=== PATIENT | male | born 1960 | race African-American/Black ===

== ENCOUNTER 2021-09-04 11:08 | Inpatient (IN) | payer OTHER ==
--- NOTE | 2021-09-04 11:44 | RAD REPORT ---
EXAM DESCRIPTION: RAD - Chest Single View - 09/04/2021 11:39 am CLINICAL HISTORY: CONGESTION Chest pain. COMPARISON: No comparisons FINDINGS: Portable technique limits examination quality. The lungs are grossly clear. The heart is normal in size. No displaced fractures.Thoracic spine hardw are. IMPRESSION: No acute intrathoracic process suspected.
[2021-09-04] MEDS ORDERED: NA CHLORIDE 0.9% 2,000 ML ONE (12:13)
[2021-09-04] MEDS ORDERED: CEFEPIME 1 GM/VIAL ONE ×2 (12:25→21:07)
[2021-09-04] MEDS ORDERED: VANCOMYCIN 1 GM/VIAL ONE (12:25)
[2021-09-04] MEDS ORDERED: NA CHLORIDE 0.9% 500 ML ONE (12:26)
[2021-09-04 13:05] LABS: BUN Blood Urea Nitrogen 32 mg/dL (7-18); Bicarbonate 25 mmol/L (21-32); Glucose Level 104 mg/dL (74-106); Sodium Level 127 mmol/L (136-145)
[2021-09-04 13:11] LABS: Potassium 5.9 mmol/L (3.5-5.1)
[2021-09-04 14:13] LABS: Absolute Lymphocytes (CBC) 1.1 K/uL (0.7-4.9); Hematocrit 19.1 % (39.6-49.0); MPV 5.8 fL (7.6-11.3); RBC Red Blood Cell Count 2.51 M/uL (4.33-5.43)
[2021-09-04 14:15] LABS: Protime INR 1.53
[2021-09-04] MEDS ORDERED: INSULIN -REGULAR HUMAN 50 UNIT/0.5 ML ML ONE (14:34)
[2021-09-04] MEDS ORDERED: D50W 50 ML IV ONE (14:35)
[2021-09-04] MEDS ORDERED: SOD POLYSTYREN SUL 15 GM/60 ML UCUP ONE (14:35)
[2021-09-04] MEDS ORDERED: CALCIUM GLUCONATE 1 GM IVPB 1 GM/100 ML BAG IV ONE (14:39)
[2021-09-04] MEDS ORDERED: NA CHLORIDE 0.9% 1,000 ML ONE (14:43)
--- NOTE | 2021-09-04 14:51 | ER ---
Nurse's Notes [facility] Name: Harmeet Up Age: 61 yrs Sex: Male : 1960 Arrival Date: 09/04/2021 Time: 11:12 Bed 15 Private MD: Diagnosis: Other specified sepsis;Sepsis, unspecified organism;Hyperkalemia-And hyponatremia Presentation: 09/04 11:13 Chief complaint: EMS states: report from EMS they were contacted because pt was cb5 difficult to awaken this morning, report of low blood pressure. Coronavirus screen: Client denies travel out of the [place] in the last 14 days. At this time, the client does not indicate any symptoms associated with coronavirus-19. Initial Sepsis Screen: Does the patient meet any 2 criteria? No. Patient's initial sepsis screen is negative. Does the patient have a suspected source of infection? No. Patient's initial sepsis screen is negative. Risk Assessment: Do you want to hurt yourself or someone else? Patient reports no desire to harm self or others. Onset of symptoms was September 04, 2021. 11:13 Method Of Arrival: EMS: [facility] cb5 11:13 Acuity: RUSSELL 3 cb5 11:28 Ebola Screen: Patient denies travel to an Ebola-affected area in the 21 days before cb5 illness onset. Patient reports travel to Ebola-affected area in the 21 days before illness onset. Triage Assessment: 11:17 General: Appears comfortable, slender, Behavior is calm, drowsy. Pain: Denies pain. cb5 - Immunization history:: Adult Immunizations up to date. - Social history:: Patient/guardian denies using Patient/guardian denies using alcohol, street drugs, The patient lives with family, Smoking status: unknown. - Family history:: not pertinent. Screenin:27 Abuse screen: Denies threats or abuse. Denies injuries from another. Nutritional cb5 screening: No deficits noted. Tuberculosis screening: No symptoms or risk factors identified. Fall Risk Secondary diagnosis (15 points) impaired mobility, IV access (20 points). Total [place] Fall Scale indicates Low Risk Score (25-44 pts). Fall prevention measures have been instituted. Side Rails Up X 2 Placed close to Nursing Station. Assessment: 11:18 General: Appears. cb5 11:20 General: Appears comfortable, slender, Behavior is calm, cooperative, drowsy. Pain: cb5 Denies pain. Neuro: No deficits noted. Cardiovascular: No deficits noted. Respiratory: No deficits noted. GI: colostomy bag LUQ intact, healthy stoma site. : Cunningham in place. 11:25 EENT: No deficits noted. Derm: Decubitus located on stage four sacral/lumbar site. 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 11:50 Reassessment: Attempted P.I.V placement unable to obtain, second nurse attempting, cb5 unable to obtain. 12:00 Reassessment: Second nurse able to obtain 20 g P.I.V to RT ac. cb5 14:25 Reassessment: P.I.V in rt AC clotted. Another nurse attempted P.I.V placement without cb5 success, M.DIlir aware. 14:44 Reassessment: Two nurses attempted P.I.V placement, unable to obtain having third nurse cb5 attempt placing E.Zeke. Tomy aware of attempts for P.I.V access. Vital Signs: 11:13 BP 85 / 53; Pulse 85; Resp 16; Temp 98.4; Pulse Ox 100% ; Pain 0/10; cb5 11:17 BP 85 / 53; Pulse 84; Resp 16; Temp 98.4; Pulse Ox 100% ; Pain 0/10; cb5 11:45 BP 82 / 54; Pulse 70; Resp 16; Pulse Ox 100% ; cb5 12:23 BP 99 / 54; Pulse 74; Resp 16; cb5 12:45 BP 102 / 69; Pulse 70; Resp 16; Pulse Ox 98% ; cb5 13:15 BP 110 / 70; Pulse 74; Resp 16; Pulse Ox 98% ; cb5 13:30 BP 104 / 67; Pulse 77; Resp 16; Pulse Ox 98% ; cb5 ED Course: 11:12 Patient arrived in ED. cb5 11:13 Cara Sotelo, GURPREET is Primary Nurse. cb5 11:16 Monique Bhatt MD is Attending Physician. ma2 11:16 Triage completed. cb5 11:18 Arm band placed on right wrist. cb5 11:28 Patient has correct armband on for positive identification. Allergy band placed. Fall cb5 risk band placed. Bed in low position. Call light in reach. Side rails up X2. 11:28 No provider procedures requiring assistance completed. cb5 11:39 Chest Single View XRAY In Process Unspecified. EDMS 12:00 Inserted saline lock: 22 gauge in left antecubital area, using aseptic technique. Blood vg1 collected. 12:20 Amylase, Serum Sent. cb5 12:20 Basic Metabolic Panel Sent. cb5 12:20 Blood Culture Adult (2) Sent. cb5 12:20 CBC with Diff Sent. cb5 12:21 CPK Sent. cb5 12:21 Ckmb Sent. cb5 12:21 LFT's Sent. cb5 12:21 Lactate Sent. cb5 12:21 Lipase Sent. cb5 12:21 Procalcitonin Sent. cb5 12:21 Protime (+inr) Sent. cb5 12:21 Ptt, Activated Sent. cb5 12:21 Troponin HS Sent. cb5 12:22 Lactate Sent. cb5 12:22 Amylase Sent. cb5 12:22 Basic Metabolic Panel Sent. cb5 12:22 CBC with Automated Diff Sent. cb5 12:46 SARS-COV-2 RT PCR (Document "Date of Onset" if Symptomatic) Sent. cb5 14:50 Giovanni Romano is Hospitalizing Provider. ma2 Administered Medications: 11:45 Drug: NS 0.9% 1000 ml Route: IV; Rate: 1 bolus; Site: left antecubital; cb5 12:20 Drug: NS 0.9% 1000 ml Route: IV; Rate: 1 bolus; Site: left antecubital; vg1 12:30 Drug: Cefepime 1 grams Route: IVPB; Rate: 200 ml/hr; Infused Over: 30 mins; Site: right cb5 antecubital; 12:46 Drug: vancoMYCIN 1 grams Route: IVPB; Infused Over: 2 hrs; Site: left antecubital; cb5 14:30 Drug: Insulin Regular Human 6 units {Co-Signature: vg1 (An Garcia RN).} Route: cb5 IVP; Site: left antecubital; 14:30 Drug: D50W 50 ml Route: IVP; Site: left antecubital; cb5 14:30 Drug: Kayexalate (polystyrene) 60 grams Route: PO; cb5 14:30 Drug: NS 0.9% 1000 ml Route: IV; Rate: 1 bolus; Site: left antecubital; 5 14:45 Drug: Calcium Gluconate 1 grams Route: IVPB; Infused Over: 60 mins; Site: left cb5 antecubital; Outcome: 14:50 Decision to Hospitalize by Provider. ma2 16:21 Admitted to Med/surg accompanied by tech, via stretcher, room 214, Gave report to 5 Summer Thompson, on monitor. 16:21 Condition: stable 16:28 Patient left the ED. iw Signatures: Dispatcher [employer] EDSharita Schuster RN RN Monique Gonzalez MD MD ma2 An Garcia RN RN vg1 Cara Sotelo RN RN 5 An Garcia RN vg1
--- NOTE | 2021-09-04 14:51 | EDPHYS ---
Physician Documentation [facility] Name: Harmeet Up Age: 61 yrs Sex: Male : 1960 Arrival Date: 09/04/2021 Time: 11:12 Bed 15 Private MD: ED Physician Monique Bhatt HPI: 09/04 11:20 This 61 yrs old Male presents to ER via EMS with complaints of Sore throat, low blood ma2 pressure. 11:20 Onset: The symptoms/episode began/occurred gradually, 1 day(s) ago. Severity of ma2 symptoms: At their worst the symptoms were moderate, in the emergency department the symptoms are unchanged. Associated signs and symptoms: Pertinent negatives: diarrhea, ear ache, fever, nausea, rhinorrhea, vomiting. The patient has experienced similar episodes in the past. - Immunization history:: Adult Immunizations up to date. - Social history:: Patient/guardian denies using Patient/guardian denies using alcohol, street drugs, The patient lives with family, Smoking status: unknown. - Family history:: not pertinent. ROS: 11:20 Constitutional: Negative for fever, chills, and weight loss. ma2 11:20 All other systems are negative. Exam: 11:20 Constitutional: This is a well developed, well nourished patient who is awake, alert, ma2 and in no acute distress. Head/Face: Normocephalic, atraumatic. Eyes: Pupils equal round and reactive to light, extra-ocular motions intact. Lids and lashes normal. Conjunctiva and sclera are non-icteric and not injected. Cornea within normal limits. Periorbital areas with no swelling, redness, or edema. ENT: Nares patent. No nasal discharge, no septal abnormalities noted. Tympanic membranes are normal and external auditory canals are clear. Oropharynx with no redness, swelling, or masses, exudates, or evidence of obstruction, uvula midline. Mucous membranes moist. Chest/axilla: Normal chest wall appearance and motion. Nontender with no deformity. No lesions are appreciated. Cardiovascular: Regular rate and rhythm with a normal S1 and S2. No gallops, murmurs, or rubs. Normal PMI, no JVD. No pulse deficits. Respiratory: Lungs have equal breath sounds bilaterally, clear to auscultation and percussion. No rales, rhonchi or wheezes noted. No increased work of breathing, no retractions or nasal flaring. Abdomen/GI: Has colostomy bag, otherwise soft, non-tender, with normal bowel sounds. No distension or tympany. No guarding or rebound. No evidence of tenderness throughout. Back: No spinal tenderness. No costovertebral tenderness. Full range of motion. MS/ Extremity: Pulses equal, no cyanosis. Neurovascular intact. Full, normal range of motion. Neuro: Awake and alert, GCS 15, oriented to person, place, time, and situation. Cranial nerves II-XII grossly intact. Motor strength 5/5 in all extremities. Sensory grossly intact. Cerebellar exam normal. Normal gait. Vital Signs: 11:13 BP 85 / 53; Pulse 85; Resp 16; Temp 98.4; Pulse Ox 100% ; Pain 0/10; cb5 11:17 BP 85 / 53; Pulse 84; Resp 16; Temp 98.4; Pulse Ox 100% ; Pain 0/10; cb5 11:45 BP 82 / 54; Pulse 70; Resp 16; Pulse Ox 100% ; cb5 12:23 BP 99 / 54; Pulse 74; Resp 16; cb5 12:45 BP 102 / 69; Pulse 70; Resp 16; Pulse Ox 98% ; cb5 13:15 BP 110 / 70; Pulse 74; Resp 16; Pulse Ox 98% ; cb5 13:30 BP 104 / 67; Pulse 77; Resp 16; Pulse Ox 98% ; cb5 MDM: 11:16 Patient medically screened. ma2 14:49 Differential Diagnosis: Bronchitis Influenza Upper Respiratory Infection Pharyngitis. ma2 Data reviewed: vital signs, nurses notes. Counseling: I had a detailed discussion with the patient and/or guardian regarding: the historical points, exam findings, and any diagnostic results supporting the discharge/admit diagnosis, the presence of at least one elevated blood pressure reading (>120/80) during this emergency department visit, the need for outpatient follow up. Medical screen evaluation completed. EMTALA emergency medical condition absent. Response to treatment: the patient's symptoms have markedly improved after treatment. ED course: Patient has sepsis with no source yet. Discussed with Dr. Romano,. 09/04 11:18 Order name: Amylase, Serum ma2 09/04 11:18 Order name: Basic Metabolic Panel ma2 09/04 11:18 Order name: Blood Culture Adult (2) ms2 09/04 11:18 Order name: CBC with Diff [facility] 09/04 11:18 Order name: CPK [facility] 09/04 11:18 Order name: Ckmb [facility] 09/04 11:18 Order name: LFT's [facility] 09/04 11:18 Order name: Lactate; Complete Time: 12:48 [facility] 09/04 11:18 Order name: Lipase [facility] 09/04 11:18 Order name: Procalcitonin; Complete Time: 13:24 [facility] 09/04 11:18 Order name: Protime (+inr); Complete Time: 14:49 [facility] 09/04 11:18 Order name: Ptt, Activated; Complete Time: 14:49 [facility] 09/04 11:18 Order name: Troponin HS [facility] 09/04 11:18 Order name: Urine Microscopic Only [facility] 09/04 11:18 Order name: Chest Single View XRAY; Complete Time: 12:48 [facility] 09/04 11:18 Order name: SARS-COV-2 RT PCR (Document "Date of Onset" if Symptomatic); Complete Time: [facility] 14:49 09/04 11:18 Order name: Amylase [facility] 09/04 11:18 Order name: Basic Metabolic Panel [facility] 09/04 11:18 Order name: Blood Culture [facility] 09/04 11:18 Order name: CBC with Automated Diff [facility] 09/04 14:55 Order name: CT Abd/Pelvis - IV Contrast Only [facility] 09/04 15:22 Order name: Type And Screen 09/04 11:18 Order name: Accucheck; Complete Time: 12:22 [facility] 09/04 11:18 Order name: Cardiac monitoring; Complete Time: 11:29 [facility] 09/04 11:18 Order name: EKG - Nurse/Tech; Complete Time: 12:21 [facility] 09/04 11:18 Order name: IV Saline Lock - Large Bore; Complete Time: 12:21 [facility] 09/04 11:18 Order name: Labs collected and sent; Complete Time: 12:21 [facility] 09/04 11:18 Order name: O2 Per Protocol; Complete Time: 11:29 [facility] 09/04 11:18 Order name: O2 Sat Monitoring; Complete Time: 11:29 [facility] 09/04 11:18 Order name: Urine Dipstick-Ancillary (obtain specimen) ms2 09/04 12:32 Order name: Labs - recollect needed: recollect green and lavender top; Complete Time: bd 14:52 09/04 14:49 Order name: Cunningham; Complete Time: 15:46 ms2 09/04 14:55 Order name: Transfuse: 2 units pRBC, over 2 hrs ma2 Administered Medications: 11:45 Drug: NS 0.9% 1000 ml Route: IV; Rate: 1 bolus; Site: left antecubital; cb5 12:20 Drug: NS 0.9% 1000 ml Route: IV; Rate: 1 bolus; Site: left antecubital; vg1 12:30 Drug: Cefepime 1 grams Route: IVPB; Rate: 200 ml/hr; Infused Over: 30 mins; Site: right cb5 antecubital; 12:46 Drug: vancoMYCIN 1 grams Route: IVPB; Infused Over: 2 hrs; Site: left antecubital; cb5 14:30 Drug: Insulin Regular Human 6 units {Co-Signature: vg1 (An Garcia RN).} Route: cb5 IVP; Site: left antecubital; 14:30 Drug: D50W 50 ml Route: IVP; Site: left antecubital; cb5 14:30 Drug: Kayexalate (polystyrene) 60 grams Route: PO; cb5 14:30 Drug: NS 0.9% 1000 ml Route: IV; Rate: 1 bolus; Site: left antecubital; cb5 14:45 Drug: Calcium Gluconate 1 grams Route: IVPB; Infused Over: 60 mins; Site: left cb5 antecubital; Disposition Summary: 09/04/21 14:50 Hospitalization Ordered Hospitalization Status: Inpatient Admission ma2 Provider: Giovanni Romano Location: Telemetry/MedSurg (Inpatient) ma2 Condition: Stable ma2 Problem: new ma2 Symptoms: are unchanged ma2 Bed/Room Type: Standard [facility] Room Assignment: 214(09/04/21 15:52) dw Diagnosis - Other specified sepsis ma2 - Sepsis, unspecified organism ma2 - Hyperkalemia - And hyponatremia ma2 Forms: - Medication Reconciliation Form ma2 - SBAR form ms2 Signatures: Dispatcher [employer] Francine Akins Diana RN RN dw Monique Bhatt MD MD ma2 An Garcia RN RN vg1 Cara Sotelo RN RN cb5 An Garcia RN vg1 Corrections: (The following items were deleted from the chart) 15:52 14:50 lesvia whaley
--- NOTE | 2021-09-04 16:21 | P.HP ---
Certification for Inpatient Patient admitted to: Inpatient With expected LOS: >2 Midnights Practitioner: I am a practitioner with admitting privileges, knowledge of patient current condition, hospital course, and medical plan of care. Services: Services provided to patient in accordance with Admission requirements found in Title 42 Section 412.3 of the Code of Federal Regulations Patient History Date of Service: 09/04/21 Reason for admission: Hypotension History of Present Illness: 61-year-old assisted resident with a history of type 2 diabetes, paraplegia, GERD, chronic anemia, bipolar disorder, major depressive disorder, sacral decubitus ulcer was transferred from the assisted to the emergency department due to hypotension. Patient noted to have low blood pressure, no report of fever. Patient reports shortness of breath, had a sore throat 1 week ago, he denies abdominal pain, has a colostomy bag with loose stools, no watery diarrhea. He denied any cough or chest pain. He denied any confusion. His systolic blood pressure reported to be in the 80s in the ED. blood work showed severe leukocytosis, hyperkalemia and hyponatremia. Lactate elevated. Patient diagnosed with severe sepsis. CT abdomen and pelvis ordered and the result is pending. Sepsis protocol initiated and patient given 2 L IV normal saline bolus. Blood pressure responded to the normal saline bolus and systolic currently in the 100s. Patient given IV antibiotics and admitted for further management. - Past Medical/Surgical History -: DM type II -: UTI -: GERD -: Paraplegia -: Neurogenic bladder -: Bipolar disorder -: Sacral decubitus ulcer -: Protein calorie malnutrition -: Colostomy - Family History Mother -: Other (see notes) (Dementia) - Social History Smoking Status: Former smoker Alcohol use: No CD- Drugs: No Place of Residence: Detention Review of Systems Other: Except as documented, all other systems reviewed and negative. Physical Examination - Physical Exam General: Alert, In no apparent distress, Oriented x3, Cachectic HEENT: Normocephalic, PERRLA, Mucous membr. moist/pink, Sclerae nonicteric Neck: Supple, JVD not distended Respiratory: Clear to auscultation bilaterally, Normal air movement Cardiovascular: Regular rate/rhythm, Normal S1 S2, Edema (Left leg) Capillary refill: <2 Seconds Gastrointestinal: Normal bowel sounds, Soft and benign, Non-distended, No tenderness, Other (Colostomy) Musculoskeletal: Other (Bilateral transmetatarsal amputation) Integumentary: Other (Large stage IV sacral decubitus ulcer with necrotic base) Neurological: Normal speech, Other (Paraplegia.) Lymphatics: No axilla or inguinal lymphadenopathy - Studies Laboratory Data (last 24 hrs) 09/04/21 13:39: PT 17.7 H, INR 1.53, APTT 29.5 09/04/21 13:39: WBC 27.00 H*, Hgb 5.7 L*, Hct 19.1 L*, Plt Count 872 H 09/04/21 12:10: Sodium 127 L, Potassium 5.9 H*, BUN 32 H, Creatinine 1.66 H, Glucose 104 Assessment and Plan - Problems (Diagnosis) (1) Septic shock Current Visit: Yes Status: Acute (2) Infected decubitus ulcer Current Visit: Yes Status: Acute (3) Paraplegia Current Visit: Yes Status: Acute (4) Diabetes mellitus type 2 in nonobese Current Visit: Yes Status: Acute (5) Hyperkalemia Current Visit: Yes Status: Acute (6) Hyponatremia Current Visit: Yes Status: Acute - Plan Patient blood pressure has responded to IV resuscitation in the ED. Admitted to the medical floor. Sepsis protocol initiated. Serial lactate levels. Start broad-spectrum antibiotic-IV cefepime and vancomycin. Aggressively hydrate with IV normal saline. Blood cultures obtained in the ED to be followed. Obtain wound culture General surgery-Dr. Hagan consulted to evaluate sacral decubitus ulcer for debridement. Follow CT abdomen pelvis result. Insulin sliding scale for glucose management. Anticipating OR for surgical debridement. Hold DVT prophylaxis. Keep n.p.o. overnight. Pain management as needed. - Advance Directives Does patient have a Living Will: No Does patient have a Durable POA for Healthcare: No
[2021-09-04] MEDS ORDERED: SOD POLYSTYREN SUL 15 GM/60 ML UCUP PO ONE (16:26)
--- NOTE | 2021-09-04 16:51 | RAD REPORT ---
EXAM DESCRIPTION: CTAbdomen Pelvis W Contrast - 09/04/2021 4:41 pm CLINICAL HISTORY: ABD PAIN COMPARISON: Thoracic Spine W/Wo Contr dated 08/14/2020; Bone Imaging Whole Body dated 08/28/2021; Ches t Abdomen Pelvis W Cont dated 08/28/2021; Chest Abdomen Pelvis W Cont dated 10/31/2020; Chest Abdomen Pe lvis W Cont dated 05/21/2020No comparisons TECHNIQUE: CT of the abdomen and pelvis was performed. All CT scans are performed using dose optimization technique as appropriate and may include automated exposure control or mA/KV adjustment according to patient size. FINDINGS: Lower chest: Subpleural cystic structure in the left lower lobe of doubtful clinical signi ficance. Liver: No acute abnormality or suspicious lesions. Biliary: No biliary ductal dilatation. Stomach: No significant focal abnormality. Duodenum: No significant focal abnormality. Pancreas: No significant abnormality. Spleen: No significant abnormality. Adrenal: No suspicious lesions. Kidney/ureter: No hydronephrosis. No renal calculi. Retroperitoneum: No retroperitoneal adenopathy. Vascular: Atherosclerosis Bowel: Left lower quadrant ostomy. No bowel obstruction.. Peritoneum: No ascites or free air. Fat containing right inguinal hernia. Bladder: Cunningham catheter in the bladder. Reproductive: No adnexal masses. Bones: Sclerosis involving both of the ischia and left proximal femur. Gas and fluid containing this measures at least 25 cm in CC dimension but is only partially imaged. Collection in the right hip ext ending from the right gluteus musculature and along the right vastus lateralis muscle. Other: n/a IMPRESSION: Gas and fluid containing collection in the right hip and along the gluteus musculature c oncerning for abscess. Destructive changes at both of the ischia and left femur presumably sequela of chronic osteomyelitis.
[2021-09-04] MEDS: NA CHLORIDE 0.9% 1,000 ML IV SCH ×2 (17:19→20:14)
[2021-09-04] MEDS ORDERED: NA CHLORIDE 0.9% 500 ML IV ONE (17:19)
[2021-09-04] MEDS: INSULIN -REGULAR HUMAN 50 UNIT/0.5 ML ML SQ SCH ×2 (17:19→21:00)
[2021-09-04] MEDS ORDERED: ACETAMINOPHEN 500 MG TAB PO PRN (17:19)
[2021-09-04] MEDS ORDERED: SODIUM CHL 0.9% 1000 ML BAG IV ONE (17:19)
[2021-09-04] MEDS ORDERED: ONDANSETRON 4 MG/2 ML VIAL IV PRN (17:19)
[2021-09-04 17:32] LABS: ALT/SGPT 11 U/L (12-78); AST/SGOT 33 U/L (15-37); Alkaline Phosphatase 224 U/L (45-117); Bilirubin Direct 0.2 mg/dL (0-0.2); Bilirubin Total 0.4 mg/dL (0.2-1.0); Creatine Phosphokinase 745 U/L (39-308); Lipase 21 U/L (73-393); Protein, Total 8.1 g/dL (6.4-8.2)
[2021-09-04] MEDS: MORPHINE 2 MG/ML SYR IV PRN ×2 (17:51→22:01)
[2021-09-04] MEDS ORDERED: VANCOMYCIN 500 MG in NA CHLORIDE 0.9% 100 ML IVPB ONE (18:00)
[2021-09-04] MEDS ORDERED: NA CHLORIDE 0.9% 1,000 ML IV ONE (18:15)
[2021-09-04 19:45] LABS: Albumin 0.7 g/dL (3.4-5.0); CKMB Creatine Kinase MB 16.3 ng/mL (1.0-3.6)
[2021-09-04 19:59] LABS: Amylase 14 U/L (25-115)
[2021-09-04 20:47] LABS: Anisocytosis 1+; Blood Morphology Comment NOT SEEN (NOT SEEN); Hypochromasia 1+; Ovalocytes 1+; Platelet Estimate INCR; Poikilocytosis 1+; Teardrop Cell FEW
[2021-09-04] MEDS: CEFEPIME 2 GM in NA CHLORIDE 0.9% 100 ML IV SCH (21:00)
[2021-09-04] MEDS ORDERED: NOREPINEPHRINE 4mg/D5W 250mL 4 MG/250 ML BAG IV ONE (21:09)
[2021-09-04] MEDS ORDERED: NA CHLORIDE 0.9% 100 ML ONE (21:09)
[2021-09-04] MEDS: NOREPINEPHRINE 4 MG in D5W 250 ML IV SCH (21:15)
[2021-09-04] MEDS ORDERED: NA CHLORIDE 0.9% 250 ML ONE (23:00)
--- NOTE | 2021-09-05 04:25 | P.INFCA ---
Sepsis Focused Assessment - Sepsis Screen Result Severe Sepsis: Negative Septic Shock: Negative - Evaluation Current stage of sepsis: Ruled out Reason for ruling out sepsis: does not meet criteria - Vital Signs Reviewed: Yes Heart rate: 84 Blood Pressure: 105/59 Respiratory Rate: 16 - Examination Date exam was performed: 09/05/21 Time exam was performed: 00:00 Heart: Regular rate/rhythm, S1, S2 Lungs: Clear bilaterally Peripheral pulses: 3+ Normal Peripheral pulse location: Radial Capillary refill: <2 Seconds Skin examination: Normal turgor <Taye Jo - Last Filed: 09/05/21 04:26> - Sepsis Screen Result Severe Sepsis: Positive Septic Shock: Positive - Evaluation Current stage of sepsis: Severe sepsis - Examination Peripheral pulses: 1+ Faint <quoc aguilar - Last Filed: 09/08/21 19:35>
[2021-09-05 05:41] LABS: Urine Appearance CLOUDY (Clear); Urine Bilirubin NEGATIVE (Negative); Urine Blood 2+ (Negative); Urine Color YELLOW (Yellow); Urine Glucose NEGATIVE (Negative); Urine Protein 1+ (Negative); Urine Specific Gravity >=1.030 (1.005-1.030); Urine Urobilinogen 0.2 mg/dL (0.2-1.0)
[2021-09-05 05:57] LABS: Absolute Lymphocytes (CBC) 0.8 K/uL (0.7-4.9); Hematocrit 24.8 % (39.6-49.0); MPV 5.8 fL (7.6-11.3); RBC Red Blood Cell Count 3.15 M/uL (4.33-5.43)
[2021-09-05 06:13] LABS: Urine Microscopic Reflex ORDER UMIC
[2021-09-05 06:19] LABS: Urine Bacteria 20-50 /HPF (NONE SEEN); Urine Mucus 1+ /HPF (NONE SEEN)
[2021-09-05 06:24] LABS: Protime INR 1.56
--- NOTE | 2021-09-05 06:30 | P.CNS ---
Date of Consult: 09/05/21 Reason for Consult: renal failure Requesting Physician: quoc aguilar Chief Complaint: Hypotension History of Present Illness: 61M SN[facility] resident w/ PMHx of DM2, bipolar dso, paraplegia c/b sacral decubitus ulcer, GERD, & anemia, who p/w hypotension, leukocytosis, & lactic acidosis, admitted for septic shock 2/2 infected decubitus ulcer, c/b MAURI. He received IV fluid resuscitation & empiric abx. SCr on adm 1.7, improved to 1.0 today. He underwent excisional debridement of infected sacral decubitus ulcer today. Also had severe anemia & he received pRBC transfusion. Allergies No Known Allergies Allergy (Unverified 09/04/21 17:18) - Past Medical/Surgical History -: DM type II -: UTI -: GERD -: Paraplegia -: Neurogenic bladder -: Bipolar disorder -: Sacral decubitus ulcer -: Protein calorie malnutrition -: Colostomy - Family History Mother Medical History: Other (see notes) - Social History Smoking Status: Unknown if ever smoked Alcohol use: No CD- Drugs: No Caffeine use: No Place of Residence: Skilled Nursing Review of Systems General: Weakness Eyes: Unremarkable ENT: Unremarkable Respiratory: SOB with Excertion Cardiovascular: Unremarkable Gastrointestinal: Unremarkable Musculoskeletal: Other (Paraplegia) Integumentary: Other (Sacral decubitus) Neurological: Weakness Lymphatics: Unremarkable Physical Examination Temp Pulse Resp BP Pulse Ox 98.4 F 88 19 108/53 L 100 09/05/21 04:00 09/05/21 06:26 09/05/21 06:26 09/05/21 06:26 09/05/21 06:26 General: Other (appears acutely ill) HEENT: Atraumatic, Normocephalic Neck: Supple Respiratory: Other (symmetric chest expansion) Cardiovascular: No rubs, No murmurs Gastrointestinal: Soft and benign, No guarding, Other (+colostomy) Musculoskeletal: No clubbing Integumentary: Other (+sacral wound) Neurological: Normal tone Urinary: Suprapubic catheter External genitalia: Deferred Rectal: Deferred Laboratory Data (last 24 hrs) 09/04/21 13:39: PT 17.7 H, INR 1.53, APTT 29.5 09/04/21 13:39: WBC 27.00 H*, Hgb 5.7 L*, Hct 19.1 L*, Plt Count 872 H 09/04/21 12:10: Sodium 127 L, Potassium 5.9 H*, BUN 32 H, Creatinine 1.66 H, Glucose 104, Total Bilirubin 0.4, AST 33, ALT 11 L, Alkaline Phosphatase 224 H, Amylase 14 L, Lipase 21 L Conclusions/Impression: # MAURI 2/2 ischemic atn from septic shock NS gtt at 75 cc/hr Start Midodrine 10 mg po tid Wean off levo gtt as able MAP goal > 65 Strict I/O, renal panel # Septic shock 2/2 R hip/gluteal abscess/osteomyelitis IV Abx per primary team S/p excisional debridement of infected sacral decubitus on 09/05 F/u BCx, tissue cx # Severe anemia S/p pRBC transf on 09/04 # Paraplegia +Suprapubic catheter +Colostomy Per other services # DM2 Mngt per primary team
[2021-09-05 06:34] LABS: BUN Blood Urea Nitrogen 32 mg/dL (7-18); Bicarbonate 19 mmol/L (21-32); Glucose Level 152 mg/dL (74-106); Magnesium 1.8 mg/dL (1.8-2.4); Phosphorus 3.5 mg/dL (2.5-4.9); Sodium Level 134 mmol/L (136-145)
[2021-09-05] MEDS: INSULIN -REGULAR HUMAN 50 UNIT/0.5 ML ML SQ SCH ×4 (07:30→21:00)
[2021-09-05] MEDS ORDERED: NA CHLORIDE 0.9% 250 ML ONE (08:32)
[2021-09-05] MEDS: MORPHINE 2 MG/ML SYR IV PRN ×2 (08:45→15:50)
--- NOTE | 2021-09-05 10:08 | CON ---
Date of Consultation: 09/04/2021 Reason For Consultation: Infected sacral decubitus. History Of Present Illness: The patient is a 61-year-old gentleman with paraplegia secondary to stap h infection that occurred several years ago who is a [facility] patient and has a large sacral decu bitus, came in from the [facility] with hypotension. He had a little bit of shortness of breath an d sore throat, chest pain, low-grade fever. No history of active purulence from the sacral decubitus . He does have a colostomy bag and suprapubic catheter. He came in with severe sepsis. Sepsis code was called and appropriate measures were taken. He is in the ICU. He had hypotension last night an d his blood pressure has been managed with Levophed and he is on the 2 mcg of Levophed now with vital signs are more stable. He is awake and alert. Denies any pain secondary to the paraplegia. Review of Systems: Otherwise unremarkable. Past Medical History: Type 2 diabetes, history of UTI, GERD, paraplegia, neurogenic bladder, bipolar disorder, history of sacral decubitus for several years, protein-calorie malnutrition. Past Surgical History: Suprapubic catheter and colostomy. Allergies: NONE. Social History: The patient used to smoke, currently does not drink alcohol. Family History: Significant for dementia in the mother. Physical Examination: Vital Signs: Currently his pulse rate of 88, respiratory rate of 19 and a blood pressure of 108/53 a nd he is saturating at 100% on nasal cannula at 4 L/minute. General: He is awake, alert, and oriented x3. Head and Neck: Cranial nerves 2 through 12 are grossly within normal limits. No neck masses. No JV D. Throat clear. Neck supple. Chest: Clear. Heart: S1, S2. Abdomen: Soft. Colostomy and suprapubic catheter placed. On the sacrum, there is a large sacral de cubitus, greater than 25 cm with a necrotic tissue. Some granulation tissue. It is hard to apprecia te whether there is an abscess present clinically, surrounding redness, erythema, warmth. Laboratory Data: CT of the abdomen and pelvis shows gas and fluid containing collection in the right hip along the gluteus musculature concerning for abscess, destructive changes to both ischia and lef t femur presumably sequela of chronic osteomyelitis. His laboratory data yesterday was 27,000, this morning is 27,000.70. H and H was 5.7 and 19.1 and after 2 units of transfusion 7.7 and 24.8. His p latelet count is 853 today, INR is 1.56. Chemistry reviewed. His potassium was 5.9 yesterday, today is 4.0. His sodium is up to 134. His lactic acid was elevated at 2.4, now is 1.6, procalcitonin wa s 3.17, his albumin is 0.7. Assessment: A 61-year-old gentleman with multiple medical problems with infected sacral decubitus, c omplicated by severe sepsis, hyperkalemia, anemia, hypotension. Recommendations: The patient requires debridement of the necrotic tissue that is present and I will review the case with the radiologist and see exactly what plane the gas is seen and see how to make a n appropriate surgical incision to make sure the patient does not indeed have an abscess and then chinmay ride all the infected tissue that is visible. I advised the nurses to provide him with another unit of blood. He needs supportive care. He needs nutritional optimization and needs vitamins to help wi th wound healing. Offloading the wound and air mattress and debridement of infected sacral decubitus , which will be done today. The patient understands the risks, benefits, and alternatives and agrees to proc edure. TESSIE/MODL Voice ID: [id number] Report ID: [id number]
[2021-09-05] MEDS: CEFEPIME 2 GM in NA CHLORIDE 0.9% 100 ML IV SCH ×2 (10:55→21:00)
[2021-09-05] MEDS: VANCOMYCIN 1.25 GM in NA CHLORIDE 0.9% 250 ML IVPB SCH (12:00)
[2021-09-05] MEDS: NA CHLORIDE 0.9% 1,000 ML IV SCH ×3 (12:35→21:29)
[2021-09-05 12:57] LABS: Hematocrit 29.4 % (39.6-49.0)
[2021-09-05] MEDS ORDERED: LIDOCAINE 2% MPF 5 ML VIAL ONE (13:02)
[2021-09-05] MEDS ORDERED: propofoL 200 MG/20 ML VIAL IV ONE (13:02)
[2021-09-05] MEDS ORDERED: ONDANSETRON 4 MG/2 ML VIAL ONE (13:03)
[2021-09-05] MEDS ORDERED: FENTANYL CITR 100 MCG/2 ML ONE (13:04)
[2021-09-05] MEDS ORDERED: NA CHLORIDE 0.9% 500 ML ONE ×2 (13:52→14:00)
[2021-09-05] MEDS: MIDODRINE HCL 5 MG TABLET PO SCH ×2 (14:00→21:04)
--- NOTE | 2021-09-05 14:21 | P.OP ---
Preoperative diagnosis: Infected sacral decubitus with abscess and Chronic osteo bilateral ischium Postoperative diagnosis: same with planned return to surgery Primary procedure: Excisional debridement Infected sacral decubitus 40 x 15 x 10 cm Anesthesia: general Estimated blood loss: min Specimen: pus and necrotic tissue Findings: as above Complications: None Transferred to: Recovery Room Condition: Serious
[2021-09-05] MEDS: MORPHINE 4 MG/ML SYR ONE ×2 (14:49→15:18)
--- NOTE | 2021-09-05 15:11 | OP ---
Date of Procedure: 09/05/2021 Surgeon: Patricio Hagan MD Customer Service Representative Teacher: None. Preoperative Diagnosis: Infected sacral decubitus with abscess. Postoperative Diagnosis: Infected sacral decubitus with abscess. Procedure: Excisional debridement of infected sacral decubitus with abscess 40 x 15 x 10 cm down thr ough the muscle layer. Estimated Blood Loss: Minimal. Specimen: Pus and necrotic tissue. Finding: As above. Anesthesia: General. Complications: None. Disposition: The patient tolerated the procedure in stable condition and taken to Recovery in good g eneral condition. Procedure In Detail: The patient was brought to the OR and placed in supine position. General anest hesia begun. The patient was placed in the left lateral position, prepped and draped in the usual st erile fashion. The patient had a large amount of necrotic tissue which was debrided with scissors an d cautery. As the patient was very anemic to begin with, care was taken not to be too aggressive on the debridement today. The patient was planned to have another debridement on Wednesday when he is more stable and then in the right posterolateral thigh and hip region there was a pocket of infection whi ch was debrided sharply as well and the total dimension of the wound itself was 40 x 15 x 10 cm and p ulse irrigation was used down the cavity in the right lateral thigh and then wound irrigated. Bleedi ng controlled with cautery. Kerlix sutures were tied to each other to do a wet-to-dry normal saline dressing change. The patient tolerated the procedure in stable condition. A-line was placed by yariel villasenor as the patient had been on Levophed. The patient was taken to recovery room in [facility]. /MODL Voice ID: [id number] Report ID: [id number]
--- NOTE | 2021-09-05 17:45 | P.PN ---
Subjective Date of Service: 09/05/21 Chief Complaint: Hypotension Status post sacral wound debridement by Dr. Hagan today. Patient became hypotensive last night and was started on Levophed. He is currently on low-dose Levophed drip. Blood culture growing gram-negative rods. He remain awake and interactive. No recorded fever. He is tolerating diet. Physical Examination - Vital Signs Temperature: 99.2 F Blood Pressure: 87/51 Pulse: 92 Respirations: 19 Pulse Ox (%): 100 - Physical Exam General: In no apparent distress, Other (Awake) HEENT: Mucous membr. moist/pink Neck: JVD not distended Respiratory: Clear to auscultation bilaterally, Normal air movement Cardiovascular: Normal S1 S2, Other (Tachycardia), Edema (Left leg) Gastrointestinal: Normal bowel sounds, Non-distended, No tenderness, Other (Colostomy) Musculoskeletal: Swelling (Left leg), Other (Bilateral transmetatarsal amputation) Integumentary: Other (Large sacral decubitus ulcer-dressed) Neurological: Other (Paraplegic) - Studies Laboratory Data (last 24 hrs) 09/04/21 13:39: WBC 27.00 H*, Hgb 5.7 L*, Hct 19.1 L*, Plt Count 872 H 09/04/21 12:10: Total Bilirubin 0.4, AST 33, ALT 11 L, Alkaline Phosphatase 224 H, Amylase 14 L, Lipase 21 L Assessment And Plan - Current Problems (Diagnosis) (1) Septic shock Current Visit: Yes Status: Acute (2) Infected decubitus ulcer Current Visit: Yes Status: Acute (3) Paraplegia Current Visit: Yes Status: Acute (4) Diabetes mellitus type 2 in nonobese Current Visit: Yes Status: Acute (5) Hyperkalemia Current Visit: Yes Status: Acute (6) Hyponatremia Current Visit: Yes Status: Acute (7) Septic arthritis Current Visit: Yes Status: Acute - Plan Continue IV cefepime and vancomycin. Continue hydration with IV normal saline. Status post sharp knife debridement. Dr. Hagan input appreciated. Follow blood cultures. Follow deep tissue wound culture CT abdomen pelvis result report septic arthritis, pelvic bone destruction secondary to chronic osteomyelitis. PICC line for prolonged antibiotic therapy. Orthopedic consult. Insulin sliding scale for glucose management. DVT prophylaxis with Lovenox. Diet as tolerated. Pain management as needed.
--- NOTE | 2021-09-05 17:48 | RAD REPORT ---
EXAM DESCRIPTION: RAD - Chest Single View - 09/05/2021 5:31 pm CLINICAL HISTORY: Device placement PICC line placement . IMPRESSION: PICC line with its tip 4 centimeters into the right atrium
[2021-09-05] MEDS: GLUCERNA SHAKE 237 ML CAN PO SCH (20:59)
[2021-09-05] MEDS: NOREPINEPHRINE 4 MG in D5W 250 ML IV SCH (21:27)
[2021-09-06] MEDS: MORPHINE 4 MG/ML SYR IV PRN ×3 (03:52→21:18)
[2021-09-06 05:40] LABS: Absolute Lymphocytes (CBC) 0.7 K/uL (0.7-4.9); Hematocrit 28.9 % (39.6-49.0); Lymphocytes % 3.7 % (15.3-44.8); MPV 5.6 fL (7.6-11.3); RBC Red Blood Cell Count 3.58 M/uL (4.33-5.43)
[2021-09-06 06:00] LABS: ALT/SGPT 13 U/L (12-78); AST/SGOT 18 U/L (15-37); Alkaline Phosphatase 146 U/L (45-117); BUN Blood Urea Nitrogen 23 mg/dL (7-18); Bicarbonate 18 mmol/L (21-32); Glucose Level 221 mg/dL (74-106); Magnesium 1.8 mg/dL (1.8-2.4); Phosphorus 3.4 mg/dL (2.5-4.9); Potassium 3.4 mmol/L (3.5-5.1); Protein, Total 5.8 g/dL (6.4-8.2); Sodium Level 138 mmol/L (136-145)
[2021-09-06 06:15] LABS: Albumin 0.6 g/dL (3.4-5.0)
[2021-09-06] MEDS: MIDODRINE HCL 5 MG TABLET PO SCH ×3 (07:58→20:24)
[2021-09-06] MEDS: INSULIN -REGULAR HUMAN 50 UNIT/0.5 ML ML SQ SCH ×4 (07:58→20:31)
[2021-09-06] MEDS: GLUCERNA SHAKE 237 ML CAN PO SCH ×2 (07:59→20:49)
[2021-09-06] MEDS: ENOXAPARIN 40 MG/0.4 ML SQ SCH (07:59)
[2021-09-06] MEDS: CEFEPIME 2 GM in NA CHLORIDE 0.9% 100 ML IV SCH (09:00)
[2021-09-06] MEDS: Meropenem 1,000 MG in NA CHLORIDE 0.9% 100 ML IV SCH ×2 (10:46→16:04)
[2021-09-06] MEDS: NA CHLORIDE 0.9% 1,000 ML IV SCH (11:46)
--- NOTE | 2021-09-06 12:11 | P.PN ---
Subjective Date of Service: 09/06/21 Chief Complaint: Hypotension Patient remains on low-dose Levophed Blood culture growing gram-positive cocci. Wound culture growing ESBL E. coli. He remain awake and interactive. No recorded fever. Physical Examination - Vital Signs Temperature: 98 F Blood Pressure: 106/53 Pulse: 78 Respirations: 29 Pulse Ox (%): 100 - Physical Exam General: In no apparent distress, Other (Cachectic) HEENT: Mucous membr. moist/pink Neck: JVD not distended Respiratory: Clear to auscultation bilaterally, Normal air movement Cardiovascular: Regular rate/rhythm, Normal S1 S2, Edema (Left lower extremity) Gastrointestinal: Soft and benign, Non-distended, Other (Colostomy) Musculoskeletal: Other (Right leg atrophy) Integumentary: Other (Sacral decubitus ulcer dressed) Neurological: Other (Paraplegia) Assessment And Plan - Current Problems (Diagnosis) (1) Septic shock Current Visit: Yes Status: Acute (2) Infected decubitus ulcer Current Visit: Yes Status: Acute (3) Paraplegia Current Visit: Yes Status: Acute (4) Diabetes mellitus type 2 in nonobese Current Visit: Yes Status: Acute (5) Hyperkalemia Current Visit: Yes Status: Acute (6) Hyponatremia Current Visit: Yes Status: Acute (7) Septic arthritis Current Visit: Yes Status: Acute - Plan Continue vancomycin. Change IV cefepime to IV meropenem. Continue hydration with IV normal saline. Status post sharp knife debridement. Dr. Hagan input appreciated. Dr. Hagan is planning for another debridement next week. Follow blood cultures. 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 PICC line placed for prolonged antibiotic therapy. Femoral central line removed. Orthopedic consult-regarding this septic arthritis. Insulin sliding scale for glucose management. DVT prophylaxis with Lovenox. Diet as tolerated. Pain management as needed.
[2021-09-06] MEDS: NOREPINEPHRINE 4 MG in D5W 250 ML IV SCH (15:03)
[2021-09-06] MEDS: VANCOMYCIN 1.25 GM in NA CHLORIDE 0.9% 250 ML IVPB SCH (15:41)
--- NOTE | 2021-09-06 16:05 | CON ---
Date of Consultation: 09/06/2021 Reason For Consultation: Sacral decubitus ulcer with soft tissue infection. History Of Present Illness: Mr. Up is a 61-year-old male, who is a resident of a local [facility] facility with past history of diabetes, bipolar disorder, paraplegia, GERD, and anemia with a sacral decubitus ulcer, who presented with hypotension, leukocytosis, lactic acidosis, and infection of the sacral decubitus ulcer. He was admitted with a septic shock and underwent local irrigation an d debridement by Dr. Hagan on September 05, 2021. The patient was hypotensive upon admission and has b een requiring blood pressure support. The patient has also been on antibiotics since his admission. Review of Systems: As above, otherwise negative. Past Medical History: Includes diabetes, GERD, paraplegia, neurogenic bladder, and bipolar disorder. Past Surgical History: Colostomy placement. Family History: Reviewed and noncontributory. Social History: No current tobacco use or alcohol use. Lives in a nursing. Physical Examination: General: No apparent distress. HEENT: Normocephalic, atraumatic. Neck: Supple. Cardiovascular: Brisk cap refill to all digits. Chest: Nonlabored breathing. Abdomen: Nondistended. Musculoskeletal: Upper extremities, no gross deformities. No obvious dislocations noted. Right low er extremity, the patient does not respond to any kind of motor neuro commands. No significant swell ing noted of his knee or his anterior tibia. Prior foot surgery noted. Left lower extremity, no sig nificant swelling noted to the distal femur, knee, or tibia. Sacral decubitus ulcer is bandaged at t his time. Diagnostic Studies: CAT scan of the abdomen and pelvis was reviewed. The patient has some sclerotic changes of the left proximal femur consistent with a prior fracture or osteomyelitis in the past per Radiology. The right lower extremity and hip noted on CAT scan. They are going to treat some swell ing and fluid collection as well as gas in the intermuscular pallor and pain of the posterior hip and lateral thigh. Did not see a significant bony destruction of the right femoral head, right acetabul um. No obvious signs of septic arthritis noted on CAT scan. Fluid collection appears to be intramus cular. Assessment And Plan: Harmeet is a 61-year-old male with an infected sacral decubitus ulcer with some soft tissue infection of his right buttock and lateral thigh. CT scan was reviewed by me. There do es not appear to be any significant bony destruction of the right hip or signs of any acute septic ar thritis. At this point, I do not recommend any deep bony debridement of the right hip, femoral head, or arthrotomy. The patient may continue with IV antibiotics and soft tissue debridement by General Surgery. If any worsening of the soft tissue infection is noted or the patient does not continue to improve, we will re-evaluate. CV/MODL Voice ID: [id number] Report ID: [id number]
--- NOTE | 2021-09-06 17:01 | P.PN ---
Subjective Date of Service: 09/06/21 Chief Complaint: Hypotension Subjective 61M [facility] resident w/ PMHx of DM2, bipolar dso, paraplegia c/b sacral decubitus ulcer, GERD, & anemia, who p/w hypotension, leukocytosis, & lactic acidosis, admitted for septic shock 2/2 infected decubitus ulcer, c/b MAURI. He received IV fluid resuscitation & empiric abx. SCr on adm 1.7, improved to 1.0 today S/P debridement remains on Levophed A/P # MAURI 2/2 ischemic atn from septic shock On Levophed and midodrine MAP goal > 65 Strict I/O, renal panel # Septic shock 2/2 R hip/gluteal abscess/osteomyelitis IV Abx per primary team S/p excisional debridement of infected sacral decubitus on 09/05 Bcx: gram positive bacteremia # Severe anemia S/p pRBC transf on 09/04 # Paraplegia +Suprapubic catheter +Colostomy Per other services # DM2 Mngt per primary team # sacral wound S/P debridement Physical Examination - Vital Signs Temperature: 98 F Blood Pressure: 99/44 Pulse: 83 Respirations: 29 Pulse Ox (%): 100
[2021-09-06] MEDS ORDERED: KCL 20 MEQ/100 mL IVPB 20 MEQ/100 ML BAG IV SCH (20:00)
[2021-09-06] MEDS ORDERED: KCL 20 MEQ/100 mL IVPB 100 ML IV ONE (20:14)
[2021-09-07] MEDS: Meropenem 1,000 MG in NA CHLORIDE 0.9% 100 ML IV SCH ×3 (01:05→17:35)
[2021-09-07 05:48] LABS: Absolute Lymphocytes (CBC) 0.8 K/uL (0.7-4.9); Hematocrit 29.5 % (39.6-49.0); Lymphocytes % 4.6 % (15.3-44.8); MPV 5.9 fL (7.6-11.3); RBC Red Blood Cell Count 3.69 M/uL (4.33-5.43)
[2021-09-07] MEDS: NOREPINEPHRINE 4 MG in D5W 250 ML IV SCH (06:01)
[2021-09-07] MEDS: NA CHLORIDE 0.9% 1,000 ML IV SCH ×2 (06:06→21:45)
[2021-09-07 06:15] LABS: ALT/SGPT 13 U/L (12-78); AST/SGOT 16 U/L (15-37); Alkaline Phosphatase 144 U/L (45-117); BUN Blood Urea Nitrogen 22 mg/dL (7-18); Bicarbonate 20 mmol/L (21-32); Bilirubin Total 0.7 mg/dL (0.2-1.0); Glucose Level 192 mg/dL (74-106); Protein, Total 5.7 g/dL (6.4-8.2); Sodium Level 140 mmol/L (136-145)
[2021-09-07 06:16] LABS: Albumin 0.6 g/dL (3.4-5.0)
[2021-09-07 06:19] LABS: Potassium 2.8 mmol/L (3.5-5.1)
[2021-09-07] MEDS ORDERED: KCL 20 MEQ/100 mL IVPB 20 MEQ/100 ML BAG IV SCH (07:30)
[2021-09-07] MEDS: MIDODRINE HCL 5 MG TABLET PO SCH ×3 (07:54→21:14)
[2021-09-07] MEDS: INSULIN -REGULAR HUMAN 50 UNIT/0.5 ML ML SQ SCH ×4 (07:56→21:00)
[2021-09-07] MEDS: GLUCERNA SHAKE 237 ML CAN PO SCH ×2 (07:57→21:13)
[2021-09-07] MEDS: ENOXAPARIN 40 MG/0.4 ML SQ SCH (07:58)
[2021-09-07] MEDS ORDERED: POTASSIUM CL 20 MEQ in NA CHLORIDE 0.9% 20 MEQ/100 ML BAG IV SCH (08:00)
[2021-09-07] MEDS ORDERED: POTASSIUM CL IV ONE (08:00)
[2021-09-07] MEDS ORDERED: NA CHLORIDE IV ONE (08:00)
[2021-09-07] MEDS ORDERED: POTASSIUM CL 40 MEQ in NA CHLORIDE 0.9% 480 ML IV ONE (10:00)
--- NOTE | 2021-09-07 10:53 | P.PN ---
Subjective Date of Service: 09/07/21 Chief Complaint: Hypotension Patient appears to be withdrawn today. His oral intake has decreased. He remains on low-dose Levophed Blood culture growing gram-positive cocci. Wound culture growing ESBL E. coli and Proteus Fever up to 100.9 earlier this morning. Physical Examination - Vital Signs Temperature: 98.4 F Blood Pressure: 131/62 Pulse: 77 Respirations: 17 Pulse Ox (%): 100 Assessment And Plan - Current Problems (Diagnosis) (1) Septic shock Current Visit: Yes Status: Acute (2) Infected decubitus ulcer Current Visit: Yes Status: Acute (3) Paraplegia Current Visit: Yes Status: Acute (4) Diabetes mellitus type 2 in nonobese Current Visit: Yes Status: Acute (5) Hyperkalemia Current Visit: Yes Status: Acute (6) Hyponatremia Current Visit: Yes Status: Acute (7) Septic arthritis Current Visit: Yes Status: Acute - Plan Physical examination: General: In no apparent distress, Other (Cachectic) HEENT: Mucous membr. moist/pink Neck: JVD not distended Respiratory: Clear to auscultation bilaterally, Normal air movement Cardiovascular: Regular rate/rhythm, Normal S1 S2, Edema -Left lower extremity. Gastrointestinal: Soft and benign, Non-distended, Colostomy Musculoskeletal: Right leg atrophy Integumentary: Sacral decubitus ulcer dressed Neurological: Paraplegia Continue vancomycin and IV meropenem. Continue hydration with IV normal saline. Status post sharp knife debridement. Dr. Hagan input appreciated. Dr. Hagan is planning for another debridement next week. Follow blood cultures-[facility]. Repeat blood culture. Wound culture: E. coli and Proteus. 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 Case discussed with orthopedic surgery-Dr. Gonzales. Per Dr. Gonzales the fluid collection appears to be soft tissue related and no joint space involvement. He recommended surgical debridement. No need for Ortho surgery. PICC line placed for prolonged antibiotic therapy. Femoral central line removed. Insulin sliding scale for glucose management. There is a report that patient is HIV positive. HIV screen obtained to confirm. I suspect the news is causing him to be depr essed. DVT prophylaxis with Lovenox. Diet as tolerated. Pain management as needed.
--- NOTE | 2021-09-07 11:41 | RAD REPORT ---
EXAM DESCRIPTION: RAD - Chest Single View - 09/07/2021 9:41 am CLINICAL HISTORY: volume overload Chest pain. COMPARISON: Chest Single View dated 09/05/2021; Chest Single View dated 09/04/2021 FINDINGS: Portable technique limits examination quality. The lungs are grossly clear. The heart is normal in size. No displaced fractures.Thoracic spine hardw are is present. Right-sided PICC line has tip in the SVC.
--- NOTE | 2021-09-07 12:10 | P.PN ---
Subjective Date of Service: 09/07/21 Chief Complaint: Hypotension Subjective 61[facility] resident w/ PMHx of DM2, bipolar dso, paraplegia c/b sacral decubitus ulcer, GERD, & anemia, who p/w hypotension, leukocytosis, & lactic acidosis, admitted for septic shock 2/2 infected decubitus ulcer, c/b MAURI. He received IV fluid resuscitation & empiric abx. SCr on adm 1.7, improved to 1.0 today remains on small dose of Levophed potassium replaced might benefit from Albumin infusion if BP remains low A/P # MAURI 2/2 ischemic atn from septic shock On Levophed and midodrine MAP goal > 65 Strict I/O, renal panel # Septic shock 2/2 R hip/gluteal abscess/osteomyelitis on Levophed WBC trending down IV Abx per primary team S/p excisional debridement of infected sacral decubitus on 09/05 Bcx: gram positive bacteremia # Severe anemia S/p pRBC transf on 09/04 # Paraplegia +Suprapubic catheter +Colostomy Per other services # DM2 Mngt per primary team # sacral wound S/P debridement Physical Examination - Vital Signs Temperature: 98.4 F Blood Pressure: 131/62 Pulse: 77 Respirations: 17 Pulse Ox (%): 100
[2021-09-07] MEDS: VANCOMYCIN 1.25 GM in NA CHLORIDE 0.9% 250 ML IVPB SCH ×2 (12:49→13:00)
--- NOTE | 2021-09-07 13:12 | PN ---
Date of Progress Note: 09/07/2021 Subjective: Please note yesterday I did a telephonic evaluation of the patient with the ICU nurse. Today, the patient on appearance is awake, more lethargic than he was Wednesday before surgery when I sky bellamy saw him. His vitals are stable. He is on minimal Levophed support. He is afebrile right now. Melonie galeas did have a low-grade temperature yesterday, and he is being weaned off the Levophed. His white cou nt is 17.1 today still with a left shift and his platelet counts have decreased from 872 to 518. H a nd H are stable at 9.5 and 29.5. Cultures are growing E coli ESBL, Proteus mirabilis. The patient i s on meropenem and vancomycin. Blood cultures are growing gram-positive cocci. His dressing is liam n with minimal serosanguineous fluid on it. Assessment: A 61-year-old gentleman with multiple medical problems with infected sacral decubitus, o steomyelitis, sepsis. Recommendations: Continue IV antibiotics. We will take the patient to the OR tomorrow for dressing change and more debridement as needed. The patient needs several trips to the operating room to try to establish clean wound bed for it to be able to heal appropriately, nutritional optimization with G lucerna and vitamin supplementation with zinc and vitamins C. /MODL Voice ID: [id number] Report ID: [id number]
[2021-09-07] MEDS ORDERED: POTASSIUM 25 MEQ EFFERV TAB PO ONE (21:00)
[2021-09-07] MEDS: MIRTAZAPINE 15 MG TAB PO SCH (21:14)
[2021-09-07] MEDS: MORPHINE 4 MG/ML SYR IV PRN (21:14)
[2021-09-07] MEDS: ASCORBIC ACID 500 MG TABLET PO SCH (21:14)
[2021-09-08] MEDS: Meropenem 1,000 MG in NA CHLORIDE 0.9% 100 ML IV SCH ×3 (00:35→16:33)
[2021-09-08 04:55] LABS: Absolute Lymphocytes (CBC) 1.1 K/uL (0.7-4.9); Hematocrit 28.5 % (39.6-49.0); Lymphocytes % 6.3 % (15.3-44.8); RBC Red Blood Cell Count 3.53 M/uL (4.33-5.43)
[2021-09-08 05:23] LABS: Blood Morphology Comment NOT SEEN (NOT SEEN); Platelet Estimate ADEQ
[2021-09-08 05:26] LABS: ALT/SGPT 15 U/L (12-78); AST/SGOT 15 U/L (15-37); Alkaline Phosphatase 124 U/L (45-117); BUN Blood Urea Nitrogen 22 mg/dL (7-18); Bicarbonate 20 mmol/L (21-32); Bilirubin Total 0.5 mg/dL (0.2-1.0); Glucose Level 184 mg/dL (74-106); Potassium 3.5 mmol/L (3.5-5.1); Protein, Total 5.4 g/dL (6.4-8.2); Sodium Level 141 mmol/L (136-145)
[2021-09-08 05:31] LABS: Albumin 0.6 g/dL (3.4-5.0)
[2021-09-08] MEDS: NA CHLORIDE 0.9% 1,000 ML IV SCH ×4 (07:15→16:16)
[2021-09-08] MEDS: INSULIN -REGULAR HUMAN 50 UNIT/0.5 ML ML SQ SCH ×4 (07:30→20:54)
[2021-09-08] MEDS: ASCORBIC ACID 500 MG TABLET PO SCH ×2 (07:55→20:17)
[2021-09-08] MEDS: MIDODRINE HCL 5 MG TABLET PO SCH ×3 (07:55→20:17)
[2021-09-08] MEDS: ZINC SULFATE 220 MG CAP PO SCH (07:55)
[2021-09-08] MEDS: GLUCERNA SHAKE 237 ML CAN PO SCH ×2 (07:55→20:10)
[2021-09-08] MEDS: COLLAGENASE 30 GM OINTMENT TOP ONE ×2 (08:05→09:45)
[2021-09-08] MEDS ORDERED: BUPIVACAINE 0.5% PF 10 ML VIAL ONE (08:06)
[2021-09-08] MEDS ORDERED: propofoL 200 MG/20 ML VIAL IV ONE (08:14)
[2021-09-08] MEDS ORDERED: FENTANYL CITR 100 MCG/2 ML ONE (08:14)
[2021-09-08] MEDS ORDERED: ONDANSETRON 4 MG/2 ML VIAL ONE (08:15)
--- NOTE | 2021-09-08 09:48 | P.OP ---
Hospital Product Specialist: NONE,NONE Preoperative diagnosis: Infected sacral decubitus Postoperative diagnosis: same, planned return to OR Primary procedure: Excisional debridement Infected sacral decubitus 40 x 15 x 10 cm to sq and Secondary procedure: Pulse irrigation Anesthesia: General Estimated blood loss: min Specimen: infected debridement tissue Findings: as above Complications: None Transferred to: Recovery Room Condition: Fair
--- NOTE | 2021-09-08 10:36 | OP ---
Date of Procedure: 09/08/2021 Surgeon: Patricio Hagan MD [employer]: None. Preoperative Diagnosis: Infected sacral decubitus. Postoperative Diagnosis: Infected sacral decubitus. Procedure: Excisional debridement of infected sacral decubitus 45 x 20 x 15 cm, subcutaneous tissue and muscle with pulse irrigation. Estimated Blood Loss: Minimal. Specimen: Debridement tissue. Findings: As above. Anesthesia: General. Complications: None. Disposition: The patient tolerated the procedure in fair condition and taken to Recovery in fair con dition. Procedure In Detail: The patient brought to the OR and placed in supine position. General anesthesi a was begun. Patient placed in the left lateral position and then prepped and draped in the usual st erile fashion. Then sharp debridement was proceeded to debride all loose fibrinous infected tissue a nd he was sent to Pathology. The total area of the wound was 45 x 20 x 15 cm. Then patient had a tu nnel down in the anterolateral thigh which extends to approximately 15 cm deep and the tensor fascia rox had some necrotic fibrin. Pulse irrigation was utilized in this area with Betadine and then wit h clear saline to wash this area completely out. Ideally, a wound VAC would be needed for this wound , but we do not have 1 available. Currently working on getting 1. Therefore, at this point, collage nase with a wet-to-dry Kerlix dressing was applied. Patient tolerated the procedure in fair condition and then taken to Rec overy in fair condition. /MODL Voice ID: [id number] Report ID: [id number]
[2021-09-08] MEDS ORDERED: MORPHINE 4 MG/ML SYR ONE (10:42)
[2021-09-08] MEDS: VANCOMYCIN 1.25 GM in NA CHLORIDE 0.9% 250 ML IVPB SCH ×2 (12:42→23:55)
--- NOTE | 2021-09-08 13:35 | P.PN ---
Subjective Date of Service: 09/08/21 Chief Complaint: Hypotension Patient is remain on low-dose Levophed. Status post sacral decubitus ulcer repeat debridement today. Blood culture growing gram-positive cocci. Wound culture growing ESBL E. coli and Proteus Normal fever over the past 24 hours. Physical Examination - Vital Signs Temperature: 97.3 F Blood Pressure: 111/65 Pulse: 93 Respirations: 28 Pulse Ox (%): 100 Assessment And Plan - Current Problems (Diagnosis) (1) Septic shock Current Visit: Yes Status: Acute (2) Infected decubitus ulcer Current Visit: Yes Status: Acute (3) Paraplegia Current Visit: Yes Status: Acute (4) Diabetes mellitus type 2 in nonobese Current Visit: Yes Status: Acute (5) Hyperkalemia Current Visit: Yes Status: Acute (6) Hyponatremia Current Visit: Yes Status: Acute (7) Septic arthritis Current Visit: Yes Status: Acute - Plan Physical examination: General: In no apparent distress, Cachectic. HEENT: Mucous membr. moist/pink Neck: JVD not distended Respiratory: Clear to auscultation bilaterally, Normal air movement Cardiovascular: Regular rate/rhythm, Normal S1 S2, Edema -Left lower extremity. Gastrointestinal: Soft and benign, Non-distended, Colostomy Musculoskeletal: Right leg atrophy Integumentary: Sacral decubitus ulcer dressed Neurological: Paraplegia Continue IV meropenem. Infectious disease input appreciated. Continue hydration with IV normal saline. Diet as tolerated Debridement and irrigation x2. Follow blood cultures-GPC. Repeat blood culture. Wound culture: E. coli and Proteus. 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 Case discussed with orthopedic surgery-Dr. Gonzales. Per Dr. Gonzales the fluid collection appears to be soft tissue related and no joint space involvement. He recommended surgical debridement. No need for Ortho surgery. PICC line placed for prolonged antibiotic therapy. Femoral central line removed. Wound VAC to be applied to the wound. Nursing staff report seeing urine in his colostomy. 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 Urinalysis did not suggest any fecal matter. Patient will probably need a Gastrografin study. Currently on antibiotics. Conservative management for now. Insulin sliding scale for glucose management. There is a report that patient is HIV positive. HIV screen obtained to confirm. Continue midodrine for hypotension and weaning of Levophed as possible. DVT prophylaxis with Lovenox. Diet as tolerated. Insulin sliding scale for glucose management. Add Lantus insulin for target blood glucose of less than 200. Pain management as needed.
[2021-09-08] MEDS: INSULIN GLARGINE 100 UNIT/ML SQ SCH (13:39)
[2021-09-08] MEDS: ENOXAPARIN 40 MG/0.4 ML SQ SCH (15:52)
[2021-09-08] MEDS: NOREPINEPHRINE 4 MG in D5W 250 ML IV SCH (19:00)
[2021-09-08] MEDS: MIRTAZAPINE 15 MG TAB PO SCH (20:17)
[2021-09-08] MEDS ORDERED: KCL 20 MEQ/100 mL IVPB 20 MEQ/100 ML BAG IV SCH (21:00)
--- NOTE | 2021-09-08 23:57 | PN ---
Date of Progress Note: 09/08/2021 Chief Complaint: Acute kidney injury, hypotension. History: Patient is a 61-year-old man with history of diabetes mellitus, sacral decubitus ulcer, GREG D, anemia, leukocytosis, and lactic acidosis, admitted for septic shock with infected decubitus ulcer , history of recent acute kidney injury due to ATN. Serum creatinine level has improved from 1.7 to 1.0. The patient has nonoliguric urine output. He has been on low-dose of Levophed. Review of Systems: Patient cannot provide review of systems, is lethargic. Impression And Plan: 1.Acute kidney injury due to ischemic acute tubular necrosis from septic shock. Continue to monitor urine output and blood pressure. Continue IV fluids as needed. 2.Septic shock secondary to osseous and osteomyelitis. Continue broad spectrum antibiotic. Patient has undergone debridement of infected sacral decubitus. 3.Severe anemia. Continue to monitor hemoglobin level and plan blood transfusion. HERI/MODL Voice ID: [id number] Report ID: [id number]
[2021-09-09] MEDS: Meropenem 1,000 MG in NA CHLORIDE 0.9% 100 ML IV SCH ×3 (01:06→18:08)
[2021-09-09 05:49] LABS: Hematocrit 28.4 % (39.6-49.0); Lymphocytes % 5.5 % (15.3-44.8); MPV 6.7 fL (7.6-11.3)
[2021-09-09 05:57] LABS: BUN Blood Urea Nitrogen 23 mg/dL (7-18); Bicarbonate 17 mmol/L (21-32); Glucose Level 205 mg/dL (74-106); Potassium 3.3 mmol/L (3.5-5.1); Sodium Level 142 mmol/L (136-145)
--- NOTE | 2021-09-09 06:07 | P.PN ---
Date of Service: 09/09/21 Subjective: tired this morning, mumbles, reports some discomfort no acute events overnight remains on levophed ROS: as noted above, 10 point ROS otherwise negative Physical examination: General: NAD, fatigued appearing HEENT: normal conjunctiva, sclera anicteric Respiratory: Clear to auscultation bilaterally, Normal air movement Cardiovascular: Regular rate/rhythm Abd: soft, nontender, colostomy Musculoskeletal: Right leg atrophy Integumentary: Sacral decubitus ulcer dressed Neurological: Paraplegia Problem List Septic shock secondary to large infected decubitus ulcer Paraplegia DM2 Hyperkalemia Hyponatremia continue merrem/vanc, ID consulted s/p I&D x2 by Dr. Hagan, plan for OR tomorrow, possibly wound vac placement continues to require levophed drip, wean as tolerated, continue midodrine f/u cultures - wound: e. 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 Case discussed with orthopedic surgery-Dr. Gonzales. Per Dr. Gonzales the fluid collection appears to be soft tissue related and no joint space involvement. He recommended surgical debridement. No need for Ortho surgery. PICC line placed for prolonged antibiotic therapy. Femoral central line removed. Nursing staff report seeing urine in his colostomy. 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 Urinalysis did not suggest any fecal matter. Patient will probably need a Gastrografin study. General Surgery aware Insulin sliding scale for glucose management. reportedly patient is HIV positive, screening test here pending VTE: lovenox Code: full Dispo: large wound, still requiring levophed, may be appropriate for LTAC if possible
[2021-09-09] MEDS: NA CHLORIDE 0.9% 1,000 ML IV SCH ×2 (06:30→22:14)
[2021-09-09] MEDS: POTASSIUM CL 40 MEQ in NA CHLORIDE 0.9% 500 ML IV ONE ×2 (07:59→08:02)
[2021-09-09] MEDS ORDERED: KCL 20 MEQ/100 mL IVPB 20 MEQ/100 ML BAG IV SCH (08:00)
[2021-09-09] MEDS: ENOXAPARIN 40 MG/0.4 ML SQ SCH (08:02)
[2021-09-09] MEDS: INSULIN -REGULAR HUMAN 50 UNIT/0.5 ML ML SQ SCH ×4 (08:03→21:00)
[2021-09-09] MEDS: MIDODRINE HCL 5 MG TABLET PO SCH ×3 (08:03→21:00)
[2021-09-09] MEDS: ZINC SULFATE 220 MG CAP PO SCH (08:03)
[2021-09-09] MEDS: ASCORBIC ACID 500 MG TABLET PO SCH ×2 (08:03→21:00)
[2021-09-09] MEDS: INSULIN GLARGINE 100 UNIT/ML SQ SCH (08:04)
[2021-09-09] MEDS: GLUCERNA SHAKE 237 ML CAN PO SCH ×2 (08:05→21:00)
[2021-09-09] MEDS: NOREPINEPHRINE 4 MG in D5W 250 ML IV SCH (08:34)
--- NOTE | 2021-09-09 11:43 | P.CNS ---
Date of Consult: 09/09/21 Chief Complaint: Hypotension History of Present Illness: The patient is a 61-year-old male with a past medical history of type 2 diabetes, paraplegia, GERD, chronic anemia, bipolar disorder, major depressive order, and chronic sacral decubitus ulcer who was transferred from his half-way to the emergency department secondary to hypotension. In ED patient was noted to be septic with low blood pressures, leukocytosis, and lactic acidosis. Blood culture showed no growth, sacral ulcer wound culture growing ESBL E. coli and Proteus Mirabella's. CT abdomen pelvis showed gas and fluid within the subcutaneous tissue as well as osteomyelitis present at the bilateral ischium of the pelvis and left femur. Patient underwent a surgical debridement on 09/05 with and additional debridement on 09/08. Surgical team plans to take patient back to the OR tomorrow to place a wound VAC. Patient empirically placed on meropenem and vancomycin. Allergies No Known Allergies Allergy (Unverified 09/04/21 17:18) Home Medications: Acetaminophen [Tylenol] 2 tab PO BID PRN 09/06/21 Albuterol Neb [Proventil 0.083% Neb Soln] 1 inh IH Q6H PRN 09/06/21 Arginine/Ascorbate Sod/Jay AC [Arginaid Powder] 1 each PO DAILY 09/06/21 Arginine/Glutamine/Calcium Bmb [Valentin Packet] 1 each PO BID 09/06/21 Aripiprazole [Abilify] 10 mg PO DAILY 09/06/21 Ascorbic Acid [Vitamin C] 500 mg PO BID 09/06/21 Aspirin [Aspirin EC 81 MG] 81 mg PO DAILY 09/06/21 Benzonatate 100 mg PO Q6H PRN 09/06/21 Buspirone HCl [Buspar] 10 mg PO BID 09/06/21 Docusate [Colace Cap*] 1 cap PO BID 09/06/21 Gabapentin 100 mg PO TID 09/06/21 Hydrocodone Bit/Acetaminophen [Hydrocodon-Acetaminophen 5-325] 1 each PO Q6H PRN 09/06/21 Hydroxyurea [Hydrea] 500 mg PO DAILY 09/06/21 Insulin Detemir [Levemir] 15 unit SQ BEDTIME 09/06/21 Lisinopril [Zestril] 5 mg PO DAILY 09/06/21 Mag Hydrox/Aluminum Hyd/Simeth [Alum-Mag Hydroxide-Simeth Susp] 30 ml PO Q8H PRN 09/06/21 Melatonin 5 mg PO BEDTIME 09/06/21 NPH, Human Insulin Isophane [Humulin N] 10 unit SQ DAILY 09/06/21 Omeprazole 10 mg PO BID 09/06/21 Tramadol HCl [Ultram] 50 mg PO Q6H PRN 09/06/21 - Past Medical/Surgical History -: DM type II -: UTI -: GERD -: Paraplegia -: Neurogenic bladder -: Bipolar disorder -: Sacral decubitus ulcer -: Protein calorie malnutrition -: Colostomy - Family History Mother Medical History: Other (see notes) - Social History Smoking Status: Unknown if ever smoked Alcohol use: No CD- Drugs: No Caffeine use: No Place of Residence: [facility] Physical Examination Temp Pulse Resp BP Pulse Ox 97.7 F 89 15 107/51 L 98 09/09/21 08:00 09/09/21 10:15 09/09/21 10:15 09/09/21 10:15 09/09/21 10:15 General: Confused HEENT: Atraumatic, Normocephalic Neck: Supple, 2+ carotid pulse no bruit Respiratory: Clear to auscultation bilaterally, Normal air movement Cardiovascular: No edema, Regular rate/rhythm, Normal S1 S2 Capillary refill: <2 Seconds Gastrointestinal: Other (Colostomy) Musculoskeletal: Other (Bilateral transmetatarsal amputation) Integumentary: Other (Large sacral decubitus pressure ulcer measuring approximately 45 x 20 x 15 cm. Wound extends down to left femur.) Neurological: Other (Paraplegic) Urinary: Suprapubic catheter, Other Conclusions/Impression: Antibiotics: Meropenem Start: 09/06 Vancomycin Start: 09/05 Vancomycin trough: 09/06: 11.6 09/08:<0.8 09/09: Pending Assessment/plan Sepsis secondary to locally infected stage IV sacral decubitus ulcer Wound culture growing ESBL producing E. coli and Proteus mirabellas both sensitive to meropenem. Continue empiric antibiotic therapy with meropenem and vancomycin. Patient has undergone surgical debridement of the wound on 09/05 and 09/08. Surgical team plans to take patient back to the OR tomorrow to place wound VAC. Continue to offload wound and avoid direct pressure. Pelvic/left femur osteomyelitis CT abdomen pelvis confirmed osteomyelitis. Patient will need IV antibiotics for 6 weeks. Leukocytosis Continue broad-spectrum IV antibiotic therapy, once WBC stabilizes can DC vancomycin. Continue to monitor WBC trend and fever curve, patient afebrile. Protein caloric malnutrition: Severe Patient on regular diet however if not eating. Recommend considering PEG tube. Adequate nutrition needed for proper wound healing. Continue vitamin supplementation with vitamin C and zinc. Diabetes Strict glucose monitoring needed for proper infection control/wound healing. Continue sliding scale insulin. Anemia Continue to monitor H&H -Medical management per primary team Plan of care discussed with Dr. Molina Thank for consultation
[2021-09-09] MEDS: VANCOMYCIN 1.25 GM in NA CHLORIDE 0.9% 250 ML IVPB SCH (12:43)
--- NOTE | 2021-09-09 12:47 | P.PN ---
Subjective Date of Service: 09/09/21 Chief Complaint: Hypotension Subjective: Other (Bedridden. Eating poorly.) Physical Examination - Vital Signs Temperature: 97.7 F Blood Pressure: 107/51 Pulse: 89 Respirations: 15 Pulse Ox (%): 98 - Physical Exam General: Other (Appears chronically ill.) HEENT: Atraumatic, Normocephalic Neck: Supple, JVD not distended Respiratory: Other (symmetric chest expansion) Cardiovascular: No rubs, No murmurs Gastrointestinal: Soft and benign, Non-distended Musculoskeletal: No clubbing Integumentary: No warmth Neurological: Other (no new focal deficits; has paraplegia) Urinary: Suprapubic catheter External genitalia: Deferred Rectal: Deferred - Studies Microbiology Data (last 24 hrs): 09/04/21 12:30 Blood - Blood Anaerobic Blood Culture - Final No growth in 5 days. 09/04/21 12:10 Blood - Blood Aerobic Blood Culture - Final No growth in 5 days. 09/04/21 12:10 Blood - Blood Anaerobic Blood Culture - Final No growth in 5 days. Assessment And Plan - Plan # MAURI 2/2 ischemic ATN from septic shock Resolved [place] by mouth fluid intake Currently has poor by mouth intake MAP goal > 65 monitor renal panel # Septic shock 2/2 R hip/gluteal abscess/osteomyelitis Shock resolved Abx per other services S/p excisional debridement of infected sacral decubitus on 09/05 # Severe anemia S/p pRBC transf on 09/04 Monitor H&H # Hypokalemia KCl repletion received today # Low serum bicarb No vomiting, no diarrhea Check ABG tomorrow if remains unimproved # Paraplegia +Suprapubic catheter +Colostomy Per other services # DM2 Mngt per primary team
--- NOTE | 2021-09-09 15:37 | PN ---
Date of Progress Note: 09/09/2021 Subjective: The patient is awake, lethargic. He is not wanting to eat. Objective: Vital Signs: Stable, afebrile. Extremities: His dressing was clean, dry, and intact. Medications: He is on low dose of Levophed. Laboratory Data: Reviewed. His white count is 17.8 with a left shift. Platelets have normalized. Chemistry reviewed as well. Assessment: Infected sacral decubitus, osteo, poor nutrition. Recommendations: Recommendation was to take him to the OR tomorrow for placement of a wound VAC with collagenase and change the dressing and debridement if necessary. Also discharge planning is in pro [place]cel[place]. IV antibiotics as ordered by Infectious Disease. /MODL Voice ID: [id number] Report ID: [id number]
[2021-09-09] MEDS: MIRTAZAPINE 15 MG TAB PO SCH (21:00)
--- NOTE | 2021-09-09 23:53 | CON ---
Date of Consult: 09/02/21 This is an inpatient consult in the ICU bed 3. Reason For Consultation: Suspected colovesical fistula. History Of Present Illness: Mr. Up is a 61-year-old gentleman with DM2, paraplegia, GERD, chronic anemia, bipolar disorder, major depressive disorder, who was transferred [facility] with a chronic sacral decubitus ulcer to the emergency department due to hypotension. He was noted in the emergency department to be septic and in shock. Cultures revealed ESBL E coli as well as Proteus mirabilis from the sacral culture. He subsequently underwent a CT scan of the abdomen and pelvis, which revealed gas and fluid in the subcutaneous tissues as well as osteomyelitis present at the bilateral ischia of the pelvis and femur. He underwent surgical debridement on 09/05/2021 and an additional debridement on 09/08/2021. In the postoperative care and while managing the ostomy, the nurses observed significant quantity of yellowish fluid, which they suspected might be urine. He has a suprapubic catheter in place, but there has been significant leakage from around the suprapubic site. CT scan of the abdomen and pelvis with contrast on 09/04/2021 was without upper tract or lower tract urologic abnormality. The suprapubic catheter was present in the bladder and both kidneys were normal without hydronephrosis or stone. On 09/09/2021, creatinine 0.64. Physical Examination: General: The patient is lying in the ICU bed, largely not responsive, but not intubated. Abdomen: Soft and there is a colostomy that is very productive. A suprapubic catheter is inferior to this in the lower midline and the site is clean without evidence of erythema or crepitus. An 18-German catheter is in place in the bladder as a suprapubic tube. Significant urine is draining around the catheter site as opposed to through the catheter itself. As a result, I assessed the catheter and it was mobile within the bladder; so I instilled an additional 10 cc of sterile water into the balloon and seated the catheter at the entry to the bladder. This did decrease the volume of urine leaking around the catheter at the suprapubic site. The catheter was connected back to the floor bag. Assessment And Recommendations: This is a 61-year-old gentleman with type 2 diabetes, paraplegia, gastroesophageal reflux disease, bipolar and major depressive disorder with a sacral decubitus ulcer complicated, now admitted for septic shock with a leaking suprapubic catheter and suspicion for colovesical fistula. I recommended to assess for the presence of suspected fistula, the material emanating from the colostomy may be sent for creatinine. If the creatinine ends up serious, there is no fistula. Since the urine was clear without evidence of feculent material and cultures taken from the bladder revealed no growth, again a fistula is doubtful. As far as management of leaking suprapubic catheter, should significantly regurgitation occur despite the installation of additional fluid in the balloon of the catheter, I recommend gentle irrigation of the catheter with 30 cc of normal saline using a catheter tip syringe. This should make sure the catheter is not clogged. If the catheter irrigates nicely and is not clogged, we will consider upsizing the catheter at some point in the near future. For the bladder spasms and the contracted bladder, which is likely contributing to the leakage of urine around the site, once sufficiently stable, the team may consider oxybutynin. Addendum 09/10/2021: I received several calls from the lab on 09/09/2021 and again from the customer technical services manager on 09/10/2021 indicating they could not perform the requested fluid creatinine assessment. Despite references to [facility]'s ability to run fluid creatinine as a send out test on JESUS drains etc. there, apparently, they rejected the specimen sent to them from yesterday. As a result, we will not be able to assess the creatinine to determine whether urine is indeed emanating from the colostomy. So if the suspicion for colostomy-vesical/enterovesical fistula persists, it will require either definitive anatomic imaging via CT scan with oral contrast allowed to propagate through to the colostomy, or alternatively, 1 might consider a poppyseed test, if the patient is able to adequately consume food containing poppy seeds. WR/MODL Voice ID: [id number] Report ID: [id number] PARVIZ
[2021-09-10] MEDS: VANCOMYCIN 1.25 GM in NA CHLORIDE 0.9% 250 ML IVPB SCH ×2
[2021-09-10] MEDS: Meropenem 1,000 MG in NA CHLORIDE 0.9% 100 ML IV SCH ×3 (01:00→18:42)
[2021-09-10 06:03] LABS: Absolute Lymphocytes (CBC) 1.1 K/uL (0.7-4.9); Hematocrit 24.9 % (39.6-49.0); Lymphocytes % 8.7 % (15.3-44.8); MPV 6.9 fL (7.6-11.3); RBC Red Blood Cell Count 3.07 M/uL (4.33-5.43)
--- NOTE | 2021-09-10 06:08 | P.PN ---
Date of Service: 09/10/21 Subjective: No significant events overnight. Patient was weaned off Levophed yesterday, continues with low blood pressure Scheduled to go to the OR today Evaluated by urology yesterday Patient mumbles, denies any new symptoms ROS: as noted above, 10 point ROS otherwise negative Physical examination: General: NAD, fatigued appearing HEENT: normal conjunctiva, sclera anicteric Respiratory: Clear to auscultation bilaterally, diminished at bases Cardiovascular: Regular rate/rhythm Abd: soft, nontender, colostomy, suprapubic catheter in place Integumentary: Sacral decubitus ulcer: dressing in place Neurological: Paraplegia Problem List Septic shock secondary to large infected decubitus ulcer Paraplegia DM2 Hyperkalemia Hyponatremia Hypocalcemia Empirically treated with meropenem and vancomycin. ID consulted, recommends discontinuation of vancomycin. Patient will need meropenem 1 g every 8 hours for 6 weeks total s/p I&D x2 by Dr. Hagan, plan for OR today, possibly wound vac placement Able to wean off Levophed yesterday, continue midodrine f/u cultures - wound: e. 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 Case discussed with orthopedic surgery-Dr. Gonzales. Per Dr. Gonzales the fluid collection appears to be soft tissue related and no joint space involvement. He recommended surgical debridement. No need for Ortho surgery. PICC line placed for prolonged antibiotic therapy. Femoral central line removed. Hemoglobin decreased, will transfuse 1 unit Nursing staff reported seeing urine in his colostomy. 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 Urinalysis did not suggest any fecal matter. Urology consulted, recommended to send ostomy output for Cr. Low suspicion for fistula at this time Insulin sliding scale for glucose management. reportedly patient is HIV positive, screening test here pending Patient has not had any significant nutrition in several days. Left messages for patient's family, would be agreeable to [place], or PEG tube VTE: lovenox Code: full Dispo: ICU level of care, OR today
[2021-09-10 06:22] LABS: Potassium 3.3 mmol/L (3.5-5.1); Sodium Level 142 mmol/L (136-145)
[2021-09-10 06:40] LABS: ALT/SGPT 15 U/L (12-78); AST/SGOT 17 U/L (15-37); Alkaline Phosphatase 158 U/L (45-117); BUN Blood Urea Nitrogen 23 mg/dL (7-18); Bicarbonate 19 mmol/L (21-32); Bilirubin Total 0.4 mg/dL (0.2-1.0); Glucose Level 112 mg/dL (74-106); Magnesium 1.7 mg/dL (1.8-2.4); Protein, Total 5.1 g/dL (6.4-8.2)
[2021-09-10 06:44] LABS: Albumin 0.6 g/dL (3.4-5.0)
[2021-09-10] MEDS: INSULIN -REGULAR HUMAN 50 UNIT/0.5 ML ML SQ SCH ×4 (07:30→21:00)
[2021-09-10] MEDS ORDERED: MAGNESIUM SULFATE 1 gm IVPB 1 GM/100 ML BAG IV ONE (07:32)
[2021-09-10] MEDS ORDERED: SUCCINYLCHOLINE 20 MG/ML (10 ML) IV ONE ×2 (07:58→09:03)
[2021-09-10] MEDS ORDERED: propofoL 200 MG/20 ML VIAL IV ONE ×2 (08:00→08:02)
[2021-09-10] MEDS ORDERED: KCL 20 MEQ/100 mL IVPB 20 MEQ/100 ML BAG IV SCH (08:00)
[2021-09-10] MEDS ORDERED: POTASSIUM CL 40 MEQ in NA CHLORIDE 0.9% 500 ML IV ONE (08:00)
[2021-09-10] MEDS ORDERED: MIDAZOLAM HCL 2 MG/2 ML INJ ONE ×2 (08:00→08:02)
[2021-09-10] MEDS: ZINC SULFATE 220 MG CAP PO SCH (08:01)
[2021-09-10] MEDS: ASCORBIC ACID 500 MG TABLET PO SCH ×2 (08:01→21:00)
[2021-09-10] MEDS: INSULIN GLARGINE 100 UNIT/ML SQ SCH (08:01)
[2021-09-10] MEDS: MIDODRINE HCL 5 MG TABLET PO SCH ×3 (08:01→21:00)
[2021-09-10] MEDS: GLUCERNA SHAKE 237 ML CAN PO SCH ×4 (08:02→21:00)
[2021-09-10] MEDS: ENOXAPARIN 40 MG/0.4 ML SQ SCH (08:02)
[2021-09-10] MEDS ORDERED: GLYCOPYRROLATE 0.2 MG/ML SYR ONE ×3 (08:03→08:33)
[2021-09-10] MEDS ORDERED: FENTANYL CITR 100 MCG/2 ML ONE (08:03)
[2021-09-10] MEDS ORDERED: LIDOCAINE 2% MPF 5 ML VIAL ONE (08:03)
[2021-09-10] MEDS ORDERED: ONDANSETRON 4 MG/2 ML VIAL ONE (08:03)
[2021-09-10] MEDS ORDERED: ROCURONIUM 50 MG/5 ML VIAL IV ONE (08:04)
[2021-09-10] MEDS ORDERED: NEOSTIGMINE 1 MG/ML -5 ML ONE (08:04)
[2021-09-10] MEDS ORDERED: COLLAGENASE 30 GM OINTMENT TOP ONE (09:05)
--- NOTE | 2021-09-10 09:25 | P.OP ---
Tile Layer Drainage: Victoriano ERNST Preoperative diagnosis: Sacral Decubitus Postoperative diagnosis: same Primary procedure: Excisional debridement sacral decubitus 40 x 15 x 10 cm to sq and Secondary procedure: Pulse irrigation and Application of Wound VAC Anesthesia: MAC Estimated blood loss: min Specimen: Debridement tissue Findings: as above Complications: None Transferred to: Recovery Room Condition: Serious
--- NOTE | 2021-09-10 10:26 | OP ---
Date of Procedure: 09/10/2021 Surgeon: Patricio Hagan MD Fitter Tacker: Victoriano Acuna, rn neurosurgical certified and Gayatri Power, RN, wound care nurse who kim jamie the wound VAC. Preoperative Diagnosis: Sacral decubitus ulcer. Postoperative Diagnosis: Sacral decubitus ulcer. Procedure: Excision and debridement of sacral decubitus, approximately 40 x 15 x 10 cm to subcutaneo us tissue and muscle with pulse irrigation and placement of wound VAC. Specimen: Debridement tissue. Estimated Blood Loss: Minimal. Finding: As above. Anesthesia: MAC. Complications: None. Disposition: The patient tolerated the procedure in stable condition and taken to Recovery in seriou s condition, but stable. Procedure In Detail: The patient was brought to the OR and placed in supine position. MAC anesthesi a begun. The patient was placed in left lateral position, prepped and draped in the usual sterile fa shion. Then, the superior part of the wound as well as lateral and toward the hip and down the thigh , there was a necrotic fibrin present, which was debrided with sharp debridement. Large amount of ti ssue was excised. Bleeding was controlled with cautery and 2-0 silk ties. Then, Betadine used, sali ne, was pulse irrigated in the area of further debridement occurred once fibrin was slightly more loo se after being irrigated and then saline solution by itself was used to irrigate and remove the Betad ine as much as possible. After the wound was clean, there was no evidence of bleeding. Then, white and black sponges were placed for wound VAC per the wound care nurse, Gayatri Power, and then the patient was awakened and taken to Recovery in serious, but stable condition and there was a plan to r eturn on Wednesday for dressing change on the patient as well as further debridement as needed. /MODL Voice ID: [id number] Report ID: [id number]
[2021-09-10] MEDS: NA CHLORIDE 0.9% 1,000 ML ONE ×2 (10:37→11:00)
--- NOTE | 2021-09-10 12:08 | PN ---
Date of Progress Note: 09/10/2021 Subjective: The patient was admitted with sepsis. The patient had acute kidney injury secondary to prerenal/toxic ATN 2nd to sepsis . After hydration, kidney function has been improved. Physical Examination: Vital Signs: Blood pressure 110/60, pulse of 69, afebrile. The patient had good urine output of 850. Chest: Crackles bilateral. Heart: S1, S2. Systolic murmur. Abdomen: Soft, nontender. Extremity: Trace edema. Neuro: Alert. Laboratory Data: WBC 12.7, H and H 7.7/24.9. Sodium 142, potassium 3.3, bicarb 19, BUN 23, creatinine 0.6, calcium 8.2, magnesium 1.7, albumin 0.6. Corrected calcium is 11. Current Medications: The patient on include; 1. Meropenem. 2. Vancomycin. 3. Levophed. 4. Insulin. 5. Normal saline at 75 per hour. 6. KCl. Assessment And Plan: 1. Acute kidney injury secondary to prerenal/toxic ATN, recovered, resolved. 2. Hypokalemia secondary to poor intake. I am going to go ahead and change IV fluid to LR. 3. Acidosis, hyperchloremic, non-anion gap, mostly secondary to the IV fluid. We will change IV fluid and we will follow up. We will change to LR and we will add potassium. 4. Hypercalcemia, mostly secondary to immobilization. I am going to go ahead and send for protein creatinine and serum protein electrophoresis with anemia workup. time spend exam the patient face to face placing order discussing with the patient , rviewing data lab and radiology , discussing the case with other prepared foods production team member inculding Nurse staff and Hospitalist 35 min MALIA Voice ID: [id number] Report ID: [id number] PARVIZ
[2021-09-10] MEDS ORDERED: VANCOMYCIN 1.25 GM in NA CHLORIDE 0.9% 250 ML IVPB SCH (14:00)
[2021-09-10 14:49] LABS: HIV AG/AB 4TH GEN Non-reactive (Non-reactive)
[2021-09-10] MEDS: Ringers Lactate 1,000 ML with POTASSIUM CL 20 MEQ IV SCH ×2 (15:02)
[2021-09-10] MEDS ORDERED: Ringers Lactate 0 ML IV ONE (15:03)
[2021-09-10] MEDS: MORPHINE 4 MG/ML SYR IV PRN (19:48)
[2021-09-10] MEDS: JUVEN PACKET PO SCH (21:00)
[2021-09-10] MEDS: MIRTAZAPINE 15 MG TAB PO SCH (21:00)
[2021-09-11] MEDS: NOREPINEPHRINE 4 MG in D5W 250 ML IV SCH (00:23)
[2021-09-11] MEDS: Meropenem 1,000 MG in NA CHLORIDE 0.9% 100 ML IV SCH ×3 (01:00→16:45)
[2021-09-11] MEDS: Ringers Lactate 1,000 ML with POTASSIUM CL 20 MEQ IV SCH ×4 (01:28→13:55)
[2021-09-11] MEDS: MORPHINE 4 MG/ML SYR IV PRN ×2 (03:00→06:29)
[2021-09-11 05:33] LABS: Absolute Lymphocytes (CBC) 1.3 K/uL (0.7-4.9); Hematocrit 27.8 % (39.6-49.0); Lymphocytes % 8.8 % (15.3-44.8); MPV 7.3 fL (7.6-11.3)
--- NOTE | 2021-09-11 05:49 | P.PN ---
Date of Service: 09/11/21 Subjective: no acute events overnight s/p I&D and wound vac yesterday patient awake, responds to some questions with only a few words states he hears me, but not answering some of my questions discussed appetite and concern for nutrition. If not able to increase PO intake, may need dobhoff ROS: as noted above, 10 point ROS otherwise negative Physical examination: General: NAD, fatigued, answers appropriately, weak voice HEENT: normal conjunctiva, sclera anicteric Respiratory: Clear to auscultation bilaterally, diminished at bases Cardiovascular: Regular rate/rhythm Abd: soft, nontender, colostomy with stool/air, suprapubic catheter Integumentary: Sacral decubitus ulcer: wound vac in place Neurological: Paraplegia Problem List Septic shock (resolved) secondary to large infected decubitus ulcer Paraplegia DM2 Hyperkalemia Hyponatremia Hypocalcemia Empirically treated with meropenem and vancomycin. ID consulted, recommends discontinuation of vancomycin. yesterday Patient will need meropenem 1 g every 8 hours for 6 weeks total s/p I&D x3 by Dr. Hagan, last done on 09/10. wound vac placed on 09/10 remains on levophed, weaning down f/u cultures - wound: e. 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 Case discussed with orthopedic surgery-Dr. Gonzales. Per Dr. Gonzales the fluid collection appears to be soft tissue related and no joint space involvement. He recommended surgical debridement. No need for Ortho surgery. PICC line placed for prolonged antibiotic therapy. Femoral central line removed. Hemoglobin decreased, transfused 1uPRBC on 09/10, responded appropriately Nursing staff reported seeing urine in his colostomy several days ago. concerni for colonic vesicular fistula, however Urinalysis did not suggest any fecal matter. Urology consulted, recommended to send ostomy output for Cr. Low suspicion for fistula at this time. lab was send out, waiting on results. Insulin sliding scale for glucose management. Patient appears depressed, reportedly is HIV positive (new diagnosis), screening test done here is pending. long time girlfriend broke up with patient around [place]. wounds getting worse, etc has been taking some ensures, needs lots of encouragement informed him if doesn't increase intake, may need dobhoff and possible PEG tube for adequate nutrition he acknowledged hearing me and understanding, but did not offer his thoughts on this Spoke to his daughter on 09/10, she stated she would be in agreement with dobhoff / PEG if needed so that he can improve VTE: lovenox Code: full Dispo: ICU level of care, not to go back to snf he came from, anticipate hospitalization > 3 days
[2021-09-11 06:16] LABS: ALT/SGPT 14 U/L (12-78); AST/SGOT 15 U/L (15-37); Alkaline Phosphatase 134 U/L (45-117); BUN Blood Urea Nitrogen 21 mg/dL (7-18); Bicarbonate 16 mmol/L (21-32); Bilirubin Total 0.4 mg/dL (0.2-1.0); Ferritin 333.7 ng/mL (26-388); Folic Acid, (Folate) 8.1 ng/mL (3.1-17.5); Glucose Level 248 mg/dL (74-106); Magnesium 1.9 mg/dL (1.8-2.4); Phosphorus 2.5 mg/dL (2.5-4.9); Potassium 3.9 mmol/L (3.5-5.1); Protein, Total 5.5 g/dL (6.4-8.2); Sodium Level 138 mmol/L (136-145); Transferrin 56 mg/dL (200-360)
[2021-09-11 06:21] LABS: Albumin 0.6 g/dL (3.4-5.0)
[2021-09-11] MEDS: INSULIN -REGULAR HUMAN 50 UNIT/0.5 ML ML SQ SCH ×4 (07:30→21:00)
[2021-09-11] MEDS: GLUCERNA SHAKE 237 ML CAN PO SCH ×6 (08:45→21:00)
[2021-09-11] MEDS: JUVEN PACKET PO SCH ×2 (09:43→21:00)
[2021-09-11] MEDS: ENOXAPARIN 40 MG/0.4 ML SQ SCH (09:44)
[2021-09-11] MEDS: ASCORBIC ACID 500 MG TABLET PO SCH ×2 (09:44→21:00)
[2021-09-11] MEDS: INSULIN GLARGINE 100 UNIT/ML SQ SCH (09:44)
[2021-09-11] MEDS: MIDODRINE HCL 5 MG TABLET PO SCH ×3 (09:44→21:00)
[2021-09-11] MEDS: ZINC SULFATE 220 MG CAP PO SCH (09:45)
[2021-09-11] MEDS: SOD FERRIC GLUC COMPLX/SUCROSE 250 MG in NA CHLORIDE 0.9% 250 ML IV SCH (10:00)
[2021-09-11] MEDS ORDERED: KCL 20 MEQ/100 mL IVPB 20 MEQ/100 ML BAG IV SCH (10:00)
--- NOTE | 2021-09-11 12:21 | P.PN ---
Subjective Date of Service: 09/11/21 Chief Complaint: Hypotension Been seen and examined at bedside, slight increase of WBC noted. Likely reactive secondary to sacral wound debridement performed yesterday. Review of Systems 10-point ROS is otherwise unremarkable Physical Examination - Vital Signs Temperature: 96.7 F Blood Pressure: 113/58 Pulse: 71 Respirations: 13 Pulse Ox (%): 100 - Studies Laboratory Last Values WBC 27.00 K/uL (4.3-10.9) H* 09/04/21 13:39 RBC 2.51 M/uL (4.33-5.43) L 09/04/21 13:39 Hgb 5.7 g/dL (13.6-17.9) L* 09/04/21 13:39 Hct 19.1 % (39.6-49.0) L* 09/04/21 13:39 MCV 76.3 fL (80-100) L 09/04/21 13:39 MCH 22.7 pg (27.0-35.0) L 09/04/21 13:39 MCHC 29.8 g/dL (32.0-36.0) L 09/04/21 13:39 RDW 18.3 % (12.1-15.2) H 09/04/21 13:39 Plt Count 872 K/uL (152-406) H 09/04/21 13:39 MPV 5.8 fL (7.6-11.3) L 09/04/21 13:39 Neutrophils % 90.6 % (41.7-73.7) H 09/04/21 13:39 Lymphocytes % 4.0 % (15.3-44.8) L 09/04/21 13:39 Monocytes % 5.3 % (3.3-12.3) 09/04/21 13:39 Eosinophils % 0.0 % (0-4.4) 09/04/21 13:39 Basophils % 0.1 % (0-1.3) 09/04/21 13:39 Absolute Neutrophils 24.4 K/uL (1.8-8.0) H 09/04/21 13:39 Segmented Neutrophils 92 % (40-80) H 09/04/21 13:39 Absolute Lymphocytes 1.1 K/uL (0.7-4.9) 09/04/21 13:39 Lymphocytes 5 % (15-42) L 09/04/21 13:39 Monocytes 3 % (0-10) 09/04/21 13:39 Absolute Monocytes 1.4 K/uL (0.1-1.3) H 09/04/21 13:39 Absolute Eosinophils 0.0 K/uL (0-0.5) 09/04/21 13:39 Absolute Basophils 0.0 K/uL (0-0.5) 09/04/21 13:39 Platelet Estimate Incr 09/04/21 13:39 Hypochromasia 1+ 09/04/21 13:39 Poikilocytosis 1+ 09/04/21 13:39 Anisocytosis 1+ 09/04/21 13:39 Tear Drop Cells Few 09/04/21 13:39 Ovalocytes 1+ 09/04/21 13:39 Morphology Comment Not seen (NOT SEEN) 09/04/21 13:39 PT 17.7 SECONDS (9.5-12.5) H 09/04/21 13:39 INR 1.53 09/04/21 13:39 APTT 29.5 SECONDS (24.3-36.9) 09/04/21 13:39 Sodium 127 mmol/L (136-145) L 09/04/21 12:10 Potassium 5.9 mmol/L (3.5-5.1) H* 09/04/21 12:10 Chloride 92 mmol/L (98-107) L 09/04/21 12:10 Carbon Dioxide 25 mmol/L (21-32) 09/04/21 12:10 BUN 32 mg/dL (7-18) H 09/04/21 12:10 Creatinine 1.66 mg/dL (0.55-1.3) H 09/04/21 12:10 Estimated GFR 43 mL/min (=/>90) L 09/04/21 12:10 Glucose 104 mg/dL (74-106) 09/04/21 12:10 Lactic Acid 2.4 mmol/L (0.4-2.0) H 09/04/21 12:10 Calcium 8.3 mg/dL (8.5-10.1) L 09/04/21 12:10 Total Bilirubin 0.4 mg/dL (0.2-1.0) 09/04/21 12:10 Direct Bilirubin 0.2 mg/dL (0-0.2) 09/04/21 12:10 AST 33 U/L (15-37) 09/04/21 12:10 ALT 11 U/L (12-78) L 09/04/21 12:10 Alkaline Phosphatase 224 U/L (45-117) H 09/04/21 12:10 Creatine Kinase 745 U/L (39-308) H 09/04/21 12:10 CK-MB (CK-2) 16.3 ng/mL (1.0-3.6) H* 09/04/21 12:10 Troponin I High Sens 5.20 pg/mL (<58.9) 09/04/21 12:10 Serum Total Protein 8.1 g/dL (6.4-8.2) 09/04/21 12:10 Albumin 0.7 g/dL (3.4-5.0) L* 09/04/21 12:10 Globulin 7.4 g/dL (2.3-3.5) H 09/04/21 12:10 Albumin/Globulin Ratio ND 09/04/21 12:10 Amylase 14 U/L (25-115) L 09/04/21 12:10 Lipase 21 U/L (73-393) L 09/04/21 12:10 Procalcitonin 3.17 ng/mL (<0.050) H 09/04/21 12:10 Urine RBC Cancelled 09/04/21 11:18 Urine WBC Cancelled 09/04/21 11:18 Ur Squamous Epith Cells Cancelled 09/04/21 11:18 Ur Urothelial Cells Cancelled 09/04/21 11:18 Calcium Oxalate Crystal Cancelled 09/04/21 11:18 Uric Acid Crystals Cancelled 09/04/21 11:18 Triple Phos Crystals Cancelled 09/04/21 11:18 Other Crystals Cancelled 09/04/21 11:18 Amorphous Sediment Cancelled 09/04/21 11:18 Glitter Cells Cancelled 09/04/21 11:18 Urine Bacteria Cancelled 09/04/21 11:18 Hyaline Casts Cancelled 09/04/21 11:18 Fine Granular Casts Cancelled 09/04/21 11:18 Coarse Granular Casts Cancelled 09/04/21 11:18 Waxy Casts Cancelled 09/04/21 11:18 RBC Casts Cancelled 09/04/21 11:18 WBC Casts Cancelled 09/04/21 11:18 Urine Mucus Cancelled 09/04/21 11:18 Urine Other Cancelled 09/04/21 11:18 Urine Trichomonas Cancelled 09/04/21 11:18 Urine Yeast Cancelled 09/04/21 11:18 Ur Yeast w Hyphae Cancelled 09/04/21 11:18 Urine Yeast (Budding) Cancelled 09/04/21 11:18 Urine Sperm Cancelled 09/04/21 11:18 Urine Culture Reflexed Cancelled 09/04/21 11:18 Urine Total Volume Cancelled 09/04/21 11:18 SARS-CoV-2 Rap RNA(RT-PCR) Negative (NEGATIVE) 09/04/21 11:18 ABO/Rh Cancelled 09/04/21 15:22 Solid Phase Ab Screen Cancelled 09/04/21 15:22 BBK History Checked Cancelled 09/04/21 15:22 Microbiology Data (last 24 hrs): 09/04/21 12:30 Blood - Blood Aerobic Blood Culture - Final 09/04/21 12:30 Blood - Blood Blood Culture Gram Stain - Final 09/04/21 12:30 Blood - Blood Anaerobic Blood Culture - Final No growth in 5 days. Assessment And Plan - Plan Physical exam: General: Confused HEENT: Atraumatic, Normocephalic Neck: Supple, 2+ carotid pulse no bruit Respiratory: Clear to auscultation bilaterally, Normal air movement Cardiovascular: No edema, Regular rate/rhythm, Normal S1 S2 Capillary refill: <2 Seconds Gastrointestinal: Other (Colostomy) Musculoskeletal: Other (Bilateral transmetatarsal amputation) Integumentary: Other (Large sacral decubitus pressure ulcer measuring approximately 45 x 20 x 15 cm. Wound extends down to left femur.) Neurological: Other (Paraplegic) Urinary: Suprapubic catheter, Other Conclusions/Impression: Antibiotics: Meropenem Start: 09/06 Vancomycin Start: 09/05 Stop: 09/10 Vancomycin trough: 09/06: 11.6 09/08:<0.8 09/09: 36.5 09/10: 25.9 Assessment/plan Sepsis secondary to locally infected stage IV sacral decubitus ulcer Wound culture growing ESBL producing E. coli and Proteus mirabellas both sensitive to meropenem. Patient has undergone surgical debridement of the wound on 09/05 and 09/08 and 09/10. Wound VAC placed on 09/10. Continue wound care per surgical team. Continue to offload wound and avoid direct pressure. Pelvic/left femur osteomyelitis CT abdomen pelvis confirmed osteomyelitis. Patient will need IV antibiotics for 6 weeks. Leukocytosis Continue broad-spectrum IV antibiotic therapy, most recent peak and WBC likely reactive secondary to surgical debridement. Protein caloric malnutrition: Severe Patient on regular diet however if not eating. Recommend considering PEG tube. Adequate nutrition needed for proper wound healing. Continue vitamin sup plementation with vitamin C and zinc. Diabetes Strict glucose monitoring needed for proper infection control/wound healing. Continue sliding scale insulin. Anemia Continue to monitor H&H -Medical management per primary team Plan of care discussed with Dr. Molina Thank for consultation
--- NOTE | 2021-09-11 12:54 | PN ---
Date of Progress Note: 09/11/2021 Subjective: The patient was admitted with sepsis The patient had acute kidney injury secondary to prerenal. The patient's kidney function has been improved significantly. Currently, the patient on IV fluid. Blood pressure stabilized. Physical Examination: Vital Signs: Blood pressure 107/49, pulse of 66, saturating 100 on room air. Chest: Clear to auscultation. Heart: S1, S2. Systolic murmur. Abdomen: Soft, nontender. Extremities: No edema. Bilateral MTA. Neurologic: Alert. Follows commands. No focality. Laboratory Data: WBC 15.1, H and H 8.6/27.8. Sodium 138, potassium 3.9, bicarb 16, chloride 113 trending down, BUN 21, creatinine 0.6, calcium 8.2, phosphorus 2.5, magnesium 1.9. Serum protein electrophoresis is still pending. Albumin 0.6. Corrected calcium is 10.6. PTH less than 6. Vitamin D still pending. TSH 6.7. Current Medications: The patient on include; 1. Meropenem. 2. Lovenox. 3. Tylenol. 4. LR. Assessment And Plan: 1. Acute kidney injury secondary to prerenal, resolved. 2. Hypokalemia secondary to poor intake, improving. We will continue current treatment. 3. Acidosis, non-anion gap metabolic acidosis. Yesterday, we changed the IV fluid to LR. Chloride started trending down. Bicarb dropped. I am going to go ahead and start the patient on oral bicarb and we will follow up. 4. Hypercalcemia secondary to immobilization. Appropriate suppression of the PTH. We will continue to monitor. Continue hydration. MALIA Voice ID: [id number] Report ID: [id number] PARVIZ
[2021-09-11] MEDS: SODIUM BICARB 325 MG TAB PO SCH ×2 (13:55→21:00)
[2021-09-11] MEDS: TRAMADOL HCL 50 MG TAB PO PRN (18:05)
--- NOTE | 2021-09-11 19:00 | PN ---
Date of Progress Note: 09/11/2021 Subjective: The patient is awake, little bit of more responsive than yesterday. Vital signs are sta ble. He is on low-dose Levophed. When it was weaned, his blood pressure dropped so he needs to be m aintained on that for now. He is afebrile. Objective: His dressing is clean, dry, and intact Laboratory Data: Reviewed. White count is slightly up at 15.1. H and H are stable. Left shift has improved. His platelets have normalized. Assessment: Sacral decubitus with osteo, sepsis, poor nutrition. Recommendations: Calorie count is ongoing. Encourage p.o. intake with Glucerna in between meals, pu gerardo diet per Speech pathology. IV antibiotic as ordered and we will take the patient back to the OR tomorrow for change of the wound VAC as well as debridement if necessary. The patient is clinically in serious condition, but stable and maintaining the course at this point. Discharge planning is in process; however, this may be a long-term issue for the patient. Dr. Davison spoke with his sister lucrecia d the family wants everything done for this patient. He required PEG. They agree, until after we ge t an assessment of caloric intake and we will involve GI Service if needed for a PEG placement. /MODL Voice ID: [id number] Report ID: [id number]
[2021-09-11] MEDS: MIRTAZAPINE 15 MG TAB PO SCH (21:00)
[2021-09-12] MEDS: Meropenem 1,000 MG in NA CHLORIDE 0.9% 100 ML IV SCH ×3 (01:00→16:38)
[2021-09-12] MEDS: MORPHINE 4 MG/ML SYR IV PRN ×2 (01:34→05:43)
[2021-09-12] MEDS: Ringers Lactate 1,000 ML with POTASSIUM CL 20 MEQ IV SCH ×4 (04:24→12:02)
--- NOTE | 2021-09-12 05:37 | P.PN ---
Subjective Date of Service: 09/12/21 Chief Complaint: Hypotension Subjective: Other (Had sacral decub ulcer debridement today.) Physical Examination - Vital Signs Temperature: 96.6 F Blood Pressure: 86/59 Pulse: 62 Respirations: 15 Pulse Ox (%): 100 - Physical Exam General: Other (appears chronically ill) HEENT: Atraumatic, Normocephalic Neck: Supple, JVD not distended Respiratory: Diminished Cardiovascular: No rubs, No murmurs Gastrointestinal: Soft and benign, No guarding Musculoskeletal: Other (Paraplegia) Integumentary: Other (sacral decub ulcer) Neurological: Other (+paraplegia) Urinary: Other (no bladder distention) External genitalia: Deferred Assessment And Plan - Plan # MAURI 2/2 ischemic ATN from septic shock Resolved [place] by mouth fluid intake Currently has poor by mouth intake MAP goal > 65 monitor renal panel # Septic shock 2/2 R hip/gluteal abscess/osteomyelitis Cont MIdodrine 10 mg po tid Wean of Igor gtt Abx per other services S/p excisional debridement of infected sacral decubitus on 09/05 & 09/12 # Severe anemia S/p pRBC transf on 09/04 Monitor H&H # Hypokalemia KCl repletion received today # Paraplegia +Suprapubic catheter +Colostomy Per other services # Severe depression Mngt per primary team # DM2 Mngt per primary team
--- NOTE | 2021-09-12 05:42 | P.PN ---
Date of Service: 09/12/21 Subjective: no significant changes, drinking 1.5 - 2 protein shakes/day 1-2 bites of food ROS: as noted above, 10 point ROS otherwise negative Physical examination: General: NAD, fatigued, weak voice HEENT: normal conjunctiva, sclera anicteric Respiratory: Clear to auscultation bilaterally, diminished at bases Cardiovascular: Regular rate/rhythm Abd: soft, nontender, colostomy with stool/air, suprapubic catheter Integumentary: Sacral decubitus ulcer: wound vac in place Neurological: Paraplegia Problem List Septic shock (resolved) secondary to large infected decubitus ulcer Paraplegia with colostomy and suprapubic catheter DM2 Hyperkalemia Hyponatremia Hypocalcemia Empirically treated with meropenem and vancomycin. ID consulted Patient will need meropenem 1 g every 8 hours for 6 weeks total s/p I&D x3 by Dr. Hagan, last done on 09/10. wound vac placed on 09/10, to OR today remains on levophed, weaning down f/u cultures - wound: e. 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 Case discussed with orthopedic surgery-Dr. Gonzales. Per Dr. Gonzales the fluid collection appears to be soft tissue related and no joint space involvement. He recommended surgical debridement. No need for Ortho surgery. PICC line placed for prolonged antibiotic therapy. Femoral central line removed. Hemoglobin decreased, transfused 1uPRBC on 09/10, responded appropriately Nursing staff reported seeing urine in his colostomy several days ago. concerning for colonic vesicular fistula, however Urinalysis did not suggest any fecal matter. Urology consulted, recommended to send ostomy output for Cr. Low suspicion for fistula at this time. lab was send out, waiting on results. No further evidence of obvious urine in colostomy Insulin sliding scale for glucose management. Patient appears depressed, reportedly is HIV positive (new diagnosis), screening test done here is pending. long time girlfriend broke up with patient around [place]. wounds getting worse, etc has been taking some ensures, needs lots of encouragement. start zoloft informed him if doesn't increase intake, may need dobhoff and possible PEG tube for adequate nutrition he acknowledged hearing me and understanding, but did not offer his thoughts on this Spoke to his daughter on 09/10, she stated she would be in agreement with dobhoff / PEG if needed so that he can improve f/u calorie count dobhoff tomorrow if not enough VTE: lovenox Code: full Dispo: ICU level of care, not to go back to [facility] came from, anticipate hospitalization > 3 days
[2021-09-12 06:47] LABS: Absolute Lymphocytes (CBC) 1.8 K/uL (0.7-4.9); Hematocrit 29.9 % (39.6-49.0); Lymphocytes % 10.9 % (15.3-44.8); MPV 8.7 fL (7.6-11.3); RBC Red Blood Cell Count 3.19 M/uL (4.33-5.43)
[2021-09-12] MEDS ORDERED: NA CHLORIDE 0.9% 1,000 ML ONE (06:56)
[2021-09-12 07:07] LABS: ALT/SGPT 25 U/L (12-78); AST/SGOT 53 U/L (15-37); Alkaline Phosphatase 44 U/L (45-117); BUN Blood Urea Nitrogen 13 mg/dL (7-18); Bicarbonate 30 mmol/L (21-32); Bilirubin Total 0.4 mg/dL (0.2-1.0); Glucose Level 102 mg/dL (74-106); Magnesium 2.6 mg/dL (1.8-2.4); Phosphorus 2.9 mg/dL (2.5-4.9); Potassium 3.2 mmol/L (3.5-5.1); Protein, Total 6.3 g/dL (6.4-8.2); Sodium Level 142 mmol/L (136-145)
[2021-09-12] MEDS ORDERED: COLLAGENASE 30 GM OINTMENT TOP ONE (07:21)
[2021-09-12] MEDS ORDERED: BUPIVACAINE 0.5% PF 10 ML VIAL ONE (07:21)
[2021-09-12] MEDS ORDERED: LIDOCAINE 2% MPF 5 ML VIAL ONE (07:22)
[2021-09-12] MEDS ORDERED: propofoL 200 MG/20 ML VIAL IV ONE (07:22)
[2021-09-12] MEDS: INSULIN -REGULAR HUMAN 50 UNIT/0.5 ML ML SQ SCH ×4 (07:30→20:11)
[2021-09-12] MEDS ORDERED: MIDAZOLAM HCL 2 MG/2 ML INJ ONE (07:36)
--- NOTE | 2021-09-12 08:17 | P.OP ---
[employer] C[employer] Hand: NONE,NONE Preoperative diagnosis: Sacral Decubitus Postoperative diagnosis: same Primary procedure: Excisional debridement sacral decubitus 40 x 15 x 10 cm to sq and Secondary procedure: Change of dressing and Application of Wound VAC Anesthesia: MAC Estimated blood loss: min Specimen: Debridement tissue Findings: as above Complications: None Transferred to: Recovery Room Condition: Serious
[2021-09-12] MEDS: ENOXAPARIN 40 MG/0.4 ML SQ SCH (09:00)
[2021-09-12] MEDS: INSULIN GLARGINE 100 UNIT/ML SQ SCH (09:00)
[2021-09-12] MEDS: JUVEN PACKET PO SCH ×2 (09:00→20:15)
[2021-09-12] MEDS: GLUCERNA SHAKE 237 ML CAN PO SCH ×6 (09:00→20:15)
[2021-09-12] MEDS ORDERED: POTASSIUM 25 MEQ EFFERV TAB PO ONE (09:51)
[2021-09-12] MEDS ORDERED: NA CHLORIDE 0.9% 500 ML ONE (10:14)
[2021-09-12] MEDS ORDERED: NA CHLORIDE 0.9% 500 ML IV PRN (10:23)
[2021-09-12] MEDS: ASCORBIC ACID 500 MG TABLET PO SCH ×2 (11:20→20:29)
[2021-09-12] MEDS: SODIUM BICARB 325 MG TAB PO SCH ×3 (11:20→20:10)
[2021-09-12] MEDS: ZINC SULFATE 220 MG CAP PO SCH (11:20)
[2021-09-12] MEDS: MIDODRINE HCL 5 MG TABLET PO SCH ×3 (11:21→20:10)
--- NOTE | 2021-09-12 11:55 | P.PN ---
Subjective Date of Service: 09/12/21 Chief Complaint: Hypotension Been seen and examined at bedside, WBC increasing. Repeat blood cultures ordered. Procalcitonin also ordered. Review of Systems 10-point ROS is otherwise unremarkable Physical Examination - Vital Signs Temperature: 97 F Blood Pressure: 97/52 Pulse: 70 Respirations: 10 Pulse Ox (%): 100 - Studies Laboratory Last Values WBC 27.00 K/uL (4.3-10.9) H* 09/04/21 13:39 RBC 2.51 M/uL (4.33-5.43) L 09/04/21 13:39 Hgb 5.7 g/dL (13.6-17.9) L* 09/04/21 13:39 Hct 19.1 % (39.6-49.0) L* 09/04/21 13:39 MCV 76.3 fL (80-100) L 09/04/21 13:39 MCH 22.7 pg (27.0-35.0) L 09/04/21 13:39 MCHC 29.8 g/dL (32.0-36.0) L 09/04/21 13:39 RDW 18.3 % (12.1-15.2) H 09/04/21 13:39 Plt Count 872 K/uL (152-406) H 09/04/21 13:39 MPV 5.8 fL (7.6-11.3) L 09/04/21 13:39 Neutrophils % 90.6 % (41.7-73.7) H 09/04/21 13:39 Lymphocytes % 4.0 % (15.3-44.8) L 09/04/21 13:39 Monocytes % 5.3 % (3.3-12.3) 09/04/21 13:39 Eosinophils % 0.0 % (0-4.4) 09/04/21 13:39 Basophils % 0.1 % (0-1.3) 09/04/21 13:39 Absolute Neutrophils 24.4 K/uL (1.8-8.0) H 09/04/21 13:39 Segmented Neutrophils 92 % (40-80) H 09/04/21 13:39 Absolute Lymphocytes 1.1 K/uL (0.7-4.9) 09/04/21 13:39 Lymphocytes 5 % (15-42) L 09/04/21 13:39 Monocytes 3 % (0-10) 09/04/21 13:39 Absolute Monocytes 1.4 K/uL (0.1-1.3) H 09/04/21 13:39 Absolute Eosinophils 0.0 K/uL (0-0.5) 09/04/21 13:39 Absolute Basophils 0.0 K/uL (0-0.5) 09/04/21 13:39 Platelet Estimate Incr 09/04/21 13:39 Hypochromasia 1+ 09/04/21 13:39 Poikilocytosis 1+ 09/04/21 13:39 Anisocytosis 1+ 09/04/21 13:39 Tear Drop Cells Few 09/04/21 13:39 Ovalocytes 1+ 09/04/21 13:39 Morphology Comment Not seen (NOT SEEN) 09/04/21 13:39 PT 17.7 SECONDS (9.5-12.5) H 09/04/21 13:39 INR 1.53 09/04/21 13:39 APTT 29.5 SECONDS (24.3-36.9) 09/04/21 13:39 Sodium 127 mmol/L (136-145) L 09/04/21 12:10 Potassium 5.9 mmol/L (3.5-5.1) H* 09/04/21 12:10 Chloride 92 mmol/L (98-107) L 09/04/21 12:10 Carbon Dioxide 25 mmol/L (21-32) 09/04/21 12:10 BUN 32 mg/dL (7-18) H 09/04/21 12:10 Creatinine 1.66 mg/dL (0.55-1.3) H 09/04/21 12:10 Estimated GFR 43 mL/min (=/>90) L 09/04/21 12:10 Glucose 104 mg/dL (74-106) 09/04/21 12:10 Lactic Acid 2.4 mmol/L (0.4-2.0) H 09/04/21 12:10 Calcium 8.3 mg/dL (8.5-10.1) L 09/04/21 12:10 Total Bilirubin 0.4 mg/dL (0.2-1.0) 09/04/21 12:10 Direct Bilirubin 0.2 mg/dL (0-0.2) 09/04/21 12:10 AST 33 U/L (15-37) 09/04/21 12:10 ALT 11 U/L (12-78) L 09/04/21 12:10 Alkaline Phosphatase 224 U/L (45-117) H 09/04/21 12:10 Creatine Kinase 745 U/L (39-308) H 09/04/21 12:10 CK-MB (CK-2) 16.3 ng/mL (1.0-3.6) H* 09/04/21 12:10 Troponin I High Sens 5.20 pg/mL (<58.9) 09/04/21 12:10 Serum Total Protein 8.1 g/dL (6.4-8.2) 09/04/21 12:10 Albumin 0.7 g/dL (3.4-5.0) L* 09/04/21 12:10 Globulin 7.4 g/dL (2.3-3.5) H 09/04/21 12:10 Albumin/Globulin Ratio ND 09/04/21 12:10 Amylase 14 U/L (25-115) L 09/04/21 12:10 Lipase 21 U/L (73-393) L 09/04/21 12:10 Procalcitonin 3.17 ng/mL (<0.050) H 09/04/21 12:10 Urine RBC Cancelled 09/04/21 11:18 Urine WBC Cancelled 09/04/21 11:18 Ur Squamous Epith Cells Cancelled 09/04/21 11:18 Ur Urothelial Cells Cancelled 09/04/21 11:18 Calcium Oxalate Crystal Cancelled 09/04/21 11:18 Uric Acid Crystals Cancelled 09/04/21 11:18 Triple Phos Crystals Cancelled 09/04/21 11:18 Other Crystals Cancelled 09/04/21 11:18 Amorphous Sediment Cancelled 09/04/21 11:18 Glitter Cells Cancelled 09/04/21 11:18 Urine Bacteria Cancelled 09/04/21 11:18 Hyaline Casts Cancelled 09/04/21 11:18 Fine Granular Casts Cancelled 09/04/21 11:18 Coarse Granular Casts Cancelled 09/04/21 11:18 Waxy Casts Cancelled 09/04/21 11:18 RBC Casts Cancelled 09/04/21 11:18 WBC Casts Cancelled 09/04/21 11:18 Urine Mucus Cancelled 09/04/21 11:18 Urine Other Cancelled 09/04/21 11:18 Urine Trichomonas Cancelled 09/04/21 11:18 Urine Yeast Cancelled 09/04/21 11:18 Ur Yeast w Hyphae Cancelled 09/04/21 11:18 Urine Yeast (Budding) Cancelled 09/04/21 11:18 Urine Sperm Cancelled 09/04/21 11:18 Urine Culture Reflexed Cancelled 09/04/21 11:18 Urine Total Volume Cancelled 09/04/21 11:18 SARS-CoV-2 Rap RNA(RT-PCR) Negative (NEGATIVE) 09/04/21 11:18 ABO/Rh Cancelled 09/04/21 15:22 Solid Phase Ab Screen Cancelled 09/04/21 15:22 BBK History Checked Cancelled 09/04/21 15:22 Assessment And Plan - Plan Physical exam: General: Confused HEENT: Atraumatic, Normocephalic Neck: Supple, 2+ carotid pulse no bruit Respiratory: Clear to auscultation bilaterally, Normal air movement Cardiovascular: No edema, Regular rate/rhythm, Normal S1 S2 Capillary refill: <2 Seconds Gastrointestinal: Other (Colostomy) Musculoskeletal: Other (Bilateral transmetatarsal amputation) Integumentary: Other (Large sacral decubitus pressure ulcer measuring approximately 45 x 20 x 15 cm. Wound extends down to left femur.) Neurological: Other (Paraplegic) Urinary: Suprapubic catheter, Other Conclusions/Impression: Antibiotics: Meropenem Start: 09/06 Vancomycin Start: 09/05 Stop: 09/10 Vancomycin trough: 09/06: 11.6 09/08:<0.8 09/09: 36.5 09/10: 25.9 Assessment/plan Sepsis secondary to locally infected stage IV sacral decubitus ulcer Wound culture growing ESBL producing E. coli and Proteus mirabellas both sensitive to meropenem. Patient has undergone surgical debridement of the wound on 09/05, 09/08, 09/10, and 09/12. Wound VAC placed on 09/10. Continue wound care per surgical team. Continue to offload wound and avoid direct pressure. Pelvic/left femur osteomyelitis CT abdomen pelvis confirmed osteomyelitis. Patient will need IV antibiotics for 6 weeks. Leukocytosis Continue broad-spectrum IV antibiotic therapy, most recent peak and WBC likely reactive secondary to surgical debridement. Repeat blood cultures ordered on 09/12. Procalcitonin pending. Protein caloric malnutrition: Severe Patient on regular diet however if not eating. Recommend considering PEG tube. Adequate nutrition needed for proper wound healing. Continue vitamin supplementation with vitamin C and zinc. Diabetes Strict glucose monitoring needed for proper infection control/wound healing. Continue sliding scale insulin. Anemia Continue to monitor H&H -Medical management per primary team Plan of care discussed with Dr. Molina Thank for consultation
[2021-09-12] MEDS ORDERED: Ringers Lactate 1,000 ML IV ONE (12:00)
[2021-09-12] MEDS: NOREPINEPHRINE 4 MG in D5W 250 ML IV SCH (14:56)
--- NOTE | 2021-09-12 19:11 | OP ---
Date of Procedure: 09/12/2021 Surgeon: Patricio Hagan MD Advice Clerk: Gayatri Power, RN, wound care nurse. Preoperative Diagnosis: Sacral decubitus. Postoperative Diagnosis: Sacral decubitus. Procedure Performed: Debridement of sacral decubitus, 10 x 15 cm to subcutaneous tissue and muscle. Continue dressing with wound VAC. Estimated Blood Loss: Minimal. Specimens: Debridement tissue. Finding: As above. Anesthesia: MAC. Complications: None. Disposition: The patient tolerated the procedure in stable condition, taken to Recovery in good care , serious condition because patient is still on Levophed. Description Of Procedure: Patient was brought to the OR and placed in supine position. MAC anesthes ia begun. Patient placed in left lateral position and then prepped and draped in the sterile fashion . In the area approximately 10 x 15 cm, there was some necrotic fibrin present into the muscle layer and subcutaneous tissue, which was debrided with cautery and iris scissors. Bleeding was controlled with cautery and the wound was irrigated. Essentially, the wound looks much better now; therefore, wound VAC was placed. All sponges and adaptic were countered to make sure that we have appropriate c ount next when the dressing is changed and then sterile dressing applied. Patient was awakened and taken to Recovery in good general condition. /MODL Voice ID: [id number] Report ID: [id number]
[2021-09-12] MEDS: TRAMADOL HCL 50 MG TAB PO PRN (20:10)
[2021-09-12] MEDS: KCL 20 MEQ/100 mL IVPB 20 MEQ/100 ML BAG IV SCH ×2 (20:10→21:34)
[2021-09-12] MEDS: MIRTAZAPINE 15 MG TAB PO SCH (20:11)
[2021-09-12 22:42] LABS: UR PROTEIN 159.3 mg/dL (<11.9); Urine Protein/Creatinine Ratio 2.9 ratio (<0.15)
[2021-09-13] MEDS: Meropenem 1,000 MG in NA CHLORIDE 0.9% 100 ML IV SCH ×3 (00:03→16:59)
[2021-09-13] MEDS: Ringers Lactate 1,000 ML with POTASSIUM CL 20 MEQ IV SCH ×4 (04:52→20:07)
--- NOTE | 2021-09-13 05:47 | P.PN ---
Date of Service: 09/13/21 Subjective: No acute events overnight. Remains on Levophed White blood cell count elevated today Did not eat much yesterday ROS: as noted above, 10 point ROS otherwise negative Physical examination: General: fatigued HEENT: normal conjunctiva, sclera anicteric Respiratory: Clear to auscultation bilaterally, diminished at bases Cardiovascular: Regular rate/rhythm Abd: soft, nontender, colostomy with stool/air, suprapubic catheter Integumentary: Sacral decubitus ulcer: wound vac in place Neurological: Paraplegia Problem List Septic shock (resolved) secondary to large infected decubitus ulcer Paraplegia with colostomy and suprapubic catheter DM2 Anemia, iron deficiency Hyperkalemia Hyponatremia Hypocalcemia Empirically treated with meropenem and vancomycin. ID consulted wound: e. coli & proteus Patient will need meropenem 1 g every 8 hours for 6 weeks total ID recommended trial off vanc, however patient's WBC uptrending since discontinuation, will restart 09/13 s/p I&D x3 by Dr. Hagan, last done on 09/10. wound vac placed on 09/10, debrided and replaced on 09/12 remains on levophed, weaning down PICC line placed for prolonged antibiotic therapy. Femoral central line removed. 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 Case discussed with orthopedic surgery-Dr. Gonzales. Per Dr. Gonzales the fluid collection appears to be soft tissue related and no joint space involvement. He recommended surgical debridement. No need for Ortho surgery. Hemoglobin decreased, transfused 1uPRBC on 09/10, responded appropriately Nursing staff reported seeing urine in his colostomy several days ago. concerning for colonic vesicular fistula, however Urinalysis did not suggest any fecal matter. Urology consulted, recommended to send ostomy output for Cr. Low suspicion for fistula at this time. lab was send out, waiting on results. No further evidence of obvious urine in colostomy Insulin sliding scale for glucose management. Patient appears depressed, reportedly is HIV positive (new diagnosis), screening test done here is pending. long time girlfriend broke up with patient around [place]. wounds getting worse, etc has been taking some ensures, needs lots of encouragement. start zoloft informed him if doesn't increase intake, may need dobhoff and possible PEG tube for adequate nutrition Spoke to his daughter on 09/10, she stated she would be in agreement with dobhoff / PEG if needed so that he can improve patient refusing dobhoff today, states will eat more VTE: lovenox Code: full Dispo: ICU level of care, not to go back to skilled nursing he came from, anticipate prolonged hospitalization Time Spent Managing Pts Care (In Minutes): 35
[2021-09-13 05:50] LABS: Lymphocytes % 4.8 % (15.3-44.8); MPV 7.6 fL (7.6-11.3)
[2021-09-13] MEDS: TRAMADOL HCL 50 MG TAB PO PRN ×2 (05:51→20:08)
[2021-09-13 06:00] LABS: BUN Blood Urea Nitrogen 21 mg/dL (7-18); Bicarbonate 18 mmol/L (21-32); Glucose Level 180 mg/dL (74-106); Magnesium 1.9 mg/dL (1.8-2.4); Phosphorus 2.4 mg/dL (2.5-4.9); Potassium 4.4 mmol/L (3.5-5.1); Sodium Level 140 mmol/L (136-145)
[2021-09-13 06:02] LABS: Albumin 0.6 g/dL (3.4-5.0)
[2021-09-13] MEDS: INSULIN -REGULAR HUMAN 50 UNIT/0.5 ML ML SQ SCH ×4 (07:30→20:09)
[2021-09-13] MEDS ORDERED: SODIUM PHOSPHATE 10 MM in NA CHLORIDE 0.9% 250 ML IV ONE (08:00)
[2021-09-13] MEDS: GLUCERNA SHAKE 237 ML CAN PO SCH ×5 (09:00→20:09)
[2021-09-13] MEDS: JUVEN PACKET PO SCH ×2 (09:00→20:09)
[2021-09-13] MEDS: INSULIN GLARGINE 100 UNIT/ML SQ SCH (09:00)
[2021-09-13 09:35] LABS: Blood Morphology Comment NOT SEEN (NOT SEEN); Platelet Estimate ADEQ
[2021-09-13] MEDS: ENOXAPARIN 40 MG/0.4 ML SQ SCH (09:44)
[2021-09-13] MEDS: MIDODRINE HCL 5 MG TABLET PO SCH ×3 (09:44→20:08)
[2021-09-13] MEDS: ASCORBIC ACID 500 MG TABLET PO SCH ×2 (09:44→20:07)
[2021-09-13] MEDS: ZINC SULFATE 220 MG CAP PO SCH (09:44)
[2021-09-13] MEDS: SODIUM BICARB 325 MG TAB PO SCH ×3 (09:44→20:08)
[2021-09-13] MEDS ORDERED: VANCOMYCIN 2 GM in NA CHLORIDE 0.9% 500 ML IVPB SCH (12:00)
--- NOTE | 2021-09-13 12:27 | PN ---
Date of Progress Note: 09/13/2021 Subjective: The patient is awake, more alert before. He has of 1 mcg of Levophed. Blood pressure h as been maintained on that. Objective: Vital Signs: Otherwise stable. He is afebrile. Extremities: His wound VAC came loose last night and the nursing staff was able to re-install it wit hout any difficulty. Laboratory Data: White count has jumped up to 21,000. Vancomycin was stopped a couple of days back. Assessment: Infected sacral decubitus with osteomyelitis, sepsis, malnutrition. Recommendations: Conversation with the patient regarding the importance of nutrition. He will try t o eat more. He does not want tube feeds at this point. Continue IV antibiotics. I discussed the ca se with Dr. Davison. We will restart the vancomycin. We will also see Physical Therapy and do some pa ssive range of motion to encourage his appetite a little bit more. Supportive care as well as discha rge planning is in progress. /MODL Voice ID: [id number] Report ID: [id number]
[2021-09-13] MEDS ORDERED: VANCOMYCIN 1.25 GM in NA CHLORIDE 0.9% 250 ML IVPB SCH (13:00)
[2021-09-13] MEDS: VANCOMYCIN 1.5 GM in NA CHLORIDE 0.9% 500 ML IVPB SCH (13:16)
[2021-09-13] MEDS: SERTRALINE HCL 50 MG TAB PO SCH (20:08)
[2021-09-13] MEDS: MIRTAZAPINE 15 MG TAB PO SCH (20:08)
--- NOTE | 2021-09-13 21:12 | PN ---
Date of Progress Note: 09/13/2021 Chief Complaint: Acute kidney injury, secondary to ischemic shock and ATN, related to severe prerena l azotemia, hypotension, ischemic ATN. Renal function has improved and acute kidney failure resolved . Baseline previously was checked and infection currently is at baseline. The patient has septic shock secondary to hip and gluteal abscess, osteomyelitis. The patient is on midodrine for blood pressures above. Review of Systems: Unobtainable. The patient appears chronically. Objective: LUNGS: Clear to auscultation bilaterally. HEART: S1, S2. ABDOMEN: Soft. EXTREMITIES: Slight edema. Impression: Acute kidney injury. Plan: 1.Continue adequate hydration by mouth. Monitor blood pressure. MAP goal over 65. Monitor renal a nd monitor electrolytes including phosphorus. 2.Septic shock, secondary to osteomyelitis and gluteal abscess. Continue antibiotics and monitor bl ood pressure and adjust pressors accordingly. 3.Status post debridement on September 05, 2021. Further wound care per primary team. 4.Hypokalemia. Monitor magnesium and phosphorus level. Provide replacement as needed. HERI/MODL Voice ID: [id number] Report ID: [id number]
[2021-09-14] MEDS ORDERED: VANCOMYCIN 1.25 GM in NA CHLORIDE 0.9% 250 ML IVPB SCH ×2
[2021-09-14] MEDS: Meropenem 1,000 MG in NA CHLORIDE 0.9% 100 ML IV SCH ×3 (00:16→18:50)
[2021-09-14] MEDS: VANCOMYCIN 1.5 GM in NA CHLORIDE 0.9% 500 ML IVPB SCH ×4 (00:48→22:00)
[2021-09-14] MEDS ORDERED: SODIUM CHLORIDE 0.9% 10ML INJ IV PRN (01:11)
[2021-09-14] MEDS ORDERED: PANTOPRAZOLE 40 MG INJ IVP ONE (01:11)
--- NOTE | 2021-09-14 05:49 | P.PN ---
Date of Service: 09/14/21 Subjective: no acute events overnight remains on levophed Hgb down today no evidence of bleed increased PO intake yesterday refuses dobhoff ROS: as noted above, 10 point ROS otherwise negative Physical examination: General: fatigued, NAD HEENT: normal conjunctiva, sclera anicteric Respiratory: Clear to auscultation bilaterally, diminished at bases Cardiovascular: Regular rate/rhythm, no edema Abd: soft, nontender, colostomy with stool/air, suprapubic catheter Integumentary: Sacral decubitus ulcer: wound vac in place Neurological: Paraplegia, answers appropriately, weak Problem List Septic shock (resolved) secondary to large infected decubitus ulcer Paraplegia with colostomy and suprapubic catheter DM2 insulin-dependent Anemia, iron deficiency Hyperkalemia Hyponatremia Empirically treated with meropenem and vancomycin. ID consulted wound: e. coli & proteus ID recommended trial off vanc, however patient's WBC uptrended since discontinuation, restarted 09/13 s/p I&D x3 by Dr. Hagan, last done on 09/10. 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 Orthopedic surgery-Dr. Gonzales: fluid collection appears to be soft tissue related and no joint space involvement. He recommended surgical debridement of soft tissue/wound. No need for Ortho surgery. s/p 2uPRBC on admission, , 1uPRBC on 09/10 transfuse 2u PRBC on 09/14 no obvious bleeding, has iron deficiency and some minor bleeding from I&D receiving iv iron as well Nursing staff reported seeing urine in his colostomy several days ago. concerning for colonic vesicular fistula, however Urinalysis did not suggest any fecal matter. Urology consulted, recommended to send ostomy output for Cr. Low suspicion for fistula at this time. lab was send out, reported unable to perform test Insulin sliding scale for glucose management. Patient appears depressed, reportedly is HIV positive (new diagnosis), screening test done here is pending. long time girlfriend broke up with patient around [place] [facility]. wounds getting worse, etc has been taking some ensures, needs lots of encouragement. started zoloft informed him if doesn't increase intake, may need dobhoff and possible PEG tube for adequate nutrition Spoke to his daughter on 09/10, she stated she would be in agreement with dobhoff / PEG if needed so that he can improve patient ate more yesterday, refuses dobhoff VTE: lovenox Code: full Dispo: ICU level of care, not to go back to detention he came from, anticipate prolonged hospitalization Time Spent Managing Pts Care (In Minutes): 35
[2021-09-14 06:30] LABS: Absolute Lymphocytes (CBC) 1.5 K/uL (0.7-4.9); Hematocrit 21.4 % (39.6-49.0); Lymphocytes % 10.5 % (15.3-44.8); MPV 7.3 fL (7.6-11.3); RBC Red Blood Cell Count 2.62 M/uL (4.33-5.43)
[2021-09-14] MEDS ORDERED: DIPHENHYDRAMINE 50 MG/ML VIAL IV ONE (06:46)
[2021-09-14] MEDS ORDERED: ACETAMINOPHEN 500 MG TAB PO ONE (06:46)
[2021-09-14 06:51] LABS: Albumin 0.6 g/dL (3.4-5.0); BUN Blood Urea Nitrogen 26 mg/dL (7-18); Bicarbonate 21 mmol/L (21-32); Glucose Level 201 mg/dL (74-106); Magnesium 1.9 mg/dL (1.8-2.4); Phosphorus 1.8 mg/dL (2.5-4.9); Potassium 4.2 mmol/L (3.5-5.1); Sodium Level 141 mmol/L (136-145)
[2021-09-14] MEDS ORDERED: NA CHLORIDE 0.9% 250 ML IV SCH (07:00)
[2021-09-14] MEDS: INSULIN -REGULAR HUMAN 50 UNIT/0.5 ML ML SQ SCH ×4 (07:30→21:00)
[2021-09-14] MEDS: INSULIN GLARGINE 100 UNIT/ML SQ SCH (08:33)
[2021-09-14] MEDS: ASCORBIC ACID 500 MG TABLET PO SCH ×2 (08:34→21:10)
[2021-09-14] MEDS: MIDODRINE HCL 5 MG TABLET PO SCH ×3 (08:34→21:08)
[2021-09-14] MEDS: ENOXAPARIN 40 MG/0.4 ML SQ SCH (08:34)
[2021-09-14] MEDS: SODIUM BICARB 325 MG TAB PO SCH ×3 (08:35→21:08)
[2021-09-14] MEDS: ZINC SULFATE 220 MG CAP PO SCH (08:35)
[2021-09-14] MEDS ORDERED: POTASSIUM PHOS IN 0.9 % NACL 15 MMOL/250 ML BAG IV ONE (09:00)
[2021-09-14] MEDS: GLUCERNA SHAKE 237 ML CAN PO SCH ×3 (09:00→21:00)
[2021-09-14] MEDS: JUVEN PACKET PO SCH ×2 (09:00→21:00)
[2021-09-14] MEDS: Ringers Lactate 1,000 ML with POTASSIUM CL 20 MEQ IV SCH ×2 (10:45)
[2021-09-14] MEDS ORDERED: VANCOMYCIN 1.5 GM in NA CHLORIDE 0.9% 500 ML IVPB SCH (14:00)
[2021-09-14] MEDS: TRAMADOL HCL 50 MG TAB PO PRN ×2 (16:15→22:30)
[2021-09-14] MEDS: SOD FERRIC GLUC COMPLX/SUCROSE 250 MG in NA CHLORIDE 0.9% 250 ML IV SCH (17:19)
[2021-09-14] MEDS: MORPHINE 4 MG/ML SYR IV PRN (19:47)
[2021-09-14 19:58] LABS: Albumin, (SPE) 1.2 g/dL (3.8-4.8); Alpha-1-Globulins 0.4 g/dL (0.2-0.3); Alpha-2-Globulins 0.7 g/dL (0.5-0.9); INTERPRETATION REPORT
[2021-09-14] MEDS: SERTRALINE HCL 50 MG TAB PO SCH (21:09)
[2021-09-14] MEDS: MIRTAZAPINE 15 MG TAB PO SCH (21:10)
[2021-09-14 21:13] LABS: Hematocrit 28.1 % (39.6-49.0)
[2021-09-14] MEDS: D50W 25 GM/50 ML SYRINGE IV PRN (22:09)
--- NOTE | 2021-09-14 23:36 | PN ---
Date of Progress Note: 09/14/2021 Chief Complaint: Acute kidney injury secondary to ischemic shock, resulted in ATN related to severe prerenal azotemia and ischemic ATN. Renal function has improved. Acute kidney failure, resolved. E lectrolytes are stable. Urine output is adequate. Review of Systems: Unobtainable. Objective: General: The patient appears chronically ill. Lungs: Equal chest expansion. Abdomen: Soft. Extremities: Slight edema. Impression And Plan: 1.Acute kidney injury. Continue adequate hydration by mouth. Monitor blood pressure; mean arterial pressure goal over 65. Monitor renal function, electrolytes including phosphorus. 2.Septic shock due to osteomyelitis and gluteal abscess. Continue antibiotics. Monitor blood press ure. 3.Status post debridement on September 05, 2021. Continue wound care. 4.Hypokalemia. Continue treatment with potassium supplements. Monitor magnesium and phosphorus lev gregorio. EB/MODL Voice ID: [id number] Report ID: [id number]
[2021-09-15] MEDS: Meropenem 1,000 MG in NA CHLORIDE 0.9% 100 ML IV SCH ×3 (00:36→17:13)
[2021-09-15] MEDS: Ringers Lactate 1,000 ML with POTASSIUM CL 20 MEQ IV SCH ×4 (02:00→15:51)
[2021-09-15] MEDS: D50W 25 GM/50 ML SYRINGE IV PRN ×4 (04:16→23:12)
[2021-09-15 04:46] LABS: Absolute Lymphocytes (CBC) 1.4 K/uL (0.7-4.9); Hematocrit 27.8 % (39.6-49.0); Lymphocytes % 10.8 % (15.3-44.8); MPV 6.9 fL (7.6-11.3); RBC Red Blood Cell Count 3.46 M/uL (4.33-5.43)
[2021-09-15 05:09] LABS: BUN Blood Urea Nitrogen 24 mg/dL (7-18); Bicarbonate 23 mmol/L (21-32); Glucose Level 75 mg/dL (74-106); Magnesium 1.7 mg/dL (1.8-2.4); Phosphorus 2.4 mg/dL (2.5-4.9); Potassium 3.9 mmol/L (3.5-5.1); Sodium Level 143 mmol/L (136-145)
[2021-09-15 05:10] LABS: Albumin 0.5 g/dL (3.4-5.0)
[2021-09-15] MEDS ORDERED: MAGNESIUM SULFATE 1 gm IVPB 1 GM/100 ML BAG IV ONE (05:51)
--- NOTE | 2021-09-15 05:56 | P.PN ---
Date of Service: 09/15/21 Subjective: awake/alert feels more energy today, feels better reports sore throat ate more yesterday, refuses dobhoff, states he will eat more states he would eat better if food was better ROS: as noted above, 10 point ROS otherwise negative Physical examination: General: NAD HEENT: normal conjunctiva, sclera anicteric Respiratory: Clear to auscultation bilaterally, diminished at bases Cardiovascular: Regular rate/rhythm, no edema Abd: soft, nontender, colostomy with stool/air, suprapubic catheter Integumentary: Sacral decubitus ulcer: wound vac in place Neurological: Paraplegia, answers appropriately Problem List Septic shock (resolved) secondary to large infected decubitus ulcer Paraplegia with colostomy and suprapubic catheter DM2 insulin-dependent Anemia, iron deficiency Hyperkalemia Hyponatremia Empirically treated with meropenem and vancomycin. ID consulted wound: e. coli & proteus ID recommended trial off vanc, however patient's WBC uptrended since discontinuation, restarted 09/13 s/p I&D x3 by Dr. Hagan, last done on 09/10. 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 Orthopedic surgery-Dr. Gonzales: fluid collection appears to be soft tissue related and no joint space involvement. He recommended surgical debridement of soft tissue/wound. No need for Ortho surgery. s/p 5 uPRBC total; on admission, , 1uPRBC on 09/10, 2u PRBC on 09/14 no obvious bleeding, has iron deficiency and some minor bleeding from I&D receiving iv iron as well Nursing staff reported seeing urine in his colostomy several days ago. concerning for colonic vesicular fistula, however Urinalysis did not suggest any fecal matter. Urology consulted, recommended to send ostomy output for Cr. Low suspicion for fistula at this time. lab was send out, reported unable to perform test Insulin sliding scale for glucose management. Patient appears depressed, reportedly is HIV positive (new diagnosis), screening test done here is pending. long time girlfriend broke up with patient around [place]. wounds getting worse, etc has been taking some ensures, needs lots of encouragement. started zoloft informed him if doesn't increase intake, may need dobhoff and possible PEG tube for adequate nutrition Spoke to his daughter on 09/10, she stated she would be in agreement with dobhoff / PEG if needed so that he can improve patient ate more yesterday, refuses dobhoff, states he will eat more today VTE: lovenox Code: full Dispo: ICU level of care, not to go back to shelter he came from, anticipate prolonged hospitalization Time Spent Managing Pts Care (In Minutes): 35
[2021-09-15] MEDS ORDERED: POTASSIUM PHOS IN 0.9 % NACL 15 MMOL/250 ML BAG IV ONE (06:04)
[2021-09-15] MEDS: INSULIN -REGULAR HUMAN 50 UNIT/0.5 ML ML SQ SCH ×4 (07:30→21:00)
[2021-09-15] MEDS ORDERED: COSYNTROPIN 0.25 MG VIAL IV ONE (08:00)
[2021-09-15] MEDS: ZINC SULFATE 220 MG CAP PO SCH (10:05)
[2021-09-15] MEDS: ASCORBIC ACID 500 MG TABLET PO SCH ×2 (10:05→20:32)
[2021-09-15] MEDS: SODIUM BICARB 325 MG TAB PO SCH ×3 (10:05→20:28)
[2021-09-15] MEDS: TRAMADOL HCL 50 MG TAB PO PRN ×2 (10:06→16:28)
[2021-09-15] MEDS: MIDODRINE HCL 5 MG TABLET PO SCH ×3 (10:06→20:26)
[2021-09-15] MEDS: ENOXAPARIN 40 MG/0.4 ML SQ SCH (10:07)
[2021-09-15] MEDS: INSULIN GLARGINE 100 UNIT/ML SQ SCH (10:08)
[2021-09-15] MEDS: JUVEN PACKET PO SCH ×2 (10:11→20:21)
[2021-09-15] MEDS: GLUCERNA SHAKE 237 ML CAN PO SCH ×5 (10:13→21:00)
[2021-09-15] MEDS: SODIUM HYPOCHLORITE 0.25% 473 ML IRR SCH (10:45)
[2021-09-15] MEDS: MORPHINE 4 MG/ML SYR IV PRN ×3 (10:52→22:13)
[2021-09-15] MEDS ORDERED: COLLAGENASE 30 GM OINTMENT TOP ONE (11:11)
[2021-09-15] MEDS ORDERED: Mastisol Adhesive Liq ONE (12:12)
[2021-09-15] MEDS: COLLAGENASE 30 GM OINTMENT TOP SCH (13:45)
[2021-09-15] MEDS: VANCOMYCIN 1.5 GM in NA CHLORIDE 0.9% 500 ML IVPB SCH (17:15)
--- NOTE | 2021-09-15 18:20 | P.PN ---
Subjective Date of Service: 09/15/21 Chief Complaint: Hypotension Been seen and examined at bedside, states he is feeling well denies any acute complaints. Had episode of leukocytosis over the weekend, internal medicine team added vancomycin 08/3022. Patient clinically responding, recommend continuing for 5-day course. Review of Systems 10-point ROS is otherwise unremarkable Physical Examination - Vital Signs Temperature: 97.4 F Blood Pressure: 103/49 Pulse: 70 Respirations: 14 Pulse Ox (%): 100 - Studies Laboratory Last Values WBC 27.00 K/uL (4.3-10.9) H* 09/04/21 13:39 RBC 2.51 M/uL (4.33-5.43) L 09/04/21 13:39 Hgb 5.7 g/dL (13.6-17.9) L* 09/04/21 13:39 Hct 19.1 % (39.6-49.0) L* 09/04/21 13:39 MCV 76.3 fL (80-100) L 09/04/21 13:39 MCH 22.7 pg (27.0-35.0) L 09/04/21 13:39 MCHC 29.8 g/dL (32.0-36.0) L 09/04/21 13:39 RDW 18.3 % (12.1-15.2) H 09/04/21 13:39 Plt Count 872 K/uL (152-406) H 09/04/21 13:39 MPV 5.8 fL (7.6-11.3) L 09/04/21 13:39 Neutrophils % 90.6 % (41.7-73.7) H 09/04/21 13:39 Lymphocytes % 4.0 % (15.3-44.8) L 09/04/21 13:39 Monocytes % 5.3 % (3.3-12.3) 09/04/21 13:39 Eosinophils % 0.0 % (0-4.4) 09/04/21 13:39 Basophils % 0.1 % (0-1.3) 09/04/21 13:39 Absolute Neutrophils 24.4 K/uL (1.8-8.0) H 09/04/21 13:39 Segmented Neutrophils 92 % (40-80) H 09/04/21 13:39 Absolute Lymphocytes 1.1 K/uL (0.7-4.9) 09/04/21 13:39 Lymphocytes 5 % (15-42) L 09/04/21 13:39 Monocytes 3 % (0-10) 09/04/21 13:39 Absolute Monocytes 1.4 K/uL (0.1-1.3) H 09/04/21 13:39 Absolute Eosinophils 0.0 K/uL (0-0.5) 09/04/21 13:39 Absolute Basophils 0.0 K/uL (0-0.5) 09/04/21 13:39 Platelet Estimate Incr 09/04/21 13:39 Hypochromasia 1+ 09/04/21 13:39 Poikilocytosis 1+ 09/04/21 13:39 Anisocytosis 1+ 09/04/21 13:39 Tear Drop Cells Few 09/04/21 13:39 Ovalocytes 1+ 09/04/21 13:39 Morphology Comment Not seen (NOT SEEN) 09/04/21 13:39 PT 17.7 SECONDS (9.5-12.5) H 09/04/21 13:39 INR 1.53 09/04/21 13:39 APTT 29.5 SECONDS (24.3-36.9) 09/04/21 13:39 Sodium 127 mmol/L (136-145) L 09/04/21 12:10 Potassium 5.9 mmol/L (3.5-5.1) H* 09/04/21 12:10 Chloride 92 mmol/L (98-107) L 09/04/21 12:10 Carbon Dioxide 25 mmol/L (21-32) 09/04/21 12:10 BUN 32 mg/dL (7-18) H 09/04/21 12:10 Creatinine 1.66 mg/dL (0.55-1.3) H 09/04/21 12:10 Estimated GFR 43 mL/min (=/>90) L 09/04/21 12:10 Glucose 104 mg/dL (74-106) 09/04/21 12:10 Lactic Acid 2.4 mmol/L (0.4-2.0) H 09/04/21 12:10 Calcium 8.3 mg/dL (8.5-10.1) L 09/04/21 12:10 Total Bilirubin 0.4 mg/dL (0.2-1.0) 09/04/21 12:10 Direct Bilirubin 0.2 mg/dL (0-0.2) 09/04/21 12:10 AST 33 U/L (15-37) 09/04/21 12:10 ALT 11 U/L (12-78) L 09/04/21 12:10 Alkaline Phosphatase 224 U/L (45-117) H 09/04/21 12:10 Creatine Kinase 745 U/L (39-308) H 09/04/21 12:10 CK-MB (CK-2) 16.3 ng/mL (1.0-3.6) H* 09/04/21 12:10 Troponin I High Sens 5.20 pg/mL (<58.9) 09/04/21 12:10 Serum Total Protein 8.1 g/dL (6.4-8.2) 09/04/21 12:10 Albumin 0.7 g/dL (3.4-5.0) L* 09/04/21 12:10 Globulin 7.4 g/dL (2.3-3.5) H 09/04/21 12:10 Albumin/Globulin Ratio ND 09/04/21 12:10 Amylase 14 U/L (25-115) L 09/04/21 12:10 Lipase 21 U/L (73-393) L 09/04/21 12:10 Procalcitonin 3.17 ng/mL (<0.050) H 09/04/21 12:10 Urine RBC Cancelled 09/04/21 11:18 Urine WBC Cancelled 09/04/21 11:18 Ur Squamous Epith Cells Cancelled 09/04/21 11:18 Ur Urothelial Cells Cancelled 09/04/21 11:18 Calcium Oxalate Crystal Cancelled 09/04/21 11:18 Uric Acid Crystals Cancelled 09/04/21 11:18 Triple Phos Crystals Cancelled 09/04/21 11:18 Other Crystals Cancelled 09/04/21 11:18 Amorphous Sediment Cancelled 09/04/21 11:18 Glitter Cells Cancelled 09/04/21 11:18 Urine Bacteria Cancelled 09/04/21 11:18 Hyaline Casts Cancelled 09/04/21 11:18 Fine Granular Casts Cancelled 09/04/21 11:18 Coarse Granular Casts Cancelled 09/04/21 11:18 Waxy Casts Cancelled 09/04/21 11:18 RBC Casts Cancelled 09/04/21 11:18 WBC Casts Cancelled 09/04/21 11:18 Urine Mucus Cancelled 09/04/21 11:18 Urine Other Cancelled 09/04/21 11:18 Urine Trichomonas Cancelled 09/04/21 11:18 Urine Yeast Cancelled 09/04/21 11:18 Ur Yeast w Hyphae Cancelled 09/04/21 11:18 Urine Yeast (Budding) Cancelled 09/04/21 11:18 Urine Sperm Cancelled 09/04/21 11:18 Urine Culture Reflexed Cancelled 09/04/21 11:18 Urine Total Volume Cancelled 09/04/21 11:18 SARS-CoV-2 Rap RNA(RT-PCR) Negative (NEGATIVE) 09/04/21 11:18 ABO/Rh Cancelled 09/04/21 15:22 Solid Phase Ab Screen Cancelled 09/04/21 15:22 BBK History Checked Cancelled 09/04/21 15:22 Assessment And Plan - Plan Physical exam: General: Confused HEENT: Atraumatic, Normocephalic Neck: Supple, 2+ carotid pulse no bruit Respiratory: Clear to auscultation bilaterally, Normal air movement Cardiovascular: No edema, Regular rate/rhythm, Normal S1 S2 Capillary refill: <2 Seconds Gastrointestinal: Other (Colostomy) Musculoskeletal: Other (Bilateral transmetatarsal amputation) Integumentary: Other (Large sacral decubitus pressure ulcer measuring approximately 45 x 20 x 15 cm. Wound extends down to left femur.) Neurological: Other (Paraplegic) Urinary: Suprapubic catheter, Other Conclusions/Impression: Antibiotics: Meropenem Start: 09/06 Vancomycin Start: 09/05 Stop: 09/10 restart: 09/14 Vancomycin trough: 09/14: 18.7 Assessment/plan Sepsis secondary to locally infected stage IV sacral decubitus ulcer Wound culture growing ESBL producing E. coli and Proteus mirabellas both sensitive to meropenem. Patient has undergone surgical debridement of the wound on 09/05, 09/08, 09/10, and 09/12. Wound VAC placed on 09/10. Continue wound care p er surgical team. Continue to offload wound and avoid direct pressure. Pelvic/left femur osteomyelitis CT abdomen pelvis confirmed osteomyelitis. Patient will need IV antibiotics for 6 weeks. Leukocytosis Vancomycin continue monitor WBC curve and fever trend. Recommend continuing Vanco for 5-day course. Repeat blood cultures obtained on 09/12 showed no growth at 24 hours. Repeat urine culture obtained on 09/15 pending. Protein caloric malnutrition: Severe Patient on regular diet however is not eating. Recommend considering PEG tube. Adequate nutrition needed for proper wound healing. Continue vitamin supplementation with vitamin C and zinc. Diabetes Strict glucose monitoring needed for proper infection control/wound healing. Continue sliding scale insulin. Anemia Continue to monitor H&H -Medical management per primary team Plan of care discussed with Dr. Molina Thank for consultation
[2021-09-15] MEDS: MIRTAZAPINE 15 MG TAB PO SCH (20:25)
[2021-09-15] MEDS: SERTRALINE HCL 50 MG TAB PO SCH (20:26)
--- NOTE | 2021-09-15 20:59 | PN ---
Date of Progress Note: 09/15/2021 Please note, I did a telephonic evaluation on patient yesterday. The patient is much more awake, kim rt today after receiving 2 units of blood. He is eating better. He feels better. His vitals are st able. He is afebrile. He is not on Levophed anymore. His white count is 13.2, H and H are 8.9 and 27.8, and there is an improvement in the left shift, his chemistry reviewed as well. His albumin, ho wever, continues to be very low 0.5 and his dressing is clean, dry, and intact. There was some leaka ge noted yesterday, which was reinforced as needed. Assessment: Infected sacral decubitus with osteo, significant anemia, hypotension, malnutrition. Recommendations: Encourage p.o. intake. IV antibiotics as ordered. Nutritional optimization. Offl oading air mattress and wound VAC with collagenase. Also, the patient humbly has been accepted to a higher level of SNF in [place], and so hopefully we can discharge him in the next day or 2. /MODL Voice ID: [id number] Report ID: [id number]
[2021-09-15 22:23] LABS: Urine Appearance CLOUDY (Clear); Urine Bilirubin NEGATIVE (Negative); Urine Blood NEGATIVE (Negative); Urine Color YELLOW (Yellow); Urine Glucose NEGATIVE (Negative); Urine Protein TRACE (Negative); Urine Urobilinogen 0.2 mg/dL (0.2-1.0); Urine pH 5.5 (5.0-7.0)
[2021-09-15 22:27] LABS: Urine Microscopic Reflex ORDER UMIC
--- NOTE | 2021-09-15 22:50 | PN ---
Date of Progress Note: 09/15/2021 Chief Complaint: Acute kidney injury secondary ischemic shock resulted in ATN related to severe prer enal azotemia and ischemic ATN. History: Renal function has improved. Urine output has been adequate. Electrolytes are stable. Review of Systems: Unobtainable. Physical Examination: Lungs: Equal chest expansion. Abdomen: Soft. Extremities: Edema to both ankles. Impression And Plan: 1.Acute kidney injury. Continue adequate hydration. Monitor blood pressure. Reevaluate phosphorus , magnesium level, and renal panel. 2.Septic shock due to osteomyelitis and gluteal abscess. Continue antibiotics. 3.Status post debridement, continue wound care. 4.Hypokalemia, hypomagnesemia. Monitor magnesium and potassium. Check phosphorus level. Continue repletion as needed. EB/MODL Voice ID: [id number] Report ID: [id number]
[2021-09-15 23:00] LABS: Urine Yeast MANY (NONE SEEN)
[2021-09-15 23:02] LABS: Urine Bacteria <20 /HPF (NONE SEEN); Urine RBC NONE SEEN /HPF (NONE SEEN)
[2021-09-16] MEDS: Meropenem 1,000 MG in NA CHLORIDE 0.9% 100 ML IV SCH ×3 (01:00→17:19)
[2021-09-16 01:03] LABS: Vitamin D 1,25-Dihydroxy Total 14 pg/mL (18-72); Vitamin D,1,25-OH2, D2 <8 pg/mL
[2021-09-16] MEDS: Ringers Lactate 1,000 ML with POTASSIUM CL 20 MEQ IV SCH ×4 (02:40→08:19)
[2021-09-16 05:46] LABS: Absolute Lymphocytes (CBC) 1.1 K/uL (0.7-4.9); Hematocrit 24.4 % (39.6-49.0); Lymphocytes % 12.6 % (15.3-44.8); MPV 7.1 fL (7.6-11.3); RBC Red Blood Cell Count 3.01 M/uL (4.33-5.43)
[2021-09-16 06:03] LABS: BUN Blood Urea Nitrogen 17 mg/dL (7-18); Bicarbonate 20 mmol/L (21-32); Glucose Level 95 mg/dL (74-106); Magnesium 1.7 mg/dL (1.8-2.4); Sodium Level 140 mmol/L (136-145)
[2021-09-16] MEDS: MORPHINE 4 MG/ML SYR IV PRN ×5 (06:20→22:30)
[2021-09-16] MEDS: INSULIN -REGULAR HUMAN 50 UNIT/0.5 ML ML SQ SCH ×4 (07:30→20:57)
[2021-09-16 08:47] LABS: BUN Blood Urea Nitrogen 18 mg/dL (7-18); Bicarbonate 22 mmol/L (21-32); Glucose Level 99 mg/dL (74-106); Potassium 4.1 mmol/L (3.5-5.1); Sodium Level 141 mmol/L (136-145)
[2021-09-16] MEDS: JUVEN PACKET PO SCH ×2 (09:00→20:37)
[2021-09-16] MEDS: GLUCERNA SHAKE 237 ML CAN PO SCH ×4 (09:00→20:36)
[2021-09-16] MEDS: COLLAGENASE 30 GM OINTMENT TOP SCH (09:00)
[2021-09-16] MEDS: INSULIN GLARGINE 100 UNIT/ML SQ SCH (09:00)
[2021-09-16] MEDS: ASCORBIC ACID 500 MG TABLET PO SCH ×2 (09:31→20:40)
[2021-09-16] MEDS: ENOXAPARIN 40 MG/0.4 ML SQ SCH (09:31)
[2021-09-16] MEDS: SODIUM BICARB 325 MG TAB PO SCH ×3 (09:31→20:40)
[2021-09-16] MEDS: ZINC SULFATE 220 MG CAP PO SCH (09:31)
[2021-09-16] MEDS: MIDODRINE HCL 5 MG TABLET PO SCH ×3 (09:31→20:41)
[2021-09-16] MEDS: VANCOMYCIN 1.5 GM in NA CHLORIDE 0.9% 500 ML IVPB SCH (09:35)
[2021-09-16] MEDS: TRAMADOL HCL 50 MG TAB PO PRN (10:38)
--- NOTE | 2021-09-16 11:35 | P.PN ---
Subjective Date of Service: 09/16/21 Chief Complaint: Hypotension Been seen and examined at bedside, vancomycin trough level supratherapeutic, morning dose was skipped. Plan to redraw trough tonight, if above 20 we will hold dose again. Review of Systems 10-point ROS is otherwise unremarkable Physical Examination - Vital Signs Temperature: 97.1 F Blood Pressure: 93/46 Pulse: 78 Respirations: 14 Pulse Ox (%): 99 - Studies Laboratory Last Values WBC 27.00 K/uL (4.3-10.9) H* 09/04/21 13:39 RBC 2.51 M/uL (4.33-5.43) L 09/04/21 13:39 Hgb 5.7 g/dL (13.6-17.9) L* 09/04/21 13:39 Hct 19.1 % (39.6-49.0) L* 09/04/21 13:39 MCV 76.3 fL (80-100) L 09/04/21 13:39 MCH 22.7 pg (27.0-35.0) L 09/04/21 13:39 MCHC 29.8 g/dL (32.0-36.0) L 09/04/21 13:39 RDW 18.3 % (12.1-15.2) H 09/04/21 13:39 Plt Count 872 K/uL (152-406) H 09/04/21 13:39 MPV 5.8 fL (7.6-11.3) L 09/04/21 13:39 Neutrophils % 90.6 % (41.7-73.7) H 09/04/21 13:39 Lymphocytes % 4.0 % (15.3-44.8) L 09/04/21 13:39 Monocytes % 5.3 % (3.3-12.3) 09/04/21 13:39 Eosinophils % 0.0 % (0-4.4) 09/04/21 13:39 Basophils % 0.1 % (0-1.3) 09/04/21 13:39 Absolute Neutrophils 24.4 K/uL (1.8-8.0) H 09/04/21 13:39 Segmented Neutrophils 92 % (40-80) H 09/04/21 13:39 Absolute Lymphocytes 1.1 K/uL (0.7-4.9) 09/04/21 13:39 Lymphocytes 5 % (15-42) L 09/04/21 13:39 Monocytes 3 % (0-10) 09/04/21 13:39 Absolute Monocytes 1.4 K/uL (0.1-1.3) H 09/04/21 13:39 Absolute Eosinophils 0.0 K/uL (0-0.5) 09/04/21 13:39 Absolute Basophils 0.0 K/uL (0-0.5) 09/04/21 13:39 Platelet Estimate Incr 09/04/21 13:39 Hypochromasia 1+ 09/04/21 13:39 Poikilocytosis 1+ 09/04/21 13:39 Anisocytosis 1+ 09/04/21 13:39 Tear Drop Cells Few 09/04/21 13:39 Ovalocytes 1+ 09/04/21 13:39 Morphology Comment Not seen (NOT SEEN) 09/04/21 13:39 PT 17.7 SECONDS (9.5-12.5) H 09/04/21 13:39 INR 1.53 09/04/21 13:39 APTT 29.5 SECONDS (24.3-36.9) 09/04/21 13:39 Sodium 127 mmol/L (136-145) L 09/04/21 12:10 Potassium 5.9 mmol/L (3.5-5.1) H* 09/04/21 12:10 Chloride 92 mmol/L (98-107) L 09/04/21 12:10 Carbon Dioxide 25 mmol/L (21-32) 09/04/21 12:10 BUN 32 mg/dL (7-18) H 09/04/21 12:10 Creatinine 1.66 mg/dL (0.55-1.3) H 09/04/21 12:10 Estimated GFR 43 mL/min (=/>90) L 09/04/21 12:10 Glucose 104 mg/dL (74-106) 09/04/21 12:10 Lactic Acid 2.4 mmol/L (0.4-2.0) H 09/04/21 12:10 Calcium 8.3 mg/dL (8.5-10.1) L 09/04/21 12:10 Total Bilirubin 0.4 mg/dL (0.2-1.0) 09/04/21 12:10 Direct Bilirubin 0.2 mg/dL (0-0.2) 09/04/21 12:10 AST 33 U/L (15-37) 09/04/21 12:10 ALT 11 U/L (12-78) L 09/04/21 12:10 Alkaline Phosphatase 224 U/L (45-117) H 09/04/21 12:10 Creatine Kinase 745 U/L (39-308) H 09/04/21 12:10 CK-MB (CK-2) 16.3 ng/mL (1.0-3.6) H* 09/04/21 12:10 Troponin I High Sens 5.20 pg/mL (<58.9) 09/04/21 12:10 Serum Total Protein 8.1 g/dL (6.4-8.2) 09/04/21 12:10 Albumin 0.7 g/dL (3.4-5.0) L* 09/04/21 12:10 Globulin 7.4 g/dL (2.3-3.5) H 09/04/21 12:10 Albumin/Globulin Ratio ND 09/04/21 12:10 Amylase 14 U/L (25-115) L 09/04/21 12:10 Lipase 21 U/L (73-393) L 09/04/21 12:10 Procalcitonin 3.17 ng/mL (<0.050) H 09/04/21 12:10 Urine RBC Cancelled 09/04/21 11:18 Urine WBC Cancelled 09/04/21 11:18 Ur Squamous Epith Cells Cancelled 09/04/21 11:18 Ur Urothelial Cells Cancelled 09/04/21 11:18 Calcium Oxalate Crystal Cancelled 09/04/21 11:18 Uric Acid Crystals Cancelled 09/04/21 11:18 Triple Phos Crystals Cancelled 09/04/21 11:18 Other Crystals Cancelled 09/04/21 11:18 Amorphous Sediment Cancelled 09/04/21 11:18 Glitter Cells Cancelled 09/04/21 11:18 Urine Bacteria Cancelled 09/04/21 11:18 Hyaline Casts Cancelled 09/04/21 11:18 Fine Granular Casts Cancelled 09/04/21 11:18 Coarse Granular Casts Cancelled 09/04/21 11:18 Waxy Casts Cancelled 09/04/21 11:18 RBC Casts Cancelled 09/04/21 11:18 WBC Casts Cancelled 09/04/21 11:18 Urine Mucus Cancelled 09/04/21 11:18 Urine Other Cancelled 09/04/21 11:18 Urine Trichomonas Cancelled 09/04/21 11:18 Urine Yeast Cancelled 09/04/21 11:18 Ur Yeast w Hyphae Cancelled 09/04/21 11:18 Urine Yeast (Budding) Cancelled 09/04/21 11:18 Urine Sperm Cancelled 09/04/21 11:18 Urine Culture Reflexed Cancelled 09/04/21 11:18 Urine Total Volume Cancelled 09/04/21 11:18 SARS-CoV-2 Rap RNA(RT-PCR) Negative (NEGATIVE) 09/04/21 11:18 ABO/Rh Cancelled 09/04/21 15:22 Solid Phase Ab Screen Cancelled 09/04/21 15:22 BBK History Checked Cancelled 09/04/21 15:22 Assessment And Plan - Plan Physical exam: General: Confused HEENT: Atraumatic, Normocephalic Neck: Supple, 2+ carotid pulse no bruit Respiratory: Clear to auscultation bilaterally, Normal air movement Cardiovascular: No edema, Regular rate/rhythm, Normal S1 S2 Capillary refill: <2 Seconds Gastrointestinal: Other (Colostomy) Musculoskeletal: Other (Bilateral transmetatarsal amputation) Integumentary: Other (Large sacral decubitus pressure ulcer measuring approximately 45 x 20 x 15 cm. Wound extends down to left femur.) Neurological: Other (Paraplegic) Urinary: Suprapubic catheter, Other Conclusions/Impression: Antibiotics: Meropenem Start: 09/06 Vancomycin Start: 09/05 Stop: 09/10 restart: 09/14 Vancomycin trough: 09/16: 27.9 mcg/ml Assessment/plan Sepsis secondary to locally infected stage IV sacral decubitus ulcer Wound culture growing ESBL producing E. coli and Proteus mirabellas both sensitive to meropenem. Patient has undergone surgical debridement of the wound on 09/05, 09/08, 09/10, and 09/12. Wound VAC placed on 09/10. Continue wound care per surgical team. Continue to offload wound and avoid direct pressure. Pelvic/left femur osteomyelitis CT abdomen pelvis confirmed osteomyelitis. Patient will need IV antibiotics for 6 weeks. Leukocytosis Continue monitor WBC curve and fever trend. Recommend continuing Vanco for 5- day course. Repeat blood cultures obtained on 09/12 showed no growth at 24 hours. Repeat urine culture obtained on 09/15 pending. Protein caloric malnutrition: Severe Patient on regular diet however is not eating. Recommend considering PEG tube. Adequate nutrition needed for proper wound healing. Continue vitamin supp lementation with vitamin C and zinc. Diabetes Strict glucose monitoring needed for proper infection control/wound healing. Continue sliding scale insulin. Anemia Continue to monitor H&H -Medical management per primary team Plan of care discussed with Dr. Molina Thank for consultation
--- NOTE | 2021-09-16 12:32 | PN ---
Date of Progress Note: 09/16/2021 Subjective: The patient is awake and alert. Tolerating diet. Eating better. Objective: Vital Signs: Vitals are stable, but the blood pressure is a little bit on the low side b eing 83/41 this morning. He is not tachycardic, however. He is afebrile. Extremities: His wound VAC is in place. Laboratory Data: Shows a white count of 9.1. The left shift did normalize almost. Assessment: Status post multiple debridements of infected sacral decubitus and abscess and the patie nt with osteomyelitis, severe anemia, malnutrition. Recommendations: Encourage p.o. intake, IV antibiotics as ordered, wound care as ordered. Discussed the case with Dr. Romano prior to discharge to a long-term facility. May be the patient wound benef it from another unit of blood. His hemoglobin is 7.9 and he has anemia of chronic disease, so I thin k 1 more unit of blood is clinically indicated for this patient to help support his cardiovascular st atus prior to discharge. /MODL Voice ID: [id number] Report ID: [id number]
--- NOTE | 2021-09-16 12:41 | P.PN ---
Subjective Date of Service: 09/16/21 Chief Complaint: Hypotension Patient was off Levophed but this morning became hypotensive. Patient placed on low-dose Levophed, currently running at 1 mg/h. He is awake and interactive. Physical Examination - Vital Signs Temperature: 97.1 F Blood Pressure: 93/46 Pulse: 78 Respirations: 14 Pulse Ox (%): 99 Assessment And Plan - Current Problems (Diagnosis) (1) Septic shock Current Visit: Yes Status: Acute (2) Infected decubitus ulcer Current Visit: Yes Status: Acute (3) Paraplegia Current Visit: Yes Status: Acute (4) Diabetes mellitus type 2 in nonobese Current Visit: Yes Status: Acute (5) Hyperkalemia Current Visit: Yes Status: Acute (6) Hyponatremia Current Visit: Yes Status: Acute (7) Septic arthritis Current Visit: Yes Status: Acute - Plan Physical examination: General: In no apparent distress, Cachectic. HEENT: Mucous membr. moist/pink Neck: JVD not distended Respiratory: Clear to auscultation bilaterally, Normal air movement Cardiovascular: Regular rate/rhythm, Normal S1 S2, Edema -Left lower extremity. Gastrointestinal: Soft and benign, Non-distended, Colostomy Musculoskeletal: Right leg atrophy Integumentary: Sacral decubitus ulcer: Wound VAC in place. Neurological: Paraplegia Continue IV meropenem and vancomycin. Infectious disease is following. Continue hydration with IV normal saline. Diet as tolerated Debridement and irrigation x 3. Wound VAC in place PICC line in place for prolonged IV antibiotic therapy. 1 blood culture bottle: Coagulase-negative staph-likely skin contaminant. Other blood cultures negative. repeat blood culture. Wound culture: E. coli and Proteus. 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 Case discussed with orthopedic surgery-Dr. Gonzales. Per Dr. Gonzales the fluid collection appears to be soft tissue related and no joint space involvement. He recommended surgical debridement. No need for Ortho surgery. Nursing staff reported seeing urine in his colostomy several days ago. concerning for colonic vesicular fistula, however Urinalysis did not suggest any fecal matter. Urology consulted, recommended to send ostomy output for Cr. Low suspicion for fistula at this time. lab was send out, reported unable to perform test. Insulin sliding scale for glucose management. HIV negative. Continue midodrine for hypotension. Hemoglobin is 7.9, a drop since last blood transfusion. Transfuse 1 more unit. Give 250 ml normal saline bolus for hypotension wean off the Levophed drip. Continue IV iron for iron deficiency. DVT prophylaxis with Lovenox. Diet as tolerated. Patient had episodes of hypoglycemia yesterday. Discontinue Lantus insulin Insulin sliding scale for glucose management. Patient with poor oral intake. Dobhoff/ PEG may be an option to improve his dietary intake. Pain management as needed. VTE: lovenox Code: full Dispo: Continue ICU level of care, [facility] Time Spent Managing Pts Care (In Minutes): 42
[2021-09-16] MEDS ORDERED: VANCOMYCIN 1.5 GM in NA CHLORIDE 0.9% 500 ML IVPB SCH (17:00)
--- NOTE | 2021-09-16 19:11 | PN ---
Date of Progress Note: 09/16/2021 Subjective: The patient was admitted with COVID pneumonia and respiratory failure. The patient had acute kidney injury and electrolyte imbalance. Acute kidney injury has been improved. Physical Examination: Vital Signs: Blood pressure 93/46, pulse of 78, afebrile. The patient had good urine output of 1700 . Chest: Clear to auscultation. Heart: S1, S2. Systolic murmur. Abdomen: Soft, nontender. Extremity: No edema. Neurologic: Alert. No focality. Laboratory Data: WBC 9.1, H and H 7.9/24.4. Sodium 141, potassium 4.1, bicarb 22, BUN 18, creatinin e 0.4, calcium 7.4, magnesium 2. Current Medications: The patient on include; 1.Meropenem. 2.Vancomycin. 3.IV iron. 4.Zoloft. 5.Sodium bicarb 650 t.i.d. 6.Zofran. 7.Magnesium sulfate. Assessment And Plan: 1.Acute kidney injury secondary to prerenal, recovered, resolved. 2.Hypokalemia, status post supplement yesterday, has hyperkalemia, resolve. 3.Hypomagnesemia, status post supplement, resolved. 4.COVID pneumonia as by Primary. 5.Iron deficiency anemia. The patient on IV iron. The patient planned for transfusion today. We w ill follow up. 6.Chronic hypotension. I will start the patient on midodrine and we will continue. MALIA Voice ID: [id number] Report ID: [id number]
[2021-09-16] MEDS: MIRTAZAPINE 15 MG TAB PO SCH (20:41)
[2021-09-16] MEDS: SERTRALINE HCL 50 MG TAB PO SCH (20:41)
[2021-09-17] MEDS: Meropenem 1,000 MG in NA CHLORIDE 0.9% 100 ML IV SCH ×3 (00:55→17:40)
[2021-09-17] MEDS: TRAMADOL HCL 50 MG TAB PO PRN ×3 (01:00→15:58)
[2021-09-17] MEDS: Ringers Lactate 1,000 ML with POTASSIUM CL 20 MEQ IV SCH ×4 (03:04→18:22)
[2021-09-17] MEDS: MORPHINE 4 MG/ML SYR IV PRN ×6 (03:07→23:57)
[2021-09-17 06:26] LABS: Absolute Lymphocytes (CBC) 1.2 K/uL (0.7-4.9); Lymphocytes % 10.4 % (15.3-44.8); MPV 7.3 fL (7.6-11.3); RBC Red Blood Cell Count 3.77 M/uL (4.33-5.43)
[2021-09-17 06:43] LABS: BUN Blood Urea Nitrogen 15 mg/dL (7-18); Bicarbonate 24 mmol/L (21-32); Glucose Level 131 mg/dL (74-106); Potassium 3.9 mmol/L (3.5-5.1); Sodium Level 143 mmol/L (136-145)
[2021-09-17] MEDS: INSULIN -REGULAR HUMAN 50 UNIT/0.5 ML ML SQ SCH ×4 (07:30→20:28)
--- NOTE | 2021-09-17 08:57 | PN ---
Date of Progress Note: 09/17/2021 Subjective: The patient is awake, alert, tolerating his diet much better. His intake has increased markedly. His vitals are stable. Blood pressure decreased once he is off Levophed, currently he is on 0.5 mcg of Levophed. He did get a unit of blood yesterday as well. Objective: Vital Signs: His vitals otherwise are stable. He is afebrile. Extremities: His wound VAC is in place. Laboratory Data: His H and H are 10.1 and 31.0. Assessment: Status post multiple debridements of infected sacral decubitus, osteomyelitis anemia, an d malnutrition. Recommendations: Medical management for the blood pressure issue. I believe it is a neurogenic issu e and medication should be able to help, hopefully the oral medicine which he is on will kick in soon . Discharge planning is already in effect. He has been accepted to a facility in [place]. Continu e IV antibiotics and wound care as ordered. /MODL Voice ID: [id number] Report ID: [id number]
[2021-09-17] MEDS: SODIUM HYPOCHLORITE 0.25% 473 ML IRR SCH (09:00)
[2021-09-17] MEDS: GLUCERNA SHAKE 237 ML CAN PO SCH ×4 (09:00→20:28)
[2021-09-17] MEDS: JUVEN PACKET PO SCH ×2 (09:00→20:28)
[2021-09-17] MEDS: COLLAGENASE 30 GM OINTMENT TOP SCH (09:27)
[2021-09-17] MEDS: MIDODRINE HCL 5 MG TABLET PO SCH ×3 (09:28→20:28)
[2021-09-17] MEDS: SODIUM BICARB 325 MG TAB PO SCH ×2 (09:28→20:31)
[2021-09-17] MEDS: ASCORBIC ACID 500 MG TABLET PO SCH ×2 (09:28→20:29)
[2021-09-17] MEDS: SOD FERRIC GLUC COMPLX/SUCROSE 250 MG in NA CHLORIDE 0.9% 250 ML IV SCH (09:28)
[2021-09-17] MEDS: ENOXAPARIN 40 MG/0.4 ML SQ SCH (09:29)
[2021-09-17] MEDS: ZINC SULFATE 220 MG CAP PO SCH (09:29)
[2021-09-17] MEDS ORDERED: NA CHLORIDE 0.9% 250 ML IV ONE (09:30)
[2021-09-17 10:29] LABS: Platelet Estimate ADEQ; White Blood Cell Scan OK (OK)
[2021-09-17 10:30] LABS: Anisocytosis 1+; Blood Morphology Comment NOTED (NOT SEEN)
--- NOTE | 2021-09-17 11:33 | PN ---
Date of Progress Note: 09/17/2021 Subjective: The patient was admitted with septic shock, acute kidney injury, decubitus ulcer. The p atient undergone debridement. The patient more awake today, status post blood transfusion yesterday, started on IV iron. Physical Examination: Vital Signs: Blood pressure 111/53, pulse of 76, afebrile. The patient had good urine output of 160 0. Chest: Clear to auscultation. Heart: S1, S2. Regular. Systolic murmur. Abdomen: Soft, nontender. Extremity: Bilateral MTA. Neurologic: Alert. Follows command. No focality. The patient had colostomy bag. Laboratory Data: WBC 11.1, H and H 10.09/22. Sodium 143, potassium 3.9, bicarb 24, BUN 15, creatinin e 0.5, calcium 7.4, albumin is 0.5. Corrected albumin is 9.10. Current Medications: The patient on include; 1.IV iron. 2.Meropenem. 3.Vancomycin. 4.Midodrine 10 mg t.i.d. 5.Lovenox. 6.Mirtazapine. 7.Zoloft. 8.Sodium bicarb 650 t.i.d. 9.Zofran. Assessment And Plan: 1.Acute kidney injury secondary to prerenal, recovered, resolved. 2.Acidosis secondary to renal failure/gastrointestinal loss, on the recovery, going to resolve, curr ently bicarb on acceptable level. I am going to change the bicarb to b.i.d. 3.Hypokalemia, hypomagnesemia, status post supplement, resolved. 4.Anemia secondary to blood loss/iron deficiency anemia. Started on IV iron, we will continue. Sta tus post transfusion yesterday. We will follow up. 5.Decubitus ulcer, septic shock. Continue current antibiotic as by ID. We will follow up. HALINA/JESSICA Voice ID: [id number] Report ID: [id number]
--- NOTE | 2021-09-17 11:49 | P.PN ---
Subjective Date of Service: 09/17/21 Chief Complaint: Hypotension Been seen and examined at bedside, no acute events. Review of Systems 10-point ROS is otherwise unremarkable Physical Examination - Vital Signs Temperature: 97.8 F Blood Pressure: 86/44 Pulse: 75 Respirations: 18 Pulse Ox (%): 98 - Studies Laboratory Last Values WBC 27.00 K/uL (4.3-10.9) H* 09/04/21 13:39 RBC 2.51 M/uL (4.33-5.43) L 09/04/21 13:39 Hgb 5.7 g/dL (13.6-17.9) L* 09/04/21 13:39 Hct 19.1 % (39.6-49.0) L* 09/04/21 13:39 MCV 76.3 fL (80-100) L 09/04/21 13:39 MCH 22.7 pg (27.0-35.0) L 09/04/21 13:39 MCHC 29.8 g/dL (32.0-36.0) L 09/04/21 13:39 RDW 18.3 % (12.1-15.2) H 09/04/21 13:39 Plt Count 872 K/uL (152-406) H 09/04/21 13:39 MPV 5.8 fL (7.6-11.3) L 09/04/21 13:39 Neutrophils % 90.6 % (41.7-73.7) H 09/04/21 13:39 Lymphocytes % 4.0 % (15.3-44.8) L 09/04/21 13:39 Monocytes % 5.3 % (3.3-12.3) 09/04/21 13:39 Eosinophils % 0.0 % (0-4.4) 09/04/21 13:39 Basophils % 0.1 % (0-1.3) 09/04/21 13:39 Absolute Neutrophils 24.4 K/uL (1.8-8.0) H 09/04/21 13:39 Segmented Neutrophils 92 % (40-80) H 09/04/21 13:39 Absolute Lymphocytes 1.1 K/uL (0.7-4.9) 09/04/21 13:39 Lymphocytes 5 % (15-42) L 09/04/21 13:39 Monocytes 3 % (0-10) 09/04/21 13:39 Absolute Monocytes 1.4 K/uL (0.1-1.3) H 09/04/21 13:39 Absolute Eosinophils 0.0 K/uL (0-0.5) 09/04/21 13:39 Absolute Basophils 0.0 K/uL (0-0.5) 09/04/21 13:39 Platelet Estimate Incr 09/04/21 13:39 Hypochromasia 1+ 09/04/21 13:39 Poikilocytosis 1+ 09/04/21 13:39 Anisocytosis 1+ 09/04/21 13:39 Tear Drop Cells Few 09/04/21 13:39 Ovalocytes 1+ 09/04/21 13:39 Morphology Comment Not seen (NOT SEEN) 09/04/21 13:39 PT 17.7 SECONDS (9.5-12.5) H 09/04/21 13:39 INR 1.53 09/04/21 13:39 APTT 29.5 SECONDS (24.3-36.9) 09/04/21 13:39 Sodium 127 mmol/L (136-145) L 09/04/21 12:10 Potassium 5.9 mmol/L (3.5-5.1) H* 09/04/21 12:10 Chloride 92 mmol/L (98-107) L 09/04/21 12:10 Carbon Dioxide 25 mmol/L (21-32) 09/04/21 12:10 BUN 32 mg/dL (7-18) H 09/04/21 12:10 Creatinine 1.66 mg/dL (0.55-1.3) H 09/04/21 12:10 Estimated GFR 43 mL/min (=/>90) L 09/04/21 12:10 Glucose 104 mg/dL (74-106) 09/04/21 12:10 Lactic Acid 2.4 mmol/L (0.4-2.0) H 09/04/21 12:10 Calcium 8.3 mg/dL (8.5-10.1) L 09/04/21 12:10 Total Bilirubin 0.4 mg/dL (0.2-1.0) 09/04/21 12:10 Direct Bilirubin 0.2 mg/dL (0-0.2) 09/04/21 12:10 AST 33 U/L (15-37) 09/04/21 12:10 ALT 11 U/L (12-78) L 09/04/21 12:10 Alkaline Phosphatase 224 U/L (45-117) H 09/04/21 12:10 Creatine Kinase 745 U/L (39-308) H 09/04/21 12:10 CK-MB (CK-2) 16.3 ng/mL (1.0-3.6) H* 09/04/21 12:10 Troponin I High Sens 5.20 pg/mL (<58.9) 09/04/21 12:10 Serum Total Protein 8.1 g/dL (6.4-8.2) 09/04/21 12:10 Albumin 0.7 g/dL (3.4-5.0) L* 09/04/21 12:10 Globulin 7.4 g/dL (2.3-3.5) H 09/04/21 12:10 Albumin/Globulin Ratio ND 09/04/21 12:10 Amylase 14 U/L (25-115) L 09/04/21 12:10 Lipase 21 U/L (73-393) L 09/04/21 12:10 Procalcitonin 3.17 ng/mL (<0.050) H 09/04/21 12:10 Urine RBC Cancelled 09/04/21 11:18 Urine WBC Cancelled 09/04/21 11:18 Ur Squamous Epith Cells Cancelled 09/04/21 11:18 Ur Urothelial Cells Cancelled 09/04/21 11:18 Calcium Oxalate Crystal Cancelled 09/04/21 11:18 Uric Acid Crystals Cancelled 09/04/21 11:18 Triple Phos Crystals Cancelled 09/04/21 11:18 Other Crystals Cancelled 09/04/21 11:18 Amorphous Sediment Cancelled 09/04/21 11:18 Glitter Cells Cancelled 09/04/21 11:18 Urine Bacteria Cancelled 09/04/21 11:18 Hyaline Casts Cancelled 09/04/21 11:18 Fine Granular Casts Cancelled 09/04/21 11:18 Coarse Granular Casts Cancelled 09/04/21 11:18 Waxy Casts Cancelled 09/04/21 11:18 RBC Casts Cancelled 09/04/21 11:18 WBC Casts Cancelled 09/04/21 11:18 Urine Mucus Cancelled 09/04/21 11:18 Urine Other Cancelled 09/04/21 11:18 Urine Trichomonas Cancelled 09/04/21 11:18 Urine Yeast Cancelled 09/04/21 11:18 Ur Yeast w Hyphae Cancelled 09/04/21 11:18 Urine Yeast (Budding) Cancelled 09/04/21 11:18 Urine Sperm Cancelled 09/04/21 11:18 Urine Culture Reflexed Cancelled 09/04/21 11:18 Urine Total Volume Cancelled 09/04/21 11:18 SARS-CoV-2 Rap RNA(RT-PCR) Negative (NEGATIVE) 09/04/21 11:18 ABO/Rh Cancelled 09/04/21 15:22 Solid Phase Ab Screen Cancelled 09/04/21 15:22 BBK History Checked Cancelled 09/04/21 15:22 Assessment And Plan - Plan Physical exam: General: Confused HEENT: Atraumatic, Normocephalic Neck: Supple, 2+ carotid pulse no bruit Respiratory: Clear to auscultation bilaterally, Normal air movement Cardiovascular: No edema, Regular rate/rhythm, Normal S1 S2 Capillary refill: <2 Seconds Gastrointestinal: Other (Colostomy) Musculoskeletal: Other (Bilateral transmetatarsal amputation) Integumentary: Other (Large sacral decubitus pressure ulcer measuring approximately 45 x 20 x 15 cm. Wound extends down to left femur.) Neurological: Other (Paraplegic) Urinary: Suprapubic catheter, Other Conclusions/Impression: Antibiotics: Meropenem Start: 09/06 Vancomycin Start: 09/05 Stop: 09/10 restart: 09/14 Vancomycin trough: 09/16: 24.5 mcg/ml Assessment/plan Sepsis secondary to locally infected stage IV sacral decubitus ulcer Wound culture growing ESBL producing E. coli and Proteus mirabellas both sensitive to meropenem. Patient has undergone surgical debridement of the wound on 09/05, 09/08, 09/10, and 09/12. Wound VAC placed on 09/10. Continue wound care p er surgical team. Continue to offload wound and avoid direct pressure. Pelvic/left femur osteomyelitis CT abdomen pelvis confirmed osteomyelitis. Patient will need IV antibiotics for 6 weeks. Leukocytosis Resolved. Continue monitor WBC curve and fever trend. Recommend continuing Vanco for 5-day course. Repeat blood cultures obtained on 09/12 showed no growth at 24 hours. Repeat urine culture obtained on 09/15 pending. Protein caloric malnutrition: Severe Patient on regular diet however is not eating. Recommend considering PEG tube. Adequate nutrition needed for proper wound healing. Continue vitamin supplementation with vitamin C and zinc. Diabetes Strict glucose monitoring needed for proper infection control/wound healing. Continue sliding scale insulin. Anemia Continue to monitor H&H -Medical management per primary team Plan of care discussed with Dr. Molina Thank for consultation
--- NOTE | 2021-09-17 12:15 | RAD REPORT ---
EXAM DESCRIPTION: US - UPPER EXTREMITY VENOUS UNILATE - 09/17/2021 11:50 am CLINICAL HISTORY: Right arm pain and swelling COMPARISON: None. TECHNIQUE: Real-time sonographic evaluation of the right upper extremity deep venous systems was per formed. FINDINGS: Normal compressibility, flow augmentation, phasic flow and spontaneous flow are identified in the right upper extremity deep venous system. No intraluminal filling defects seen. Internal jugu lar and subclavian veins are normal as well. No thrombus is seen along the indwelling central line there is some edema in the soft tissues but no abscess or drainable fluid collection. IMPRESSION: No DVT in the right upper extremity.
--- NOTE | 2021-09-17 12:32 | P.PN ---
Subjective Date of Service: 09/17/21 Chief Complaint: Hypotension Patient was off Levophed yesterday and restarted this morning. He is only getting 0.5 mg/h. He is awake and interactive. Physical Examination - Vital Signs Temperature: 97.8 F Blood Pressure: 86/44 Pulse: 75 Respirations: 18 Pulse Ox (%): 98 Assessment And Plan - Current Problems (Diagnosis) (1) Septic shock Current Visit: Yes Status: Acute (2) Infected decubitus ulcer Current Visit: Yes Status: Acute (3) Paraplegia Current Visit: Yes Status: Acute (4) Diabetes mellitus type 2 in nonobese Current Visit: Yes Status: Acute (5) Hyperkalemia Current Visit: Yes Status: Acute (6) Hyponatremia Current Visit: Yes Status: Acute (7) Septic arthritis Current Visit: Yes Status: Acute - Plan Physical examination: General: In no apparent distress, Cachectic. HEENT: Mucous membr. moist/pink Neck: JVD not distended Respiratory: Clear to auscultation bilaterally, Normal air movement Cardiovascular: Regular rate/rhythm, Normal S1 S2, Edema -Left lower extremity. Gastrointestinal: Soft and benign, Non-distended, Colostomy Musculoskeletal: Right leg atrophy Integumentary: Sacral decubitus ulcer: Wound VAC in place. Neurological: Paraplegia Continue IV meropenem and vancomycin. Infectious disease is following. Continue hydration with IV normal saline. Diet as tolerated Debridement and irrigation x 3. Wound VAC in place PICC line in place for prolonged IV antibiotic therapy. 1 blood culture bottle: Coagulase-negative staph-likely skin contaminant. Other blood cultures negative. Repeat blood culture: No growth. Wound culture: E. coli and Proteus. 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 Case discussed with orthopedic surgery-Dr. Gonzales. Per Dr. Gonzales the fluid collection appears to be soft tissue related and no joint space involvement. He recommended surgical debridement. No need for Ortho surgery. Nursing staff reported seeing urine in his colostomy several days ago. concerning for colonic vesicular fistula, however Urinalysis did not suggest any fecal matter. Urology consulted, recommended to send ostomy output for Cr. Low suspicion for fistula at this time. lab was send out, reported unable to perform test. Insulin sliding scale for glucose management. HIV negative. Continue midodrine for hypotension. Hemoglobin is 7.9, a drop since last blood transfusion. Transfused 1 more unit for a total of 5. Give 250 ml normal saline bolus for hypotension wean off the Levophed drip today. Continue IV iron for iron deficiency. DVT prophylaxis with Lovenox. Diet as tolerated. Insulin sliding scale for glucose management. Lantus discontinued. Patient with poor oral intake. Dobhoff/ PEG may be an option to improve his dietary intake. Pain management as needed. VTE: lovenox Code: full Dispo: Continue ICU level of care, patient [facility] to [facility]. Waiting for his blood pressure to stabilize for transfer to [facility]. Time Spent Managing Pts Care (In Minutes): 42
[2021-09-17] MEDS ORDERED: VANCOMYCIN 1.5 GM in NA CHLORIDE 0.9% 500 ML IVPB SCH ×4 (17:00)
[2021-09-17] MEDS ORDERED: Mastisol Adhesive Liq ONE (17:20)
[2021-09-17] MEDS: MIRTAZAPINE 15 MG TAB PO SCH (20:29)
[2021-09-17] MEDS: SERTRALINE HCL 50 MG TAB PO SCH (20:29)
[2021-09-18] MEDS: Meropenem 1,000 MG in NA CHLORIDE 0.9% 100 ML IV SCH ×4 (00:32→23:58)
[2021-09-18] MEDS: MORPHINE 4 MG/ML SYR IV PRN ×3 (04:46→17:30)
[2021-09-18 05:19] LABS: Absolute Lymphocytes (CBC) 1.3 K/uL (0.7-4.9); Hematocrit 30.6 % (39.6-49.0); Lymphocytes % 13.6 % (15.3-44.8); MPV 7.2 fL (7.6-11.3); RBC Red Blood Cell Count 3.73 M/uL (4.33-5.43)
[2021-09-18 05:45] LABS: BUN Blood Urea Nitrogen 15 mg/dL (7-18); Bicarbonate 24 mmol/L (21-32); Glucose Level 124 mg/dL (74-106); Potassium 3.9 mmol/L (3.5-5.1); Sodium Level 143 mmol/L (136-145)
[2021-09-18] MEDS: INSULIN -REGULAR HUMAN 50 UNIT/0.5 ML ML SQ SCH ×4 (07:30→20:42)
[2021-09-18] MEDS: ENOXAPARIN 40 MG/0.4 ML SQ SCH (08:14)
[2021-09-18] MEDS: ASCORBIC ACID 500 MG TABLET PO SCH ×2 (08:15→20:42)
[2021-09-18] MEDS: SODIUM BICARB 325 MG TAB PO SCH ×2 (08:15→20:41)
[2021-09-18] MEDS: TRAMADOL HCL 50 MG TAB PO PRN (08:15)
[2021-09-18] MEDS: COLLAGENASE 30 GM OINTMENT TOP SCH (08:15)
[2021-09-18] MEDS: Ringers Lactate 1,000 ML with POTASSIUM CL 20 MEQ IV SCH ×4 (08:15→23:13)
[2021-09-18] MEDS: ZINC SULFATE 220 MG CAP PO SCH (08:15)
[2021-09-18] MEDS: MIDODRINE HCL 5 MG TABLET PO SCH ×3 (08:15→20:41)
[2021-09-18] MEDS: JUVEN PACKET PO SCH ×3 (08:16→20:41)
[2021-09-18] MEDS: GLUCERNA SHAKE 237 ML CAN PO SCH ×4 (08:16→20:40)
--- NOTE | 2021-09-18 11:13 | P.PN ---
Subjective Date of Service: 09/18/21 Chief Complaint: Hypotension Been seen and examined at bedside, plan to transfer back to [facility]. Review of Systems 10-point ROS is otherwise unremarkable Physical Examination - Vital Signs Temperature: 97.6 F Blood Pressure: 88/43 Pulse: 79 Respirations: 20 Pulse Ox (%): 98 - Studies Laboratory Last Values WBC 27.00 K/uL (4.3-10.9) H* 09/04/21 13:39 RBC 2.51 M/uL (4.33-5.43) L 09/04/21 13:39 Hgb 5.7 g/dL (13.6-17.9) L* 09/04/21 13:39 Hct 19.1 % (39.6-49.0) L* 09/04/21 13:39 MCV 76.3 fL (80-100) L 09/04/21 13:39 MCH 22.7 pg (27.0-35.0) L 09/04/21 13:39 MCHC 29.8 g/dL (32.0-36.0) L 09/04/21 13:39 RDW 18.3 % (12.1-15.2) H 09/04/21 13:39 Plt Count 872 K/uL (152-406) H 09/04/21 13:39 MPV 5.8 fL (7.6-11.3) L 09/04/21 13:39 Neutrophils % 90.6 % (41.7-73.7) H 09/04/21 13:39 Lymphocytes % 4.0 % (15.3-44.8) L 09/04/21 13:39 Monocytes % 5.3 % (3.3-12.3) 09/04/21 13:39 Eosinophils % 0.0 % (0-4.4) 09/04/21 13:39 Basophils % 0.1 % (0-1.3) 09/04/21 13:39 Absolute Neutrophils 24.4 K/uL (1.8-8.0) H 09/04/21 13:39 Segmented Neutrophils 92 % (40-80) H 09/04/21 13:39 Absolute Lymphocytes 1.1 K/uL (0.7-4.9) 09/04/21 13:39 Lymphocytes 5 % (15-42) L 09/04/21 13:39 Monocytes 3 % (0-10) 09/04/21 13:39 Absolute Monocytes 1.4 K/uL (0.1-1.3) H 09/04/21 13:39 Absolute Eosinophils 0.0 K/uL (0-0.5) 09/04/21 13:39 Absolute Basophils 0.0 K/uL (0-0.5) 09/04/21 13:39 Platelet Estimate Incr 09/04/21 13:39 Hypochromasia 1+ 09/04/21 13:39 Poikilocytosis 1+ 09/04/21 13:39 Anisocytosis 1+ 09/04/21 13:39 Tear Drop Cells Few 09/04/21 13:39 Ovalocytes 1+ 09/04/21 13:39 Morphology Comment Not seen (NOT SEEN) 09/04/21 13:39 PT 17.7 SECONDS (9.5-12.5) H 09/04/21 13:39 INR 1.53 09/04/21 13:39 APTT 29.5 SECONDS (24.3-36.9) 09/04/21 13:39 Sodium 127 mmol/L (136-145) L 09/04/21 12:10 Potassium 5.9 mmol/L (3.5-5.1) H* 09/04/21 12:10 Chloride 92 mmol/L (98-107) L 09/04/21 12:10 Carbon Dioxide 25 mmol/L (21-32) 09/04/21 12:10 BUN 32 mg/dL (7-18) H 09/04/21 12:10 Creatinine 1.66 mg/dL (0.55-1.3) H 09/04/21 12:10 Estimated GFR 43 mL/min (=/>90) L 09/04/21 12:10 Glucose 104 mg/dL (74-106) 09/04/21 12:10 Lactic Acid 2.4 mmol/L (0.4-2.0) H 09/04/21 12:10 Calcium 8.3 mg/dL (8.5-10.1) L 09/04/21 12:10 Total Bilirubin 0.4 mg/dL (0.2-1.0) 09/04/21 12:10 Direct Bilirubin 0.2 mg/dL (0-0.2) 09/04/21 12:10 AST 33 U/L (15-37) 09/04/21 12:10 ALT 11 U/L (12-78) L 09/04/21 12:10 Alkaline Phosphatase 224 U/L (45-117) H 09/04/21 12:10 Creatine Kinase 745 U/L (39-308) H 09/04/21 12:10 CK-MB (CK-2) 16.3 ng/mL (1.0-3.6) H* 09/04/21 12:10 Troponin I High Sens 5.20 pg/mL (<58.9) 09/04/21 12:10 Serum Total Protein 8.1 g/dL (6.4-8.2) 09/04/21 12:10 Albumin 0.7 g/dL (3.4-5.0) L* 09/04/21 12:10 Globulin 7.4 g/dL (2.3-3.5) H 09/04/21 12:10 Albumin/Globulin Ratio ND 09/04/21 12:10 Amylase 14 U/L (25-115) L 09/04/21 12:10 Lipase 21 U/L (73-393) L 09/04/21 12:10 Procalcitonin 3.17 ng/mL (<0.050) H 09/04/21 12:10 Urine RBC Cancelled 09/04/21 11:18 Urine WBC Cancelled 09/04/21 11:18 Ur Squamous Epith Cells Cancelled 09/04/21 11:18 Ur Urothelial Cells Cancelled 09/04/21 11:18 Calcium Oxalate Crystal Cancelled 09/04/21 11:18 Uric Acid Crystals Cancelled 09/04/21 11:18 Triple Phos Crystals Cancelled 09/04/21 11:18 Other Crystals Cancelled 09/04/21 11:18 Amorphous Sediment Cancelled 09/04/21 11:18 Glitter Cells Cancelled 09/04/21 11:18 Urine Bacteria Cancelled 09/04/21 11:18 Hyaline Casts Cancelled 09/04/21 11:18 Fine Granular Casts Cancelled 09/04/21 11:18 Coarse Granular Casts Cancelled 09/04/21 11:18 Waxy Casts Cancelled 09/04/21 11:18 RBC Casts Cancelled 09/04/21 11:18 WBC Casts Cancelled 09/04/21 11:18 Urine Mucus Cancelled 09/04/21 11:18 Urine Other Cancelled 09/04/21 11:18 Urine Trichomonas Cancelled 09/04/21 11:18 Urine Yeast Cancelled 09/04/21 11:18 Ur Yeast w Hyphae Cancelled 09/04/21 11:18 Urine Yeast (Budding) Cancelled 09/04/21 11:18 Urine Sperm Cancelled 09/04/21 11:18 Urine Culture Reflexed Cancelled 09/04/21 11:18 Urine Total Volume Cancelled 09/04/21 11:18 SARS-CoV-2 Rap RNA(RT-PCR) Negative (NEGATIVE) 09/04/21 11:18 ABO/Rh Cancelled 09/04/21 15:22 Solid Phase Ab Screen Cancelled 09/04/21 15:22 BBK History Checked Cancelled 09/04/21 15:22 Assessment And Plan - Plan Physical exam: General: Confused HEENT: Atraumatic, Normocephalic Neck: Supple, 2+ carotid pulse no bruit Respiratory: Clear to auscultation bilaterally, Normal air movement Cardiovascular: No edema, Regular rate/rhythm, Normal S1 S2 Capillary refill: <2 Seconds Gastrointestinal: Other (Colostomy) Musculoskeletal: Other (Bilateral transmetatarsal amputation) Integumentary: Other (Large sacral decubitus pressure ulcer measuring approximately 45 x 20 x 15 cm. Wound extends down to left femur.) Neurological: Other (Paraplegic) Urinary: Suprapubic catheter, Other Conclusions/Impression: Antibiotics: Meropenem Start: 09/06 Vancomycin Start: 09/05 Stop: 09/10 restart: 09/14 stio: 09/18 Vancomycin trough: 09/17: 16.9 mcg/ml Assessment/plan Sepsis secondary to locally infected stage IV sacral decubitus ulcer Wound culture growing ESBL producing E. coli and Proteus mirabellas both sensitive to meropenem. Patient has undergone surgical debridement of the wound on 09/05, 09/08, 09/10, and 09/12. Wound VAC placed on 09/10. Continue wound care per surgical team. Continue to offload wound and avoid direct pressure. Pelvic/left femur osteomyelitis CT abdomen pelvis confirmed osteomyelitis. Patient will need IV antibiotics for 6 weeks. Leukocytosis Resolved. Continue monitor WBC curve and fever trend. Recommend continuing Vanco for 5-day course. Repeat blood cultures obtained on 09/12 showed no growth at 24 hours. Repeat urine culture obtained on 09/15 pending. Protein caloric malnutrition: Severe Patient on regular diet however is not eating. Recommend considering PEG tube. Adequate nutrition needed for proper wound healing. Continue vitamin supplementation with vitamin C and zinc. Diabetes Strict glucose monitoring needed for proper infection control/wound healing. Continue sliding scale insulin. Anemia Continue to monitor H&H -Medical management per primary team Plan of care discussed with Dr. Molina Thank for consultation
--- NOTE | 2021-09-18 11:36 | PN ---
Date of Progress Note: 09/18/2021 Subjective: The patient is awake, alert, tolerating his diet. Vitals are stable. He is afebrile. His blood pressure only dropped, he was given IV morphine. Please note, he had ultrasound study due to swelling of his right arm yesterday, which was negative. Objective: He had a wound VAC placed yesterday. Wound looks excellent with good granulation tissue. Minimal fibrin present. No surrounding erythema warmth or significant edema. Laboratory Data: Reviewed. His white count is 9.6. Neutrophil percentage is almost normalized. Assessment: Sacral decubitus with osteomyelitis, anemia. Recommendations: Continue wound care and IV antibiotics as ordered. [facility], which is in progress and will occur soon. The patient can [facility] up [facility] upon discharge. /MODL Voice ID: [id number] Report ID: [id number]
--- NOTE | 2021-09-18 14:56 | PN ---
Date of Progress Note: 09/18/2021 Subjective: The patient was admitted with septic shock, acute kidney injury secondary to prerenal, t oxic ATN. The patient's after hydration kidney function has been normalized. The patient developed hypokalemia, hypomagnesemia, and acidosis. After treatment dose, has been improved. Physical Examination: Vital Signs: Blood pressure 88/43, pulse of 79, afebrile. The patient had good urine output of 1200 . Chest: Clear to auscultation. Heart: S1, S2. Regular. Abdomen: Colostomy with suprapubic. Extremity: Bilateral MTA. Neurologic: Alert. Follows command. Laboratory Data: WBC 9.6, H and H 9.9/30.6. Sodium 143, potassium 3.9, bicarb 24, BUN 15, creatinin e 0.5, calcium 7.3. Current Medications: The patient on include midodrine 10 t.i.d., meropenem 1 g every 8 hour, IV iron , Lovenox, Zoloft. Assessment And Plan: 1.Acute kidney injury secondary to prerenal/toxic ATN, recovered, resolved. 2.Hypokalemia, hypomagnesemia, status post supplement, resolved. 3.Acidosis, improved. Currently sodium bicarb drip has been decreased yesterday to t.i.d. We will maintain. We will follow up bicarb level. 4.Sepsis secondary to decubitus ulcer. We will continue current antibiotic, follow up with primary. 5.Urinary tract infection Escherichia coli, status post treatment. We will follow up with primary. HALINA/JESSICA Voice ID: [id number] Report ID: [id number]
--- NOTE | 2021-09-18 18:12 | P.PN ---
Subjective Date of Service: 09/18/21 Chief Complaint: Hypotension Patient weaned off Levophed over the past 24 hours. Blood pressure is sometimes soft but overall has been stable . Physical Examination - Vital Signs Temperature: 97.5 F Blood Pressure: 90/46 Pulse: 74 Respirations: 12 Pulse Ox (%): 98 Assessment And Plan - Current Problems (Diagnosis) (1) Septic shock Current Visit: Yes Status: Acute (2) Infected decubitus ulcer Current Visit: Yes Status: Acute (3) Paraplegia Current Visit: Yes Status: Acute (4) Diabetes mellitus type 2 in nonobese Current Visit: Yes Status: Acute (5) Hyperkalemia Current Visit: Yes Status: Acute (6) Hyponatremia Current Visit: Yes Status: Acute (7) Septic arthritis Current Visit: Yes Status: Acute - Plan Physical examination: General: In no apparent distress, Cachectic. HEENT: Mucous membr. moist/pink Neck: JVD not distended Respiratory: Clear to auscultation bilaterally, Normal air movement Cardiovascular: Regular rate/rhythm, Normal S1 S2, Edema -Left lower extremity. Gastrointestinal: Soft and benign, Non-distended, Colostomy Musculoskeletal: Right leg atrophy Integumentary: Sacral decubitus ulcer: Wound VAC in place. Neurological: Paraplegia Continue IV meropenem and vancomycin. Infectious disease outpatient therapy with only meropenem. Patient to complete 6 weeks of IV antibiotics. Continue hydration with IV normal saline. Diet as tolerated Debridement and irrigation x 3. Wound VAC in place PICC line in place for prolonged IV antibiotic therapy. 1 blood culture bottle: Coagulase-negative staph-likely skin contaminant. Other blood cultures negative. Repeat blood culture: No growth. Wound culture: E. coli and Proteus. 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 Case discussed with orthopedic surgery-Dr. Gonzales. Per Dr. Gonzales the fluid collection appears to be soft tissue related and no joint space involvement. He recommended surgical debridement. No need for Ortho surgery. Nursing staff reported seeing urine in his colostomy several days ago. concerning for colonic vesicular fistula, however Urinalysis did not suggest any fecal matter. Urology consulted, recommended to send ostomy output for Cr. Low suspicion for fistula at this time. lab was send out, reported unable to perform test. Insulin sliding scale for glucose management. HIV negative. Transfused a total of 5 units PRBC. Continue IV iron for iron deficiency. DVT prophylaxis with Lovenox. Diet as tolerated. Insulin sliding scale for glucose management. Lantus discontinued. Oral intake is improving. VTE: lovenox Code: full Dispo: [facility].
[2021-09-18] MEDS: MIRTAZAPINE 15 MG TAB PO SCH (20:41)
[2021-09-18] MEDS: SERTRALINE HCL 50 MG TAB PO SCH (20:43)
[2021-09-19] MEDS: MORPHINE 4 MG/ML SYR IV PRN ×6 (02:17→22:11)
[2021-09-19 05:29] LABS: Absolute Lymphocytes (CBC) 1.4 K/uL (0.7-4.9); Hematocrit 30.5 % (39.6-49.0); Lymphocytes % 16.7 % (15.3-44.8); RBC Red Blood Cell Count 3.71 M/uL (4.33-5.43)
[2021-09-19 05:46] LABS: BUN Blood Urea Nitrogen 13 mg/dL (7-18); Bicarbonate 25 mmol/L (21-32); Glucose Level 120 mg/dL (74-106); Magnesium 1.8 mg/dL (1.8-2.4); Phosphorus 1.9 mg/dL (2.5-4.9); Sodium Level 143 mmol/L (136-145)
--- NOTE | 2021-09-19 06:01 | P.PN ---
Subjective Date of Service: 09/19/21 Chief Complaint: Hypotension Subjective: No new changes Physical Examination - Vital Signs Temperature: 98.2 F Blood Pressure: 100/55 Pulse: 82 Respirations: 12 Pulse Ox (%): 98 - Physical Exam General: Other (appears as his stated age) HEENT: Atraumatic, Normocephalic Neck: Supple, JVD not distended Respiratory: Other (Symmetric chest expansion) Cardiovascular: No rubs, No murmurs Gastrointestinal: Soft and benign, No guarding Musculoskeletal: No clubbing Integumentary: No warmth Neurological: Normal tone Urinary: Other (no bladder distention) External genitalia: Deferred Rectal: Deferred Assessment And Plan - Plan # MAURI 2/2 ischemic ATN from septic shock Resolved [place] by mouth fluid intake Currently has poor by mouth intake MAP goal > 65 monitor renal panel # Septic shock 2/2 R hip/gluteal abscess/osteomyelitis Midodrine to keep MAP > 65 Wean of Igor gtt Abx per other services S/p excisional debridement of infected sacral decubitus on 09/05 & 09/12 # Severe anemia S/p pRBC transf on 09/04 Monitor H&H # HypoPO4 KPhos IV today # Paraplegia +Suprapubic catheter +Colostomy Per other services # Severe depression Mngt per primary team # DM2 Mngt per primary team # Dispo Dc plan to SNF ongoing
[2021-09-19 06:19] VITALS: BMI 28.0
[2021-09-19] MEDS ORDERED: MAGNESIUM SULFATE 1 gm IVPB 1 GM/100 ML BAG IV ONE (06:20)
[2021-09-19] MEDS ORDERED: POTASSIUM PHOS IN 0.9 % NACL 15 MMOL/250 ML BAG IV ONE (06:22)
[2021-09-19] MEDS: INSULIN -REGULAR HUMAN 50 UNIT/0.5 ML ML SQ SCH ×4 (07:30→21:00)
[2021-09-19] MEDS: SODIUM HYPOCHLORITE 0.25% 473 ML IRR SCH (09:00)
[2021-09-19] MEDS: JUVEN PACKET PO SCH ×2 (09:00→21:00)
[2021-09-19] MEDS: GLUCERNA SHAKE 237 ML CAN PO SCH ×4 (09:00→21:00)
[2021-09-19] MEDS ORDERED: NA CHLORIDE 0.9% 0 ML ONE (09:39)
[2021-09-19] MEDS: SODIUM BICARB 325 MG TAB PO SCH ×2 (09:40→21:09)
[2021-09-19] MEDS: ASCORBIC ACID 500 MG TABLET PO SCH ×2 (09:40→21:09)
[2021-09-19] MEDS: ZINC SULFATE 220 MG CAP PO SCH (09:40)
[2021-09-19] MEDS: MIDODRINE HCL 5 MG TABLET PO SCH ×3 (09:41→21:09)
[2021-09-19] MEDS: ENOXAPARIN 40 MG/0.4 ML SQ SCH (09:41)
[2021-09-19] MEDS: Meropenem 1,000 MG in NA CHLORIDE 0.9% 100 ML IV SCH ×2 (09:42→19:28)
[2021-09-19] MEDS: COLLAGENASE 30 GM OINTMENT TOP SCH (09:42)
[2021-09-19] MEDS: Ringers Lactate 1,000 ML with POTASSIUM CL 20 MEQ IV SCH ×2 (11:28)
--- NOTE | 2021-09-19 11:47 | PN ---
Subjective: The patient lying in bed. No new complaints overnight. As per staff, no complications since yesterday. Objective: Vital Signs: Temperature 97, pulse 76, respirations 20, blood pressure 93/46. Lungs: Basal crackles. Heart: S1, S2. Regular. Abdomen: Soft, nontender. Bowel sounds present. Extremities: No edema. Laboratory Data: Labs reviewed. WBC 8.2, hemoglobin 9.9, platelets are 328. Chemistry shows sodium 143, potassium 4, chloride 113, bicarb 25, BUN 13, creatinine 0.5, glucose is 120. Blood cultures f rom 09/12 are negative. Urine analysis and cultures from 09/15 are showing small budding yeast and 1 + Freya albicans. The patient is currently being treated with wound VAC and meropenem. Assessment And Plan: 1.Sacrococcyx involving bilateral buttocks region, stage IV wound. Wound culture growing ESBL E col i and Proteus mirabilis. The patient is currently being treated with meropenem. Wound VAC in place since September 10. 2.Pelvic and left femur osteomyelitis. Leukocytosis has resolved. Urinalysis and cultures are grow ing fungal, most likely contaminant. 3.Diabetes mellitus. 4.Anemia of chronic disease. 5.Protein-calorie malnourishment. Continue supportive care and nutritional support. Monitor for signs of infection. We will follow patient as needed. NF/MODL Voice ID: [id number] Report ID: [id number]
[2021-09-19] MEDS ORDERED: Mastisol Adhesive Liq ONE (12:12)
--- NOTE | 2021-09-19 12:27 | P.DS ---
Admission Date: 09/04/21 Discharge Date: 09/19/21 Disposition: TRANSFER TO RESIDENTIAL Discharge Condition: FAIR Reason for Admission: Hypotension - Problems (1) Septic shock Current Visit: Yes Status: Acute (2) Infected decubitus ulcer Current Visit: Yes Status: Acute (3) Paraplegia Current Visit: Yes Status: Acute (4) Diabetes mellitus type 2 in nonobese Current Visit: Yes Status: Acute (5) Hyperkalemia Current Visit: Yes Status: Acute (6) Hyponatremia Current Visit: Yes Status: Acute (7) Septic arthritis Current Visit: Yes Status: Acute Brief History of Present Illness: 61-year-old correction resident with a history of type 2 diabetes, paraplegia, GERD, chronic anemia, bipolar disorder, major depressive disorder, sacral decu bitus ulcer was transferred from the correction to the emergency department due to hypotension. Patient noted to have low blood pressure, no report of fever. Patient reports shortness of breath, had a sore throat 1 week ago, he denies abdominal pain, has a colostomy bag with loose stools, no watery diarrhea. He denied any cough or chest pain. He denied any confusion. His systolic blood pressure reported to be in the 80s in the ED. blood work showed severe leukocytosis, hyperkalemia and hyponatremia. Lactate elevated. Patient diagnosed with severe sepsis. CT abdomen and pelvis ordered and the result is pending. Sepsis protocol initiated and patient given 2 L IV normal saline bolus. Blood pressure responded to the normal saline bolus and systolic currently in the 100s. Patient given IV antibiotics and admitted for further management. Hospital Course: Patient admitted to ICU for septic shock. He was aggressively hydrated with IV fluid, treated with broad-spectrum antibiotics-IV cefepime and vancomycin. Seen by general surgery for wound debridement. Also seen by infectious disease. Antibiotics changed to IV meropenem and vancomycin. Patient treated with several days of IV antibiotics. Infectious disease recommend outpatient therapy with only meropenem. Patient to complete 6 weeks of IV antibiotics. He required vasopressors for hypotension but was eventually weaned off. Patient placed on midodrine for hypotension. His blood pressure medications discontinued. 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 Case discussed with orthopedic surgery-Dr. Gonzales. Per Dr. Gonzales the fluid collection appears to be soft tissue related and no joint space involvement. He recommended surgical debridement. No need for Ortho surgery. Debridement and irrigation x 3. Wound VAC in place PICC line placed for prolonged IV antibiotic therapy. 1 blood culture bottle: Coagulase-negative staph-likely skin contaminant. Other blood cultures negative. Repeat blood culture: No growth. Wound culture: E. coli and Proteus. Insulin sliding scale used for glucose management. HIV negative. Transfused a total of 5 units PRBC. Treated with IV iron for iron deficiency. DVT prophylaxis with Lovenox. Patient tolerating diet. Oral intake is improving. Blood pressure has been stable, patient deemed stable for discharge. Vital Signs/Physical Exam: Temp Pulse Resp BP Pulse Ox 97.0 F 81 14 84/45 L 96 09/19/21 08:00 09/19/21 11:00 09/19/21 11:00 09/19/21 11:00 09/19/21 10:00 General: Alert, In no apparent distress, Other (Cachectic) HEENT: Mucous membr. moist/pink Neck: JVD not distended Respiratory: Clear to auscultation bilaterally, Normal air movement Cardiovascular: No edema, Regular rate/rhythm, Normal S1 S2 Gastrointestinal: Soft and benign, Non-distended Integumentary: Other (Large sacral decubitus ulcer with wound VAC applied) Neurological: Other (Paraplegic) Laboratory Data at Discharge: WBC 8.20 K/uL (4.3-10.9) D 09/19/21 04:58 Hgb 9.9 g/dL (13.6-17.9) L 09/19/21 04:58 Hct 30.5 % (39.6-49.0) L 09/19/21 04:58 Plt Count 328 K/uL (152-406) 09/19/21 04:58 PT 18.0 SECONDS (9.5-12.5) H 09/05/21 05:20 INR 1.56 09/05/21 05:20 APTT 29.5 SECONDS (24.3-36.9) 09/04/21 13:39 Sodium 143 mmol/L (136-145) 09/19/21 04:58 Potassium 4.0 mmol/L (3.5-5.1) 09/19/21 04:58 BUN 13 mg/dL (7-18) 09/19/21 04:58 Creatinine 0.55 mg/dL (0.55-1.3) 09/19/21 04:58 Glucose 120 mg/dL (74-106) H 09/19/21 04:58 Phosphorus 1.9 mg/dL (2.5-4.9) L 09/19/21 04:58 Phosphorus Cancelled 09/19/21 04:58 Magnesium 1.8 mg/dL (1.8-2.4) 09/19/21 04:58 Magnesium Cancelled 09/19/21 04:58 Total Bilirubin 0.4 mg/dL (0.2-1.0) 09/12/21 06:25 AST 53 U/L (15-37) H 09/12/21 06:25 ALT 25 U/L (12-78) 09/12/21 06:25 Alkaline Phosphatase 44 U/L (45-117) L D 09/12/21 06:25 Amylase 14 U/L (25-115) L 09/04/21 12:10 Lipase 21 U/L (73-393) L 09/04/21 12:10 Home Medications: Acetaminophen [Tylenol] 2 tab PO BID PRN 09/06/21 Albuterol Neb [Proventil 0.083% Neb Soln] 1 inh IH Q6H PRN 09/06/21 Arginine/Ascorbate Sod/Jay AC [Arginaid Powder] 1 each PO DAILY 09/06/21 Arginine/Glutamine/Calcium Bmb [Valentin Packet] 1 each PO BID 09/06/21 Aripiprazole [Abilify] 10 mg PO DAILY 09/06/21 Aspirin [Aspirin EC 81 MG] 81 mg PO DAILY 09/06/21 Hydroxyurea [Hydrea*] 500 mg PO DAILY 09/06/21 Melatonin 5 mg PO BEDTIME 09/06/21 Omeprazole 10 mg PO BID 09/06/21 Ascorbic Acid [Vitamin C*] 500 mg PO BID tablet 09/19/21 Collagenase [Santyl Ointment*] 1 appl TOP DAILY tube 09/19/21 Glucerna Shake [Glucerna*] 237 ml PO QID can 09/19/21 Insulin -Regular Human [Novolin -R*] See Protocol SQ ACHS ml 09/19/21 Valentin [Valentin*] 1 pkt PO BID powd.pack 09/19/21 Meropenem [Merrem*] 1,000 mg IV Q8H 32 Days vial 09/19/21 Midodrine HCl [Proamatine*] 10 mg PO TID tab 09/19/21 Mirtazapine [Remeron*] 15 mg PO BEDTIME tab 09/19/21 Na Bicarb Tab [Sodium Bicarb 325 MG Tab*] 650 mg PO BID tab 09/19/21 Sertraline [Zoloft*] 25 mg PO BEDTIME tab 09/19/21 Zinc Sulfate [Zinc Sulfate*] 220 mg PO DAILY cap 09/19/21 traMADol HCL [Ultram*] 50 mg PO Q6H PRN #30 tab 09/19/21 New Medications: Meropenem [Merrem*] 1,000 mg IV Q8H 32 Days vial traMADol HCL [Ultram*] 50 mg PO Q6H PRN #30 tab PRN Reason: Pain Scale 5-7 (Moderate) Physician Discharge Instructions: wound care: VAC Dressing Change: Wound VAC Application at Bedside Counts: 4 pieces of Adaptic in wound 5 pieces of White Foam in wound Applied 30 Grams Santyl to non-viable tissue, then covered with Adaptic. Adaptic placed over anus. Total of four pieces of Adaptic used in wound. Inserted five pieces of white foam to undermining. Black VAC foam applied using two packages of large black foam. VAC drape applied using Cavilon skin prep and Mastisol. Diet: ADA Activity: Fall precautions Followup: NONE,NONE [Primary Care Provider] - Time spent managing pt's care (in minutes): 42
[2021-09-19] MEDS ORDERED: Mastisol Adhesive Liq TOP ONE (13:00)
--- NOTE | 2021-09-19 15:38 | PN ---
Date of Progress Note: 09/19/2021 Subjective: The patient is awake, alert, and tolerating diet. Vitals are stable. His systolic is b etween 90 and 100. He is afebrile. Laboratory Data: Reviewed. Wound reviewed. It was changed today and it has about 90% granulation t issue and about 10% fibrinous material which is still hard to debride at the bedside but it will get softer with collagenase. The wound VAC was changed. 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 Recommendation: Discharge planning. The patient will be going to a care home, advised that the p atient be brought to see me next week and then [facility]. Continue IV antibiotics as ordered and wound care as ordered. /MODL Voice ID: [id number] Report ID: [id number]
[2021-09-19] MEDS: MIRTAZAPINE 15 MG TAB PO SCH (21:09)
[2021-09-19] MEDS: SERTRALINE HCL 50 MG TAB PO SCH (21:10)
[2021-09-19 23:30] VITALS: O2SAT 100
[2021-09-20 05:42] VITALS: BP 100/55; TEMP 98.2
== END 2021-09-20 00:40 | DRG 853 ==
LOC: ER 11:08 → ERHOLD 15:33 → 2ND 16:18 → 3RD-ICU 19:36
PROVIDERS: ADMIT Internal Medicine; ATTEND Internal Medicine
PROC: 30233N1 Transfusion of Nonautologous Red Blood Cells into Peripheral Vein, Percutaneous Approach (ICD-10-PCS; 2021-09-04)
PROC: 0KBN0ZZ Excision of Right Hip Muscle, Open Approach (ICD-10-PCS; 2021-09-05)
PROC: 02HV33Z Insertion of Infusion Device into Superior Vena Cava, Percutaneous Approach (ICD-10-PCS; 2021-09-05)
PROC: 0KBP0ZZ Excision of Left Hip Muscle, Open Approach (ICD-10-PCS; principal; 2021-09-05 12:15)
PROC: 0KBP0ZZ Excision of Left Hip Muscle, Open Approach (ICD-10-PCS; 2021-09-08)
PROC: 0KBN0ZZ Excision of Right Hip Muscle, Open Approach (ICD-10-PCS; 2021-09-08)
PROC: 0KBP0ZZ Excision of Left Hip Muscle, Open Approach (ICD-10-PCS; 2021-09-10)
PROC: 0KBN0ZZ Excision of Right Hip Muscle, Open Approach (ICD-10-PCS; 2021-09-10)
PROC: 2W15X6Z Compression of Back using Pressure Dressing (ICD-10-PCS; 2021-09-10)
PROC: 0KBP0ZZ Excision of Left Hip Muscle, Open Approach (ICD-10-PCS; 2021-09-12)
PROC: 0KBN0ZZ Excision of Right Hip Muscle, Open Approach (ICD-10-PCS; 2021-09-12)
DX: A41.9 Sepsis, unspecified organism (principal); L89.894 Pressure ulcer of other site, stage 4; L89.154 Pressure ulcer of sacral region, stage 4; R65.21 Severe sepsis with septic shock; N17.0 Acute kidney failure with tubular necrosis; E43 Unspecified severe protein-calorie malnutrition; Z16.12 Extended spectrum beta lactamase (ESBL) resistance; G82.20 Paraplegia, unspecified; E87.1 Hypo-osmolality and hyponatremia; M00.9 Pyogenic arthritis, unspecified; M86.652 Other chronic osteomyelitis, left thigh; M46.28 Osteomyelitis of vertebra, sacral and sacrococcygeal region; E87.2 Acidosis; L08.89 Other specified local infections of the skin and subcutaneous tissue; B96.20 Unspecified Escherichia coli [E. coli] as the cause of diseases classified elsewhere; B96.4 Proteus (mirabilis) (morganii) as the cause of diseases classified elsewhere; E87.5 Hyperkalemia; K21.9 Gastro-esophageal reflux disease without esophagitis; F31.9 Bipolar disorder, unspecified; F32.9 Major depressive disorder, single episode, unspecified; Z68.28 Body mass index [BMI] 28.0-28.9, adult; E11.69 Type 2 diabetes mellitus with other specified complication; I95.9 Hypotension, unspecified; R01.1 Cardiac murmur, unspecified; E83.51 Hypocalcemia; D50.9 Iron deficiency anemia, unspecified; Z96.0 Presence of urogenital implants; Z89.421 Acquired absence of other right toe(s); Z89.422 Acquired absence of other left toe(s); Z93.3 Colostomy status; Z20.822 Contact with and (suspected) exposure to COVID-19
CPT/HCPCS: 36415; 36430; 36569; 71045; 74177; 80048; 80053; 80069; 80076; 80202; 81003; 81015; 82024; 82150; 82533; 82550; 82553; 82570; 82607; 82652; 82728; 82746; 82947; 83540; 83605; 83690; 83735; 83970; 84100; 84132; 84145; 84156; 84165; 84439; 84443; 84466; 84484; 85014; 85018; 85025; 85044; 85610; 85730; 86850; 86900; 86901; 87040; 87070; 87075; 87077; 87086; 87088; 87186; 87205; 87389; 88304; 92610; 93005; 93971; 94760; 97110; 97161; 99251; 99285; C9113; J0330; J0610; J0692; J0834; J1200; J1650; J2185; J2250; J2270; J2405; J2704; J2710; J2916; J3010; J3370; J3475; J3480; J3590; J7030; J7040; J7050; J7060; J7120; P9016; Q9967; U0003

== ENCOUNTER 2021-09-23 17:36 | Inpatient (IN) | payer OTHER ==
--- OUTSIDE RECORDS SUMMARY | 2021-09-23 17:39 | XMS REPORT | Continuity of Care Document ---
:1960 Author Organization [facility] t Address [address] [place] [address] Dr. Hernández [address] [place] [id number] Care Team Providers Name Role Phone TOR BILLINGSLEY Primary Care Physician Unavailable Heydi MERRITT Attending Clinician Unavailable Tyler MERRITT Attending Clinician Unavailable Heydi ABBOTT Attending Clinician Unavailable Melonie RUBALCAVA Attending Clinician Unavailable Jaye LEWIS Attending Clinician Unavailable Tyler SPIVEY Attending Clinician Unavailable Melonie HEARN Attending Clinician Unavailable Payers Payer Name Policy Type Policy Number Effective Date Expiration Date S tabby TP13 SSI RECIPIENT [id number] 2020 00:00:00 Problems This patient has no known problems. Allergies, Adverse Reactions, Alerts This patient has no known allergies or adverse reactions. Medications This patient has no known medications. Procedures This patient has no known procedures. Encounters Start End Encounter Admission Attending Care Care Encounter Source Date/Time Date/Time Type Type Clinicians Facility Department ID 2021-01-13 Inpatient [facility] [id number] H arris 18:20:50 Health 2021-01-02 Inpatient [facility] [id number] H arris 00:00:00 [facility] 2016-04-24 Inpatient [facility] [id number] Hassan rris 00:00:00 [facility] 2016-04-23 Inpatient [facility] [id number] Hassan rris 10:46:48 Health 2016-04-23 Inpatient [facility] [id number] Hassan rris 00:00:00 [facility] 2016-04-22 Inpatient [facility] [id number] Hassan rris 14:30:15 Health 2016-04-21 Inpatient [facility] [id number] Hassan rris 12:39:58 Health 2016-04-20 Inpatient [facility] [id number] Hassan rris 22:29:26 Health 2016-03-27 Inpatient [facility] [id number] Hassan rris 20:23:40 Health 2016-03-26 Inpatient [facility] [id number] Hassan rris 11:17:47 [facility] 2016-03-24 Inpatient [facility] [id number] Hassan rris 07:36:08 [facility] 2021-01-20 2021-01-20 Emergency [facility] [id number] [place] 00:33:00 18:40:00 [facility] 2021-01-20 2021-01-20 Emergency [facility] [id number] [place] 03:37:53 03:37:53 [facility] 2021-01-11 2021-01-15 Inpatient [facility] [id number] [place] 08:45:00 22:54:00 [facility] 2020-12-29 2021-01-06 Inpatient DORIE ABBOTT [facility] [id number] [place] 21:43:00 16:03:00 [facility] 2020-12-31 2020-12-31 Inpatient AUDRA RUBALCAVA [facility] [id number] [place] 09:56:34 11:06:01 [facility] 2020-12-31 2020-12-31 Inpatient [facility] [id number] [place] 00:04:40 03:03:37 [facility] 2020-12-30 2020-12-30 Emergency [facility] [id number] [place] 07:01:57 07:13:10 [facility] 2020-12-30 2020-12-30 Emergency [facility] [id number] [place] 06:43:13 07:12:26 [facility] 2020-12-30 2020-12-30 Emergency [facility] [id number] [place] 01:29:43 02:11:53 [facility] 2020-12-30 2020-12-30 Emergency [facility] [id number] [place] 01:06:07 01:12:36 [facility] 2020-12-28 2020-12-28 Emergency [facility] [id number] [place] 07:29:00 08:13:00 [facility] 2018-05-17 2018-05-17 Outpatient [facility] [id number] [place] 00:00:00 00:00:00 [facility] 2018-03-15 2018-03-15 Outpatient [facility] [id number] [place] 00:00:00 00:00:00 [facility] 2018-03-02 2018-03-02 Outpatient [facility] [id number] [place] 00:00:00 00:00:00 [facility] 2018-02-15 2018-02-15 Outpatient [facility] [id number] [place] 10:21:05 10:21:05 [facility] 2018-02-15 2018-02-15 Outpatient [facility] [id number] [place] 08:57:13 08:57:13 Health 2018-02-14 2018-02-14 Outpatient [facility] [id number] [place] 08:25:53 08:25:53 Health 2018-02-08 2018-02-08 Outpatient [facility] [id number] [place] 00:00:00 00:00:00 Health 2018-02-08 2018-02-08 Outpatient [facility] [id number] [place] 00:00:00 00:00:00 Health 2018-01-24 2018-01-24 Outpatient [facility] [id number] [place] 09:03:55 09:03:55 Health 2017-12-30 2017-12-30 Outpatient [facility] [id number] [place] 08:44:14 08:44:14 Health 2017-12-21 2017-12-21 Outpatient [facility] [id number] [place] 11:24:57 11:24:57 Health 2017-12-21 2017-12-21 Outpatient [facility] [id number] [place] 09:28:09 09:28:09 Health 2017-12-21 2017-12-21 Outpatient [facility] [id number] [place] 09:04:44 09:04:44 Health 2017-12-14 2017-12-14 Outpatient [facility] [id number] [place] 08:35:20 08:35:20 Health 2017-12-13 2017-12-13 Outpatient [facility] [id number] [place] 14:16:59 14:16:59 Health 2016-05-09 2016-05-09 Emergency [facility] [id number] [place] 10:56:06 10:56:06 Health 2016-04-21 2016-04-21 Emergency [facility] [id number] [place] 00:35:08 00:35:08 Health 2016-03-24 2016-03-24 Emergency [facility] [id number] [place] 09:36:59 09:36:59 Health Results This patient has no known results.
[2021-09-23 19:10] LABS: Absolute Lymphocytes (CBC) 1.5 K/uL (0.7-4.9); Hematocrit 29.5 % (39.6-49.0); Lymphocytes % 12.9 % (15.3-44.8); MPV 7.1 fL (7.6-11.3)
[2021-09-23 20:07] LABS: Absolute Lymphocytes (CBC) 1.4 K/uL (0.7-4.9); Hematocrit 28.8 % (39.6-49.0); Lymphocytes % 13.2 % (15.3-44.8); MPV 6.9 fL (7.6-11.3); RBC Red Blood Cell Count 3.53 M/uL (4.33-5.43)
[2021-09-23 21:02] LABS: Anisocytosis 1+; Blood Morphology Comment NOTED (NOT SEEN); Platelet Estimate ADEQ; White Blood Cell Scan OK (OK)
[2021-09-23 21:31] LABS: ALT/SGPT 7 U/L (12-78); AST/SGOT 11 U/L (15-37); Alkaline Phosphatase 132 U/L (45-117); BUN Blood Urea Nitrogen 11 mg/dL (7-18); Bicarbonate 24 mmol/L (21-32); Bilirubin Direct 0.1 mg/dL (0-0.2); Bilirubin Total 0.2 mg/dL (0.2-1.0); Glucose Level 62 mg/dL (74-106); Lipase 55 U/L (73-393); Potassium 3.4 mmol/L (3.5-5.1); Protein, Total 4.6 g/dL (6.4-8.2); Sodium Level 140 mmol/L (136-145)
[2021-09-23 21:34] LABS: Albumin 0.5 g/dL (3.4-5.0)
[2021-09-23 21:42] LABS: ALT/SGPT 7 U/L (12-78); AST/SGOT 11 U/L (15-37); Albumin 0.5 g/dL (3.4-5.0); Alkaline Phosphatase 135 U/L (45-117); BUN Blood Urea Nitrogen 11 mg/dL (7-18); Bicarbonate 24 mmol/L (21-32); Bilirubin Direct < 0.1 mg/dL (0-0.2); Bilirubin Total 0.2 mg/dL (0.2-1.0); Glucose Level 58 mg/dL (74-106); Lipase 54 U/L (73-393); Potassium 3.4 mmol/L (3.5-5.1); Protein, Total 4.6 g/dL (6.4-8.2); Sodium Level 139 mmol/L (136-145)
[2021-09-23] MEDS ORDERED: D50W 25 GM/50 ML SYRINGE IV ONE (21:51)
--- NOTE | 2021-09-23 22:44 | EDPHYS ---
Physician Documentation [facility] Name: Harmeet Up Age: 61 yrs Sex: Male : 1960 Arrival Date: 09/23/2021 Time: 17:40 Bed 28 Private MD: ED Physician Prakash Davison HPI: 09/23 18:40 This 61 yrs old Black Male presents to ER via EMS with complaints of Low Blood Sugar. jmm 18:40 The patient or guardian reports hypoglycemia. Onset: The symptoms/episode jmm began/occurred this morning. Associated signs and symptoms:. According to [facility] patient was adminstered 10 units of insulin this am with checking his bgl. Since then they have had difficulty keeping the patient's BGL wnl. . - Immunization history:: Adult Immunizations up to date. - Social history:: Smoking status: Patient denies any tobacco usage or history of. ROS: 18:40 Constitutional: Negative for fever, chills, and weight loss, Cardiovascular: Negative jmm for chest pain, palpitations, and edema, Respiratory: Negative for shortness of breath, cough, wheezing, and pleuritic chest pain. 18:40 Neuro: Positive for weakness. 18:40 All other systems are negative. Exam: 18:40 Constitutional: This is a well developed, well nourished patient who is awake, alert, jmm and in no acute distress. Head/Face: atraumatic. Eyes: EOMI, no conjunctival erythema appreciated ENT: Moist Mucus Membranes Neck: Trachea midline, Supple Chest/axilla: Normal chest wall appearance and motion. Cardiovascular: Regular rate and rhythm. No edema appreciated Respiratory: Normal respirations, no respiratory distress appreciated Abdomen/GI: Non distended, soft Back: Normal ROM Skin: General appearance color normal 18:40 Neuro: Orientation: is normal. 18:40 Psych: Behavior/mood is pleasant, cooperative. Vital Signs: 18:02 BP 100 / 65; Pulse 95; Resp 17; Temp 98; Pulse Ox 97% ; bp 18:30 BP 71 / 55; Pulse 64; Resp 16; Pulse Ox 100% ; bp 20:17 BP 81 / 58 LA Supine (/reg); Pulse 62 MON; Resp 14 S; Temp 97.2(O); Pulse Ox 100% on 4 sv1 lpm [place]; 21:32 BP 82 / 50 LA Supine; Pulse 63 MON; Resp 16 S; Pulse Ox 100% ; sv1 09/24 00:47 BP 179 / 94 LA Supine (/reg); Pulse 94 MON; Resp 15 S; Pulse Ox 96% on R/A; sv1 04:57 BP 95 / 38; Pulse 62 MON; Resp 16 S; Pulse Ox 96% on R/A; sv1 MDM: 09/23 18:26 Patient medically screened. [facility] 22:43 Data reviewed: vital signs, nurses notes. Counseling: I had a detailed discussion with roberto the patient and/or guardian regarding: the historical points, exam findings, and any diagnostic results supporting the discharge/admit diagnosis, lab results, the need for further work-up and treatment in the hospital. ED course: I discussed the patient with Valerio Watkins whom accepted the patient to Dr. Hernandez's service. . 09/23 18:29 Order name: Basic Metabolic Panel; Complete Time: 22:10 [facility] 09/23 18:29 Order name: CBC with Diff; Complete Time: 21:12 [facility] 09/23 18:29 Order name: Hepatic Function; Complete Time: 22:10 [facility] 09/23 18:29 Order name: Lipase; Complete Time: 22:10 [facility] 09/23 18:29 Order name: Troponin High Sensitivity; Complete Time: 22:10 [facility] 09/23 19:30 Order name: Basic Metabolic Panel; Complete Time: 21:35 [facility] 09/23 19:30 Order name: Liver (Hepatic) Function; Complete Time: 21:35 [facility] 09/23 19:30 Order name: Troponin High Sensitivity; Complete Time: 21:35 [facility] 09/23 19:30 Order name: Lipase; Complete Time: 21:35 [facility] 09/23 19:30 Order name: CBC with Automated Diff; Complete Time: 19:31 EDMS 09/23 20:24 Order name: CBC Smear Scan; Complete Time: 21:12 [facility] 09/23 22:02 Order name: Glucose, Ancillary Testing; Complete Time: 22:10 [facility] 09/23 23:17 Order name: Lactate la09/23 23:17 Order name: Procalcitonin la09/23 23:17 Order name: Blood Culture Adult (2) ne09/23 23:18 Order name: COVID-19 SARS RT PCR (Document "Date of Onset" if Symptomatic) 2 09/24 00:31 Order name: Procalcitonin; Complete Time: 00:35 EDMS 09/24 01:26 Order name: Glucose, Ancillary Testing; Complete Time: 01:37 EDMS 09/24 01:33 Order name: Lactate; Complete Time: 01:37 EDMS 09/24 02:17 Order name: Urine Culture [facility] 09/24 02:41 Order name: Urine Dipstick-Ancillary; Complete Time: 03:44 EDMS 09/24 02:42 Order name: SARS-COV-2 RT PCR; Complete Time: 03:44 EDMS 09/24 09:39 Order name: Glucose, Ancillary Testing; Complete Time: 16:35 EDMS 09/24 09:39 Order name: CBC with Automated Diff; Complete Time: 16:35 EDMS 09/24 09:39 Order name: Comprehensive Metabolic Panel; Complete Time: 16:35 EDMS 09/24 09:39 Order name: Hemoglobin A1c; Complete Time: 16:35 EDMS 09/24 09:40 Order name: Glucose, Ancillary Testing; Complete Time: 16:35 EDMS 09/24 11:40 Order name: Glucose, Ancillary Testing; Complete Time: 16:35 EDMS 09/24 16:37 Order name: Glucose, Ancillary Testing; Complete Time: 18:26 EDMS 09/24 20:55 Order name: Glucose, Ancillary Testing; Complete Time: 15:18 EDMS 09/23 18:29 Order name: IV Saline Lock; Complete Time: 18:52 m 09/23 18:29 Order name: Labs collected and sent; Complete Time: 18:52 [facility] 09/23 21:44 Order name: Fingerstick Glucose; Complete Time: 21:57 [facility] 09/23 23:17 Order name: Urine Dipstick-Ancillary (obtain specimen) la1 09/24 01:24 Order name: Glucose Level; Complete Time: 01:24 sv1 09/24 18:20 Order name: CT; Complete Time: 18:26 EDMS 09/24 22:08 Order name: Blood Culture [facility] 09/24 22:08 Order name: Gram Stain--Aerobic Bottle [facility] 09/24 22:08 Order name: Gram Stain--Aerobic Bottle; Complete Time: 15:18 EDMS 09/25 00:10 Order name: Glucose, Ancillary Testing; Complete Time: 15:18 EDMS 09/25 03:57 Order name: Glucose, Ancillary Testing; Complete Time: 15:18 EDMS 09/25 04:26 Order name: CBC with Automated Diff; Complete Time: 15:18 EDMS 09/25 05:20 Order name: Comprehensive Metabolic Panel; Complete Time: 15:18 EDMS 09/25 08:15 Order name: Urine Culture EDMS 09/25 08:48 Order name: Glucose, Ancillary Testing; Complete Time: 15:18 EDMS 09/25 13:11 Order name: Gram Stain--Anaerobic Bottle EDMS 09/25 16:49 Order name: Basic Metabolic Panel EDMS Administered Medications: 21:57 Drug: D50W 50 ml Route: IVP; Site: right antecubital; sv1 09/24 03:34 Drug: D5-1/2 NS 1000 ml Route: IV; Rate: 100 ml/hr; Site: right antecubital; sv1 03:35 Drug: NS 0.9% 1000 ml Route: IV; Rate: 1000 ml; Site: right antecubital; sv1 04:15 Drug: fentaNYL (PF) 25 mcg Route: IVP; Site: right antecubital; sv1 05:38 Follow up: Response: No adverse reaction; Pain is decreased sv1 Point of Care Testing: Blood Glucose: 09/23 21:53 Blood Glucose: 31 mg/dL; Test Strip: Lot #: [id number]; Expiration: 04/22/2023; sv1 09/24 00:36 Blood Glucose: 48 mg/dL; Test Strip: Lot #: [id number]; Expiration: 04/22/2023; sv1 Ranges: Critical Glucose Levels:Adult <50 mg/dl or >400 mg/dl <40 mg/dl or >180 mg/dl Disposition Summary: 09/23/21 22:44 Hospitalization Ordered Hospitalization Status: Observation lom Provider: Prince roberto Hernandez Condition: Stable lom Problem: new jmm Symptoms: are unchanged jmm Bed/Room Type: Standard [facility] Location: Intensive Care Unit(09/25/21 19:54) cg Room Assignment: 6-(09/25/21 19:54) cg Diagnosis - Hypoglycemia, unspecified jmm Forms: - Medication Reconciliation Form jmm - SBAR form jmm Addendum: 09/27/2021 07:14 Co-signature as Attending Physician, Prakash Davison MD. r n Signatures: Dispatcher [employer] Francine Akins Roxanne Payne, RN RN Rashid Henao PA PA [facility] Sharita Atkinson, GURPREET VÁZQUEZ Saman, MD NEVAEH Randall rn Valerio Watkins, NURSE SUPERVISOR-C NURSE SUPERVISOR-Cla1 Vanda Garcia, RN RN cg Eber Sanchez RN GURPREET Skip Velasquez RN RN sv1 Corrections: (The following items were deleted from the chart) 09/23 23:17 22:44 Telemetry/MedSurg (observation) [facility] 23:17 22:44 [facility] 09/24 12:21 09/23 23:17 [facility] ER HOLD [facility] 09/24 12:21 09/23 23:17 ERHOLD- [facility] 09/24 13:06 12:21 Telemetry/MedSurg (observation) [facility] 13:06 12:21 212 [facility] 09/25 19:54 09/24 13:06 [facility] ER HOLD [facility] 09/25 19:54 09/24 13:06 ERHOLD- [facility]
--- NOTE | 2021-09-23 22:44 | ER ---
Nurse's Notes [facility] Name: Harmeet Up Age: 61 yrs Sex: Male : 1960 Arrival Date: 09/23/2021 Time: 17:40 Bed 28 Private MD: Diagnosis: Hypoglycemia, unspecified Presentation: 09/23 18:02 Chief complaint: EMS states: HYPOGLYCEMIC AT [facility] AFTER 10 UNITS OF INSULIN. bp STAFF UNAWARE OF PRE-MEDICATION BGL. Coronavirus screen: At this time, the client does not indicate any symptoms associated with coronavirus-19. Ebola Screen: No symptoms or risks identified at this time. Initial Sepsis Screen: Does the patient meet any 2 criteria? No. Patient's initial sepsis screen is negative. Does the patient have a suspected source of infection? No. Patient's initial sepsis screen is negative. Risk Assessment: Do you want to hurt yourself or someone else? Patient reports no desire to harm self or others. Onset of symptoms was September 23, 2021. Care prior to arrival: Glucose check: 110. 18:02 Method Of Arrival: EMS: [facility] bp 18:02 Acuity: RUSSELL 3 bp Triage Assessment: 18:10 General: Appears in no apparent distress. comfortable, malnourished, Behavior is calm, bp cooperative, appropriate for age. Pain: Denies pain. EENT: No deficits noted. Neuro: Level of Consciousness is alert, obeys commands, lethargic, Oriented to person, place, time, situation. Cardiovascular: Rhythm is sinus rhythm. Respiratory: No deficits noted. GI: No signs and/or symptoms were reported involving the gastrointestinal system. : No signs and/or symptoms were reported regarding the genitourinary system. Derm: Decubitus located on sacrum. Musculoskeletal: BLE PARAPLEGIC. - Immunization history:: Adult Immunizations up to date. - Social history:: Smoking status: Patient denies any tobacco usage or history of. Screenin:10 Abuse screen: Denies threats or abuse. Denies injuries from another. bp 18:10 Nutritional screening: No deficits noted. Tuberculosis screening: No symptoms or risk bp factors identified. Fall Risk None identified. Assessment: 18:10 General: SEE TRIAGE NOTE. bp 21:56 Reassessment: Follow up blood glucose was 31. The provider was notified. 1 amp of d 50 sv1 was given per provider order.. 09/24 00:37 Reassessment: fingwr stick glucose was 48. The provider was notified. Lb glucose was sv1 ordered per protocol.. 04:51 Reassessment: The patient's colostomy bag was not well connected and required changing. sv1 His sacral wound dressing was soiled and was then changed. He was medicated with fentanyl 25 micrograms. He was repositioned q 2 hours. He is taking po fluids well. . Vital Signs: 09/23 18:02 BP 100 / 65; Pulse 95; Resp 17; Temp 98; Pulse Ox 97% ; bp 18:30 BP 71 / 55; Pulse 64; Resp 16; Pulse Ox 100% ; bp 20:17 BP 81 / 58 LA Supine (/reg); Pulse 62 MON; Resp 14 S; Temp 97.2(O); Pulse Ox 100% on 4 sv1 lpm [place]; 21:32 BP 82 / 50 LA Supine; Pulse 63 MON; Resp 16 S; Pulse Ox 100% ; sv1 09/24 00:47 BP 179 / 94 LA Supine (/reg); Pulse 94 MON; Resp 15 S; Pulse Ox 96% on R/A; sv1 04:57 BP 95 / 38; Pulse 62 MON; Resp 16 S; Pulse Ox 96% on R/A; sv1 ED Course: 09/23 17:40 Patient arrived in ED. ds1 18:02 Eber Sanchez, RN is Primary Nurse. bp 18:04 Triage completed. bp 18:10 Rashid Henao PA is PHCP. [facility] 18:10 Prakash Davison MD is Attending Physician. [facility] 18:10 Patient has correct armband on for positive identification. Bed in low position. Call bp light in reach. Side rails up X2. 19:05 Arm band placed on. bp 20:07 Liver (Hepatic) Function Sent. sv1 20:07 Troponin High Sensitivity Sent. sv1 20:07 Lipase Sent. sv1 20:07 Basic Metabolic Panel Sent. sv1 20:07 Troponin High Sensitivity Sent. sv1 20:07 Basic Metabolic Panel Sent. sv1 20:07 CBC with Diff Sent. sv1 20:07 Hepatic Function Sent. sv1 20:07 Lipase Sent. sv1 22:43 Prince Hernandez MD is Hospitalizing Provider. [facility] 09/24 01:23 COVID-19 SARS RT PCR (Document "Date of Onset" if Symptomatic) Sent. sv1 01:23 Blood Culture Adult (2) Sent. sv1 01:23 Procalcitonin Sent. sv1 01:23 Lactate Sent. sv1 04:50 Urine Culture Sent. sv1 04:57 No provider procedures requiring assistance completed. sv1 04:58 IV is patent, with fluids infusing freely. sv1 09/25 20:39 Patient admitted, IV remains in place. st1 Administered Medications: 09/23 21:57 Drug: D50W 50 ml Route: IVP; Site: right antecubital; sv1 09/24 03:34 Drug: D5-1/2 NS 1000 ml Route: IV; Rate: 100 ml/hr; Site: right antecubital; sv1 03:35 Drug: NS 0.9% 1000 ml Route: IV; Rate: 1000 ml; Site: right antecubital; sv1 04:15 Drug: fentaNYL (PF) 25 mcg Route: IVP; Site: right antecubital; sv1 05:38 Follow up: Response: No adverse reaction; Pain is decreased sv1 Point of Care Testing: Blood Glucose: 09/23 21:53 Blood Glucose: 31 mg/dL; Test Strip: Lot #: [id number]; Expiration: 04/22/2023; sv1 09/24 00:36 Blood Glucose: 48 mg/dL; Test Strip: Lot #: [id number]; Expiration: 04/22/2023; sv1 Ranges: Intake: 05:01 PO: 960ml; IV: 100ml; Total: 1060ml. sv1 Outcome: 09/23 22:44 Decision to Hospitalize by Provider. [facility] 09/25 20:39 Admitted to ICU accompanied by nurse, accompanied by tech, via stretcher, room 6, on st1 monitor, with chart, Report called to GURPREET Sanders critical Instructed on the need for admit. 20:57 Patient left the ED. bb Signatures: Rashid Henao PA PA [facility] Herlinda Hrenandez ds1 Lexy Jensen RN RN bb Eber Sanchez RN RN bp Villicano, Steven, RN RN sv1 Jigna Carlson RN RN st1
--- NOTE | 2021-09-23 23:19 | P.HP ---
Certification for Inpatient Patient admitted to: Observation With expected LOS: <2 Midnights Patient will require the following post-hospital care: None Practitioner: I am a practitioner with admitting privileges, knowledge of patient current condition, hospital course, and medical plan of care. Services: Services provided to patient in accordance with Admission requirements found in Title 42 Section 412.3 of the Code of Federal Regulations Patient History Date of Service: 09/23/21 Primary Care Provider: jail doctor Reason for admission: Hypoglycemia History of Present Illness: 61-year-old -[place] male who is a paraplegic waist down presented to the emergency department for low blood sugar. Patient is a resident of [facility] was given his insulin this morning but did not eat blood sugar has been persistently low throughout the day most recently as low as 31 after more than 12 hours from receiving his insulin. Patient did eat sugar still dropped, recent ED provider called me for admission. Other labs were significant for white blood cell count 10.5 hemoglobin 9.5 albumin 0.5 patient was recently discharged from this facility on 09/19/2021 after being treated for septic shock, infected decubitus ulceration and septic arthritis. Patient had wound debridement with general surgery and was also seen by infectious disease, patient was prescribed 6 weeks of total IV meropenem, has PICC line in place. Patient also required vasopressors for hypotension during hospitalization but wa s weaned off and placed on midodrine for hypotension. His blood pressure medications were discontinued. At this time patient's blood pressure relatively soft around 88/60. Patient given IV fluids in the emergency department will see how blood pressure responds and continue patient's management. Patient does not appear septic at this time, afebrile. Will defer further evaluation and management of hypoglycemic episode. Allergies No Known Allergies Allergy (Verified 09/13/21 06:41) Home Medications: Acetaminophen [Tylenol] 2 tab PO BID PRN 09/06/21 Albuterol Neb [Proventil 0.083% Neb Soln] 1 inh IH Q6H PRN 09/06/21 Arginine/Ascorbate Sod/Jay AC [Arginaid Powder] 1 each PO DAILY 09/06/21 Arginine/Glutamine/Calcium Bmb [Valentin Packet] 1 each PO BID 09/06/21 Aripiprazole [Abilify] 10 mg PO DAILY 09/06/21 Aspirin [Aspirin EC 81 MG] 81 mg PO DAILY 09/06/21 Hydroxyurea [Hydrea*] 500 mg PO DAILY 09/06/21 Melatonin 5 mg PO BEDTIME 09/06/21 Omeprazole 10 mg PO BID 09/06/21 Ascorbic Acid [Vitamin C*] 500 mg PO BID tablet 09/19/21 Collagenase [Santyl Ointment*] 1 appl TOP DAILY tube 09/19/21 Glucerna Shake [Glucerna*] 237 ml PO QID can 09/19/21 Insulin -Regular Human [Novolin -R*] See Protocol SQ ACHS ml 09/19/21 Valentin [Valentin*] 1 pkt PO BID powd.pack 09/19/21 Meropenem [Merrem*] 1,000 mg IV Q8H 32 Days vial 09/19/21 Midodrine HCl [Proamatine*] 10 mg PO TID tab 09/19/21 Mirtazapine [Remeron*] 15 mg PO BEDTIME tab 09/19/21 Na Bicarb Tab [Sodium Bicarb 325 MG Tab*] 650 mg PO BID tab 09/19/21 Sertraline [Zoloft*] 25 mg PO BEDTIME tab 09/19/21 Zinc Sulfate [Zinc Sulfate*] 220 mg PO DAILY cap 09/19/21 traMADol HCL [Ultram*] 50 mg PO Q6H PRN #30 tab 09/19/21 - Past Medical/Surgical History -: DM type II -: UTI -: GERD -: Paraplegia -: Neurogenic bladder -: Bipolar disorder -: Sacral decubitus ulcer -: Protein calorie malnutrition -: Colostomy -: Suprapubic catheter Psychosocial/ Personal History: Patient currently resides in shelter - Family History Mother -: Other (see notes) - Social History Smoking Status: Current every day smoker Counseled patient to stop smoking for: less than 10 minutes Smoking therapy provided: Yes Alcohol use: No CD- Drugs: No Caffeine use: No Place of Residence: [facility] Review of Systems 10-point ROS is otherwise unremarkable General: Weakness, Malaise Physical Examination - Physical Exam General: Alert, In no apparent distress, Oriented x3 HEENT: Atraumatic, PERRLA, Mucous membr. moist/pink, EOMI, Sclerae nonicteric Neck: Supple, 2+ carotid pulse no bruit, No LAD, Without JVD or thyroid abnormality Respiratory: Diminished Cardiovascular: Regular rate/rhythm, Normal S1 S2 Capillary refill: <2 Seconds Gastrointestinal: Normal bowel sounds, No tenderness, Other (Colostomy in place) Musculoskeletal: No tenderness, Other (Paraplegic no movement below the waist) Integumentary: No warmth, No cyanosis Neurological: Normal speech, Abnormal strength (Paraplegia, no movement below the waist) Urinary: Suprapubic catheter - Studies Laboratory Data (last 24 hrs) 09/23/21 19:50: WBC 10.50, Hgb 9.5 L, Hct 28.8 L, Plt Count 215 09/23/21 19:50: Sodium 139, Potassium 3.4 L, BUN 11, Creatinine 0.57, Glucose 58 L, Total Bilirubin 0.2, AST 11 L, ALT 7 L, Alkaline Phosphatase 135 H, Lipase 54 L 09/23/21 18:45: WBC 11.20 H D, Hgb 9.5 L, Hct 29.5 L, Plt Count 222 D 09/23/21 18:45: Sodium 140, Potassium 3.4 L, BUN 11, Creatinine 0.64, Glucose 62 L, Total Bilirubin 0.2, AST 11 L, ALT 7 L, Alkaline Phosphatase 132 H, Lipase 55 L Assessment and Plan - Plan Assessment: Diabetes mellitus type 2insulin-dependent with hypoglycemia Paraplegia/medical debility, sacral decubitus ulceration currently on IV antibiotics Hypotension GERD Plan: Diabetes mellitus type 2insulin-dependent with hypoglycemia: Blood sugar still running low, will initiate dextrose containing IV fluids. Every 4 hours Accu- Chek for now. Will initiate mild sliding scale once patient blood sugars persistently greater than 200. Patient reports that he did not eat breakfast after receiving his insulin believes this is what caused it, denies any change in his diabetes regiment. Paraplegia/medical debility, sacral decubitus ulceration currently on IV antibiotics: Patient recently seen here and treated for septic shock/sacral decubitus ulcer/possible septic arthritis with general surgery and infectious disease is supposed to be cleaning a 6-week course of IV antibioticsmeropenem. Line in place, meropenem has been ordered to continue during hospitalization. Hypotension: Patient blood pressure runs low was placed on midodrine 10 mg p.o. 3 times daily during previous hospitalization. Doubt sepsis at this time will obtain blood culture, pro-Brad, lactate as well. Patient receiving IV fluids at this time as well. GERD: Obtain and continue medications. DVT PPX: Lovenox Code status: Full Discharge Plan: Home Plan to discharge in: 24 Hours - Advance Directives Does patient have a Living Will: No Does patient have a Durable POA for Healthcare: No - Code Status/Comfort Care Code Status Assessed: Yes (Full code) Critical Care: No Time Spent Managing Pts Care (In Minutes): 55
[2021-09-24 02:17] LABS: Urine Blood 2+ (Negative); Urine Glucose Negative (Negative); Urine Protein 2+ (Negative); Urine Specific Gravity >=1.030 (1.005-1.030); Urine pH 5.5 (5.0-7.0)
[2021-09-24] MEDS ORDERED: NA CHLORIDE 0.9% 1,000 ML ONE ×2 (03:20→13:08)
[2021-09-24] MEDS ORDERED: D5 0.45 NS 0 ML IV ONE (03:20)
[2021-09-24] MEDS ORDERED: D5 0.45 NS 1,000 ML IV ONE ×2 (03:27→13:09)
[2021-09-24] MEDS ORDERED: FENTANYL CITR 100 MCG/2 ML ONE (04:21)
[2021-09-24] MEDS ORDERED: D5 0.45 NS 1,000 ML IV SCH (05:57)
[2021-09-24] MEDS ORDERED: Meropenem 1000 MG/VIAL IV ONE ×2 (06:04→18:12)
[2021-09-24] MEDS ORDERED: NA CHLORIDE 0.9% 100 ML IV ONE ×2 (06:04→18:15)
[2021-09-24] MEDS: Meropenem 1,000 MG in NA CHLORIDE 0.9% 100 ML IV SCH ×2 (06:05→18:20)
[2021-09-24] MEDS: MIDODRINE HCL 5 MG TABLET PO SCH ×3 (08:00→17:00)
[2021-09-24 08:13] LABS: Absolute Lymphocytes (CBC) 1.3 K/uL (0.7-4.9); Hematocrit 27.3 % (39.6-49.0); Lymphocytes % 15.9 % (15.3-44.8); MPV 7.3 fL (7.6-11.3); RBC Red Blood Cell Count 3.35 M/uL (4.33-5.43)
[2021-09-24] MEDS ORDERED: NICOTINE 21 MG/PAT TD ONE (08:38)
[2021-09-24] MEDS ORDERED: ENOXAPARIN 40 MG/0.4 ML SQ ONE (08:39)
[2021-09-24 08:49] LABS: ALT/SGPT 7 U/L (12-78); AST/SGOT 14 U/L (15-37); Alkaline Phosphatase 125 U/L (45-117); BUN Blood Urea Nitrogen 11 mg/dL (7-18); Bicarbonate 24 mmol/L (21-32); Bilirubin Total 0.2 mg/dL (0.2-1.0); Glucose Level 59 mg/dL (74-106); Potassium 3.5 mmol/L (3.5-5.1); Protein, Total 4.2 g/dL (6.4-8.2); Sodium Level 140 mmol/L (136-145)
[2021-09-24 08:51] LABS: Albumin 0.4 g/dL (3.4-5.0)
[2021-09-24] MEDS: ENOXAPARIN 40 MG/0.4 ML SQ SCH (09:08)
[2021-09-24] MEDS: NICOTINE 21 MG/PAT TD SCH (09:08)
[2021-09-24] MEDS ORDERED: HYDROMORPHONE HCL 1 MG/ML INJ IV PRN (09:31)
[2021-09-24] MEDS ORDERED: INFLUENZA VACCINE (for 6+ mo) 0.5 ML DOSE IMVAC ONE (11:00)
[2021-09-24] MEDS ORDERED: PNEUMOCOCCAL VACCINE 0.5 ML IMVAC ONE (11:00)
[2021-09-24] MEDS ORDERED: NA CHLORIDE 0.9% 1,000 ML IV ONE (12:53)
--- NOTE | 2021-09-24 14:24 | P.PN ---
Subjective Date of Service: 09/24/21 Primary Care Provider: [facility] doctor Chief Complaint: Hypoglycemia Subjective: Worsening (Patient is getting hypotensive, bp 68/42) Physical Examination - Vital Signs Blood Pressure: 78/45 Pulse: 71 Respirations: 17 Pulse Ox (%): 100 - Physical Exam General: Other (LETHARGIC) HEENT: Atraumatic, Normocephalic Neck: Supple Respiratory: Other (Unlaboured breathing) Cardiovascular: No edema, Regular rate/rhythm, Normal S1 S2 Gastrointestinal: Soft and benign, Non-distended Musculoskeletal: No clubbing, No swelling Neurological: Normal speech, Normal affect (paraplegic), Other - Studies Laboratory Data (last 24 hrs) 09/23/21 19:50: WBC 10.50, Hgb 9.5 L, Hct 28.8 L, Plt Count 215 09/23/21 19:50: Sodium 139, Potassium 3.4 L, BUN 11, Creatinine 0.57, Glucose 58 L, Total Bilirubin 0.2, AST 11 L, ALT 7 L, Alkaline Phosphatase 135 H, Lipase 54 L 09/23/21 18:45: WBC 11.20 H D, Hgb 9.5 L, Hct 29.5 L, Plt Count 222 D 09/23/21 18:45: Sodium 140, Potassium 3.4 L, BUN 11, Creatinine 0.64, Glucose 62 L, Total Bilirubin 0.2, AST 11 L, ALT 7 L, Alkaline Phosphatase 132 H, Lipase 55 L Assessment And Plan - Current Problems (Diagnosis) (1) Hypotension Current Visit: Yes Status: Acute (2) Hypoglycemia Current Visit: Yes Status: Acute (3) Diabetes mellitus type 2 in nonobese Current Visit: No Status: Acute (4) Infected decubitus ulcer Current Visit: No Status: Acute (5) Paraplegia Current Visit: No Status: Acute Physician Review Additional Text: Assessment Pateint is a 61 year old male currently paraplegic and a [facility]. He was persistently hypoglycemic at the [place] and was brought in for further evaluation. His blood glucose is barely above 100 on dextrose infusion. His hospital course was complicated by hypotension. As per chart review, he has a recent history of infected decubitus ulcer and septic arthritis. He was treated by infectious disease during his last hospitalization and is supposed to be on a 6 weeks course of IV meropenem. A repeat CAT scan during this admission reveals evidence of fluid and gas concerning for abscess collection. He has destructive changes at the right hip suggestive of chronic osteomyelitis. Hypoglycemia Hypotension, possibly abscess Sacral decubitus ulcers Paraplegic plan: Will give a bolus of 1L of NS, repeat x 1. If still hypotension, will start on vasopressors Will given a 25% albumin. His albumin is 0.4 Continue midodrine Hold IV narcotics Add vancomycin. Continue meropenem Follow up blood cultures CT A/P to assess disease progression of decubitus ulcers. Surgery consulted for possible debridement and abscess evacuation Wound care consulted for his decubitus ulcers Wound cx as per WC nurse Continue D5 infusion and monitor BG frequently Will consult nutrition
[2021-09-24] MEDS ORDERED: ALBUMIN HUMAN 25% 100 ML IV ONE (14:35)
[2021-09-24] MEDS: VANCOMYCIN 1.5 GM in NA CHLORIDE 0.9% 500 ML IVPB SCH (15:00)
[2021-09-24] MEDS: COLLAGENASE 30 GM OINTMENT TOP SCH (15:44)
[2021-09-24] MEDS ORDERED: ALBUMIN HUMAN 25% 50 ML IV ONE (16:04)
--- NOTE | 2021-09-24 18:18 | RAD REPORT ---
EXAM DESCRIPTION: CT - Abdomen Pelvis W Contrast - 09/24/2021 5:16 pm CLINICAL HISTORY: R/O abscess vs. osteo COMPARISON: Abdomen Pelvis W Contrast dated 09/04/2021 TECHNIQUE: Biphasic, helical CT imaging of the abdomen and pelvis was performed following 100 ml non -ionic IV contrast. Sagittal and coronal reformatted images were generated and reviewed. No oral contrast was administered. All CT scans are performed using dose optimization technique as appropriate and may include automated exposure control or mA/KV adjustment according to patient size. FINDINGS: Large bilateral pleural effusions are present new from September 04 imaging. There is comple te or near complete bilateral lower lobe atelectasis. No pericardial effusion. Anasarca pattern is present with large amounts of retained fluid in the subcutaneous fatty tissues of the abdomen pelvis. Small amount of ascites is present. The liver has a nodular capsule contour but no focal liver parenchymal lesions seen. Spleen and pancr eas show no suspicious findings. Gallbladder and biliary tree are also without suspicious finding. Symmetric renal function is seen with no hydronephrosis or suspicious renal mass. No pyelonephritis o r acute parenchymal process. Urinary bladder is fully contracted around a Cunningham catheter. No adrenal abnormalities. Food and fluid distended do not dilate the stomach. No outlet obstruction, wall thickening or mass. N o dilated large or small bowel loops seen. Left mid abdomen ostomy site is present. Superior to be a double-barrel colostomy. No intraperitoneal free air and no pneumatosis identified. No bulky lympha denopathy. The postsurgical changes are present with a amorphous mass of bone or mineralization at the left hip joint. There is no would normally formed left femoral head, neck or intertrochanteric region. This is a stable presentation. Additional heterotopic bone is seen along the anterior aspect of the acetabul um on the left. Sclerosis of the each ischium is noted. No new sclerosis or bone destructive process seen since the September 04 study. Very large posterior soft tissue wound is again noted. This does not appear significantly different f rom comparison. Numerous air densities are seen in the subcutaneous fatty tissues along the anterior and lateral aspe ct of the right thigh. There are additional soft tissue air collections lateral to the right hip join t. Air densities are in a slightly different distribution than seen on the September 04 study but are n ot new. Fluid collections are seen associated with the air densities along the anterior and lateral t high external to the skeletal muscle fascia. These are difficult to distinguish from the anasarca kareen t is present. The skeletal musculature is edematous which reduces density and also makes identificati on of discrete abscess is difficult. IMPRESSION: No new bone destruction or new finding since the September 04 study. Findings are a combi nation of degenerative change, postsurgical change and chronic osteomyelitis. A new focus of osteomye litis is not confirmed. Numerous air densities are seen in the subcutaneous fatty tissues of the right thigh not substantiall y different from prior imaging. Air could be the result of the gas forming infectious process or poss ibly introduced during an I&D procedure. Quantity of air is not substantially different from September 04. A a clearly defined new drainable abscess collection is not seen. The patient has a new anasarca mae shanta in the subcutaneous fat making it difficult to distinguish the fluid retention from any possible infected fluid collection. Furthermore, right thigh and periarticular musculature is edematous and is odense with the anasarca and subcutaneous fluid. Large bilateral pleural effusions are present with complete or near complete atelectasis of each lowe r lobe.
[2021-09-24] MEDS: HYDROMORPHONE HCL 1 MG/ML INJ IV PRN ×2 (18:59→23:17)
[2021-09-24] MEDS ORDERED: HYDROMORPHONE HCL 1 MG/ML INJ ONE ×2 (19:00→23:21)
[2021-09-24] MEDS ORDERED: D5 0.9 NS 1,000 ML IV ONE (23:07)
[2021-09-24] MEDS: D5 0.45 NS 1,000 ML IV SCH (23:45)
[2021-09-25] MEDS: Meropenem 1,000 MG in NA CHLORIDE 0.9% 100 ML IV SCH ×3 (01:00→17:00)
[2021-09-25] MEDS ORDERED: HYDROMORPHONE HCL 1 MG/ML INJ ONE ×4 (03:37→17:47)
[2021-09-25 04:22] LABS: Absolute Lymphocytes (CBC) 1.1 K/uL (0.7-4.9); Hematocrit 26.9 % (39.6-49.0); Lymphocytes % 15.5 % (15.3-44.8); MPV 7.4 fL (7.6-11.3); RBC Red Blood Cell Count 3.25 M/uL (4.33-5.43)
[2021-09-25 04:58] LABS: ALT/SGPT 10 U/L (12-78); AST/SGOT 12 U/L (15-37); Alkaline Phosphatase 133 U/L (45-117); BUN Blood Urea Nitrogen 9 mg/dL (7-18); Bicarbonate 22 mmol/L (21-32); Bilirubin Total 0.3 mg/dL (0.2-1.0); Glucose Level 354 mg/dL (74-106); Protein, Total 4.1 g/dL (6.4-8.2); Sodium Level 137 mmol/L (136-145)
[2021-09-25 05:19] LABS: Albumin 0.5 g/dL (3.4-5.0); Potassium 2.9 mmol/L (3.5-5.1)
[2021-09-25] MEDS ORDERED: KCL 20 MEQ/100 mL IVPB 100 ML IV ONE ×2 (05:50→09:11)
[2021-09-25] MEDS: KCL 20 MEQ/100 mL IVPB 20 MEQ/100 ML BAG IV SCH ×4 (05:54→10:00)
[2021-09-25] MEDS ORDERED: CALCIUM GLUC 10% INJ 9.3 MEQ in NA CHLORIDE 0.9% 100 ML IV ONE (07:26)
[2021-09-25] MEDS ORDERED: POTASSIUM CL SA 10 MEQ TAB PO ONE ×2 (07:26→09:10)
[2021-09-25] MEDS: MIDODRINE HCL 5 MG TABLET PO SCH ×3 (08:00→21:40)
[2021-09-25] MEDS ORDERED: KETOROLAC 30 MG/ML INJ IV ONE (08:04)
[2021-09-25] MEDS: HYDROMORPHONE HCL 1 MG/ML INJ IV PRN ×3 (09:00→22:51)
[2021-09-25] MEDS: ENOXAPARIN 40 MG/0.4 ML SQ SCH (09:00)
[2021-09-25] MEDS: NICOTINE 21 MG/PAT TD SCH (09:00)
[2021-09-25] MEDS: COLLAGENASE 30 GM OINTMENT TOP SCH (09:00)
[2021-09-25] MEDS ORDERED: Meropenem 1000 MG/VIAL IV ONE ×2 (09:09→16:15)
[2021-09-25] MEDS ORDERED: NICOTINE 21 MG/PAT TD ONE (09:10)
[2021-09-25] MEDS ORDERED: KETOROLAC 30 MG/ML INJ ONE (09:10)
[2021-09-25] MEDS ORDERED: NA CHLORIDE 0.9% 100 ML IV ONE ×2 (09:11→16:16)
[2021-09-25] MEDS ORDERED: ENOXAPARIN 40 MG/0.4 ML SQ ONE (09:11)
[2021-09-25] MEDS ORDERED: ALBUMIN HUMAN 25% 100 ML IV ONE (09:19)
[2021-09-25] MEDS ORDERED: FUROSEMIDE 20 MG/ 2ML VIAL IV ONE (09:20)
[2021-09-25] MEDS ORDERED: FUROSEMIDE 20 MG/ 2ML VIAL ONE (10:14)
[2021-09-25] MEDS ORDERED: ALBUMIN HUMAN 25% 50 ML IV ONE (10:15)
--- NOTE | 2021-09-25 14:45 | P.PN ---
Subjective Date of Service: 09/25/21 Primary Care Provider: [facility] doctor Chief Complaint: Hypoglycemia Subjective: No new changes (Patient continues to require vasopressors. His mental status is intact.) Physical Examination - Vital Signs Temperature: 98.0 F Blood Pressure: 111/70 Pulse: 69 Respirations: 25 Pulse Ox (%): 100 - Physical Exam General: In no apparent distress, Cooperative HEENT: Atraumatic, Normocephalic Respiratory: Other (Unlaboured breathing) Cardiovascular: Regular rate/rhythm, Normal S1 S2 Neurological: Normal speech, Normal affect - Studies Microbiology Data (last 24 hrs): 09/24/21 01:08 Blood - Blood Gram Stain - Final Assessment And Plan - Current Problems (Diagnosis) (1) Hypotension Current Visit: Yes Status: Acute (2) Hypoglycemia Current Visit: Yes Status: Acute (3) Diabetes mellitus type 2 in nonobese Current Visit: No Status: Acute (4) Infected decubitus ulcer Current Visit: No Status: Acute (5) Paraplegia Current Visit: No Status: Acute Physician Review Additional Text: Assessment Pateint is a 61 year old male currently paraplegic and a [facility] resident. He was persistently hypoglycemic at the [place] and was brought in for further evaluation. He was on insulin at the [place]. His A1c here is 6.0. He has been on Dextrose infusion since his admission. His oral intake has been poor. His hospital course was complicated by hypotension. As per chart review, he has a recent history of infected decubitus ulcer and septic arthritis. He wa s treated by infectious disease during his last hospitalization and is supposed to be on a 6 weeks course of IV meropenem, and wound vac. It does not look like he [facility] a [facility] the [facility]. Hypotension, possibly abscess Hypoglycemia Sacral decubitus ulcers Hypoalbuminemia - albumin 0.5 Anasarca Paraplegic PLAN: Continue vasopressors Will give another dose of 25% albumin, with IV lasix this time Will given a 25% albumin. His albumin is 0.4 Continue midodrine Continue dextrose infusion. Transition to PO intake if he can eat. He hasn't had much appetite here Appreciate assistance from Nutrition OK to give IV narcotics now he's on vasopressors Continue vancomycin and meropenem Follow up blood cultures Surgery plans to perform debridement early next week when he's hemodynamically stable Wound care consulted for his decubitus ulcers
[2021-09-25] MEDS: VANCOMYCIN 1.5 GM in NA CHLORIDE 0.9% 500 ML IVPB SCH (15:00)
[2021-09-25] MEDS ORDERED: MEROPENEM IV SCH (15:00)
[2021-09-25] MEDS ORDERED: D5 0.45 NS 1,000 ML IV ONE ×2 (16:16→19:55)
[2021-09-25 16:48] LABS: BUN Blood Urea Nitrogen 9 mg/dL (7-18); Bicarbonate 24 mmol/L (21-32); Glucose Level 148 mg/dL (74-106); Potassium 3.5 mmol/L (3.5-5.1); Sodium Level 140 mmol/L (136-145)
[2021-09-25] MEDS ORDERED: INFLUENZA VACCINE (for 6+ mo) 0.5 ML DOSE IMVAC ONE (19:00)
[2021-09-25] MEDS ORDERED: PNEUMOCOCCAL VACCINE 0.5 ML IMVAC ONE (19:00)
[2021-09-25] MEDS: D5 0.45 NS 1,000 ML IV SCH (19:45)
[2021-09-25] MEDS: MIRTAZAPINE 15 MG TAB PO SCH (21:40)
[2021-09-26] MEDS: Meropenem 1,000 MG in NA CHLORIDE 0.9% 100 ML IV SCH ×3 (01:00→16:58)
[2021-09-26] MEDS: HYDROMORPHONE HCL 1 MG/ML INJ IV PRN ×4 (05:44→19:58)
[2021-09-26] MEDS ORDERED: TRAMADOL HCL 50 MG TAB PO PRN (06:32)
[2021-09-26 08:53] LABS: ALT/SGPT 11 U/L (12-78); AST/SGOT 13 U/L (15-37); Alkaline Phosphatase 166 U/L (45-117); BUN Blood Urea Nitrogen 8 mg/dL (7-18); Bicarbonate 24 mmol/L (21-32); Bilirubin Total 0.3 mg/dL (0.2-1.0); Glucose Level 139 mg/dL (74-106); Phosphorus 1.7 mg/dL (2.5-4.9); Potassium 3.5 mmol/L (3.5-5.1); Protein, Total 4.6 g/dL (6.4-8.2); Sodium Level 140 mmol/L (136-145)
[2021-09-26] MEDS ORDERED: JUVEN PACKET PO SCH (09:00)
[2021-09-26] MEDS ORDERED: ALBUTEROL 2.5 MG/3 ML NEB SOL IH SCH (09:00)
[2021-09-26] MEDS ORDERED: COLLAGENASE 30 GM OINTMENT TOP SCH (09:00)
[2021-09-26] MEDS: ASPIRIN EC 81 MG TAB PO SCH (09:08)
[2021-09-26] MEDS: ENOXAPARIN 40 MG/0.4 ML SQ SCH (09:08)
[2021-09-26] MEDS: DOCUSATE NA 100 MG CAP PO SCH ×2 (09:08→20:13)
[2021-09-26] MEDS: BUSPIRONE HCL 5 MG TABLET PO SCH ×2 (09:08→20:14)
[2021-09-26] MEDS: SODIUM BICARB 325 MG TAB PO SCH ×2 (09:09→20:14)
[2021-09-26] MEDS: ASCORBIC ACID 500 MG TABLET PO SCH ×2 (09:09→20:12)
[2021-09-26] MEDS: NICOTINE 21 MG/PAT TD SCH (09:10)
[2021-09-26] MEDS: ARIPiprazole 5 MG TAB PO SCH (09:10)
[2021-09-26] MEDS: JUVEN PACKET PO SCH ×2 (09:11→20:15)
[2021-09-26] MEDS: GLUCERNA SHAKE 237 ML CAN PO SCH ×4 (09:12→20:15)
[2021-09-26] MEDS: MIDODRINE HCL 5 MG TABLET PO SCH ×3 (09:13→20:12)
[2021-09-26] MEDS: COLLAGENASE 30 GM OINTMENT TOP SCH (09:13)
[2021-09-26 09:15] LABS: Albumin 0.7 g/dL (3.4-5.0)
[2021-09-26] MEDS: GABAPENTIN 100 MG CAP PO SCH ×3 (09:16→20:13)
--- NOTE | 2021-09-26 09:27 | P.PN ---
Subjective Date of Service: 09/26/21 Primary Care Provider: [facility] doctor Chief Complaint: Hypoglycemia Subjective: Improving (Pt is on low dose levophed. His mental status is intact.) Physical Examination - Vital Signs Temperature: 97.8 F Blood Pressure: 78/51 Pulse: 72 Respirations: 15 Pulse Ox (%): 100 - Physical Exam General: In no apparent distress, Cooperative HEENT: Atraumatic, Normocephalic Respiratory: Clear to auscultation bilaterally, Normal air movement Cardiovascular: Normal pulses, Regular rate/rhythm Gastrointestinal: Soft and benign, Non-distended, Other (suprapubic catheter) Neurological: Other (paraplegic) - Studies Microbiology Data (last 24 hrs): 09/24/21 02:24 Clean Catch Urine [place] Count - Final >100,000 CFU/ML. 09/24/21 02:24 Clean Catch Urine - Final 09/24/21 01:08 Blood - Blood Blood Culture Gram Stain - Final 09/24/21 01:08 Blood - Blood Gram Stain - Final Assessment And Plan - Current Problems (Diagnosis) (1) Hypotension Current Visit: Yes Status: Acute (2) Hypoglycemia Current Visit: Yes Status: Acute (3) Diabetes mellitus type 2 in nonobese Current Visit: No Status: Acute (4) Infected decubitus ulcer Current Visit: No Status: Acute (5) Paraplegia Current Visit: No Status: Acute Physician Review Additional Text: Assessment Pateint is a 61 year old male currently paraplegic and a alf resident. He was persistently hypoglycemic at the [place] and was brought in for further evaluation. He was on insulin at the [place]. His A1c here is 6.0. He has been on Dextrose infusion since his admission. His oral intake has been poor. His hospital course was complicated by hypotension. As per chart review, he has a recent history of infected decubitus ulcer and septic arthritis. He was treated by infectious disease during his last hospitalization and is supposed to be on a 6 weeks course of IV meropenem, and wound vac. It does not look like he was using a wound vac at the alf. Hypotension, possibly septic shock Bacteremia- gram positive cultures in clusters Sacral decubitus ulcers Hypoglycemia Hypoalbuminemia - albumin 0.5 Anasarca Paraplegic PLAN: Continue vasopressor and midodrine Continue vancomycin and meropenem Patient will have a debridement Ralf by Surgery His albumin is still very low. Give another dose of albumin/lasix Appreciate support from Nutrition and wound care services Repeat blood cultures
[2021-09-26] MEDS: ALBUTEROL 2.5 MG/3 ML NEB SOL IH SCH ×2 (09:39→19:19)
[2021-09-26] MEDS ORDERED: ALBUMIN HUMAN 25% 200 ML IV ONE (10:00)
[2021-09-26] MEDS ORDERED: FUROSEMIDE 20 MG/ 2ML VIAL IV ONE (10:00)
[2021-09-26] MEDS: D5 0.45 NS 1,000 ML IV SCH (15:07)
[2021-09-26 15:40] LABS: Magnesium 1.5
[2021-09-26] MEDS ORDERED: VANCOMYCIN 1.5 GM in NA CHLORIDE 0.9% 500 ML IVPB SCH (17:00)
[2021-09-26] MEDS: MIRTAZAPINE 15 MG TAB PO SCH (20:13)
[2021-09-26] MEDS: SERTRALINE HCL 50 MG TAB PO SCH (20:15)
[2021-09-27] MEDS: Meropenem 1,000 MG in NA CHLORIDE 0.9% 100 ML IV SCH ×3 (01:00→18:01)
[2021-09-27] MEDS: HYDROMORPHONE HCL 1 MG/ML INJ IV PRN ×4 (02:01→21:01)
[2021-09-27 07:22] LABS: ALT/SGPT 10 U/L (12-78); AST/SGOT 9 U/L (15-37); Alkaline Phosphatase 128 U/L (45-117); BUN Blood Urea Nitrogen 5 mg/dL (7-18); Bicarbonate 23 mmol/L (21-32); Bilirubin Total 0.3 mg/dL (0.2-1.0); Glucose Level 160 mg/dL (74-106); Phosphorus 1.2 mg/dL (2.5-4.9); Sodium Level 142 mmol/L (136-145)
[2021-09-27 07:26] LABS: Potassium 2.9 mmol/L (3.5-5.1)
[2021-09-27] MEDS ORDERED: POTASSIUM 25 MEQ EFFERV TAB PO ONE (08:06)
[2021-09-27] MEDS: ENOXAPARIN 40 MG/0.4 ML SQ SCH (08:46)
[2021-09-27] MEDS: NICOTINE 21 MG/PAT TD SCH (08:46)
[2021-09-27] MEDS: SODIUM BICARB 325 MG TAB PO SCH ×2 (08:47→20:06)
[2021-09-27] MEDS: ASPIRIN EC 81 MG TAB PO SCH (08:48)
[2021-09-27] MEDS: ASCORBIC ACID 500 MG TABLET PO SCH ×3 (08:48→20:07)
[2021-09-27] MEDS: MIDODRINE HCL 5 MG TABLET PO SCH ×4 (08:48→20:06)
[2021-09-27] MEDS: DOCUSATE NA 100 MG CAP PO SCH ×2 (08:48→20:06)
[2021-09-27] MEDS: BUSPIRONE HCL 5 MG TABLET PO SCH ×2 (08:48→20:06)
[2021-09-27] MEDS: GABAPENTIN 100 MG CAP PO SCH ×4 (08:48→20:07)
[2021-09-27] MEDS: ALBUTEROL 2.5 MG/3 ML NEB SOL IH SCH ×2 (08:54→19:53)
[2021-09-27] MEDS ORDERED: CALCIUM GLUCONATE 1 GM IVPB 1 GM/100 ML BAG IV ONE (09:00)
[2021-09-27] MEDS ORDERED: POTASSIUM CL 20 MEQ in NA CHLORIDE 0.9% 20 MEQ/100 ML BAG IV SCH (09:00)
[2021-09-27] MEDS ORDERED: CALCIUM GLUC 10% INJ 4.65 MEQ in NA CHLORIDE 0.9% 100 ML IV ONE (09:00)
[2021-09-27] MEDS: JUVEN PACKET PO SCH ×2 (09:00→20:07)
[2021-09-27] MEDS: GLUCERNA SHAKE 237 ML CAN PO SCH ×4 (09:00→21:00)
[2021-09-27] MEDS: KCL 20 MEQ/100 mL IVPB 100 ML IV SCH ×2 (09:05→11:13)
[2021-09-27] MEDS: ARIPiprazole 5 MG TAB PO SCH (09:06)
[2021-09-27] MEDS ORDERED: POTASSIUM CL SA 10 MEQ TAB PO ONE (09:35)
[2021-09-27] MEDS: NOREPINEPHRINE 4 MG in D5W 250 ML IV SCH ×2 (09:45→21:40)
--- NOTE | 2021-09-27 09:54 | P.PN ---
Subjective Date of Service: 09/27/21 Primary Care Provider: retirement doctor Chief Complaint: Hypoglycemia Subjective: Improving (Patient weaned off pressors. Increased PO intake. Will also add Ensure) Physical Examination - Vital Signs Temperature: 96.6 F Blood Pressure: 108/56 Pulse: 74 Respirations: 14 Pulse Ox (%): 100 - Physical Exam General: In no apparent distress, Cooperative HEENT: Atraumatic, Normocephalic Neck: Supple Respiratory: Clear to auscultation bilaterally, Normal air movement Cardiovascular: Regular rate/rhythm, Normal S1 S2, Other (anasarca) Gastrointestinal: Soft and benign, Non-distended, Other (suprapubic catheter) Musculoskeletal: Other (anasarca) Neurological: Sensation intact, Normal affect, Other (paraplegic) - Studies Microbiology Data (last 24 hrs): 09/24/21 01:08 Blood - Blood Blood Culture Gram Stain - Final 09/24/21 01:08 Blood - Blood Gram Stain - Final 09/24/21 02:24 Clean Catch Urine [place] Count - Final >100,000 CFU/ML. 09/24/21 02:24 Clean Catch Urine - Final Assessment And Plan - Current Problems (Diagnosis) (1) Hypotension Current Visit: Yes Status: Acute (2) Hypoglycemia Current Visit: Yes Status: Acute (3) Diabetes mellitus type 2 in nonobese Current Visit: No Status: Acute (4) Infected decubitus ulcer Current Visit: No Status: Acute (5) Paraplegia Current Visit: No Status: Acute Physician Review Additional Text: Assessment Pateint is a 61 year old male currently paraplegic and a senior care resident. He was persistently hypoglycemic at the [place] and was brought in for further evaluation. He was on insulin at the [place]. His A1c here is 6.0. He has been on Dextrose infusion since his admission. His oral intake has been poor. His hospital course was complicated by hypotension. As per chart review, he has a recent history of infected decubitus ulcer and septic arthritis. He was treated by infectious disease during his last hospitalization and is supposed to be on a 6 weeks course of IV meropenem, and wound vac. It does not look like he was using a wound vac at the senior care. Hypotension, possibly septic shock Bacteremia- gram positive cultures in clusters Sacral decubitus ulcers Hypoglycemia Hypoalbuminemia - albumin 0.5 Hypokalemia Hypocalcemia Anasarca Paraplegic PLAN: Weaned off levophed Continue midodrine Continue vancomycin and meropenem Patient will have a debridement Wednesday by Surgery Replace K+ and Ca++ Appreciate support from Nutrition and wound care services Repeat blood cultures
[2021-09-27] MEDS: HYDROCODONE/APAP 5/325 MG TAB PO PRN ×2 (10:58→20:07)
[2021-09-27] MEDS ORDERED: POTASSIUM PHOS 30 MM in NA CHLORIDE 0.9% 500 ML IV ONE (11:00)
[2021-09-27 11:35] LABS: Absolute Lymphocytes (CBC) 0.8 K/uL (0.7-4.9); Hematocrit 26.9 % (39.6-49.0); Lymphocytes % 14.6 % (15.3-44.8); MPV 7.2 fL (7.6-11.3); RBC Red Blood Cell Count 3.31 M/uL (4.33-5.43)
--- NOTE | 2021-09-27 11:49 | PN ---
Date of Progress Note: 09/27/2021 Subjective: The patient is awake, alert, tolerating his diet well. His vital signs are stable, bingham miki, he has a slight dip in his blood pressure and he was restarted on Levophed. He is not tachycard ic and he is afebrile. Laboratory Data: Reviewed. His potassium is 2.9, being replaced, and his calcium is 6.4 and is bein g replaced as well as well as his phosphorus. His dressing is clean, dry, and intact. Assessment: A 61-year-old gentleman with sacral decubitus with necrotic tissue as well as multiple o ther medical problems including osteo, paralysis, anemia, diabetes. Recommendations: Continue medical optimization. Check his CBC and make sure he does not require tra nsfusion and correct his electrolytes and the plan is to take him to the OR on Wednesday for debridement of the nonviable tissue on his sacrum and right leg. The patient has been informed of the benefits, alternatives, risks and he agrees. /MODL Voice ID: [id number] Report ID: [id number]
[2021-09-27 14:17] LABS: Magnesium 1.4
[2021-09-27] MEDS ORDERED: Magnesium Sulfate 2gm IVPB 2 G/50 ML BAG IV ONE (15:18)
[2021-09-27] MEDS: ONDANSETRON 4 MG/2 ML VIAL IV PRN ×2 (15:55→21:00)
[2021-09-27] MEDS: COLLAGENASE 30 GM OINTMENT TOP SCH (15:56)
--- NOTE | 2021-09-27 16:16 | CON ---
Date of Consultation: 09/23/2021 Reason For Consultation: Sacral decubitus. History Of Present Illness: The patient is a 61-year-old gentleman well known to me from a recent spitalization where he was discharged last Wednesday. He originally came in with significant anemia wit h a hemoglobin of 5, infected sacral decubitus with abscess, osteo, hyperkalemia, hypotension. All o f his medical issues were managed appropriately and he improved. He was [facility]. It was recommended that the patient go to a skilled nursing in [place]. However, he declined and he opted to remain at the local skilled nursing. He had Merrem ordered IV. He had a PICC line and we also had ordered a wound VAC and collagenase dressing which was not done in the [facility]. He was given insulin yesterday and he had persistently low blood sugar because his diet is poor and he did not eat enough and he was brought to the ER because of hypoglycemia. On evaluation by [facility] medical team, a CAT scan was ordered and I was asked to evaluate the patient for the wound. His bl ood glucose level is being monitored and treated by the medical team. He is on IV antibiotics. He i s awake, alert. Again when I spoke to him, I talked to him about going to a facility where they coul d manage his wounds perhaps better than at this facility. However, he is used to this facility and r efuses to go anywhere else. He does have a PICC line in place. No sore throat, runny nose, cough, h eadaches, or dizziness. No chest pain. No fever or chills. Review of Systems: Otherwise unremarkable. Past Medical History: Significant for diabetes, UTI, GERD, paraplegia, neurogenic bladder, bipolar d isorder, and severe malnutrition. Past Surgical History: Multiple surgeries for his sacral decubitus, diverting colostomy, and suprapu bic catheter. Allergies: NONE. Social History: He does smoke. He was counseled by the medical team. Denies alcohol use. Physical Examination: Vital Signs: Currently, his blood pressure is 111/70, his pulse rate is 69, he is saturating at 100% . Please note he is on Levophed drip however. He is afebrile. General: He is awake, alert. Head and Neck: No masses. Chest: Clear. Heart: S1, S2. Abdomen: Soft. Extremities: With flaccid paralysis. Skin: His wound dressing [facility] and they evaluated the wound and to ok pictures, which I have reviewed and discussed with the wound care nurse in detail. Essentially, t he sacral wound measures 18.2 cm from top of the wound to the scrotum and 33.5 cm from top of the wou nd to the right thigh. Wound width is 24.4 cm. Wound depth is 4 cm undermining from 7-5 o'clock 5.5 cm. There is moderate serosanguineous drainage. The wound is 70% red with good granulation tissue and 30% nonviable fibrin. Bone is exposed in multiple locations. Wound edges are irregular and not attached. Periwound is edematous around the scrotum and penis. The right anterior upper leg thigh i s a full-thickness wound, complicated open wound 9 x 8 cm. Wound has yellow-brown nonviable tissue w ith no drainage. Wound edges very irregular and attached. Periwound is dry. On the right anterior lower leg, full-thickness complicated open wound measuring 0.9 x 1 x 0.1 cm is 100% white nonviable t issue with no drainage. Wound edges are ill-defined and attached. Periwound is dry. Assessment: Sacral decubitus and multiple right lower extremity wounds in a patient with hypoglycemi a, hypotension, osteomyelitis and a large sacral decubitus ulcer. Recommendations: Nutritional optimization. He has already been consulted. His albumin is 0.4. So, nutrition is very important. Air mattress and offloading. Turning the patient q.2 hours. The karen ent needs optimization of his blood pressure and blood sugar prior to semielective debridement of the wound of nonviable tissue, which I plan on doing on Wednesday allowing the medical team 3-4 days to opt imize this patient for surgery. The patient will also need debridement of the lateral thigh wound as well as the lower leg wound. Again I reiterated to the patient that the importance of going to the appropriate facility where his complicated medical issues can be addressed better should be considere d. He again declines and prefers to be discharged to the facility that he came from. So, therefore we will go ahead and debride the patient on Wednesday. Nutritional optimization. Vitamins as ordered. Again, the patient understands the risks, benefits, and alternatives and agrees to procedure. Please note, case was discussed in detail in MDR as well as with Dr. Hernandez. TESSIE/JESSICA Voice ID: [id number] Report ID: [id number]
[2021-09-27] MEDS ORDERED: VANCOMYCIN 1.25 GM in NA CHLORIDE 0.9% 250 ML IVPB SCH (17:00)
[2021-09-27] MEDS: VANCOMYCIN 1.25 GM in NA CHLORIDE 0.9% 250 ML IVPB SCH (18:03)
[2021-09-27 18:21] LABS: BUN Blood Urea Nitrogen 6 mg/dL (7-18); Bicarbonate 25 mmol/L (21-32); Glucose Level 161 mg/dL (74-106); Potassium 4.6 mmol/L (3.5-5.1); Sodium Level 141 mmol/L (136-145)
[2021-09-27] MEDS: SERTRALINE HCL 50 MG TAB PO SCH (20:06)
[2021-09-27] MEDS: MIRTAZAPINE 15 MG TAB PO SCH (20:07)
[2021-09-28] MEDS: Meropenem 1,000 MG in NA CHLORIDE 0.9% 100 ML IV SCH ×3 (00:22→15:59)
[2021-09-28] MEDS: HYDROMORPHONE HCL 1 MG/ML INJ IV PRN ×5 (05:00→23:08)
[2021-09-28 05:26] LABS: Absolute Lymphocytes (CBC) 1.9 K/uL (0.7-4.9); Hematocrit 28.3 % (39.6-49.0); Lymphocytes % 20.7 % (15.3-44.8); MPV 6.9 fL (7.6-11.3); RBC Red Blood Cell Count 3.49 M/uL (4.33-5.43)
[2021-09-28 06:36] LABS: Anisocytosis 1+; Blood Morphology Comment NOTED (NOT SEEN); Hypochromasia 1+; Platelet Estimate ADEQ; White Blood Cell Scan OK (OK)
[2021-09-28 07:39] LABS: ALT/SGPT 10 U/L (12-78); AST/SGOT 12 U/L (15-37); Albumin 1.1 g/dL (3.4-5.0); Alkaline Phosphatase 159 U/L (45-117); BUN Blood Urea Nitrogen 5 mg/dL (7-18); Bicarbonate 24 mmol/L (21-32); Bilirubin Total 0.4 mg/dL (0.2-1.0); Glucose Level 144 mg/dL (74-106); Phosphorus 1.6 mg/dL (2.5-4.9); Potassium 4.6 mmol/L (3.5-5.1); Protein, Total 4.9 g/dL (6.4-8.2); Sodium Level 141 mmol/L (136-145)
[2021-09-28] MEDS: ALBUTEROL 2.5 MG/3 ML NEB SOL IH SCH ×2 (08:24→19:48)
[2021-09-28] MEDS: MIDODRINE HCL 5 MG TABLET PO SCH ×3 (08:58→21:00)
[2021-09-28] MEDS: BUSPIRONE HCL 5 MG TABLET PO SCH ×2 (08:58→21:00)
[2021-09-28] MEDS: GLUCERNA SHAKE 237 ML CAN PO SCH ×4 (09:00→20:56)
[2021-09-28] MEDS: DOCUSATE NA 100 MG CAP PO SCH ×2 (09:00→21:00)
[2021-09-28] MEDS: ASCORBIC ACID 500 MG TABLET PO SCH ×2 (09:00→21:00)
[2021-09-28] MEDS: ASPIRIN EC 81 MG TAB PO SCH (09:00)
[2021-09-28] MEDS: SODIUM BICARB 325 MG TAB PO SCH ×2 (09:00→21:00)
[2021-09-28] MEDS: JUVEN PACKET PO SCH ×2 (09:00→20:56)
[2021-09-28] MEDS: ENOXAPARIN 40 MG/0.4 ML SQ SCH (09:01)
[2021-09-28] MEDS: NICOTINE 21 MG/PAT TD SCH (09:01)
[2021-09-28] MEDS: GABAPENTIN 100 MG CAP PO SCH ×3 (09:02→21:00)
--- NOTE | 2021-09-28 09:05 | P.PN ---
Subjective Date of Service: 09/28/21 Primary Care Provider: [facility] doctor Chief Complaint: Hypoglycemia Subjective: No new changes (Patient has no appetite. His PO intake has been poor. He has been placed back on Levophed) Physical Examination - Vital Signs Temperature: 97.5 F Blood Pressure: 120/62 Pulse: 78 Respirations: 12 Pulse Ox (%): 100 - Physical Exam General: In no apparent distress, Cooperative, Other (physically deconditioned) HEENT: Atraumatic, Normocephalic Respiratory: Clear to auscultation bilaterally, Normal air movement Cardiovascular: Regular rate/rhythm, Normal S1 S2, Other (anasarca) Gastrointestinal: Soft and benign, Non-distended, Other (suprapubic catheter) Musculoskeletal: No clubbing, No contractures, Swelling Neurological: Normal speech, Normal affect - Studies Microbiology Data (last 24 hrs): 09/24/21 01:23 Blood - Blood Aerobic Blood Culture - Final Staph Hominis 09/24/21 01:23 Blood - Blood Blood Culture Gram Stain - Final 09/24/21 01:08 Blood - Blood Aerobic Blood Culture - Final Staph Hominis 09/24/21 01:08 Blood - Blood Blood Culture Gram Stain - Final 09/24/21 01:08 Blood - Blood Anaerobic Blood Culture - Final Staphylococcus Hominis 09/24/21 01:08 Blood - Blood Gram Stain - Final Assessment And Plan - Current Problems (Diagnosis) (1) Hypotension Current Visit: Yes Status: Acute (2) Hypoglycemia Current Visit: Yes Status: Acute (3) Diabetes mellitus type 2 in nonobese Current Visit: No Status: Acute (4) Infected decubitus ulcer Current Visit: No Status: Acute (5) Paraplegia Current Visit: No Status: Acute Physician Review Additional Text: Assessment Patient is a 61 year old male currently paraplegic and a residential resident. He was persistently hypoglycemic at the OR and was brought in for further evaluation. He was on insulin at the OR. His A1c here is 6.0. He has been on Dextrose infusion since his admission. His oral intake has been poor. His hospital course was complicated by hypotension. We're treating him broad spectrum and vasopressors for possible septic shock. As per chart review, he has a recent history of infected decubitus ulcer and septic arthritis. He was treated by infectious disease during his last hospitalization and is supposed to be on a 6 weeks course of IV meropenem, and wound vac. It does not look like he was using a wound vac at the residential. Hypotension, possibly septic shock Bacteremia- gram positive cultures in clusters Sacral decubitus ulcers Staph hominis bacteremia Hypoglycemia Hypoalbuminemia - albumin 0.5--->1.1 Hypokalemia Hypophosphatemia Hypocalcemia Anasarca Paraplegic PLAN: Weaned off levophed Continue midodrine Continue vancomycin and meropenem Follow up repeat blood cultures Patient will have a debridement Wednesday by Surgery Replace phosphorus Appreciate support from Nutrition and wound care services Of note, we discussed alternative placement during MDR. Patient was advised to a different NH as there is a serious concern on the quality of care patient receives after his discharge. He was supposed to go to OR with a wound vac after his last discharge. This was not done. Additionally he's receiving insulin, probably when he doesn't need. He has been persistently hypoglycemic the first days of admission. Patient has refused to go to a different place. He prefers to return to his NH. Patient has capacity.
[2021-09-28] MEDS: ARIPiprazole 5 MG TAB PO SCH (09:28)
[2021-09-28] MEDS ORDERED: MAGNES/ALUMIN/SIMET 30ML UCUP PO PRN (09:50)
[2021-09-28] MEDS ORDERED: SODIUM CHLORIDE 0.9% 10ML INJ IV PRN (09:52)
[2021-09-28] MEDS ORDERED: SODIUM PHOSPHATE 30 MM in NA CHLORIDE 0.9% 500 ML IV ONE (10:00)
--- NOTE | 2021-09-28 10:46 | PN ---
Date of Progress Note: 09/28/2021 Subjective: The patient is awake and alert. No complaints. Objective: Vital Signs: Stable. Systolic varies from 86 to 128. Extremities: Dressing is clean, dry, and intact. Laboratory Data: Reviewed. Assessment: Sacral decubitus and right leg wound, osteo, and necrotic tissue present. This was comp licated by multiple other factors. Recommendations: We will hold the Lovenox, type and screen the patient, take the patient to the OR t omorrow for debridement of the sacral and right thigh wound. The patient understands the risks, bene fits, and alternatives and agrees to procedure. Plan of care discussed with Dr. Hernandez. /MODAdilene Voice ID: [id number] Report ID: [id number]
[2021-09-28 13:00] VITALS: O2SAT 100
[2021-09-28] MEDS: PANTOPRAZOLE 40 MG INJ IVP SCH (14:14)
[2021-09-28] MEDS: COLLAGENASE 30 GM OINTMENT TOP SCH (16:00)
[2021-09-28] MEDS: VANCOMYCIN 1.25 GM in NA CHLORIDE 0.9% 250 ML IVPB SCH ×2 (16:00→19:49)
[2021-09-28 16:23] LABS: Magnesium 1.8
[2021-09-28] MEDS: MIRTAZAPINE 15 MG TAB PO SCH (21:00)
[2021-09-28] MEDS: SERTRALINE HCL 50 MG TAB PO SCH (21:00)
[2021-09-29] MEDS: Meropenem 1,000 MG in NA CHLORIDE 0.9% 100 ML IV SCH ×3 (00:55→17:16)
[2021-09-29] MEDS: HYDROCODONE/APAP 5/325 MG TAB PO PRN ×2 (02:26→03:16)
[2021-09-29] MEDS: HYDROMORPHONE HCL 1 MG/ML INJ IV PRN ×4 (03:19→22:15)
[2021-09-29] MEDS: ALBUTEROL 2.5 MG/3 ML NEB SOL IH SCH ×2 (07:50→19:39)
[2021-09-29] MEDS: PANTOPRAZOLE 40 MG INJ IVP SCH (07:51)
[2021-09-29] MEDS: COLLAGENASE 30 GM OINTMENT TOP SCH ×2 (07:52→14:27)
[2021-09-29] MEDS: GABAPENTIN 100 MG CAP PO SCH ×3 (09:00→20:29)
[2021-09-29] MEDS: GLUCERNA SHAKE 237 ML CAN PO SCH ×4 (09:00→20:29)
[2021-09-29] MEDS: ASCORBIC ACID 500 MG TABLET PO SCH ×2 (09:00→20:30)
[2021-09-29] MEDS: ASPIRIN EC 81 MG TAB PO SCH (09:00)
[2021-09-29] MEDS: SODIUM BICARB 325 MG TAB PO SCH ×2 (09:00→20:30)
[2021-09-29] MEDS: JUVEN PACKET PO SCH ×2 (09:00→20:29)
[2021-09-29] MEDS: DOCUSATE NA 100 MG CAP PO SCH ×2 (09:00→20:29)
[2021-09-29] MEDS: MIDODRINE HCL 5 MG TABLET PO SCH ×3 (09:17→20:30)
[2021-09-29] MEDS: BUSPIRONE HCL 5 MG TABLET PO SCH ×2 (09:17→20:29)
[2021-09-29] MEDS: ARIPiprazole 5 MG TAB PO SCH (09:18)
[2021-09-29] MEDS: NOREPINEPHRINE 4 MG in D5W 250 ML IV SCH (13:09)
[2021-09-29] MEDS ORDERED: FENTANYL CITR 100 MCG/2 ML ONE (13:16)
[2021-09-29] MEDS ORDERED: propofoL 200 MG/20 ML VIAL IV ONE (13:16)
[2021-09-29] MEDS ORDERED: MIDAZOLAM HCL 2 MG/2 ML INJ ONE (13:17)
[2021-09-29] MEDS ORDERED: ONDANSETRON 4 MG/2 ML VIAL ONE (13:18)
[2021-09-29] MEDS ORDERED: LIDOCAINE 1% MPF 5 ML VIAL ONE (13:21)
[2021-09-29] MEDS ORDERED: NA CHLORIDE 0.9% 1,000 ML ONE (13:36)
[2021-09-29] MEDS ORDERED: COLLAGENASE 30 GM OINTMENT TOP ONE (14:23)
--- NOTE | 2021-09-29 14:48 | P.OP ---
Furnace Firer: NONE,NONE Preoperative diagnosis: Infected sacral, right thigh and right leg wound Postoperative diagnosis: Same Primary procedure: Excisional debridement infected sacral decubitus 15 x 6 cm to SQ Secondary procedure: Excisional deridement right thigh wound 10 x 10 cm to SQ Other procedure(s): Excisional debridement right leg wound 3 x 3 cm to SQ Anesthesia: MAC Estimated blood loss: min Specimen: Necrotic tissue Findings: as above Complications: None Transferred to: Recovery Room Condition: Serious
--- NOTE | 2021-09-29 17:01 | OP ---
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 Preoperative Diagnosis: Infected sacral, right thigh and right leg wounds. Postoperative Diagnosis: Infected sacral, right thigh and right leg wounds. Procedures: 1.Excisional debridement of sacral wound 15 x 6 cm to subcutaneous tissue. 2.Excisional debridement of right thigh wound 10 x 10 cm to subcutaneous tissue. 3.Excisional debridement of right leg wound 3 x 3 cm to subcutaneous tissue. Estimated Blood Loss: Minimal. Specimen: Necrotic tissue. Finding: As above. Anesthesia: MAC. Complications: None. Disposition: The patient tolerated the procedure in serious condition and taken to Recovery in lee us condition. Procedure In Detail: The patient was brought to the OR and placed in the supine position. The heidi nt was on Levophed drip, minimal dosing however, and his blood pressure was maintained during surgery . MAC anesthesia was begun. He was placed in the left lateral position, prepped and draped in the u sual sterile fashion. Then, cautery, scissors, and curette used to debride all 3 areas of the patien t's wound, 15 x 6 cm on the upper part of the wound on the sacrum to subcutaneous tissue, the right t high wound approximately 10 x 10 cm to excise the necrotic eschar all the way down to the deep subcut aneous tissue where the fascia was visible and there was edematous fluid oozing from the wound at thi s point, and then a curette was used to debride the wound on the right medial lower leg down through the subcutaneous tissue 3 x 3 cm. Then, central dressing were applied to all 3 wounds and wet-to-dry dressing on top of the central was utilized, and then the patient was awakened and taken to recovery room in serious condition. /MODL Voice ID: [id number] Report ID: [id number]
[2021-09-29] MEDS: NICOTINE 21 MG/PAT TD SCH (17:17)
[2021-09-29] MEDS: SERTRALINE HCL 50 MG TAB PO SCH (20:30)
[2021-09-29] MEDS: MIRTAZAPINE 15 MG TAB PO SCH (20:30)
[2021-09-29] MEDS: MELATONIN 5 MG TABLET PO PRN (20:31)
[2021-09-30] MEDS: Meropenem 1,000 MG in NA CHLORIDE 0.9% 100 ML IV SCH ×3 (01:00→16:37)
[2021-09-30] MEDS: HYDROMORPHONE HCL 1 MG/ML INJ IV PRN ×4 (01:58→20:28)
[2021-09-30 05:19] LABS: Absolute Lymphocytes (CBC) 1.9 K/uL (0.7-4.9); Hematocrit 25.6 % (39.6-49.0); Lymphocytes % 21.9 % (15.3-44.8); MPV 6.2 fL (7.6-11.3); RBC Red Blood Cell Count 3.18 M/uL (4.33-5.43)
[2021-09-30 05:41] LABS: BUN Blood Urea Nitrogen 7 mg/dL (7-18); Bicarbonate 25 mmol/L (21-32); Glucose Level 150 mg/dL (74-106); Phosphorus 2.3 mg/dL (2.5-4.9); Potassium 4.2 mmol/L (3.5-5.1); Sodium Level 141 mmol/L (136-145)
[2021-09-30] MEDS: ASPIRIN EC 81 MG TAB PO SCH (08:02)
[2021-09-30] MEDS: MIDODRINE HCL 5 MG TABLET PO SCH ×3 (08:02→20:35)
[2021-09-30] MEDS: BUSPIRONE HCL 5 MG TABLET PO SCH ×2 (08:02→20:35)
[2021-09-30] MEDS: PANTOPRAZOLE 40 MG INJ IVP SCH (08:02)
[2021-09-30] MEDS: GABAPENTIN 100 MG CAP PO SCH ×3 (08:02→20:36)
[2021-09-30] MEDS: ASCORBIC ACID 500 MG TABLET PO SCH ×2 (08:02→20:26)
[2021-09-30] MEDS: DOCUSATE NA 100 MG CAP PO SCH ×2 (08:02→20:35)
[2021-09-30] MEDS: NICOTINE 21 MG/PAT TD SCH (08:02)
[2021-09-30] MEDS: ENOXAPARIN 40 MG/0.4 ML SQ SCH (08:03)
[2021-09-30] MEDS: JUVEN PACKET PO SCH ×2 (08:03→20:24)
[2021-09-30] MEDS: ARIPiprazole 5 MG TAB PO SCH (08:04)
[2021-09-30] MEDS: SODIUM BICARB 325 MG TAB PO SCH ×2 (08:04→20:36)
[2021-09-30] MEDS: GLUCERNA SHAKE 237 ML CAN PO SCH ×4 (08:04→20:26)
[2021-09-30] MEDS: ALBUTEROL 2.5 MG/3 ML NEB SOL IH SCH ×2 (08:05→19:37)
[2021-09-30 12:21] LABS: Magnesium 1.7
--- NOTE | 2021-09-30 14:43 | PN ---
Date of Progress Note: 09/30/2021 Subjective: The patient is awake, alert. Eating better. Complaining of nonspecific pain. His salud l signs are stable. He is on 1 mcg of Levophed. Blood pressure is systolic, it is 117-125 now and t hey will try to wean him down. I spoke with Dr. Matias about increasing his midodrine dose to 40 mg pe r day to see if we can get him off the Levophed. Objective: His dressing has serosanguineous drainage on it. Laboratory Data: Reviewed. His white count is 8.6, H and H are stable. Assessment: Status post debridement of sacral decubitus, right thigh wound, and right leg wound with osteomyelitis. Recommendations: Continue nutritional optimization, vitamins as ordered, dressing as ordered, IV ant ibiotics. Once his blood pressure is medically controlled, he can be discharged back to the shelter and follow up in the [facility] with me, but I believe the shelter may also have a wound care doctor as well, so I do not anticipate any further debridement on his wound further in f oreseeable future. /MODL Voice ID: [id number] Report ID: [id number]
[2021-09-30] MEDS: VANCOMYCIN 1.25 GM in NA CHLORIDE 0.9% 250 ML IVPB SCH (16:38)
[2021-09-30] MEDS ORDERED: VANCOMYCIN 1.25 GM in NA CHLORIDE 0.9% 250 ML IVPB SCH (18:00)
[2021-09-30] MEDS ORDERED: HYDROCORTISONE SUC 100 MG INJ IV ONE (18:33)
[2021-09-30 19:33] VITALS: BMI 23.4
[2021-09-30] MEDS: SERTRALINE HCL 50 MG TAB PO SCH (20:27)
[2021-09-30] MEDS: HYDROCODONE/APAP 5/325 MG TAB PO PRN (20:32)
[2021-09-30] MEDS: MELATONIN 5 MG TABLET PO PRN (20:33)
[2021-09-30] MEDS: MIRTAZAPINE 15 MG TAB PO SCH (20:34)
[2021-10-01] MEDS: HYDROCORTISONE SUC 100 MG INJ IV SCH ×3 (00:17→17:11)
[2021-10-01] MEDS: Meropenem 1,000 MG in NA CHLORIDE 0.9% 100 ML IV SCH ×3 (00:17→17:10)
[2021-10-01] MEDS: HYDROCODONE/APAP 5/325 MG TAB PO PRN (08:16)
[2021-10-01] MEDS: GABAPENTIN 100 MG CAP PO SCH ×3 (08:18→21:00)
[2021-10-01] MEDS: PANTOPRAZOLE 40 MG INJ IVP SCH (08:18)
[2021-10-01] MEDS: ASPIRIN EC 81 MG TAB PO SCH (08:19)
[2021-10-01] MEDS: BUSPIRONE HCL 5 MG TABLET PO SCH ×2 (08:19→21:00)
[2021-10-01] MEDS: DOCUSATE NA 100 MG CAP PO SCH ×2 (08:19→21:00)
[2021-10-01] MEDS: SODIUM BICARB 325 MG TAB PO SCH ×2 (08:20→21:00)
[2021-10-01] MEDS: MIDODRINE HCL 5 MG TABLET PO SCH ×4 (08:20→21:00)
[2021-10-01] MEDS: NICOTINE 21 MG/PAT TD SCH (08:20)
[2021-10-01] MEDS: ENOXAPARIN 40 MG/0.4 ML SQ SCH (08:21)
[2021-10-01] MEDS: GLUCERNA SHAKE 237 ML CAN PO SCH ×4 (08:21→21:00)
[2021-10-01] MEDS: ASCORBIC ACID 500 MG TABLET PO SCH ×2 (08:21→21:00)
[2021-10-01] MEDS: ARIPiprazole 5 MG TAB PO SCH (08:21)
[2021-10-01] MEDS: JUVEN PACKET PO SCH ×2 (08:22→21:00)
[2021-10-01] MEDS: ALBUTEROL 2.5 MG/3 ML NEB SOL IH SCH ×2 (08:25→20:00)
[2021-10-01] MEDS: HYDROCODONE/APAP 7.5/325 MG TAB PO PRN ×3 (08:42→21:22)
[2021-10-01] MEDS: NOREPINEPHRINE 4 MG in D5W 250 ML IV SCH (09:15)
--- NOTE | 2021-10-01 09:18 | P.PN ---
Subjective Date of Service: 09/29/21 Pt doing well; hypotensive; Levophed on board; scheduled for I&D Review of Systems 10-point ROS is otherwise unremarkable Physical Examination - Vital Signs Temperature: 97.2 F Blood Pressure: 114/67 Pulse: 93 Respirations: 13 Pulse Ox (%): 100 - Physical Exam General: Alert, In no apparent distress HEENT: Atraumatic, PERRLA, EOMI Neck: Supple, JVD not distended Respiratory: Clear to auscultation bilaterally, Normal air movement Cardiovascular: Regular rate/rhythm, Normal S1 S2 Gastrointestinal: Normal bowel sounds, Soft and benign, Non-distended, No tenderness Musculoskeletal: No clubbing, No swelling, No tenderness Neurological: Sensation intact, Cranial nerves 3-12 intact - Studies Medications List Reviewed: Yes Assessment & Plan - Problems (Diagnosis) (1) Diabetes mellitus type 2 in nonobese Current Visit: No Status: Acute (2) Septic shock Current Visit: No Status: Acute - Plan PLAN: 1. IV antibiotics 2. IV fluids 3. Levoped 4. To OR today 5. Awaiting cultures 6. Increase midodrine and add steroids if remains hypotensive Discharge Plan: Home Plan to discharge in: Greater than 2 days - Advance Directives Does patient have a Living Will: Yes Does patient have a Durable POA for Healthcare: Yes - Code Status/Comfort Care Code Status: Full Code Critical Care: No Time Spent Managing PTS Care (In Minutes): 35
--- NOTE | 2021-10-01 09:22 | P.PN ---
Date of Service: 09/30/21 Subjective Pt doing well; remains slightly hypotensive; Levophed on board; s/p I&D Review of Systems 10-point ROS is otherwise unremarkable Physical Examination - Vital Signs reviewed - Physical Exam General: Alert, In no apparent distress Respiratory: Clear to auscultation bilaterally, Normal air movement Cardiovascular: Regular rate/rhythm, Normal S1 S2 Gastrointestinal: Normal bowel sounds, Soft and benign, Non-distended, No tenderness Musculoskeletal: No clubbing, No swelling, No tenderness Neurological: Sensation intact, Cranial nerves 3-12 intact Assessment & Plan - Problems (Diagnosis) (1) Diabetes mellitus type 2 in nonobese Current Visit: No Status: Acute (2) Septic shock Current Visit: No Status: Acute - Plan Cont POC: 1. IV antibiotics 2. IV fluids 3. Levoped 4. To OR today 5. Awaiting cultures with gram-positive 6. Increase midodrine and add steroids if remains hypotensive Discharge Plan: Home Plan to discharge in: Greater than 2 days - Advance Directives Does patient have a Living Will: Yes Does patient have a Durable POA for Healthcare: Yes - Code Status/Comfort Care Code Status: Full Code Critical Care: No Time Spent Managing PTS Care (In Minutes): 35
--- NOTE | 2021-10-01 09:23 | P.PN ---
Date of Service: 10/01/21 Subjective Improved; Levophed drip was discontinued sometime yesterday. Patient's blood pressure runs on the low side. Patient has staph hominis in his blood. Echocardiogram pending. Vancomycin set up as an outpatient. Review of Systems 10-point ROS unable to obtain Physical Examination - Vital Signs reviewed - Physical Exam General: Alert, In no apparent distress Respiratory: Clear to auscultation bilaterally, Normal air movement Cardiovascular: Regular rate/rhythm, Normal S1 S2 Gastrointestinal: Normal bowel sounds, Soft and benign, Non-distended, No tenderness Musculoskeletal: No clubbing, No swelling, No tenderness Neurological: Sensation intact, Cranial nerves 3-12 intact Assessment & Plan - Problems (Diagnosis) (1) Diabetes mellitus type 2 in nonobese Current Visit: No Status: Acute (2) Septic shock secondary to staph hominis Current Visit: No Status: Acute (3) Paraplegic Current Visit: No Status: Acute - Plan Cont POC: 1. IV antibiotics 2. IV fluids 3. Weaned off Levoped 4. s/p I&D 5. Blood cultures positive for staph hominis; echocardiogram pending 6. Increased midodrine and gave IV steroids; will switch over to oral steroids Discharge Plan: Home Plan to discharge in: Greater than 2 days - Advance Directives Does patient have a Living Will: Yes Does patient have a Durable POA for Healthcare: Yes - Code Status/Comfort Care Code Status: Full Code Critical Care: No Time Spent Managing PTS Care (In Minutes): 35
--- NOTE | 2021-10-01 09:30 | PN ---
Date of Progress Note: 10/01/2021 Subjective: The patient is awake, alert, requesting IV pain medicine; however, his blood pressure dr ops when he gets it. So, I discussed in detail with him the importance of trying to manage his pain with oral medicines, so we can maintain his blood pressure better. Dr. Matias did increase his midodri ne and he was given steroids as well. He has not been on Levophed drip since 2 a.m. this morning. Objective: Vital Signs: Currently stable. He is afebrile. Extremities: Dressing is clean, dry, and intact. Assessment: Status post debridement of infected sacral decubitus with osteomyelitis of the sacrum as well as the right leg and thigh. Recommendations: Continue wound care and IV antibiotics as ordered. Discharge planning once his blo od pressure is stabilized. We will increase the dosing of his [place] to see if that helps and try to avoid IV pain medicines. /MODL Voice ID: [id number] Report ID: [id number]
[2021-10-01] MEDS: COLLAGENASE 30 GM OINTMENT TOP SCH (13:00)
[2021-10-01] MEDS: SERTRALINE HCL 50 MG TAB PO SCH (21:00)
[2021-10-01] MEDS: MIRTAZAPINE 15 MG TAB PO SCH (21:00)
[2021-10-01] MEDS: MELATONIN 5 MG TABLET PO PRN (21:23)
[2021-10-02] MEDS: Meropenem 1,000 MG in NA CHLORIDE 0.9% 100 ML IV SCH ×2 (01:00→08:21)
[2021-10-02] MEDS: HYDROCORTISONE SUC 100 MG INJ IV SCH ×2 (01:00→08:20)
[2021-10-02] MEDS: HYDROCODONE/APAP 7.5/325 MG TAB PO PRN (01:25)
[2021-10-02] MEDS: VANCOMYCIN 1.25 GM in NA CHLORIDE 0.9% 250 ML IVPB SCH (06:00)
[2021-10-02] MEDS: ALBUTEROL 2.5 MG/3 ML NEB SOL IH SCH (08:00)
[2021-10-02] MEDS: GABAPENTIN 100 MG CAP PO SCH ×2 (08:19→13:42)
[2021-10-02] MEDS: SODIUM BICARB 325 MG TAB PO SCH (08:19)
[2021-10-02] MEDS: ARIPiprazole 5 MG TAB PO SCH (08:19)
[2021-10-02] MEDS: MIDODRINE HCL 5 MG TABLET PO SCH ×3 (08:19→16:57)
[2021-10-02] MEDS: ASPIRIN EC 81 MG TAB PO SCH (08:20)
[2021-10-02] MEDS: PANTOPRAZOLE 40 MG INJ IVP SCH (08:20)
[2021-10-02] MEDS: ENOXAPARIN 40 MG/0.4 ML SQ SCH (08:20)
[2021-10-02] MEDS: BUSPIRONE HCL 5 MG TABLET PO SCH (08:20)
[2021-10-02] MEDS: DOCUSATE NA 100 MG CAP PO SCH (08:21)
[2021-10-02] MEDS: JUVEN PACKET PO SCH (08:21)
[2021-10-02] MEDS: GLUCERNA SHAKE 237 ML CAN PO SCH ×3 (08:21→17:00)
[2021-10-02] MEDS: NICOTINE 21 MG/PAT TD SCH (08:22)
[2021-10-02] MEDS: ASCORBIC ACID 500 MG TABLET PO SCH (08:23)
[2021-10-02] MEDS ORDERED: predniSONE 20 MG TAB PO SCH (09:00)
[2021-10-02 11:38] LABS: Absolute Lymphocytes (CBC) 0.9 K/uL (0.7-4.9); Hematocrit 26.6 % (39.6-49.0); MPV 6.8 fL (7.6-11.3); RBC Red Blood Cell Count 3.24 M/uL (4.33-5.43)
[2021-10-02 11:43] LABS: BUN Blood Urea Nitrogen 13 mg/dL (7-18); Bicarbonate 27 mmol/L (21-32); Glucose Level 301 mg/dL (74-106); Potassium 4.1 mmol/L (3.5-5.1); Sodium Level 141 mmol/L (136-145)
[2021-10-02] MEDS: COLLAGENASE 30 GM OINTMENT TOP SCH (12:00)
--- NOTE | 2021-10-02 13:40 | PN ---
Date of Progress Note: 10/02/2021 Subjective: The patient is awake. No new complaints. Objective: Vital Signs: Stable, afebrile. Extremities: Dressing is clean, dry, and intact. Laboratory Data: Reviewed. Assessment: Sacral decubitus and right leg wounds with osteo. Recommendations: As the patient is off pressors, the patient can be discharged to the group home w ith IV antibiotics and wound care as ordered. If possible, the patient should follow up [facility] the [facility] and see me in a week or 2. /MODL Voice ID: [id number] Report ID: [id number]
[2021-10-02 16:21] VITALS: TEMP 96.9
--- NOTE | 2021-10-02 16:33 | P.DS ---
Discharge Date: 10/02/21 Primary Care Provider: [facility] doctor Disposition: ROUTINE DISCHARGE Discharge Condition: GOOD Reason for Admission: Hypoglycemia - Problems (1) Diabetes mellitus type 2 in nonobese Current Visit: No Status: Acute (2) Septic shock Current Visit: No Status: Acute Brief History of Present Illness: 61-year-old -[place] male who is a paraplegic waist down presented to the emergency department for low blood sugar. Patient is a resident of [facility] was given his insulin this morning but did not eat blood sugar has been persistently low throughout the day most recently as low as 31 after more than 12 hours from receiving his insulin. Patient did eat sugar still dropped, recent ED provider called me for admission. Other labs were significant for white blood cell count 10.5 hemoglobin 9.5 albumin 0.5 patient was recently discharged from this facility on 09/19/2021 after being treated for septic shock, infected decubitus ulceration and septic arthritis. Patient had wound debridement with general surgery and was also seen by infectious disease, patient was prescribed 6 weeks of total IV meropenem, has PICC line in place. Patient also required vasopressors for hypotension during hospitalization but was weaned off and placed on midodrine for hypotension. His blood pressure medications were discontinued. At this time patient's blood pressure relatively soft around 88/60. Patient given IV fluids in the emergency department will see how blood pressure responds and continue patient's management. Patient does not appear septic at this time, afebrile. Will defer further evaluation and management of hypoglycemic episode. Hospital Course: Patient has done well during hospital stay. Patient was taken to the operating room for incision and debridement of sacral decubitus wound. Patient's blood pressure was low but this improved as well. Patient clinical symptoms are improving. At this time, patient is stable for discharge back to snf. Vital Signs/Physical Exam: Temp Pulse Resp BP Pulse Ox 96.9 F 66 12 109/64 100 10/02/21 16:00 10/02/21 16:00 10/02/21 16:00 10/02/21 16:00 10/02/21 16:00 General: Alert, In no apparent distress, Oriented x3 Laboratory Data at Discharge: WBC 6.70 K/uL (4.3-10.9) D 10/02/21 10:58 Hgb 8.5 g/dL (13.6-17.9) L 10/02/21 10:58 Hct 26.6 % (39.6-49.0) L 10/02/21 10:58 Plt Count 400 K/uL (152-406) D 10/02/21 10:58 Sodium 141 mmol/L (136-145) 10/02/21 10:58 Potassium 4.1 mmol/L (3.5-5.1) 10/02/21 10:58 BUN 13 mg/dL (7-18) 10/02/21 10:58 Creatinine 0.69 mg/dL (0.55-1.3) 10/02/21 10:58 Glucose 301 mg/dL (74-106) H 10/02/21 10:58 Phosphorus 2.3 mg/dL (2.5-4.9) L 09/30/21 04:20 Magnesium 1.7 09/30/21 04:20 Total Bilirubin 0.4 mg/dL (0.2-1.0) 09/28/21 04:55 AST 12 U/L (15-37) L 09/28/21 04:55 ALT 10 U/L (12-78) L 09/28/21 04:55 Alkaline Phosphatase 159 U/L (45-117) H 09/28/21 04:55 Lipase 54 U/L (73-393) L 09/23/21 19:50 Home Medications: Albuterol Neb [Proventil 0.083% Neb Soln] 1 inh IH BID 09/06/21 Arginine/Glutamine/Calcium Bmb [Valentin Packet] 1 each PO BID 09/06/21 Aripiprazole [Abilify] 10 mg PO DAILY 09/06/21 Aspirin [Aspirin EC 81 MG] 81 mg PO DAILY 09/06/21 Hydroxyurea [Hydrea*] 500 mg PO DAILY 09/06/21 Melatonin 5 mg PO BEDTIME PRN 09/06/21 Omeprazole 10 mg PO BID 09/06/21 Ascorbic Acid [Vitamin C*] 500 mg PO BID tablet 09/19/21 Collagenase [Santyl Ointment*] 1 appl TOP DAILY tube 09/19/21 Glucerna Shake [Glucerna*] 237 ml PO QID can 09/19/21 Insulin -Regular Human [Novolin -R*] See Protocol SQ ACHS ml 09/19/21 Mirtazapine [Remeron*] 15 mg PO BEDTIME tab 09/19/21 traMADol HCL [Ultram*] 50 mg PO Q6H PRN #30 tab 09/19/21 Buspirone HCl [Buspar] 10 mg PO BID 09/24/21 Docusate [Colace Cap*] 100 mg PO BID 09/24/21 Ferrous Sulfate 325 mg PO DAILY 09/24/21 Gabapentin 100 mg PO TID 09/24/21 Hydrocodone Bit/Acetaminophen [Hydrocodon-Acetaminophen 5-325] 1 each PO Q6H PRN 09/24/21 Valentin [Valentin*] 1 pkt PO DAILY 09/24/21 Lisinopril [Zestril] 5 mg PO BID 09/24/21 Multivitamin 1 each PO DAILY 09/24/21 Na Bicarb Tab [Sodium Bicarb 325 MG Tab*] 650 mg PO BID 09/24/21 Sertraline [Zoloft*] 50 mg PO BEDTIME 09/24/21 Sodium Chloride 1 gm PO DAILY 09/24/21 Insulin Detemir [Levemir] 10 units SQ BEDTIME #10 ml 10/02/21 Valentin [Valentin*] 1 pkt PO BID #60 powd.pack 10/02/21 Midodrine HCl [Proamatine*] 10 mg PO QID #120 tab 10/02/21 predniSONE [Prednisone*] 20 mg PO BID #11 tab 10/02/21 New Medications: Valentin [Valentin*] 1 pkt PO BID #60 powd.pack Insulin Detemir [Levemir] 10 units SQ BEDTIME #10 ml predniSONE [Prednisone*] 20 mg PO BID #11 tab Midodrine HCl [Proamatine*] 10 mg PO QID #120 tab Physician Discharge Instructions: -DC IV and DC to snf home -Follow-up with PCP in 1 to 2 weeks -Follow-up with general surgery in 1 to 2 weeks -Please call Dr. Matias at [phone] if any questions regarding hospital stay -Please call nursing station at [phone] if any nursing or medication questions -Return to the emergency room if symptoms worsen Diet: Regular Activity: Fall precautions Followup: Unknown,U [Primary Care Provider] - Time spent managing pt's care (in minutes): 35
[2021-10-02] MEDS ORDERED: PNEUMOCOCCAL VACCINE 0.5 ML IMVAC ONE (17:00)
[2021-10-02] MEDS ORDERED: INFLUENZA VACCINE (for 6+ mo) 0.5 ML DOSE IMVAC ONE (17:00)
[2021-10-02 17:11] VITALS: BP 110/64
--- NOTE | 2021-10-03 08:01 | ECHO ---
HEIGHT: 5 ft 11 in WEIGHT: 168 lb 0 oz DATE OF STUDY: 10/02/[address]: Monique Matias MD 2-DIMENSIONAL: YES M.MODE: YES DOPPLER: YES COLOR FLOW: YES TDS: NO PORTABLE: YES DEFINITY: NO BUBBLE STUDY: NO DIAGNOSIS: VEGETATIONS CARDIAC HISTORY: CATHERIZATION: SURGERY: PROSTHETIC VALVE: PACEMAKER: MEASUREMENTS (cm) DIASTOLIC (NORMALS) SYSTOLIC (NORMALS) IVSd 0.9 (0.6-1.2) LA Diam (1.9-4.0) LVEF 60-65% LVIDd 3.5 (3.5-5.7) LVIDs 2.1 (2.0-3.5) %FS 41% LVPWd 0.9 (0.6-1.2) Ao Diam 3.2 (2.0-3.7) 2 DIMENSIONAL ASSESSMENT: RIGHT ATRIUM: NORMAL LEFT ATRIUM: NORMAL RIGHT VENTRICLE: NORMAL LEFT VENTRICLE: NORMAL TRICUSPID VALVE: NORMAL MITRAL VALVE: NORMAL PULMONIC VALVE: NORMAL AORTIC VALVE: NORMAL PERICARDIAL EFFUSION: SMALL AORTIC ROOT: NORMAL LEFT VENTRICULAR WALL MOTION: NORMAL DOPPLER/COLOR FLOW: MILD TRICUSPID AND MITRAL REGURGITATION. COMMENTS: NORMAL LEFT VENTRICULAR EJECTION FRACTION 60-65%. NORMAL WALL MOTION. NO CLEAR VEGETATION IS SEEN, RECOMMEND BENNETT IF CLINICALLY INDICATED. MILD TRICUSPID AND MITRAL REGURGITATION. SMALL PERICARDIAL EFFUSION. TECHNOLOGIST: Sofía SHARPE
== END 2021-10-02 18:05 | DRG 622 ==
LOC: ER 17:36 → OBSVTOIN 22:58 → INTOOBSV 22:58 → ERHOLD 22:58 → OBSVTOIN 09-24 15:25 → ERHOLD 09-24 18:41 → 3RD-ICU 09-25 20:21
PROVIDERS: ADMIT Internal Medicine; ATTEND Hospitalist
PROC: 0JBN0ZZ Excision of Right Lower Leg Subcutaneous Tissue and Fascia, Open Approach (ICD-10-PCS; 2021-09-29)
PROC: 0JBL0ZZ Excision of Right Upper Leg Subcutaneous Tissue and Fascia, Open Approach (ICD-10-PCS; 2021-09-29)
PROC: 0JB70ZZ Excision of Back Subcutaneous Tissue and Fascia, Open Approach (ICD-10-PCS; principal; 2021-09-29 12:00)
DX: E11.649 Type 2 diabetes mellitus with hypoglycemia without coma (principal); A41.1 Sepsis due to other specified staphylococcus; L89.154 Pressure ulcer of sacral region, stage 4; R65.21 Severe sepsis with septic shock; G82.20 Paraplegia, unspecified; M86.68 Other chronic osteomyelitis, other site; E11.52 Type 2 diabetes mellitus with diabetic peripheral angiopathy with gangrene; E83.51 Hypocalcemia; K21.9 Gastro-esophageal reflux disease without esophagitis; E83.39 Other disorders of phosphorus metabolism; E87.6 Hypokalemia; I95.9 Hypotension, unspecified; E88.09 Other disorders of plasma-protein metabolism, not elsewhere classified; F17.200 Nicotine dependence, unspecified, uncomplicated; B95.7 Other staphylococcus as the cause of diseases classified elsewhere; R60.1 Generalized edema; Z79.4 Long term (current) use of insulin; Z79.82 Long term (current) use of aspirin; Z79.52 Long term (current) use of systemic steroids; Z79.899 Other long term (current) drug therapy; Z20.822 Contact with and (suspected) exposure to COVID-19; Z23 Encounter for immunization; Z78.1 Physical restraint status
CPT/HCPCS: 36415; 74177; 80048; 80053; 80076; 80202; 81003; 82947; 83036; 83605; 83690; 83735; 84100; 84145; 84484; 85025; 86850; 86900; 86901; 87040; 87077; 87086; 87088; 87186; 87205; 88304; 90471; 90732; 93306; 96374; 96375; 99251; 99285; C9113; G0378; J0610; J1170; J1650; J1720; J1940; J2185; J2250; J2405; J2704; J3010; J3370; J3475; J3480; J3590; J7030; J7040; J7042; J7050; J7060; J7799; P9047; Q2035; Q9967; U0003

== ENCOUNTER 2021-10-10 05:53 | Inpatient (IN) | payer OTHER ==
--- OUTSIDE RECORDS SUMMARY | 2021-10-10 05:55 | XMS REPORT | Continuity of Care Document ---
:[address] [facility] Address [address] [place] [address] Care Team Providers Name Role Phone TOR BILLINGSLEY Primary Care Physician Unavailable Heydi MERRITT Attending Clinician Unavailable Tyler MERRITT Attending Clinician Unavailable Heydi ABBOTT Attending Clinician Unavailable Melonie RUBALCAVA Attending Clinician Unavailable Jaye LEWIS Attending Clinician Unavailable Tyler SPIVEY Attending Clinician Unavailable Melonie HEARN Attending Clinician Unavailable Payers Payer Name Policy Type Policy Number Effective Date Expiration Date S tabby TP13 SSI RECIPIENT [id number] 2020 00:00:00 Problems This patient has no known problems. Allergies, Adverse Reactions, Alerts This patient has no known allergies or adverse reactions. Medications This patient has no known medications. Procedures This patient has no known procedures. Encounters Start End Encounter Admission Attending Care Care Encounter Source Date/Time Date/Time Type Type Clinicians Facility Department ID 2021-01-13 Inpatient [facility] [id number] H arris 18:20:50 Health 2021-01-02 Inpatient [facility] [id number] H arris 00:00:00 [facility] 2016-04-24 Inpatient [facility] [id number] Hassan rris 00:00:00 Health 2016-04-23 Inpatient [facility] [id number] Hassan rris 10:46:48 Health 2016-04-23 Inpatient [facility] [id number] Hassan rris 00:00:00 [facility] 2016-04-22 Inpatient [facility] [id number] Hassan rris 14:30:15 Health 2016-04-21 Inpatient [facility] [id number] Hassan rris 12:39:58 Health 2016-04-20 Inpatient [facility] [id number] Hassan rris 22:29:26 Health 2016-03-27 Inpatient [facility] [id number] Hassan rris 20:23:40 Health 2016-03-26 Inpatient [facility] [id number] Hassan rris 11:17:47 Health 2016-03-24 Inpatient [facility] [id number] Hassan rris 07:36:08 Health 2021-01-20 2021-01-20 Emergency [facility] [id number] [place] 00:33:00 18:40:00 [facility] 2021-01-20 2021-01-20 Emergency [facility] [id number] [place] 03:37:53 03:37:53 [facility] 2021-01-11 2021-01-15 Inpatient [facility] [id number] [place] 08:45:00 22:54:00 [facility] 2020-12-29 2021-01-06 Inpatient DORIE ABBOTT [facility] [id number] [place] 21:43:00 16:03:00 [facility] 2020-12-31 2020-12-31 Inpatient AUDRA RUBALCAVA [facility] [id number] [place] 09:56:34 11:06:01 [facility] 2020-12-31 2020-12-31 Inpatient [facility] [id number] [place] 00:04:40 03:03:37 [facility] 2020-12-30 2020-12-30 Emergency [facility] [id number] [place] 07:01:57 07:13:10 [facility] 2020-12-30 2020-12-30 Emergency [facility] [id number] [place] 06:43:13 07:12:26 [facility] 2020-12-30 2020-12-30 Emergency [facility] [id number] [place] 01:29:43 02:11:53 RUBENS [facility] 2020-12-30 2020-12-30 Emergency [facility] [id number] [place] 01:06:07 01:12:36 [facility] 2020-12-28 2020-12-28 Emergency [facility] [id number] [place] 07:29:00 08:13:[facility] 2018-[facility]17 2018-05-17 Outpatient [facility] [id number] [place] 00:00:00 00:00:00 [facility] 2018-03-15 2018-03-15 Outpatient [facility] [id number] [place] 00:00:00 00:00:00 [facility] 2018-03-02 2018-03-02 Outpatient [facility] [id number] [place] 00:00:00 00:00:00 [facility] 2018-02-15 2018-02-15 Outpatient [facility] [id number] [place] 10:21:05 10:21:05 [facility] 2018-02-15 2018-02-15 Outpatient [facility] [id number] [place] 08:57:13 08:57:13 Health 2018-02-14 2018-02-14 Outpatient [facility] [id number] [place] 08:25:53 08:25:53 Health 2018-02-08 2018-02-08 Outpatient [facility] [id number] [place] 00:00:00 00:00:00 Health 2018-02-08 2018-02-08 Outpatient [facility] [id number] [place] 00:00:00 00:00:00 Health 2018-01-24 2018-01-24 Outpatient [facility] [id number] [place] 09:03:55 09:03:55 Health 2017-12-30 2017-12-30 Outpatient [facility] [id number] [place] 08:44:14 08:44:14 Health 2017-12-21 2017-12-21 Outpatient [facility] [id number] [place] 11:24:57 11:24:57 Health 2017-12-21 2017-12-21 Outpatient [facility] [id number] [place] 09:28:09 09:28:09 Health 2017-12-21 2017-12-21 Outpatient [facility] [id number] [place] 09:04:44 09:04:44 Health 2017-12-14 2017-12-14 Outpatient [facility] [id number] [place] 08:35:20 08:35:20 Health 2017-12-13 2017-12-13 Outpatient [facility] [id number] [place] 14:16:59 14:16:59 Health 2016-05-09 2016-05-09 Emergency [facility] [id number] [place] 10:56:06 10:56:06 Health 2016-04-21 2016-04-21 Emergency [facility] [id number] [place] 00:35:08 00:35:08 Health 2016-03-24 2016-03-24 Emergency [facility] [id number] [place] 09:36:59 09:36:59 Health Results This patient has no known results.
[2021-10-10] MEDS ORDERED: D10W 250 ML IV ONE (06:33)
[2021-10-10 06:48] LABS: Absolute Lymphocytes (CBC) 2.4 K/uL (0.7-4.9); Hematocrit 21.4 % (39.6-49.0); Lymphocytes % 10.7 % (15.3-44.8); MPV 6.2 fL (7.6-11.3); RBC Red Blood Cell Count 2.63 M/uL (4.33-5.43)
[2021-10-10 07:14] LABS: Anisocytosis 2+; Blood Morphology Comment NOTED (NOT SEEN); Platelet Estimate INCR
--- NOTE | 2021-10-10 07:16 | EDPHYS ---
Physician Documentation [facility] Name: Harmeet Up Age: 61 yrs Sex: Male : 1960 Arrival Date: 10/10/2021 Time: 05:53 Bed 7 Private MD: ED Physician Josh Bejarano HPI: 10/10 06:58 This 61 yrs old Black Male presents to ER via EMS with complaints of Low Blood Sugar. ramirez 06:58 The patient or guardian reports hypoglycemia. Onset: The symptoms/episode ramirez began/occurred just prior to arrival, this morning. Associated signs and symptoms: Pertinent positives: nausea. Current symptoms: In the emergency department the patient's symptoms are unchanged from the initial presentation. The patient has experienced similar episodes in the past, multiple times. Historical: - Allergies: 05:58 No Known Allergies; sm5 - PMHx: 05:58 Diabetes mellitus; Gastroesophageal reflux disease; Anemia; Paraplegia; Bipolar sm5 disorder; Depressive disorder; Asthma; Hypertensive disorder; - Immunization history:: Client reports receiving the 2nd dose of the Covid vaccine. - Social history:: Smoking status: Patient reports the use of cigarette tobacco products, smokes one-half pack cigarettes per day. ROS: 07:01 Constitutional: Negative for fever, chills, and weight loss, Eyes: Negative for injury, ramirez pain, redness, and discharge, ENT: Negative for injury, pain, and discharge, Neck: Negative for injury, pain, and swelling, Cardiovascular: Negative for chest pain, palpitations, and edema, Respiratory: Negative for shortness of breath, cough, wheezing, and pleuritic chest pain, Back: Negative for injury and pain, : Negative for injury, bleeding, discharge, and swelling, MS/Extremity: Negative for injury and deformity, Neuro: Negative for headache, weakness, numbness, tingling, and seizure, Psych: Negative for depression, anxiety, suicide ideation, homicidal ideation, and hallucinations, Allergy/Immunology: Negative for hives, rash, and allergies, Endocrine: Negative for neck swelling, polydipsia, polyuria, polyphagia, and marked weight changes, Hematologic/Lymphatic: Negative for swollen nodes, abnormal bleeding, and unusual bruising. 07:01 Abdomen/GI: Positive for of the left upper quadrant. Exam: 07:01 Constitutional: This is a well developed, well nourished patient who is awake, alert, ramirez and in no acute distress. Head/Face: Normocephalic, atraumatic. Eyes: Pupils equal round and reactive to light, extra-ocular motions intact. Lids and lashes normal. Conjunctiva and sclera are non-icteric and not injected. Cornea within normal limits. Periorbital areas with no swelling, redness, or edema. ENT: Nares patent. No nasal discharge, no septal abnormalities noted. Tympanic membranes are normal and external auditory canals are clear. Oropharynx with no redness, swelling, or masses, exudates, or evidence of obstruction, uvula midline. Mucous membranes moist. Neck: Trachea midline, no thyromegaly or masses palpated, and no cervical lymphadenopathy. Supple, full range of motion without nuchal rigidity, or vertebral point tenderness. No Meningismus. Chest/axilla: Normal chest wall appearance and motion. Nontender with no deformity. No lesions are appreciated. Cardiovascular: Regular rate and rhythm with a normal S1 and S2. No gallops, murmurs, or rubs. Normal PMI, no JVD. No pulse deficits. Respiratory: Lungs have equal breath sounds bilaterally, clear to auscultation and percussion. No rales, rhonchi or wheezes noted. No increased work of breathing, no retractions or nasal flaring. Abdomen/GI: Soft, non-tender, with normal bowel sounds. No distension or tympany. No guarding or rebound. No evidence of tenderness throughout. Male : Normal genitalia with no discharge or lesions. MS/ Extremity: Pulses equal, no cyanosis. Neurovascular intact. Full, normal range of motion. Neuro: Awake and alert, GCS 15, oriented to person, place, time, and situation. Cranial nerves II-XII grossly intact. Motor strength 5/5 in all extremities. Sensory grossly intact. Cerebellar exam normal. Normal gait. Psych: Awake, alert, with orientation to person, place and time. Behavior, mood, and affect are within normal limits. 07:01 ECG was reviewed by the Attending Physician. 07:01 Back: pain, that is mild, that is moderate, ROM is normal, normal spinal alignment noted, CVA tenderness, is absent, muscle spasm, is not present. 07:01 Skin: Appearance: Color: pale. 07:19 Abdomen/GI: Inspection: abdomen appears normal, Bowel sounds: normal, Palpation: [facility] abdomen is soft and non-tender, Indicators: Liver: Hernia: colostomy guaiac positive, trace positive , no melena. Vital Signs: 05:55 BP 100 / 73; Pulse 75; Resp 18; Pulse Ox 100% on R/A; Weight 81.65 kg; Height 5 ft. 9 sm5 in. (175.26 cm); Pain 0/10; 07:00 BP 96 / 61; Pulse 76; Resp 18; Pulse Ox 100% ; Pain 6/10; jh6 07:45 BP 91 / 59; Pulse 72; Resp 18; Pain 5/10; jh6 09:15 BP 99 / 73; Pulse 76; Resp 17; Temp 98.2; Pulse Ox 99% ; Pain 5/10; jh6 10:00 BP 96 / 65; Pulse 66; Resp 17; Pulse Ox 99% ; Pain 5/10; jh6 05:55 Body Mass Index 26.58 (81.65 kg, 175.26 cm) 5 MDM: 05:56 Patient medically screened. [facility] 07:04 Differential diagnosis: hypoglycemic episode. Differential Diagnosis sepsis. Data [facility] reviewed: vital signs, nurses notes, lab test result(s), EKG, radiologic studies, CT scan, plain films. Data interpreted: nurse monitoring: rate is 75 beats/min, rhythm is regular, Pulse oximetry: on room air is 75 %. Test interpretation: by ED physician or midlevel provider: ECG, plain radiologic studies. Counseling: I had a detailed discussion with the patient and/or guardian regarding: the historical points, exam findings, and any diagnostic results supporting the discharge/admit diagnosis, lab results, radiology results, the need for outpatient follow up. 10/10 05:59 Order name: CBC with Diff; Complete Time: 07:18 [facility] 10/10 05:59 Order name: Comprehensive Metabolic Panel; Complete Time: 07:23 [facility] 10/10 05:59 Order name: Troponin High Sensitivity; Complete Time: 07:23 [facility] 10/10 06:18 Order name: Glucose, Ancillary Testing; Complete Time: 06:30 EDMS 10/10 06:51 Order name: Manual Differential; Complete Time: 07:18 EDMS 10/10 06:52 Order name: Basic Metabolic Panel [facility] 10/10 06:52 Order name: Magnesium [facility] 10/10 06:52 Order name: NT PRO-BNP [facility] 10/10 06:52 Order name: PT-INR [facility] 10/10 06:52 Order name: Type And Screen [facility] 10/10 06:52 Order name: Lipase [facility] 10/10 06:52 Order name: Lactate [facility] 10/10 06:52 Order name: XRAY Chest (1 view) [facility] 10/10 06:54 Order name: Procalcitonin [facility] 10/10 06:54 Order name: Blood Culture Adult (2) [facility] 10/10 06:54 Order name: Urine Culture [facility] 10/10 07:15 Order name: COVID-19 SARS RT PCR (Document "Date of Onset" if Symptomatic) 10/10 07:26 Order name: CT Chest, Abdomen, Pelvis - W/Contrast [facility] 10/10 08:11 Order name: Packed RBC Leukored [facility] 10/10 11:22 Order name: Glucose, Ancillary Testing [facility] 10/10 05:59 Order name: EKG; Complete Time: 05:59 [facility] 10/10 05:59 Order name: EKG - Nurse/Tech; Complete Time: 07:55 [facility] 10/10 05:59 Order name: Diet Regular; Complete Time: 06:00 [facility] 10/10 06:52 Order name: Cardiac monitoring; Complete Time: 07:55 [facility] 10/10 06:52 Order name: IV Saline Lock; Complete Time: 07:04 [facility] 10/10 06:52 Order name: Labs collected and sent; Complete Time: 07:55 [facility] 10/10 06:52 Order name: O2 Per Protocol; Complete Time: 07:04 [facility] 10/10 06:52 Order name: O2 Sat Monitoring; Complete Time: 07:04 [facility] 10/10 06:54 Order name: Urine Dipstick-Ancillary (obtain specimen); Complete Time: 07:55 [facility] 10/10 07:12 Order name: IV Saline Lock - Large Bore; Complete Time: 07:53 [facility] 10/10 07:26 Order name: Diet Regular; Complete Time: 07:26 jd3 EC:01 Rate is 77 beats/min. Rhythm is regular. QRS [place] is Normal. SD interval is normal. QRS ramirez interval is normal. QT interval is normal. No Q waves. T waves are Normal. No ST changes noted. Clinical impression: NSR w/ Non-specific ST/T Changes and No evidence of ischemia. Interpreted by me. Reviewed by me. Administered Medications: :45 Drug: D10 in Water [2 mL/kg] 200 ml Route: IVP; Site: right antecubital; 5 07:53 Drug: fentaNYL (PF) 25 mcg Route: IVP; Site: right antecubital; jd3 09:32 Follow up: Response: Pain is unchanged, physician notified jh6 07:54 Drug: Cefepime 2 grams Route: IVPB; Rate: 200 ml/hr; Infused Over: 30 mins; Site: right jd3 antecubital; 07:54 Drug: ProTONIX (pantoprazole) 40 mg Route: IVP; Site: right antecubital; jd3 07:54 Drug: Zofran (Ondansetron) 4 mg Route: IVP; Site: right antecubital; jd3 09:59 Follow up: Response: No adverse reaction jh6 07:55 Drug: NS 0.9% 250 ml Route: IV; Rate: per protocol; Site: right antecubital; jd3 07:55 Drug: ProTONIX (pantoprazole) 40 mg Route: IVP; Site: right antecubital; jd3 08:32 Drug: NS 0.9% 1000 ml Route: IV; Rate: 125 ml/hr; Site: right antecubital; jd3 09:22 Drug: vancoMYCIN 1 grams Route: IVPB; Infused Over: 2 hrs; Site: right antecubital; jh6 09:22 Drug: NS 0.9% 500 ml Route: IV; Rate: bolus; Site: right antecubital; jd3 09:31 Drug: HydroCORTISONE 50 mg Route: IVP; Site: right upper arm; jh6 09:33 Follow up: Response: No adverse reaction jh6 09:31 Drug: fentaNYL (PF) 25 mcg Route: IVP; Site: right upper arm; jh6 09:59 Follow up: Response: No adverse reaction [facility] Disposition Summary: 10/10/21 07:16 Hospitalization Ordered Hospitalization Status: Inpatient Admission ramirez Provider: Jorgito Davison cha Condition: Fair ramirez Problem: new ramirez Symptoms: are unchanged ramirez Bed/Room Type: Standard ramirez Location: Intensive Care Unit(10/10/21 10:31) eb Room Assignment: 3-(10/10/21 10:31) eb Diagnosis - Diabetes mellitus due to underlying condition with hypoglycemia ramirez - Type 2 diabetes mellitus with hyperglycemia ramirez - Elevated white blood cell count ramirez - Anemia, unspecified ramirez - Pressure ulcer of sacral region, stage 4 ramirez - Colostomy complication, unspecified ramirez Forms: - Medication Reconciliation Form ramirez - SBAR form ramirez Signatures: Dispatcher [employer] EDJosh Tamayo MD MD cha Davies, Jonathon, RN RN jd3 Cindy Augustine Jennifer RN RN jh6 Yumiko Lopez RN RN sm5 Corrections: (The following items were deleted from the chart) 07:32 07:19 Chest Abdomen Pelvis Wo Con+CT.RAD.BRZ ordered. EDDE EDMS 08:04 06:52 Basic Metabolic Panel ordered. EDDE EDMS 08:04 06:52 HEPATIC FUNCTION+C.LAB.BRZ ordered. [facility] EDDE 10:31 07:16 Telemetry/MedSurg (Inpatient) [facility] eb 10:31 07:16 ramirez eb
--- NOTE | 2021-10-10 07:16 | ER ---
Nurse's Notes [facility] Name: Harmeet Up Age: 61 yrs Sex: Male : 1960 Arrival Date: 10/10/2021 Time: 05:53 Bed 7 Private MD: Diagnosis: Diabetes mellitus due to underlying condition with hypoglycemia;Type 2 diabetes mellitus with hyperglycemia;Elevated white blood cell count;Anemia, unspecified;Pressure ulcer of sacral region, stage 4;Colostomy complication, unspecified Presentation: 10/10 05:55 Chief complaint: EMS states: long-term staff gave pt insulin without checking a sm5 blood sugar, afterwards patient's sugar was 21. gave him 1 of glucagon. blood sugar for ems was 82. Coronavirus screen: At this time, the client does not indicate any symptoms associated with coronavirus-19. Ebola Screen: No symptoms or risks identified at this time. 05:55 Method Of Arrival: EMS: [place] [id number] 05:55 Initial Sepsis Screen: Does the patient meet any 2 criteria? No. Patient's initial 5 sepsis screen is negative. Does the patient have a suspected source of infection? No. Patient's initial sepsis screen is negative. Risk Assessment: Do you want to hurt yourself or someone else? Patient reports no desire to harm self or others. Onset of symptoms was October 10, 2021. 05:55 Acuity: RUSSELL 3 sm5 Triage Assessment: 06:00 General: Appears in no apparent distress. Behavior is cooperative. Pain: Denies pain. sm5 Neuro: No deficits noted. Level of Consciousness is awake, alert, obeys commands, Oriented to person, place, time, situation. Cardiovascular: No deficits noted. Capillary refill < 3 seconds Patient's skin is warm and dry. Respiratory: No deficits noted. Airway is patent Trachea midline Respiratory effort is even, unlabored. GI: Colostomy site. : Cunningham in place. Historical: - Allergies: 05:58 No Known Allergies; sm5 - PMHx: 05:58 Diabetes mellitus; Gastroesophageal reflux disease; Anemia; Paraplegia; Bipolar sm5 disorder; Depressive disorder; Asthma; Hypertensive disorder; - Immunization history:: Client reports receiving the 2nd dose of the Covid vaccine. - Social history:: Smoking status: Patient reports the use of cigarette tobacco products, smokes one-half pack cigarettes per day. Screenin:01 Abuse screen: Denies threats or abuse. Denies injuries from another. Nutritional sm5 screening: No deficits noted. Tuberculosis screening: No symptoms or risk factors identified. Fall Risk None identified. Total [place] Fall Scale indicates No Risk (0-24 pts). Assessment: 06:17 Reassessment: blood glucose 51. apple juice given. sm5 07:15 Reassessment: Patient is alert, oriented x 3, equal unlabored respirations, skin jh6 warm/dry/pink. 07:15 General: Appears comfortable, Behavior is calm, cooperative. Pain: Complains of pain in jh6 coccyx and right gluteus stephanie Pain currently is 7 out of 10 on a pain scale. Quality of pain is described as aching, sharp, shooting, stabbing. 08:30 Reassessment: Patient and/or family updated on plan of care and expected duration. Pain jh6 level reassessed. pt states that he does not want another IV attempted. States that he is a hard stick and first iv had to be placed with u/s. Dr Davison notified and spoke with pt as well. 09:30 Reassessment: Patient and/or family updated on plan of care and expected duration. Pain jh6 level reassessed. 09:30 Pain: Complains of pain in buttocks Pain currently is 8 out of 10 on a pain scale. jh6 Quality of pain is described as sharp, shooting, stabbing. 09:30 Reassessment: pt states after turning side to side evaluating decubitus that pain to jh6 general area has increased. 10:48 Reassessment: Patient and/or family updated on plan of care and expected duration. Pain jh6 level reassessed. pt assisted with eating full breakfast tray. stated that pain meds helped slightly and position changed for comfort. 11:17 Reassessment: attempted to contact Dr Davison for pts BS 65 but unable to at this time. jh6 Pt was given juice and states that he is feeling fine. Vital Signs: 05:55 BP 100 / 73; Pulse 75; Resp 18; Pulse Ox 100% on R/A; Weight 81.65 kg; Height 5 ft. 9 sm5 in. (175.26 cm); Pain 0/10; 07:00 BP 96 / 61; Pulse 76; Resp 18; Pulse Ox 100% ; Pain 6/10; 6 07:45 BP 91 / 59; Pulse 72; Resp 18; Pain 5/10; 6 09:15 BP 99 / 73; Pulse 76; Resp 17; Temp 98.2; Pulse Ox 99% ; Pain 5/10; 6 10:00 BP 96 / 65; Pulse 66; Resp 17; Pulse Ox 99% ; Pain 5/10; 6 05:55 Body Mass Index 26.58 (81.65 kg, 175.26 cm) [facility] Vitals: 07:15 Cardiac Rhythm Assessment Regular Sinus rhythm. [facility] ED Course: 05:53 Patient arrived in ED. 05:56 Josh Bejarano MD is Attending Physician. [facility] 05:58 Triage completed. [facility] [place] 06:01 Patient has correct armband on for positive identification. Bed in low position. Call [facility] [place] [facility] light in reach. Side rails up X2. Pulse ox on. NIBP on. 06:01 Arm band placed on right wrist. [facility] 06:51 Notified ED physician of a critical lab result(s). WBCs of 22.20, Hgb of 6.8. Dr paris Bejarano notified. 07:04 CBC with Diff Sent. 5 07:04 Comprehensive Metabolic Panel Sent. 5 07:05 Troponin High Sensitivity Sent. [facility] 07:12 Jorgito Davison MD is Hospitalizing Provider. [facility] 07:37 Gayatri Lazaro, GURPREET is Primary Nurse. [facility] 08:[address] [facility] 08:01 XRAY Chest (1 view) In Process Unspecified. EDMS 08:19 CT Chest, Abdomen, Pelvis - W/Contrast In Process Unspecified. EDMS Administered Medications: 06:45 Drug: D10 in Water [2 mL/kg] 200 ml Route: IVP; Site: right antecubital; 5 07:53 Drug: fentaNYL (PF) 25 mcg Route: IVP; Site: right antecubital; [facility] 09:32 Follow up: Response: Pain is unchanged, physician notified [facility] 07:54 Drug: Cefepime 2 grams Route: IVPB; Rate: 200 ml/hr; Infused Over: 30 mins; Site: right jd3 antecubital; 07:54 Drug: ProTONIX (pantoprazole) 40 mg Route: IVP; Site: right antecubital; jd3 07:54 Drug: Zofran (Ondansetron) 4 mg Route: IVP; Site: right antecubital; jd3 09:59 Follow up: Response: No adverse reaction jh6 07:55 Drug: NS 0.9% 250 ml Route: IV; Rate: per protocol; Site: right antecubital; jd3 07:55 Drug: ProTONIX (pantoprazole) 40 mg Route: IVP; Site: right antecubital; jd3 08:32 Drug: NS 0.9% 1000 ml Route: IV; Rate: 125 ml/hr; Site: right antecubital; jd3 09:22 Drug: vancoMYCIN 1 grams Route: IVPB; Infused Over: 2 hrs; Site: right antecubital; jh6 09:22 Drug: NS 0.9% 500 ml Route: IV; Rate: bolus; Site: right antecubital; jd3 09:31 Drug: HydroCORTISONE 50 mg Route: IVP; Site: right upper arm; jh6 09:33 Follow up: Response: No adverse reaction jh6 09:31 Drug: fentaNYL (PF) 25 mcg Route: IVP; Site: right upper arm; jh6 09:59 Follow up: Response: No adverse reaction 6 Outcome: 07:16 Decision to Hospitalize by Provider. ramirez 11:43 Patient left the ED. 6 Signatures: Dispatcher [employer] EDMS Josh Bejarano MD MD cha Ballard, Brenda, RN RN Hamzah Hayward RN RN jd3 Marsh, Wendy wm Hastedt, Jennifer, RN RN 6 Yumiko Lopez RN RN sm5 Corrections: (The following items were deleted from the chart) 05:58 05:55 BP 100 / 73; Pulse 75bpm; Resp 18bpm; Pulse Ox 100% RA; sm5 sm5 10:40 10:39 Reassessment: Patient is alert, oriented x 3, equal unlabored respirations, skin jh6 warm/dry/pink. jh6 10:41 10:39 General: Appears comfortable, Behavior is calm, cooperative, jh6 jh6 10:41 10:39 Pain: Complains of pain in coccyx and right gluteus stephanie Pain currently is 7 jh6 out of 10 on a pain scale. Quality of pain is described as aching, sharp, shooting, stabbing, jh6
[2021-10-10 07:21] LABS: ALT/SGPT 11 U/L (12-78); AST/SGOT 12 U/L (15-37); Alkaline Phosphatase 156 U/L (45-117); BUN Blood Urea Nitrogen 13 mg/dL (7-18); Bicarbonate 28 mmol/L (21-32); Bilirubin Total 0.2 mg/dL (0.2-1.0); Glucose Level 72 mg/dL (74-106); Potassium 4.5 mmol/L (3.5-5.1); Protein, Total 4.9 g/dL (6.4-8.2); Sodium Level 135 mmol/L (136-145)
[2021-10-10 07:23] LABS: Albumin 0.7 g/dL (3.4-5.0)
[2021-10-10] MEDS ORDERED: VANCOMYCIN 1 GM/VIAL ONE ×3 (07:44→21:19)
[2021-10-10] MEDS ORDERED: ONDANSETRON 4 MG/2 ML VIAL ONE (07:44)
[2021-10-10] MEDS ORDERED: CEFEPIME 2 GM VIAL ONE (07:44)
[2021-10-10] MEDS ORDERED: FENTANYL CITR 100 MCG/2 ML ONE ×2 (07:44→09:27)
[2021-10-10] MEDS ORDERED: NA CHLORIDE 0.9% 100 ML IV ONE (07:45)
[2021-10-10] MEDS ORDERED: NA CHLORIDE 0.9% 250 ML ONE ×3 (07:45→21:20)
[2021-10-10] MEDS ORDERED: PANTOPRAZOLE 40 MG INJ ONE (07:45)
[2021-10-10] MEDS ORDERED: NA CHLORIDE 0.9% 1,000 ML ONE (07:45)
[2021-10-10 07:47] LABS: Protime INR 1.31
[2021-10-10 08:23] LABS: Magnesium 1.6 mg/dL (1.8-2.4)
--- NOTE | 2021-10-10 08:35 | RAD REPORT ---
EXAM DESCRIPTION: CTChest Abdomen Pelvis W Cont - 10/10/2021 8:19 am CLINICAL HISTORY: SWELLING COMPARISON: Abdomen Pelvis W Contrast dated 09/24/2021; Abdomen Pelvis W Contrast dated 09/04/2021 TECHNIQUE: CT of the chest, abdomen, and pelvis was performed. All CT scans are performed using dose optimization technique as appropriate and may include automated exposure control or mA/KV adjustment according to patient size. FINDINGS: Thorax: Chest Wall: No abnormal mass. Anasarca. Lungs: Atelectasis as a result of the pleural effusions is present. Pleura: Moderate right and small left pleural effusion. This is unchanged. Krystyna/Mediastinum: No lymphadenopathy. Aorta/Pulmonary Arteries: Unremarkable Heart: Normal size. Abdomen/Pelvis: Liver: No acute abnormality or suspicious lesions. Biliary: No biliary ductal dilatation. Stomach: No significant focal abnormality. Duodenum: No significant focal abnormality. Pancreas: No significant abnormality. Spleen: No significant abnormality. Adrenal: No suspicious lesions. Kidney/ureter: No hydronephrosis. No renal calculi. Retroperitoneum: No retroperitoneal adenopathy. Vascular: Atherosclerosis. No aneurysm. Bowel: Double-barreled left lower quadrant colostomy. Peritoneum: Small volume of ascites. Bladder: The bladder is decompressed around a suprapubic catheter. Gas within the bladder is presumab ly related to instrumentation. Reproductive: No adnexal masses. Bones: Gas and fluid along the right hip and gluteus musculature is again identified and similar to 0 09/24/2021. Sequela of chronic osteomyelitis at the ischium, left hip is similar. Decubitus ulcer agai n noted. Fusion hardware in the spine. Other: n/a IMPRESSION: 1. No significant interval change compared with 09/24/2021. Gas and fluid containing col lections along the right gluteus musculature and extending into the right hip are unchanged. Gas may be from prior instrumentation versus infection. Sequela of chronic osteomyelitis. 2. Similar moderate right and small left pleural effusions with underlying atelectasis.
--- NOTE | 2021-10-10 08:37 | RAD REPORT ---
EXAM DESCRIPTION: RAD - Chest Single View - 10/10/2021 8:01 am CLINICAL HISTORY: COUGH COMPARISON: Chest Single View dated 09/07/2021; Chest Single View dated 09/05/2021; Chest Single View dated 09/04/2021 FINDINGS: Lines: None. Lungs: Atelectasis as a result of the effusions. Pleural: Layering bilateral pleural effusions, right greater than left. Cardiac: The heart size is within normal limits. Bones: No acute fractures. Fusion hardware in the thoracic spine. Other: IMPRESSION: Bilateral pleural effusions, right greater than left, and underlying atelectasis.
[2021-10-10] MEDS ORDERED: NA CHLORIDE 0.9% 500 ML ONE (09:21)
[2021-10-10] MEDS ORDERED: HYDROCORTISONE SUC 100 MG INJ ONE (09:27)
--- NOTE | 2021-10-10 09:56 | P.HP ---
Certification for Inpatient With expected LOS: >2 Midnights Patient will require the following post-hospital care: [facility]sp Practitioner: I am a practitioner with admitting privileges, knowledge of patient current condition, hospital course, and medical plan of care. Services: Services provided to patient in accordance with Admission requirements found in Title 42 Section 412.3 of the Code of Federal Regulations Patient History Date of Service: 10/10/21 Reason for admission: Sepsis not Severe History of Present Illness: Mr. Up is a 61 y/o with paraplegia from the waist down who presented to the ED with hypoglycemia after the jail gave him a dose of insulin before checking his glucose. Upon arrival to the ED, POC glucose was 51 and BP running in the 80s systolic. Patient was recently discharged on 10/02/2021 after an 8 day hospital stay for treatment of hypoglycemia, surgical debriedment of extensive sacral wound, and IV antibiotics. He previously had a picc line placed for 6 weeks of IV antibiotics but the picc line was removed in the jail. Patient reports feeling okay the last few days with the exception of pain at the site of the wound and some shortness of breath. He denies any abdominal pain, nausea, vomiting, cough, fevers, chills, or chest pain. Labs in the ED were significant for WBC 22.2, Hgb 6.8 (baseline ~8.5), plt count 628, mag 1.6, BNP 2085, covid negative, lactate & urine pending. CT abd/pelv unchanged from previous CT on 09/24/2021. Patient will be admitted to the ICU for further evaluation and treatment of sepsis with ID and surgery consulting. Allergies No Known Allergies Allergy (Verified 09/13/21 06:41) Home Medications: Albuterol Neb [Proventil 0.083% Neb Soln] 1 inh IH BID 09/06/21 Arginine/Glutamine/Calcium Bmb [Valentin Packet] 1 each PO BID 09/06/21 Aripiprazole [Abilify] 10 mg PO DAILY 09/06/21 Aspirin [Aspirin EC 81 MG] 81 mg PO DAILY 09/06/21 Hydroxyurea [Hydrea*] 500 mg PO DAILY 09/06/21 Melatonin 5 mg PO BEDTIME PRN 09/06/21 Omeprazole 10 mg PO BID 09/06/21 Ascorbic Acid [Vitamin C*] 500 mg PO BID tablet 09/19/21 Collagenase [Santyl Ointment*] 1 appl TOP DAILY tube 09/19/21 Glucerna Shake [Glucerna*] 237 ml PO QID can 09/19/21 Insulin -Regular Human [Novolin -R*] See Protocol SQ ACHS ml 09/19/21 Mirtazapine [Remeron*] 15 mg PO BEDTIME tab 09/19/21 traMADol HCL [Ultram*] 50 mg PO Q6H PRN #30 tab 09/19/21 Buspirone HCl [Buspar] 10 mg PO BID 09/24/21 Docusate [Colace Cap*] 100 mg PO BID 09/24/21 Ferrous Sulfate 325 mg PO DAILY 09/24/21 Gabapentin 100 mg PO TID 09/24/21 Hydrocodone Bit/Acetaminophen [Hydrocodon-Acetaminophen 5-325] 1 each PO Q6H PRN 09/24/21 Valentin [Valentin*] 1 pkt PO DAILY 09/24/21 Lisinopril [Zestril] 5 mg PO BID 09/24/21 Multivitamin 1 each PO DAILY 09/24/21 Na Bicarb Tab [Sodium Bicarb 325 MG Tab*] 650 mg PO BID 09/24/21 Sertraline [Zoloft*] 50 mg PO BEDTIME 09/24/21 Sodium Chloride 1 gm PO DAILY 09/24/21 Insulin Detemir [Levemir] 10 units SQ BEDTIME #10 ml 10/02/21 Valentin [Valentin*] 1 pkt PO BID #60 powd.pack 10/02/21 Midodrine HCl [Proamatine*] 10 mg PO QID #120 tab 10/02/21 predniSONE [Prednisone*] 20 mg PO BID #11 tab 10/02/21 - Past Medical/Surgical History Diabetic: Yes -: DM type II -: UTI -: GERD -: Paraplegia -: Neurogenic bladder -: Bipolar disorder -: Sacral decubitus ulcer -: Protein calorie malnutrition -: anemia -: depression -: Colostomy -: Suprapubic catheter -: Sacral wound debriedments Psychosocial/ Personal History: [facility] jail - Family History Mother -: Other (see notes) - Social History Smoking Status: Current every day smoker Counseled patient to stop smoking for: less than 10 minutes Alcohol use: No CD- Drugs: No Caffeine use: No Place of Residence: [facility] Review of Systems 10-point ROS is otherwise unremarkable General: As per HPI Respiratory: Shortness of Breath, Other (hoarseness) Integumentary: As per HPI Physical Examination - Physical Exam General: Alert, In no apparent distress HEENT: Atraumatic, PERRLA, EOMI, Sclerae nonicteric Neck: 2+ carotid pulse no bruit, No LAD, Without JVD or thyroid abnormality Respiratory: Clear to auscultation bilaterally, Normal air movement Cardiovascular: Regular rate/rhythm, Normal S1 S2 Gastrointestinal: Normal bowel sounds, No tenderness, Other (Ostomy) Integumentary: Skin breakdown, Pressure ulcer (sacral ) Neurological: Normal speech, Normal affect Urinary: Suprapubic catheter - Studies Laboratory Data (last 24 hrs) 10/10/21 07:20: PT 15.1 H, INR 1.31 10/10/21 07:15: Sodium Cancelled, Potassium Cancelled, BUN Cancelled, Creatinine Cancelled, Glucose Cancelled, Magnesium 1.6 L, Total Bilirubin Cancelled, AST Cancelled, ALT Cancelled, Alkaline Phosphatase Cancelled, Lipase 66 L 10/10/21 06:23: Sodium 135 L, Potassium 4.5, BUN 13, Creatinine 0.65, Glucose 72 L, Total Bilirubin 0.2, AST 12 L, ALT 11 L, Alkaline Phosphatase 156 H 10/10/21 06:23: WBC 22.20 H* D, Hgb 6.8 L*, Hct 21.4 L D, Plt Count 628 H D Assessment and Plan - Plan Assessment: Sepsis not severe Diabetes mellitus type 2 insulin-dependent with hypoglycemia Sacral decubitus ulceration Hypotension Acute anemia unknown source Plan: Sepsis not severe: Patient will be admitted to the ICU. White count was 22 in the ED, lactate pending. Patient received sepsis bolus fluids in ED. Source of sepsis unclear. UTI versus sacral decubitus ulcer? Patient has indwelling suprapubic catheter. Urinarlysis pending. CT chest abdomen pelvis negative. Will reassess in 4 hours. Diabetes mellitus type 2 insulin-dependent with hypoglycemia: POC glucose in the ED was 51. Will check sugar every 4 hours until consistently higher. We will continue on mild sliding scale insulin as needed Sacral decubitus ulceration: Patient has recently had a wound debridement by an unknown surgeon/facility. When patient was discharged from this facility on September 19, 2021 he received a PICC line and was supposed to receive meropenem for 6 weeks however the PICC line was removed at an unknown time and has not been receiving IV antibiotics. Patient reports he has the dressing on his ulcer changed 2 times a day. Will have general surgery and ID consult. Hypotension: Patient takes midodrine 10 mg 4 times a day. Will continue. We will also continue fluids at 100 cc an hour. Will monitor closely on telemetry in the ICU and escalate if necessary. Acute anemia unknown source: Hemoglobin in the ED was 6.8. Last recorded hemoglobin 2 weeks ago was 8.5. Will transfuse 2 units of blood and obtain posttransfusion H&H. source of blood loss most likely from sacral wound. CT abdomen pelvis negative. DVT PPX: Lovenox Code status: Full Discharge Plan: [facility] Plan to discharge in: Greater than 2 days - Advance Directives Does patient have a Living Will: Yes Does patient have a Durable POA for Healthcare: Yes - Code Status/Comfort Care Code Status Assessed: Yes (Full) Critical Care: Yes Time Spent Managing Pts Care (In Minutes): 60
--- NOTE | 2021-10-10 13:03 | EKG ---
Test Date: 2021-10-10 Test Time: 07:01:49 Sueding Machine Tender: MEASUREMENT RESULTS: Intervals: Rate: 77 ID: [id number] QRSD: 78 QT: 422 QTc: 477 [place]: P: ID: [id number] QRS: 68 T: 83 INTERPRETIVE STATEMENTS: Normal sinus rhythm Cannot rule out Inferior infarct, age undetermined Abnormal ECG Compared to ECG 09/04/2021 12:06:18 Sinus arrhythmia no longer present Myocardial infarct finding still present Electronically Signed On 10-10-21 13:02:44 ACCOUNT EXECUTIVE KEY ACCOUNTS by Micah Sawyer
--- NOTE | 2021-10-10 13:12 | P.CNS ---
Date of Consult: 10/10/21 Chief Complaint: Sepsis not Severe History of Present Illness: The patient is a 61-year-old male with a past medical history of paraplegia from the waist down, type 2 diabetes, GERD, chronic anemia, bipolar disorder, major depressive disorder, and chronic sacral decubitus ulcer who presented to the emergency department from his skilled nursing secondary to hypoglycemia. Per chart review the skilled nursing staff gave him a dose of insulin before checking his glucose. In ED labs were significant of POC glucose 51, WBC 22.2, hemoglobin 6.8, creatinine 0.65, pro-Brad 0.5, and soft blood pressures with 80s systolic. SIRS criteria not met. This is patient's third hospital admission at this facility this year. Patients last admission was from 10/04/09. Patient was hospitalized for hypoglycemia and medical/surgical management of his large sacral decubitus ulcer that extends down to his scrotum and lateral aspect of right thigh. The diagnosis of osteomyelitis was made on the patient's first hospital admission, patient was placed on meropenem for 6 weeks duration. PICC line was pulled at skilled nursing, unknown when the line was pulled. As such patient has missed several days of IV antibiotics. Will obtain information to determine exactly how many days of IV antibiotics have been missed and adjust antibiotic end date accordingly. Patient currently denies nausea/vomiting/diarrhea/shortness of breath/chest pain. Allergies No Known Allergies Allergy (Verified 09/13/21 06:41) Home Medications: Albuterol Neb [Proventil 0.083% Neb Soln] 1 inh IH BID 09/06/21 Arginine/Glutamine/Calcium Bmb [Valentin Packet] 1 each PO BID 09/06/21 Aripiprazole [Abilify] 10 mg PO DAILY 09/06/21 Aspirin [Aspirin EC 81 MG] 81 mg PO DAILY 09/06/21 Hydroxyurea [Hydrea*] 500 mg PO DAILY 09/06/21 Melatonin 5 mg PO BEDTIME PRN 09/06/21 Omeprazole 10 mg PO BID 09/06/21 Ascorbic Acid [Vitamin C*] 500 mg PO BID tablet 09/19/21 Collagenase [Santyl Ointment*] 1 appl TOP DAILY tube 09/19/21 Glucerna Shake [Glucerna*] 237 ml PO QID can 09/19/21 Insulin -Regular Human [Novolin -R*] See Protocol SQ ACHS ml 09/19/21 Mirtazapine [Remeron*] 15 mg PO BEDTIME tab 09/19/21 traMADol HCL [Ultram*] 50 mg PO Q6H PRN #30 tab 09/19/21 Buspirone HCl [Buspar] 10 mg PO BID 09/24/21 Docusate [Colace Cap*] 100 mg PO BID 09/24/21 Ferrous Sulfate 325 mg PO DAILY 09/24/21 Gabapentin 100 mg PO TID 09/24/21 Hydrocodone Bit/Acetaminophen [Hydrocodon-Acetaminophen 5-325] 1 each PO Q6H PRN 09/24/21 Valentin [Valentin*] 1 pkt PO DAILY 09/24/21 Lisinopril [Zestril] 5 mg PO BID 09/24/21 Multivitamin 1 each PO DAILY 09/24/21 Na Bicarb Tab [Sodium Bicarb 325 MG Tab*] 650 mg PO BID 09/24/21 Sertraline [Zoloft*] 50 mg PO BEDTIME 09/24/21 Sodium Chloride 1 gm PO DAILY 09/24/21 Insulin Detemir [Levemir] 10 units SQ BEDTIME #10 ml 10/02/21 Valentin [Valentin*] 1 pkt PO BID #60 powd.pack 10/02/21 Midodrine HCl [Proamatine*] 10 mg PO QID #120 tab 10/02/21 predniSONE [Prednisone*] 20 mg PO BID #11 tab 10/02/21 - Past Medical/Surgical History Diabetic: Yes -: DM type II -: UTI -: GERD -: Paraplegia -: Neurogenic bladder -: Bipolar disorder -: Sacral decubitus ulcer -: Protein calorie malnutrition -: anemia -: depression -: Colostomy -: Suprapubic catheter -: Sacral wound debriedments Psychosocial/ Personal History: Patient currently resides in skilled nursing - Family History Mother Medical History: Other (see notes) - Social History Smoking Status: Current every day smoker Alcohol use: No CD- Drugs: No Caffeine use: No Place of Residence: [facility] Review of Systems 10-point ROS is otherwise unremarkable Physical Examination Temp Pulse Resp BP Pulse Ox 97.5 F 73 13 99/65 100 10/10/21 12:00 10/10/21 12:00 10/10/21 12:00 10/10/21 12:00 10/10/21 12:00 General: Alert, In no apparent distress HEENT: Atraumatic, Normocephalic Neck: Supple Respiratory: Clear to auscultation bilaterally, Normal air movement Cardiovascular: Normal pulses, Regular rate/rhythm Capillary refill: <2 Seconds Gastrointestinal: Normal bowel sounds, Other (Colostomy bag, site is clean dry and intact with no clinical signs of infection) Integumentary: Pressure ulcer (Stage IV sacral decubitus wound that extends down to patient's scrotum and down lateral aspect of right thigh. Incision so shows no clinical signs of infection, no malodor or drainage. Base of wound shows healthy viable tissue.), Other (Bilateral lower extremity edema 1-2+) Neurological: Other External genitalia: Other (Suprapubic catheter, site is clean dry and intact with no clinical signs of infection) Laboratory Data (last 24 hrs) 10/10/21 07:20: PT 15.1 H, INR 1.31 10/10/21 07:15: Sodium Cancelled, Potassium Cancelled, BUN Cancelled, Creatinine Cancelled, Glucose Cancelled, Magnesium 1.6 L, Total Bilirubin Cancelled, AST Cancelled, ALT Cancelled, Alkaline Phosphatase Cancelled, Lipase 66 L 10/10/21 06:23: Sodium 135 L, Potassium 4.5, BUN 13, Creatinine 0.65, Glucose 72 L, Total Bilirubin 0.2, AST 12 L, ALT 11 L, Alkaline Phosphatase 156 H 10/10/21 06:23: WBC 22.20 H* D, Hgb 6.8 L*, Hct 21.4 L D, Plt Count 628 H D Conclusions/Impression: Assessment/plan Sacral decubitus ulcer extending to scrotum and lateral aspect of right thigh -MRI performed on patient's first hospital admission(09/04-09/19) confirmed osteomyelitis of both ischial and left femur. Wound cultures obtained on that visit grew ESBL producing E. coli and Proteus mirabilis, both sensitive to meropenem. Meropenem started on 09/06/2021 to be completed for 6 weeks. PICC line has since been pulled and patient has been missed several days of IV antibiotics. Unknown exactly when PICC line was pulled, will obtain information to determine exactly how many days of IV antibiotics have been missed and adjust antibiotic end date accordingly. Please restart merum. -Recommend replacing wound VAC. -Avoid direct pressure, reposition patient in bed every 2 hours during waking hours. Recommend low air loss mattress. Leukocytosis Recommend restarting meropenem. Continue monitor WBC trend and fever curve. Diabetes Patient hypoglycemic on admission, continue to watch glucose levels. Anemia of chronic disease Continue to monitor H&H, recommend transfusion if hemoglobin drops below 7.0 Protein caloric malnutrition: Severe Recommend supplemental Ensure protein drinks. Adequate nutrition needed for proper wound healing. -Medical management per primary team Continue monitor CBC and BMP Continue monitor for signs of infection Plan of care discussed with Dr. Dumont Thank for consultation
[2021-10-10] MEDS: INSULIN -REGULAR HUMAN 50 UNIT/0.5 ML ML SQ SCH ×3 (13:41→21:20)
[2021-10-10] MEDS ORDERED: ONDANSETRON 4 MG/2 ML VIAL IV PRN (13:41)
[2021-10-10] MEDS ORDERED: MAGNESIUM SULFATE 1 gm IVPB 1 GM/100 ML BAG IV ONE (13:41)
--- NOTE | 2021-10-10 14:37 | P.INFCA ---
Sepsis Focused Assessment - Focused Assessment Complete? Sepsis Focused Assessment Completed?: Yes - Sepsis Screen Result Severe Sepsis: Negative Septic Shock: Negative - Evaluation Current stage of sepsis: Ruled out Reason for ruling out sepsis: Patient is refusing blood draws at this time so cannot trend lactic or WBC. - Vital Signs Reviewed: Yes Temperature: 97.5 F Heart rate: 73 Blood Pressure: 99/65 Respiratory Rate: 13 O2 Sat by Pulse Oximetry: 100 - Examination Date exam was performed: 10/10/21 Time exam was performed: 14:30 Heart: Regular rate/rhythm Lungs: Clear bilaterally Peripheral pulses: 3+ Normal Comments: Blood Pressure and hypoglycemia have improved.
[2021-10-10] MEDS ORDERED: VANCOMYCIN 1.5 GM in NA CHLORIDE 0.9% 500 ML IVPB SCH (15:00)
[2021-10-10] MEDS ORDERED: PNEUMOCOCCAL VACCINE 0.5 ML IMVAC ONE (17:00)
[2021-10-10] MEDS ORDERED: FENTANYL CITR 100 MCG/2 ML IV ONE (17:00)
[2021-10-10] MEDS: MIDODRINE HCL 5 MG TABLET PO SCH ×2 (17:01→21:19)
[2021-10-10] MEDS: Meropenem 1,000 MG in NA CHLORIDE 0.9% 100 ML IV SCH ×2 (17:02→22:01)
[2021-10-10] MEDS: COLLAGENASE 30 GM OINTMENT TOP SCH (17:04)
[2021-10-10] MEDS: NA CHLORIDE 0.9% 1,000 ML IV SCH (17:47)
[2021-10-10 19:17] LABS: Urine Appearance CLOUDY (Clear); Urine Bilirubin NEGATIVE (Negative); Urine Blood 2+ (Negative); Urine Color YELLOW (Yellow); Urine Glucose NEGATIVE (Negative); Urine Protein TRACE (Negative); Urine Specific Gravity >=1.030 (1.005-1.030); Urine Urobilinogen 0.2 mg/dL (0.2-1.0); Urine pH 6.5 (5.0-7.0)
[2021-10-10 19:25] LABS: Urine Bacteria 20-50 /HPF (NONE SEEN); Urine Mucus 1+ /HPF (NONE SEEN); Urine Yeast PRESENT (NONE SEEN)
[2021-10-10 19:26] LABS: Urine Yeast with Hyphae PRESENT
[2021-10-10 20:36] LABS: Hematocrit 30.4 % (39.6-49.0)
[2021-10-10] MEDS ORDERED: VANCOMYCIN 500 MG in NA CHLORIDE 0.9% 100 ML IVPB ONE (21:00)
[2021-10-10] MEDS ORDERED: NA CHLORIDE 0.9% 100 ML ONE (21:24)
[2021-10-10 22:54] VITALS: O2SAT 98
[2021-10-11 04:50] LABS: Absolute Lymphocytes (CBC) 1.9 K/uL (0.7-4.9); Hematocrit 27.9 % (39.6-49.0); Lymphocytes % 17.1 % (15.3-44.8); MPV 6.2 fL (7.6-11.3); RBC Red Blood Cell Count 3.38 M/uL (4.33-5.43)
[2021-10-11 05:24] LABS: ALT/SGPT 10 U/L (12-78); AST/SGOT 7 U/L (15-37); Alkaline Phosphatase 140 U/L (45-117); BUN Blood Urea Nitrogen 13 mg/dL (7-18); Bicarbonate 26 mmol/L (21-32); Bilirubin Total 0.3 mg/dL (0.2-1.0); Glucose Level 127 mg/dL (74-106); Potassium 4.2 mmol/L (3.5-5.1); Protein, Total 4.7 g/dL (6.4-8.2); Sodium Level 136 mmol/L (136-145)
[2021-10-11 05:25] LABS: Albumin 0.6 g/dL (3.4-5.0)
[2021-10-11] MEDS: Meropenem 1,000 MG in NA CHLORIDE 0.9% 100 ML IV SCH ×3 (05:35→22:26)
--- NOTE | 2021-10-11 06:11 | P.PN ---
Date of Service: 10/11/21 Subjective: No acute events overnight Vitals within normal limits, stable Blood pressure improved Patient reports feeling much better this morning Received 2 units of blood yesterday ROS: 10 point ROS as noted above, otherwise negative Physical exam GEN: Alert, oriented, NAD HEENT: Normal conjunctiva, sclera anicteric CV: Regular rate and rhythm, no edema Pulm: Nonlabored respirations on room air ABD: Soft, +ostomy MSK: No joint tenderness Integumentary: Large sacral decubitus ulcer Neuro: Normal speech, normal affect Problem List Sepsis without severe sepsis, secondary to UTI / osteomyelitis Diabetes mellitus type 2 insulin-dependent with hypoglycemia Sacral decubitus ulceration with osteomyelitis Hypotension, chronic Acute on chronic anemia Sepsis Admitted to the ICU Improving overnight Not severe, leukocytosis improved, vitals stable Continue broad-spectrum antibiotics, patient with history of osteomyelitis, supposed to receive 6 weeks of IV meropenem, however PICC line was removed for unknown reason recently ID consulted Patient will need PICC line Awaiting cultures Restarted patient's home medications, blood pressure stable with midodrine IV fluids. If patient is taking more p.o. today, came back down on IV fluids Did not receive full sepsis bolus secondary to pleural effusion/ascites, started on 2u PRBCs, and without severe sepsis VTE: Lovenox Code: Full Dispo: Anticipate discharge back to SNF/detention, hospitalization greater than 2 days Possible transfer to floor later today Time Spent Managing Pts Care (In Minutes): 35
[2021-10-11] MEDS: INSULIN -REGULAR HUMAN 50 UNIT/0.5 ML ML SQ SCH ×4 (07:30→20:48)
[2021-10-11] MEDS ORDERED: HOME MED 1 EA UNK (Buspirone Hcl [Buspar] 10 MG Tablet) PO SCH (09:00)
[2021-10-11] MEDS: GLUCERNA SHAKE 237 ML CAN PO SCH ×3 (09:00→20:49)
[2021-10-11] MEDS ORDERED: HOME MED 1 EA UNK (Aripiprazole [Abilify] 10 MG Tablet) PO SCH (09:00)
[2021-10-11] MEDS: ASPIRIN EC 81 MG TAB PO SCH (09:20)
[2021-10-11] MEDS: GABAPENTIN 100 MG CAP PO SCH ×3 (09:20→20:34)
[2021-10-11] MEDS: ASCORBIC ACID 500 MG TABLET PO SCH ×2 (09:20→20:34)
[2021-10-11] MEDS: MIDODRINE HCL 5 MG TABLET PO SCH ×3 (09:20→20:34)
[2021-10-11] MEDS: ENOXAPARIN 40 MG/0.4 ML SQ SCH (09:20)
[2021-10-11] MEDS: FERROUS SULFATE 325 MG TAB PO SCH (09:20)
[2021-10-11] MEDS: VANCOMYCIN 1.5 GM in NA CHLORIDE 0.9% 500 ML IVPB SCH ×2 (09:23→20:34)
[2021-10-11] MEDS: NA CHLORIDE 0.9% 1,000 ML IV SCH ×3 (09:30→19:41)
[2021-10-11] MEDS: BUSPIRONE HCL 5 MG TABLET PO SCH ×2 (09:47→20:34)
[2021-10-11] MEDS: TRAMADOL HCL 50 MG TAB PO PRN (09:48)
[2021-10-11] MEDS: ARIPiprazole 5 MG TAB PO SCH (09:55)
[2021-10-11] MEDS: MIRTAZAPINE 15 MG TAB PO SCH (20:34)
[2021-10-11] MEDS: SERTRALINE HCL 50 MG TAB PO SCH (20:34)
[2021-10-12] MEDS: NA CHLORIDE 0.9% 1,000 ML IV SCH (00:12)
[2021-10-12] MEDS: TRAMADOL HCL 50 MG TAB PO PRN ×2 (00:36→22:59)
[2021-10-12 05:18] VITALS: BMI 25.4
[2021-10-12] MEDS: Meropenem 1,000 MG in NA CHLORIDE 0.9% 100 ML IV SCH ×3 (05:26→22:59)
--- NOTE | 2021-10-12 05:59 | P.PN ---
Date of Service: 10/12/21 Subjective: Feeling better, vitals better Refusing blood work this morning Appetite improved Without any new complaints Wound VAC placed ROS: 10 point ROS as noted above, otherwise negative Physical exam GEN: Alert, oriented, NAD HEENT: Normal conjunctiva, sclera anicteric CV: Regular rate and rhythm, no edema Pulm: Nonlabored respirations on room air ABD: Soft, +ostomy MSK: No joint tenderness Integumentary: Large sacral decubitus ulcer Neuro: Normal speech, normal affect Problem List Sepsis without severe sepsis, secondary to UTI / osteomyelitis Diabetes mellitus type 2 insulin-dependent with hypoglycemia Sacral decubitus ulceration with osteomyelitis Hypotension, chronic Acute on chronic anemia Sepsis without severe sepsis Admitted to the ICU for closer monitoring doing much better Continue broad-spectrum antibiotics, patient with history of osteomyelitis, supposed to receive 6 weeks of IV meropenem, however PICC line was removed for unknown reason recently ID consulted Patient will need PICC line Awaiting cultures Restarted patient's home medications, blood pressure stable dc IVF Did not receive full sepsis bolus secondary to pleural effusion/ascites, started on 2u PRBCs, and without severe sepsis stable for transfer to floor VTE: Lovenox Code: Full Dispo: Anticipate discharge back to SNF/intermediate, hospitalization greater than 2 days Transfer to floor today Time Spent Managing Pts Care (In Minutes): 35
[2021-10-12] MEDS: INSULIN -REGULAR HUMAN 50 UNIT/0.5 ML ML SQ SCH ×4 (07:30→21:00)
[2021-10-12] MEDS: ARIPiprazole 5 MG TAB PO SCH (08:01)
[2021-10-12] MEDS: ENOXAPARIN 40 MG/0.4 ML SQ SCH (08:01)
[2021-10-12] MEDS: ASCORBIC ACID 500 MG TABLET PO SCH ×2 (08:01→22:58)
[2021-10-12] MEDS: BUSPIRONE HCL 5 MG TABLET PO SCH ×2 (08:01→22:56)
[2021-10-12] MEDS: GABAPENTIN 100 MG CAP PO SCH ×3 (08:01→22:57)
[2021-10-12] MEDS: FERROUS SULFATE 325 MG TAB PO SCH (08:02)
[2021-10-12] MEDS: MIDODRINE HCL 5 MG TABLET PO SCH ×3 (08:02→22:58)
[2021-10-12] MEDS: GLUCERNA SHAKE 237 ML CAN PO SCH ×3 (08:02→22:56)
[2021-10-12] MEDS: ASPIRIN EC 81 MG TAB PO SCH (08:02)
[2021-10-12] MEDS: COLLAGENASE 30 GM OINTMENT TOP SCH (08:03)
[2021-10-12] MEDS: VANCOMYCIN 1.5 GM in NA CHLORIDE 0.9% 500 ML IVPB SCH ×2 (08:05→21:00)
[2021-10-12] MEDS: JUVEN PACKET PO SCH (22:57)
[2021-10-12] MEDS: MIRTAZAPINE 15 MG TAB PO SCH (22:58)
[2021-10-12] MEDS: SERTRALINE HCL 50 MG TAB PO SCH (22:59)
[2021-10-13] MEDS: Meropenem 1,000 MG in NA CHLORIDE 0.9% 100 ML IV SCH ×3 (05:48→21:20)
--- NOTE | 2021-10-13 06:18 | P.PN ---
Date of Service: 10/13/21 Subjective: no significant changes feels ok reports tramadol is not helping as much refusing labs ROS: 10 point ROS as noted above, otherwise negative Physical exam GEN: Alert, oriented, NAD CV: Regular rate and rhythm, no edema Pulm: Nonlabored respirations on room air ABD: Soft, +ostomy Integumentary: Large sacral decubitus ulcer Neuro: Normal speech, normal affect Problem List Sepsis without severe sepsis, secondary to UTI / osteomyelitis Diabetes mellitus type 2 insulin-dependent with hypoglycemia Sacral decubitus ulceration with osteomyelitis Hypotension, chronic Acute on chronic anemia Sepsis without severe sepsis stable, doing better Continue broad-spectrum antibiotics, patient with history of osteomyelitis, supposed to receive 6 weeks of IV meropenem, however PICC line was removed for unknown reason recently ID consulted Patient will need PICC line Awaiting cultures Restarted patient's home medications, blood pressure stable Did not receive full sepsis bolus secondary to pleural effusion/ascites, started on 2u PRBCs, and without severe sepsis VTE: Lovenox Code: Full Dispo: Anticipate discharge back to SNF/assisted, hospitalization greater than 2 days Time Spent Managing Pts Care (In Minutes): 35
[2021-10-13] MEDS: INSULIN -REGULAR HUMAN 50 UNIT/0.5 ML ML SQ SCH ×4 (07:30→21:00)
[2021-10-13] MEDS: ARIPiprazole 5 MG TAB PO SCH (08:19)
[2021-10-13] MEDS: FERROUS SULFATE 325 MG TAB PO SCH (08:19)
[2021-10-13] MEDS: ASPIRIN EC 81 MG TAB PO SCH (08:19)
[2021-10-13] MEDS: ENOXAPARIN 40 MG/0.4 ML SQ SCH (08:20)
[2021-10-13] MEDS: BUSPIRONE HCL 5 MG TABLET PO SCH ×2 (08:20→21:19)
[2021-10-13] MEDS: GABAPENTIN 100 MG CAP PO SCH ×3 (08:20→21:19)
[2021-10-13] MEDS: COLLAGENASE 30 GM OINTMENT TOP SCH (08:21)
[2021-10-13] MEDS: MIDODRINE HCL 5 MG TABLET PO SCH ×3 (08:21→21:19)
[2021-10-13] MEDS: TRAMADOL HCL 50 MG TAB PO PRN ×3 (08:29→21:18)
[2021-10-13] MEDS: GLUCERNA SHAKE 237 ML CAN PO SCH ×4 (09:00→21:00)
[2021-10-13] MEDS: ASCORBIC ACID 500 MG TABLET PO SCH ×2 (09:00→21:18)
[2021-10-13] MEDS: JUVEN PACKET PO SCH ×2 (09:00→21:00)
[2021-10-13] MEDS: VANCOMYCIN 1.5 GM in NA CHLORIDE 0.9% 500 ML IVPB SCH (09:00)
[2021-10-13 11:34] LABS: Urine Blood 2+ (Negative); Urine Glucose Negative (Negative); Urine Protein 2+ (Negative); Urine Specific Gravity 1.015 (1.005-1.030)
--- NOTE | 2021-10-13 11:44 | P.PN ---
Subjective Date of Service: 10/13/21 Chief Complaint: Sepsis not Severe Patient seen and examined at bedside, denies acute complaints. Review of Systems 10-point ROS is otherwise unremarkable Physical Examination - Vital Signs Temperature: 97.5 F Blood Pressure: 147/81 Pulse: 68 Respirations: 20 Pulse Ox (%): 98 - Studies Laboratory Last Values WBC 22.20 K/uL (4.3-10.9) H* D 10/10/21 06:23 RBC 2.63 M/uL (4.33-5.43) L 10/10/21 06:23 Hgb 6.8 g/dL (13.6-17.9) L* 10/10/21 06:23 Hct 21.4 % (39.6-49.0) L D 10/10/21 06:23 MCV 81.6 fL (80-100) 10/10/21 06:23 MCH 25.7 pg (27.0-35.0) L 10/10/21 06:23 MCHC 31.5 g/dL (32.0-36.0) L 10/10/21 06:23 RDW 19.9 % (12.1-15.2) H 10/10/21 06:23 Plt Count 628 K/uL (152-406) H D 10/10/21 06:23 MPV 6.2 fL (7.6-11.3) L 10/10/21 06:23 Neutrophils % 83.3 % (41.7-73.7) H 10/10/21 06:23 Lymphocytes % 10.7 % (15.3-44.8) L 10/10/21 06:23 Monocytes % 4.8 % (3.3-12.3) 10/10/21 06:23 Eosinophils % 1.1 % (0-4.4) 10/10/21 06:23 Basophils % 0.1 % (0-1.3) 10/10/21 06:23 Absolute Neutrophils 18.5 K/uL (1.8-8.0) H 10/10/21 06:23 Segmented Neutrophils 87 % (40-80) H 10/10/21 06:23 Absolute Lymphocytes 2.4 K/uL (0.7-4.9) 10/10/21 06:23 Lymphocytes 9 % (15-42) L 10/10/21 06:23 Monocytes 3 % (0-10) 10/10/21 06:23 Absolute Monocytes 1.1 K/uL (0.1-1.3) 10/10/21 06:23 Eosinophils 1 % (0-3) 10/10/21 06:23 Absolute Eosinophils 0.2 K/uL (0-0.5) 10/10/21 06:23 Absolute Basophils 0.0 K/uL (0-0.5) 10/10/21 06:23 Platelet Estimate Incr 10/10/21 06:23 Anisocytosis 2+ 10/10/21 06:23 Microcytosis 2+ 10/10/21 06:23 Morphology Comment Noted (NOT SEEN) 10/10/21 06:23 PT 15.1 SECONDS (9.5-12.5) H 10/10/21 07:20 INR 1.31 10/10/21 07:20 Sodium Cancelled 10/10/21 07:15 Potassium Cancelled 10/10/21 07:15 Chloride Cancelled 10/10/21 07:15 Carbon Dioxide Cancelled 10/10/21 07:15 BUN Cancelled 10/10/21 07:15 Creatinine Cancelled 10/10/21 07:15 Estimated GFR Cancelled 10/10/21 07:15 Glucose Cancelled 10/10/21 07:15 POC Glucose 51 mg/dL (65-120) L 10/10/21 06:06 Lactic Acid 2.1 mmol/L (0.90-1.70) H 10/10/21 07:20 Calcium Cancelled 10/10/21 07:15 Magnesium 1.6 mg/dL (1.8-2.4) L 10/10/21 07:15 Total Bilirubin Cancelled 10/10/21 07:15 Direct Bilirubin Cancelled 10/10/21 07:15 AST Cancelled 10/10/21 07:15 ALT Cancelled 10/10/21 07:15 Alkaline Phosphatase Cancelled 10/10/21 07:15 Troponin I High Sens 12.90 pg/mL (<58.9) 10/10/21 06:23 NT-Pro-B Natriuret Pep 2085 pg/mL (<125) H 10/10/21 07:15 Serum Total Protein Cancelled 10/10/21 07:15 Albumin Cancelled 10/10/21 07:15 Globulin Cancelled 10/10/21 07:15 Albumin/Globulin Ratio Cancelled 10/10/21 07:15 Lipase 66 U/L (73-393) L 10/10/21 07:15 Procalcitonin 0.50 ng/mL (<0.050) H 10/10/21 07:15 Urine pH 8.0 (5.0-7.0) H 10/10/21 07:34 Ur Specific [place] 1.015 (1.005-1.030) 10/10/21 07:34 Glucose (UA)(Auto) Negative (Negative) 10/10/21 07:34 Urine Ketones Negative (Negative) 10/10/21 07:34 Urine Blood 2+ (Negative) H 10/10/21 07:34 Urine Nitrite Positive (Negative) H 10/10/21 07:34 Ur Leukocyte Esterase 1+ (Negative) H 10/10/21 07:34 Urine Total Protein 2+ (Negative) H 10/10/21 07:34 SARS-CoV-2 Rap RNA(RT-PCR) Negative (NEGATIVE) 10/10/21 07:15 ABO/Rh A POSITIVE 10/10/21 07:20 Solid Phase Ab Screen Negative 10/10/21 07:20 Crossmatch See Detail 10/10/21 07:20 Microbiology Data (last 24 hrs): 10/10/21 07:35 Clean Catch Urine [place] Count - Final >100,000 CFU/ML. 10/10/21 07:35 Clean Catch Urine - Final Pseudomonas Aeruginosa Gram Neg Cruz Assessment And Plan - Plan Physical Exam: General: Alert, In no apparent distress HEENT: Atraumatic, Normocephalic Neck: Supple Respiratory: Clear to auscultation bilaterally, Normal air movement Cardiovascular: Normal pulses, Regular rate/rhythm Capillary refill: <2 Seconds Gastrointestinal: Normal bowel sounds, Other (Colostomy bag, site is clean dry and intact with no clinical signs of infection) Integumentary: Pressure ulcer (Stage IV sacral decubitus wound that extends down to patient's scrotum and down lateral aspect of right thigh. Incision so shows no clinical signs of infection, no malodor or drainage. Base of wound shows healthy viable tissue.), Other (Bilateral lower extremity edema 1-2+) Neurological: Other External genitalia: Other (Suprapubic catheter, site is clean dry and intact with no clinical signs of infection) Antibiotics: Meropenem: 10/10current Ceftazidime: 10/13current Vancomycin: Conclusions/Impression: Assessment/plan Sacral decubitus ulcer extending to scrotum and lateral aspect of right thigh with osteomyelitis -MRI performed on patient's first hospital admission(09/04-09/19) confirmed osteomyelitis of both ischium and left femur. Wound cultures obtained on that visit grew ESBL producing E. coli and Proteus mirabilis, both sensitive to meropenem. Meropenem started on 09/06/2021 to be completed for 6 weeks. PICC line has since been pulled and patient has been missed several days of IV antibiotics. Unknown exactly when PICC line was pulled, will obtain information to determine exactly how many days of IV antibiotics have been missed and adjust antibiotic end date accordingly. -Wound VAC placed to sacral decubitus wound -Avoid direct pressure, reposition patient in bed every 2 hours during waking hours. Recommend low air loss mattress. UTI Urine culture growing Pseudomonas resistant to meropenem. Ceftazidime started on 10/13, continue for 7 days. No evidence of pyelonephritis noted on CT abdomen and pelvis. Leukocytosis downtrending, Continue monitor WBC trend and fever curve. Diabetes Continue sliding scale insulin, strict glucose monitoring needed for proper infection control/wound healing Anemia of chronic disease Continue to monitor H&H, recommend transfusion if hemoglobin drops below 7.0 Protein caloric malnutrition: Severe Recommend supplemental Ensure protein drinks. Adequate nutrition needed for proper wound healing. Pressure wounds to right lower extremity -Right knee wound with scabbing present: Recommend painting with Betadine -Right anterior ruiz stage II wound: Recommend using Medihoney and foam -Medical management per primary team Continue monitor CBC and BMP Continue monitor for signs of infection Plan of care discussed with Dr. Dumont Thank for consultation
[2021-10-13] MEDS: CEFTAZIDIME 1 GM in NA CHLORIDE 0.9% 50 ML IV SCH (16:53)
[2021-10-13] MEDS ORDERED: CEFTAZIDIME 1 GM VIAL IV SCH (17:00)
[2021-10-13] MEDS: MIRTAZAPINE 15 MG TAB PO SCH (21:19)
[2021-10-13] MEDS: SERTRALINE HCL 50 MG TAB PO SCH (21:19)
[2021-10-14] MEDS: CEFTAZIDIME 1 GM in NA CHLORIDE 0.9% 50 ML IV SCH ×3 (01:17→17:00)
[2021-10-14] MEDS: TRAMADOL HCL 50 MG TAB PO PRN ×3 (03:06→16:26)
[2021-10-14] MEDS: Meropenem 1,000 MG in NA CHLORIDE 0.9% 100 ML IV SCH ×3 (05:40→22:00)
[2021-10-14] MEDS: INSULIN -REGULAR HUMAN 50 UNIT/0.5 ML ML SQ SCH ×4 (07:30→20:39)
[2021-10-14] MEDS: ENOXAPARIN 40 MG/0.4 ML SQ SCH (08:30)
[2021-10-14] MEDS: BUSPIRONE HCL 5 MG TABLET PO SCH ×2 (08:31→20:41)
[2021-10-14] MEDS: ASPIRIN EC 81 MG TAB PO SCH (08:31)
[2021-10-14] MEDS: GABAPENTIN 100 MG CAP PO SCH ×3 (08:31→20:41)
[2021-10-14] MEDS: ARIPiprazole 5 MG TAB PO SCH (08:31)
[2021-10-14] MEDS: FERROUS SULFATE 325 MG TAB PO SCH (08:31)
[2021-10-14] MEDS: MIDODRINE HCL 5 MG TABLET PO SCH ×3 (08:33→20:42)
[2021-10-14] MEDS: ASCORBIC ACID 500 MG TABLET PO SCH ×2 (08:33→20:42)
[2021-10-14] MEDS: JUVEN PACKET PO SCH ×2 (08:33→20:42)
[2021-10-14] MEDS: COLLAGENASE 30 GM OINTMENT TOP SCH (08:33)
[2021-10-14] MEDS: GLUCERNA SHAKE 237 ML CAN PO SCH ×4 (09:00→20:42)
--- NOTE | 2021-10-14 14:39 | P.PN ---
Subjective Date of Service: 10/14/21 Chief Complaint: Sepsis not Severe No new complaint. No issues overnight. Patient is asking for IV pain medication. Physical Examination - Vital Signs Temperature: 97.9 F Blood Pressure: 158/85 Pulse: 75 Respirations: 16 Pulse Ox (%): 100 Assessment And Plan - Plan Physical exam GEN: Alert, oriented, NAD CV: Regular rate and rhythm, no edema Pulm: Nonlabored respirations on room air ABD: Soft, +ostomy Integumentary: Large sacral decubitus ulcer Neuro: Normal speech, normal affect Problem List Sepsis without severe sepsis, secondary to UTI / osteomyelitis Diabetes mellitus type 2 insulin-dependent with hypoglycemia Sacral decubitus ulceration with osteomyelitis Hypotension, chronic Acute on chronic anemia Sepsis resolved. Leukocytosis almost resolved. Blood pressure has been stable, actually hypertensive today. Continue broad-spectrum antibiotics, patient with history of osteomyelitis, supposed to receive 6 weeks of IV meropenem, however PICC line was removed for unknown reason recently ID consulted. Patient is considering hospice. No need for PICC line if he ends up on hospice. Urine culture is growing Pseudomonas. ID started patient on ceftazidime for the Pseudomonas. Continue home medications, blood pressure stable Status post 2 unit PRBC transfusion. Posttransfusion hemoglobin stable between 9 and 10. Wound care is following is following and performing local wound care on his multiple decubitus ulcers. VTE: Lovenox Code: Full Disposition:SNF
--- NOTE | 2021-10-14 15:05 | P.PN ---
Subjective Date of Service: 10/14/21 Chief Complaint: Sepsis not Severe Patient seen and examined at bedside, denies pain. Review of Systems 10-point ROS is otherwise unremarkable Physical Examination - Vital Signs Temperature: 97.9 F Blood Pressure: 158/85 Pulse: 75 Respirations: 16 Pulse Ox (%): 100 - Studies Microbiology 10/10/21 07:35 Clean Catch Urine [place] Count - Final >100,000 CFU/ML. 10/10/21 07:35 Clean Catch Urine - Final Pseudomonas Aeruginosa Gram Neg Cruz 10/10/21 07:15 Blood - Blood Aerobic Blood Culture - Preliminary No growth in 24 hours. 10/10/21 07:15 Blood - Blood Anaerobic Blood Culture - Preliminary No growth in 24 hours. 10/10/21 07:30 Blood - Blood Aerobic Blood Culture - Preliminary No growth in 24 hours. 10/10/21 07:30 Blood - Blood Anaerobic Blood Culture - Preliminary No growth in 24 hours. Assessment And Plan - Plan Physical Exam: General: Alert, In no apparent distress HEENT: Atraumatic, Normocephalic Neck: Supple Respiratory: Clear to auscultation bilaterally, Normal air movement Cardiovascular: Normal pulses, Regular rate/rhythm Capillary refill: <2 Seconds Gastrointestinal: Normal bowel sounds, Other (Colostomy bag, site is clean dry and intact with no clinical signs of infection) Integumentary: Pressure ulcer (Stage IV sacral decubitus wound that extends down to patient's scrotum and down lateral aspect of right thigh. Incision so shows no clinical signs of infection, no malodor or drainage. Base of wound shows healthy viable tissue.), Other (Bilateral lower extremity edema 1-2+) Neurological: Other External genitalia: Other (Suprapubic catheter, site is clean dry and intact with no clinical signs of infection) Antibiotics: Meropenem: 10/10current Ceftazidime: 10/13current Vancomycin: Conclusions/Impression: Assessment/plan Sacral decubitus ulcer extending to scrotum and lateral aspect of right thigh with osteomyelitis -MRI performed on patient's first hospital admission(09/04-09/19) confirmed osteomyelitis of both ischium and left femur. Wound cultures obtained on that visit grew ESBL producing E. coli and Proteus mirabilis, both sensitive to meropenem. Meropenem started on 09/06/2021 to be completed for 6 weeks. PICC line has since been pulled and patient has been missed several days of IV antibiotics. Unknown exactly when PICC line was pulled, will obtain information to determine exactly how many days of IV antibiotics have been missed and adjust antibiotic end date accordingly. -Wound VAC placed to sacral decubitus wound -To area extending down right thigh: Currently using Santyl to base of wound and wet-to-dry. Recommend switching Santyl to Medihoney to cover base of wound. -Avoid direct pressure, reposition patient in bed every 2 hours during waking hours. Recommend low air loss mattress. UTI Urine culture growing Pseudomonas resistant to meropenem. Ceftazidime started on 10/13, continue for 7 days. No evidence of pyelonephritis noted on CT abdomen and pelvis. Leukocytosis downtrending, Continue monitor WBC trend and fever curve. Diabetes Continue sliding scale insulin, strict glucose monitoring needed for proper infection control/wound healing Anemia of chronic disease Continue to monitor H&H, recommend transfusion if hemoglobin drops below 7.0 Protein caloric malnutrition: Severe Recommend supplemental Ensure protein drinks. Adequate nutrition needed for proper wound healing. Pressure wounds to right lower extremity -Right knee wound with scabbing present: Recommend covering with foam -Right anterior ruiz stage II wound: Recommend using xerofrom and foam -Medical management per primary team Continue monitor CBC and BMP Continue monitor for signs of infection Plan of care discussed with Dr. Dumont Thank for consultation
[2021-10-14] MEDS: MIRTAZAPINE 15 MG TAB PO SCH (20:41)
[2021-10-14] MEDS: SERTRALINE HCL 50 MG TAB PO SCH (20:41)
[2021-10-15] MEDS: CEFTAZIDIME 1 GM in NA CHLORIDE 0.9% 50 ML IV SCH ×3 (01:00→17:00)
[2021-10-15] MEDS: TRAMADOL HCL 50 MG TAB PO PRN (05:06)
[2021-10-15] MEDS: Meropenem 1,000 MG in NA CHLORIDE 0.9% 100 ML IV SCH ×3 (06:00→22:00)
[2021-10-15] MEDS: INSULIN -REGULAR HUMAN 50 UNIT/0.5 ML ML SQ SCH ×4 (07:30→20:26)
[2021-10-15] MEDS: JUVEN PACKET PO SCH ×2 (09:00→20:25)
[2021-10-15] MEDS: GLUCERNA SHAKE 237 ML CAN PO SCH ×4 (09:00→21:00)
[2021-10-15] MEDS: ARIPiprazole 5 MG TAB PO SCH (09:44)
[2021-10-15] MEDS: ASCORBIC ACID 500 MG TABLET PO SCH ×2 (09:45→20:31)
[2021-10-15] MEDS: MIDODRINE HCL 5 MG TABLET PO SCH ×3 (09:45→21:00)
[2021-10-15] MEDS: BUSPIRONE HCL 5 MG TABLET PO SCH ×2 (09:45→21:00)
[2021-10-15] MEDS: GABAPENTIN 100 MG CAP PO SCH ×3 (09:45→21:00)
[2021-10-15] MEDS: ENOXAPARIN 40 MG/0.4 ML SQ SCH (09:46)
[2021-10-15] MEDS: FERROUS SULFATE 325 MG TAB PO SCH (09:46)
[2021-10-15] MEDS: ASPIRIN EC 81 MG TAB PO SCH (09:46)
[2021-10-15] MEDS: COLLAGENASE 30 GM OINTMENT TOP SCH (09:50)
--- NOTE | 2021-10-15 10:43 | P.PN ---
Subjective Date of Service: 10/15/21 Chief Complaint: Sepsis not Severe No new labs to review. Review of Systems 10-point ROS is otherwise unremarkable Physical Examination - Vital Signs Temperature: 97.6 F Blood Pressure: 123/76 Pulse: 68 Respirations: 19 Pulse Ox (%): 100 - Studies Laboratory Last Values WBC 22.20 K/uL (4.3-10.9) H* D 10/10/21 06:23 RBC 2.63 M/uL (4.33-5.43) L 10/10/21 06:23 Hgb 6.8 g/dL (13.6-17.9) L* 10/10/21 06:23 Hct 21.4 % (39.6-49.0) L D 10/10/21 06:23 MCV 81.6 fL (80-100) 10/10/21 06:23 MCH 25.7 pg (27.0-35.0) L 10/10/21 06:23 MCHC 31.5 g/dL (32.0-36.0) L 10/10/21 06:23 RDW 19.9 % (12.1-15.2) H 10/10/21 06:23 Plt Count 628 K/uL (152-406) H D 10/10/21 06:23 MPV 6.2 fL (7.6-11.3) L 10/10/21 06:23 Neutrophils % 83.3 % (41.7-73.7) H 10/10/21 06:23 Lymphocytes % 10.7 % (15.3-44.8) L 10/10/21 06:23 Monocytes % 4.8 % (3.3-12.3) 10/10/21 06:23 Eosinophils % 1.1 % (0-4.4) 10/10/21 06:23 Basophils % 0.1 % (0-1.3) 10/10/21 06:23 Absolute Neutrophils 18.5 K/uL (1.8-8.0) H 10/10/21 06:23 Segmented Neutrophils 87 % (40-80) H 10/10/21 06:23 Absolute Lymphocytes 2.4 K/uL (0.7-4.9) 10/10/21 06:23 Lymphocytes 9 % (15-42) L 10/10/21 06:23 Monocytes 3 % (0-10) 10/10/21 06:23 Absolute Monocytes 1.1 K/uL (0.1-1.3) 10/10/21 06:23 Eosinophils 1 % (0-3) 10/10/21 06:23 Absolute Eosinophils 0.2 K/uL (0-0.5) 10/10/21 06:23 Absolute Basophils 0.0 K/uL (0-0.5) 10/10/21 06:23 Platelet Estimate Incr 10/10/21 06:23 Anisocytosis 2+ 10/10/21 06:23 Microcytosis 2+ 10/10/21 06:23 Morphology Comment Noted (NOT SEEN) 10/10/21 06:23 PT 15.1 SECONDS (9.5-12.5) H 10/10/21 07:20 INR 1.31 10/10/21 07:20 Sodium Cancelled 10/10/21 07:15 Potassium Cancelled 10/10/21 07:15 Chloride Cancelled 10/10/21 07:15 Carbon Dioxide Cancelled 10/10/21 07:15 BUN Cancelled 10/10/21 07:15 Creatinine Cancelled 10/10/21 07:15 Estimated GFR Cancelled 10/10/21 07:15 Glucose Cancelled 10/10/21 07:15 POC Glucose 51 mg/dL (65-120) L 10/10/21 06:06 Lactic Acid 2.1 mmol/L (0.90-1.70) H 10/10/21 07:20 Calcium Cancelled 10/10/21 07:15 Magnesium 1.6 mg/dL (1.8-2.4) L 10/10/21 07:15 Total Bilirubin Cancelled 10/10/21 07:15 Direct Bilirubin Cancelled 10/10/21 07:15 AST Cancelled 10/10/21 07:15 ALT Cancelled 10/10/21 07:15 Alkaline Phosphatase Cancelled 10/10/21 07:15 Troponin I High Sens 12.90 pg/mL (<58.9) 10/10/21 06:23 NT-Pro-B Natriuret Pep 2085 pg/mL (<125) H 10/10/21 07:15 Serum Total Protein Cancelled 10/10/21 07:15 Albumin Cancelled 10/10/21 07:15 Globulin Cancelled 10/10/21 07:15 Albumin/Globulin Ratio Cancelled 10/10/21 07:15 Lipase 66 U/L (73-393) L 10/10/21 07:15 Procalcitonin 0.50 ng/mL (<0.050) H 10/10/21 07:15 Urine pH 8.0 (5.0-7.0) H 10/10/21 07:34 Ur Specific Raymond 1.015 (1.005-1.030) 10/10/21 07:34 Glucose (UA)(Auto) Negative (Negative) 10/10/21 07:34 Urine Ketones Negative (Negative) 10/10/21 07:34 Urine Blood 2+ (Negative) H 10/10/21 07:34 Urine Nitrite Positive (Negative) H 10/10/21 07:34 Ur Leukocyte Esterase 1+ (Negative) H 10/10/21 07:34 Urine Total Protein 2+ (Negative) H 10/10/21 07:34 SARS-CoV-2 Rap RNA(RT-PCR) Negative (NEGATIVE) 10/10/21 07:15 ABO/Rh A POSITIVE 10/10/21 07:20 Solid Phase Ab Screen Negative 10/10/21 07:20 Crossmatch See Detail 10/10/21 07:20 Microbiology Data (last 24 hrs): 10/10/21 07:15 Blood - Blood Aerobic Blood Culture - Final No growth in 5 days. 10/10/21 07:15 Blood - Blood Anaerobic Blood Culture - Final No growth in 5 days. 10/10/21 07:30 Blood - Blood Aerobic Blood Culture - Final No growth in 5 days. 10/10/21 07:30 Blood - Blood Anaerobic Blood Culture - Final No growth in 5 days. Assessment And Plan - Plan Physical Exam: General: Alert, In no apparent distress HEENT: Atraumatic, Normocephalic Neck: Supple Respiratory: Clear to auscultation bilaterally, Normal air movement Cardiovascular: Normal pulses, Regular rate/rhythm Capillary refill: <2 Seconds Gastrointestinal: Normal bowel sounds, Other (Colostomy bag, site is clean dry and intact with no clinical signs of infection) Integumentary: Pressure ulcer (Stage IV sacral decubitus wound that extends down to patient's scrotum and down lateral aspect of right thigh. Incision so shows no clinical signs of infection, no malodor or drainage. Base of wound shows healthy viable tissue.), Other (Bilateral lower extremity edema 1-2+) Neurological: Other External genitalia: Other (Suprapubic catheter, site is clean dry and intact with no clinical signs of infection) Antibiotics: Meropenem: 10/10current Ceftazidime: 10/13current Vancomycin: Conclusions/Impression: Assessment/plan Sacral decubitus ulcer extending to scrotum and lateral aspect of right thigh with osteomyelitis -MRI performed on patient's first hospital admission(09/04-09/19) confirmed osteomyelitis of both ischium and left femur. Wound cultures obtained on that visit grew ESBL producing E. coli and Proteus mirabilis, both sensitive to meropenem. Meropenem started on 09/06/2021 to be completed for 6 weeks. When patient was discharged from our facility on 10/02 and [facility] his PICC line was removed and antibiotics were stopped. As such need to extend antibiotics for 8 days. Tentative antibiotic completion date of 10/26. -Wound VAC placed to sacral decubitus wound -To area extending down right thigh: Currently using Santyl to base of wound and wet-to-dry. Recommend switching Santyl to Medihoney to cover base of wound. -Avoid direct pressure, reposition patient in bed every 2 hours during waking hours. Recommend low air loss mattress. UTI Urine culture growing Pseudomonas resistant to meropenem. Ceftazidime started on 10/13, continue for 7 days. No evidence of pyelonephritis noted on CT abdomen and pelvis. Leukocytosis downtrending, Continue monitor WBC trend and fever curve. Diabetes Continue sliding scale insulin, strict glucose monitoring needed for proper infection control/wound healing Anemia of chronic disease Continue to monitor H&H, recommend transfusion if hemoglobin drops below 7.0 Protein caloric malnutrition: Severe Recommend supplemental Ensure protein drinks. Adequate nutrition needed for proper wound healing. Pressure wounds to right lower extremity -Right knee wound with scabbing present: Recommend covering with foam -Right anterior ruiz stage II wound: Recommend using xerofrom and foam -Medical management per primary team Continue monitor CBC and BMP Continue monitor for signs of infection Plan of care discussed with Dr. Dumont Thank for consultation
--- NOTE | 2021-10-15 14:22 | P.PN ---
Subjective Date of Service: 10/15/21 Chief Complaint: Sepsis not Severe Patient lost IV access. He is refusing peripheral IV line and PICC line. He is also refusing blood draws, stating he wants to go home on hospice. Patient seen by hospice nurse and deemed unsuitable for hospice because per hospice nurse patient still wants to pursue aggressive treatment. Physical Examination - Vital Signs Temperature: 97.2 F Blood Pressure: 149/91 Pulse: 79 Respirations: 16 Pulse Ox (%): 100 - Studies Microbiology Data (last 24 hrs): 10/10/21 07:15 Blood - Blood Aerobic Blood Culture - Final No growth in 5 days. 10/10/21 07:15 Blood - Blood Anaerobic Blood Culture - Final No growth in 5 days. 10/10/21 07:30 Blood - Blood Aerobic Blood Culture - Final No growth in 5 days. 10/10/21 07:30 Blood - Blood Anaerobic Blood Culture - Final No growth in 5 days. Assessment And Plan - Plan Physical exam GEN: Alert, oriented, NAD CV: Regular rate and rhythm, no edema Pulm: Nonlabored respirations on room air ABD: Soft, +ostomy Integumentary: Large sacral decubitus ulcer Neuro: Normal speech, normal affect Problem List Sepsis without severe sepsis, secondary to UTI / osteomyelitis Diabetes mellitus type 2 insulin-dependent with hypoglycemia Sacral decubitus ulceration with osteomyelitis Hypotension, chronic Acute on chronic anemia Sepsis resolved. Leukocytosis almost resolved. Blood pressure has been stable, actually hypertensive today. Continue broad-spectrum antibiotics, patient with history of osteomyelitis, supposed to receive 6 weeks of IV meropenem, however PICC line was removed for unknown reason recently ID is following and managing antibiotics. Patient is alert and oriented and communicates meaningfully, has good insight into his medical problems. He is still considering hospice Patient is refusing PICC line and a new peripheral line but has not made a decision on hospice yet. I discussed what hospice entails with him and the fact that he he get very sick like he did last month, hospice will keep him comfortable and he would peacefully instead of bringing him to the hospital. Patient seem receptive to hospice I recommended another hospice company to evaluate and do a more comprehensive discussion. Urine culture grew Pseudomonas. Continue home medications, blood pressure stable. Status post 2 unit PRBC transfusion. Posttransfusion hemoglobin stable between 9 and 10. Wound care is following is following and performing local wound care on his multiple decubitus ulcers. VTE: Lovenox Code: Full Disposition:SNF
[2021-10-15] MEDS: SERTRALINE HCL 50 MG TAB PO SCH (21:00)
[2021-10-15] MEDS: MIRTAZAPINE 15 MG TAB PO SCH (21:00)
[2021-10-16] MEDS: CEFTAZIDIME 1 GM in NA CHLORIDE 0.9% 50 ML IV SCH ×3 (00:17→16:14)
[2021-10-16] MEDS: Meropenem 1,000 MG in NA CHLORIDE 0.9% 100 ML IV SCH ×2 (05:04→13:28)
[2021-10-16] MEDS: TRAMADOL HCL 50 MG TAB PO PRN ×3 (06:39→23:59)
[2021-10-16] MEDS: INSULIN -REGULAR HUMAN 50 UNIT/0.5 ML ML SQ SCH ×4 (07:30→21:00)
[2021-10-16] MEDS: COLLAGENASE 30 GM OINTMENT TOP SCH (09:00)
[2021-10-16] MEDS: JUVEN PACKET PO SCH ×2 (09:00→21:00)
[2021-10-16] MEDS: GLUCERNA SHAKE 237 ML CAN PO SCH ×4 (09:00→21:00)
[2021-10-16] MEDS: ASCORBIC ACID 500 MG TABLET PO SCH (09:00)
[2021-10-16] MEDS: BUSPIRONE HCL 5 MG TABLET PO SCH ×2 (09:17→23:59)
[2021-10-16] MEDS: ARIPiprazole 5 MG TAB PO SCH (09:17)
[2021-10-16] MEDS: ASPIRIN EC 81 MG TAB PO SCH (09:18)
[2021-10-16] MEDS: MIDODRINE HCL 5 MG TABLET PO SCH ×3 (09:19→23:59)
[2021-10-16] MEDS: FERROUS SULFATE 325 MG TAB PO SCH (09:20)
[2021-10-16] MEDS: GABAPENTIN 100 MG CAP PO SCH ×3 (09:20→23:59)
[2021-10-16] MEDS: ENOXAPARIN 40 MG/0.4 ML SQ SCH (09:21)
--- NOTE | 2021-10-16 11:45 | P.PN ---
Subjective Date of Service: 10/16/21 Chief Complaint: Sepsis not Severe And examined at bedside, PICC line pending. Review of Systems 10-point ROS is otherwise unremarkable Physical Examination - Vital Signs Temperature: 96.9 F Blood Pressure: 106/72 Pulse: 91 Respirations: 16 Pulse Ox (%): 89 - Studies Active Medications Aripiprazole (Aripiprazole 5 Mg Tab) 10 mg PO DAILY [facility] Last Admin: 10/16/21 09:17 Dose: 10 mg Documented by: Ascorbic Acid (Ascorbic Acid 500 Mg Tablet) 500 mg PO BID [facility] Last Admin: 10/16/21 09:00 Dose: Not Given Documented by: Aspirin (Aspirin Ec 81 Mg Tab) 81 mg PO DAILY [facility] Last Admin: 10/16/21 09:18 Dose: 81 mg Documented by: Buspirone HCl (Buspirone Hcl 5 Mg Tablet) 10 mg PO BID [facility] Last Admin: 10/16/21 09:17 Dose: 10 mg Documented by: Collagenase (Collagenase 30 Gm Ointment) 1 appl TOP DAILY [facility] Last Admin: 10/16/21 09:00 Dose: 1 appl Documented by: Enoxaparin Sodium (Enoxaparin 40 Mg/0.4 Ml) 40 mg SQ DAILY [facility] Last Admin: 10/16/21 09:21 Dose: 40 mg Documented by: Enteral Nutritional Formula (Glucerna Shake 237 Ml Can) 237 ml PO QID [facility] Last Admin: 10/16/21 09:00 Dose: 237 ml Documented by: Ferrous Sulfate (Ferrous Sulfate 325 Mg Tab) 325 mg PO DAILY [facility] Last Admin: 10/16/21 09:20 Dose: 325 mg Documented by: Gabapentin (Gabapentin 100 Mg Cap) 100 mg PO TID [facility] Last Admin: 10/16/21 09:20 Dose: 100 mg Documented by: Meropenem 1,000 mg/ Sodium (Chloride) 100 mls @ 200 mls/hr IV Q8H [facility] Last Admin: 10/16/21 05:04 Dose: Not Given Documented by: Ceftazidime 1 gm/ Sodium (Chloride) 50 mls @ 100 mls/hr IV Q8HR [facility] Stop: 10/19/21 23:59 Last Admin: 10/16/21 09:00 Dose: Not Given Documented by: Insulin Human Regular (Insulin -Regular Human 50 Unit/0.5 Ml Ml) 0 unit SQ ACHS [facility]; Protocol Last Admin: 10/16/21 07:30 Dose: Not Given Documented by: L-Arginine/L-Glutamine/HMB (Valentin Packet) 1 pkt PO BID [facility] Last Admin: 10/16/21 09:00 Dose: Not Given Documented by: Midodrine (Midodrine Hcl 5 Mg Tablet) 10 mg PO TID [facility] Last Admin: 10/16/21 09:19 Dose: 10 mg Documented by: Mirtazapine (Mirtazapine 15 Mg Tab) 15 mg PO BEDTIME [facility] Last Admin: 10/15/21 21:00 Dose: 15 mg Documented by: Ondansetron HCl (Ondansetron 4 Mg/2 Ml Vial) 4 mg IV Q6HP PRN PRN Reason: NAUSEA / VOMITING Sertraline HCl (Sertraline Hcl 50 Mg Tab) 50 mg PO BEDTIME [facility] Last Admin: 10/15/21 21:00 Dose: 50 mg Documented by: Sodium Chloride (Flush Normal Saline 10 Ml) 10 ml IV BID [facility] Last Admin: 10/16/21 09:00 Dose: Not Given Documented by: Tramadol HCl (Tramadol Hcl 50 Mg Tab) 50 mg PO Q6H PRN PRN Reason: Pain scale 5-7 (Moderate) Last Admin: 10/16/21 06:39 Dose: 50 mg Documented by: Microbiology Data (last 24 hrs): 10/10/21 07:15 Blood - Blood Aerobic Blood Culture - Final No growth in 5 days. 10/10/21 07:15 Blood - Blood Anaerobic Blood Culture - Final No growth in 5 days. 10/10/21 07:30 Blood - Blood Aerobic Blood Culture - Final No growth in 5 days. 10/10/21 07:30 Blood - Blood Anaerobic Blood Culture - Final No growth in 5 days. Assessment And Plan - Plan Physical Exam: General: Alert, In no apparent distress HEENT: Atraumatic, Normocephalic Neck: Supple Respiratory: Clear to auscultation bilaterally, Normal air movement Cardiovascular: Normal pulses, Regular rate/rhythm Capillary refill: <2 Seconds Gastrointestinal: Normal bowel sounds, Other (Colostomy bag, site is clean dry and intact with no clinical signs of infection) Integumentary: Pressure ulcer (Stage IV sacral decubitus wound that extends down to patient's scrotum and down lateral aspect of right thigh. Incision so shows no clinical signs of infection, no malodor or drainage. Base of wound shows healthy viable tissue.), Other (Bilateral lower extremity edema 1-2+) Neurological: Other External genitalia: Other (Suprapubic catheter, site is clean dry and intact with no clinical signs of infection) Antibiotics: Meropenem: 10/10current Ceftazidime: 10/13current Vancomycin: Conclusions/Impression: Assessment/plan Sacral decubitus ulcer extending to scrotum and lateral aspect of right thigh with osteomyelitis Antibiotics have not been given since 10/14 due to no access, PICC line pending. Will need to extend dates of both ceftazidime and meropenem. -MRI performed on patient's first hospital admission(09/04-09/19) confirmed osteomyelitis of both ischium and left femur. Wound cultures obtained on that visit grew ESBL producing E. coli and Proteus mirabilis, both sensitive to meropenem. Meropenem started on 09/06/2021 to be completed for 6 weeks. When patient was discharged from our facility on 10/02 and sent back to the [facility]term his PICC line was removed and antibiotics were stopped. As such need to extend antibiotics for 8 days. Tentative antibiotic completion date of 10/26. -Wound VAC placed to sacral decubitus wound -To area extending down right thigh: Currently using Santyl to base of wound and wet-to-dry. Recommend switching Santyl to Medihoney to cover base of wound. -Avoid direct pressure, reposition patient in bed every 2 hours during waking hours. Recommend low air loss mattress. UTI Urine culture growing Pseudomonas resistant to meropenem. Ceftazidime started on 10/13, continue for 7 days. No evidence of pyelonephritis noted on CT abdomen and pelvis. Leukocytosis downtrending, Continue monitor WBC trend and fever curve. Diabetes Continue sliding scale insulin, strict glucose monitoring needed for proper infection control/wound healing Anemia of chronic disease Continue to monitor H&H, recommend transfusion if hemoglobin drops below 7.0 Protein caloric malnutrition: Severe Recommend supplemental Ensure protein drinks. Adequate nutrition needed for proper wound healing. Pressure wounds to right lower extremity -Right knee wound with scabbing present: Recommend covering with foam -Right anterior ruiz stage II wound: Recommend using xerofrom and foam -Medical management per primary team Continue monitor CBC and BMP Continue monitor for signs of infection Plan of care discussed with Dr. Dumont Thank for consultation
--- NOTE | 2021-10-16 14:01 | P.PN ---
Subjective Date of Service: 10/16/21 Chief Complaint: Sepsis not Severe Patient declined hospice and agreed to PICC line placement to continue IV antibiotics. He has no new complaint. Physical Examination - Vital Signs Temperature: 97.1 F Blood Pressure: 103/68 Pulse: 95 Respirations: 16 Pulse Ox (%): 89 Assessment And Plan - Plan Physical exam GEN: Alert, oriented, NAD, cachectic CV: Regular rate and rhythm, no edema Pulm: Nonlabored respirations on room air ABD: Soft, +ostomy Integumentary: Large sacral decubitus ulcer Neuro: Normal speech, normal affect Problem List Sepsis without severe sepsis, secondary to UTI / osteomyelitis Diabetes mellitus type 2 insulin-dependent with hypoglycemia Sacral decubitus ulceration with osteomyelitis Hypotension, chronic Acute on chronic anemia Cachexia Sepsis resolved. Leukocytosis almost resolved. Blood pressure has been stable. Continue broad-spectrum antibiotics, patient with history of osteomyelitis, supposed to receive 6 weeks of IV meropenem, however PICC line was removed for unknown reason recently ID is following and managing antibiotics. Patient is alert and oriented and communicates meaningfully, has good insight into his medical problems. He declined hospice and want to continue aggressive treatment. He has agreed to PICC line placement. PICC line ordered. Urine culture grew Pseudomonas. Currently on meropenem and ceftazidime based on urine culture and blood culture sensitivities. Continue home medications, blood pressure stable. Status post 2 unit PRBC transfusion. Posttransfusion hemoglobin stable between 9 and 10. Wound care is following is following and performing local wound care on his multiple decubitus ulcers. Wound packing per wound care. Per report, wound VAC has been leaking and it has been difficult to apply to seal without leaking. VTE: Lovenox Code: Full Disposition:SNF
[2021-10-17] MEDS: MIRTAZAPINE 15 MG TAB PO SCH
[2021-10-17] MEDS: SERTRALINE HCL 50 MG TAB PO SCH
[2021-10-17] MEDS: Meropenem 1,000 MG in NA CHLORIDE 0.9% 100 ML IV SCH ×3 (01:26→14:11)
[2021-10-17] MEDS: CEFTAZIDIME 1 GM in NA CHLORIDE 0.9% 50 ML IV SCH ×2 (02:04→08:44)
[2021-10-17] MEDS: TRAMADOL HCL 50 MG TAB PO PRN (05:37)
[2021-10-17 05:43] LABS: Absolute Lymphocytes (CBC) 2.1 K/uL (0.7-4.9); Hematocrit 24.2 % (39.6-49.0); Lymphocytes % 15.8 % (15.3-44.8); MPV 5.9 fL (7.6-11.3); RBC Red Blood Cell Count 2.92 M/uL (4.33-5.43)
[2021-10-17 06:01] LABS: BUN Blood Urea Nitrogen 18 mg/dL (7-18); Bicarbonate 30 mmol/L (21-32); Glucose Level 170 mg/dL (74-106); Potassium 3.9 mmol/L (3.5-5.1); Sodium Level 136 mmol/L (136-145)
[2021-10-17] MEDS: INSULIN -REGULAR HUMAN 50 UNIT/0.5 ML ML SQ SCH ×3 (07:30→16:26)
[2021-10-17] MEDS: ARIPiprazole 5 MG TAB PO SCH (08:35)
[2021-10-17] MEDS: ASPIRIN EC 81 MG TAB PO SCH (08:35)
[2021-10-17] MEDS: MIDODRINE HCL 5 MG TABLET PO SCH ×2 (08:36→14:11)
[2021-10-17] MEDS: BUSPIRONE HCL 5 MG TABLET PO SCH (08:36)
[2021-10-17] MEDS: FERROUS SULFATE 325 MG TAB PO SCH (08:37)
[2021-10-17] MEDS: ENOXAPARIN 40 MG/0.4 ML SQ SCH (08:37)
[2021-10-17] MEDS: GABAPENTIN 100 MG CAP PO SCH ×2 (08:37→14:11)
[2021-10-17] MEDS: ASCORBIC ACID 500 MG TABLET PO SCH ×2 (08:38)
[2021-10-17] MEDS: GLUCERNA SHAKE 237 ML CAN PO SCH ×3 (08:42→16:28)
[2021-10-17] MEDS: JUVEN PACKET PO SCH (08:43)
[2021-10-17] MEDS: COLLAGENASE 30 GM OINTMENT TOP SCH (08:44)
[2021-10-17] MEDS ORDERED: MEDIHONEY 44 ML TOPICAL TUBE TOP SCH (09:00)
--- NOTE | 2021-10-17 10:15 | P.DS ---
Admission Date: 10/10/21 Discharge Date: 10/17/21 Disposition: TRANSFER TO GROUP HOME Discharge Condition: FAIR Reason for Admission: Sepsis not Severe Brief History of Present Illness: Mr. Up is a 61 y/o with paraplegia from the waist down who presented to the ED with hypoglycemia after the retirement gave him a dose of insulin before checking his glucose. Upon arrival to the ED, POC glucose was 51 and BP running in the 80s systolic. Patient was recently discharged on 10/02/2021 after an 8 day hospital stay for treatment of hypoglycemia, surgical debriedment of extensive sacral wound, and IV antibiotics. He previously had a picc line placed for 6 weeks of IV antibiotics but the picc line was removed in the retirement. Patient reports feeling okay the last few days with the exception of pain at the site of the wound and some shortness of breath. He denies any abdominal pain, nausea, vomiting, cough, fevers, chills, or chest pain. Labs in the ED were significant for WBC 22.2, Hgb 6.8 (baseline ~8.5), plt count 628, mag 1.6, BNP 2085, covid negative, lactate & urine pending. CT abd/pelv unchanged from previous CT on 09/24/2021. Patient admitted to the ICU for further evaluation and treatment of sepsis with ID and surgery consulting. Hospital Course: Problem List Sepsis without severe sepsis, secondary to UTI / osteomyelitis Diabetes mellitus type 2 insulin-dependent with hypoglycemia Sacral decubitus ulceration with osteomyelitis Hypotension, chronic Acute on chronic anemia Cachexia Sacral decubitus ulcer extending to scrotum and lateral aspect of right thigh with osteomyelitis Antibiotics have not been given since 10/14 due to no access, PICC line pending. Will need to extend dates of both ceftazidime and meropenem. -MRI performed on patient's first hospital admission(09/04-09/19) confirmed osteomyelitis of both ischium and left femur. Wound cultures obtained on that visit grew ESBL producing E. coli and Proteus mirabilis, both sensitive to meropenem. Meropenem started on 09/06/2021 to be completed for 6 weeks. When patient was discharged from our facility on 10/02 and sent back to the retirement his PICC line was removed and antibiotics were stopped. As such need to extend antibiotics for 8 days. Tentative antibiotic completion date of 10/26. -Initially Wound VAC placed to sacral decubitus wound -To area extending down right thigh: Currently using Santyl to base of wound and wet-to-dry. Recommend switching Santyl to Medihoney to cover base of wound. -Avoid direct pressure, reposition patient in bed every 2 hours during waking hours. Recommend low air loss mattress. UTI Urine culture growing Pseudomonas resistant to meropenem. Ceftazidime started on 10/13. No evidence of pyelonephritis noted on CT abdomen and pelvis. Completed 5 days of treatment with ceftazidime. Leukocytosis downtrending, Continue monitor WBC trend and fever curve. Diabetes Blood sugar managed with insulin sliding scale. Anemia of chronic disease Hemoglobin was stable during the hospital stay Protein caloric malnutrition: Severe/cachexia Recommend supplemental Ensure protein drinks. Adequate nutrition needed for proper wound healing. Pressure wounds to right lower extremity -Right knee wound with scabbing present: Recommend covering with foam -Right anterior ruiz stage II wound: Recommend using xerofrom and foam Sepsis resolved. Leukocytosis almost resolved. Blood pressure has been stable. Patient with history of osteomyelitis, supposed to receive 6 weeks of IV meropenem, however PICC line was removed for unknown reason recently, so patient missed some antibiotics days. 10 more days of IV meropenem to complete antibiotic course for osteomyelitis. ID is following and managing antibiotics. Patient is alert and oriented and communicates meaningfully, has good insight into his medical problems. He declined hospice and want to continue aggressive treatment. PICC line placed for outpatient IV antibiotics. Urine culture grew Pseudomonas. Continued other home medications. Held lisinopril for blood pressure. Status post 2 unit PRBC transfusion. Posttransfusion hemoglobin stable between 9 and 10. Wound care team assisted with management of his multiple decubitus ulcers. Wound packing per wound care. Per report, wound VAC has been leaking and it has been difficult to apply to seal without air leak. Patient deemed clinically stable for discharge. Vital Signs/Physical Exam: Temp Pulse Resp BP Pulse Ox 97.5 F 76 16 119/73 98 10/17/21 08:00 10/17/21 08:00 10/17/21 08:00 10/17/21 08:00 10/17/21 08:00 General: Alert, In no apparent distress, Oriented x3 HEENT: Mucous membr. moist/pink Neck: JVD not distended Respiratory: Clear to auscultation bilaterally, Normal air movement Cardiovascular: Regular rate/rhythm, Normal S1 S2, Edema (Bilateral legs) Gastrointestinal: Soft and benign, Non-distended, Other (Colostomy) Integumentary: Other (Large sacral decubitus ulcers) Neurological: Other (Paraplegia) Laboratory Data at Discharge: WBC 13.10 K/uL (4.3-10.9) H D 10/17/21 05:12 Hgb 8.0 g/dL (13.6-17.9) L 10/17/21 05:12 Hct 24.2 % (39.6-49.0) L 10/17/21 05:12 Plt Count 628 K/uL (152-406) H 10/17/21 05:12 PT 15.1 SECONDS (9.5-12.5) H 10/10/21 07:20 INR 1.31 10/10/21 07:20 Sodium 136 mmol/L (136-145) 10/17/21 05:12 Potassium 3.9 mmol/L (3.5-5.1) 10/17/21 05:12 BUN 18 mg/dL (7-18) 10/17/21 05:12 Creatinine 0.55 mg/dL (0.55-1.3) 10/17/21 05:12 Glucose 170 mg/dL (74-106) H 10/17/21 05:12 Magnesium Cancelled 10/12/21 04:22 Total Bilirubin Cancelled 10/16/21 05:00 AST Cancelled 10/16/21 05:00 ALT Cancelled 10/16/21 05:00 Alkaline Phosphatase Cancelled 10/16/21 05:00 Lipase 66 U/L (73-393) L 10/10/21 07:15 Home Medications: Albuterol Neb [Proventil 0.083% Neb Soln] 1 inh IH Q6HP PRN 09/06/21 Aripiprazole [Abilify] 10 mg PO DAILY 09/06/21 Aspirin [Aspirin EC 81 MG] 81 mg PO DAILY 09/06/21 Hydroxyurea [Hydrea*] 500 mg PO DAILY 09/06/21 Melatonin 5 mg PO BEDTIME PRN 09/06/21 Omeprazole 10 mg PO BID 09/06/21 Ascorbic Acid [Vitamin C*] 500 mg PO BID tablet 09/19/21 Collagenase [Santyl Ointment*] 1 appl TOP DAILY tube 09/19/21 Glucerna Shake [Glucerna*] 237 ml PO QID can 09/19/21 Insulin -Regular Human [Novolin -R*] See Protocol SQ ACHS ml 09/19/21 Mirtazapine [Remeron*] 15 mg PO BEDTIME tab 09/19/21 Buspirone HCl [Buspar] 10 mg PO BID 09/24/21 Docusate [Colace Cap*] 100 mg PO BID 09/24/21 Ferrous Sulfate 325 mg PO DAILY 09/24/21 Gabapentin 100 mg PO TID 09/24/21 Multivitamin 1 each PO DAILY 09/24/21 Sertraline [Zoloft*] 50 mg PO BEDTIME 09/24/21 Valentin [Valentin*] 1 pkt PO BID #60 powd.pack 10/02/21 Midodrine HCl [Proamatine*] 10 mg PO QID #120 tab 10/02/21 Albuterol Inhaler [Ventolin Inhaler*] 1 puff IH BID 10/11/21 Mag Hydrox/Aluminum Hyd/Simeth [Alum-Mag Hydroxide-Simeth Susp] 30 ml PO Q8HP PRN 10/11/21 Medihoney [Medihoney Woundcare Gel*] 1 appl TOP DAILY tube 10/17/21 Meropenem [Merrem*] 1 gm IV Q8H 10 Days vial 10/17/21 traMADol HCL [Ultram*] 50 mg PO Q6H PRN tab 10/17/21 New Medications: Meropenem [Merrem*] 1 gm IV Q8H 10 Days vial Followup: Unknown,U [Primary Care Provider] - Time spent managing pt's care (in minutes): 40
--- NOTE | 2021-10-17 10:17 | RAD REPORT ---
EXAM DESCRIPTION: [place] Single View10/16/2021 11:55 pm CLINICAL HISTORY: 61 years Male, PICC placement COMPARISON: None. FINDINGS: Left upper extremity PICC line present with tip at the cavoatrial junction. There are hazy opacities in both lower lung zones. Small bilateral pleural effusions are present. No pneumothorax. Cardiomediastinal silhouette is unremarkable. Posterior thoracic spinal fusion hardware noted. IMPRESSION: 1. Left upper extremity PICC line tip at the cavoatrial junction. 2. Bibasilar pulmonary opacities may represent atelectasis or infiltrates. 3. Small bilateral pleural effusions. Electronically signed by: Lalo Stokes MD 10/17/2021 12:20 AM TRAVEL GUIDE Due to temporary technical issues with the PACS/Fluency reporting system, reports are being signed by the in house radiologist without review as a courtesy to ensure prompt reporting. The interpreting r adiologist is fully responsible for the content of the report.
[2021-10-17] MEDS ORDERED: MORPHINE 2 MG/ML SYR IV ONE (13:25)
--- NOTE | 2021-10-17 15:35 | P.PN ---
Subjective Date of Service: 10/17/21 Chief Complaint: Sepsis not Severe And examined at bedside, PICC line placed on 10/16 to left arm. Review of Systems 10-point ROS is otherwise unremarkable Physical Examination - Vital Signs Temperature: 97.8 F Blood Pressure: 137/69 Pulse: 77 Respirations: 16 Pulse Ox (%): 99 - Studies Active Medications Aripiprazole (Aripiprazole 5 Mg Tab) 10 mg PO DAILY [facility] Last Admin: 10/17/21 08:35 Dose: 10 mg Documented by: Ascorbic Acid (Ascorbic Acid 500 Mg Tablet) 500 mg PO BID [facility] Last Admin: 10/17/21 08:38 Dose: Not Given Documented by: Aspirin (Aspirin Ec 81 Mg Tab) 81 mg PO DAILY [facility] Last Admin: 10/17/21 08:35 Dose: 81 mg Documented by: Buspirone HCl (Buspirone Hcl 5 Mg Tablet) 10 mg PO BID [facility] Last Admin: 10/17/21 08:36 Dose: 10 mg Documented by: Collagenase (Collagenase 30 Gm Ointment) 1 appl TOP DAILY [facility] Last Admin: 10/17/21 08:44 Dose: 1 appl Documented by: Emollient Gel (Medihoney 44 Ml Topical Tube) 1 appl TOP DAILY [facility] Last Admin: 10/17/21 08:42 Dose: 44 ml Documented by: Enoxaparin Sodium (Enoxaparin 40 Mg/0.4 Ml) 40 mg SQ DAILY [facility] Last Admin: 10/17/21 08:37 Dose: 40 mg Documented by: Enteral Nutritional Formula (Glucerna Shake 237 Ml Can) 237 ml PO QID [facility] Last Admin: 10/17/21 11:53 Dose: 237 ml Documented by: Ferrous Sulfate (Ferrous Sulfate 325 Mg Tab) 325 mg PO DAILY [facility] Last Admin: 10/17/21 08:37 Dose: 325 mg Documented by: Gabapentin (Gabapentin 100 Mg Cap) 100 mg PO TID [facility] Last Admin: 10/17/21 14:11 Dose: 100 mg Documented by: Meropenem 1,000 mg/ Sodium (Chloride) 100 mls @ 200 mls/hr IV Q8H [facility] Stop: 10/29/21 14:01 Last Admin: 10/17/21 14:11 Dose: 100 mls Documented by: Ceftazidime 1 gm/ Sodium (Chloride) 50 mls @ 100 mls/hr IV Q8HR [facility] Stop: 10/29/21 17:01 Insulin Human Regular (Insulin -Regular Human 50 Unit/0.5 Ml Ml) 0 unit SQ ACHS [facility]; Protocol Last Admin: 10/17/21 11:30 Dose: Not Given Documented by: L-Arginine/L-Glutamine/HMB (Valentin Packet) 1 pkt PO BID [facility] Last Admin: 10/17/21 08:43 Dose: Not Given Documented by: Midodrine (Midodrine Hcl 5 Mg Tablet) 10 mg PO TID [facility] Last Admin: 10/17/21 14:11 Dose: 10 mg Documented by: Mirtazapine (Mirtazapine 15 Mg Tab) 15 mg PO BEDTIME [facility] Last Admin: 10/17/21 00:00 Dose: 15 mg Documented by: Ondansetron HCl (Ondansetron 4 Mg/2 Ml Vial) 4 mg IV Q6HP PRN PRN Reason: NAUSEA / VOMITING Sertraline HCl (Sertraline Hcl 50 Mg Tab) 50 mg PO BEDTIME [facility] Last Admin: 10/17/21 00:00 Dose: 50 mg Documented by: Sodium Chloride (Flush Normal Saline 10 Ml) 10 ml IV BID [facility] Last Admin: 10/17/21 08:44 Dose: 10 ml Documented by: Tramadol HCl (Tramadol Hcl 50 Mg Tab) 50 mg PO Q6H PRN PRN Reason: Pain scale 5-7 (Moderate) Last Admin: 10/17/21 05:37 Dose: 50 mg Documented by: Assessment And Plan - Plan Physical Exam: General: Alert, In no apparent distress HEENT: Atraumatic, Normocephalic Neck: Supple Respiratory: Clear to auscultation bilaterally, Normal air movement Cardiovascular: Normal pulses, Regular rate/rhythm Capillary refill: <2 Seconds Gastrointestinal: Normal bowel sounds, Other (Colostomy bag, site is clean dry and intact with no clinical signs of infection) Integumentary: Pressure ulcer (Stage IV sacral decubitus wound that extends down to patient's scrotum and down lateral aspect of right thigh. Incision so shows no clinical signs of infection, no malodor or drainage. Base of wound shows healthy viable tissue.), Other (Bilateral lower extremity edema 1-2+) Neurological: Other External genitalia: Other (Suprapubic catheter, site is clean dry and intact with no clinical signs of infection) Antibiotics: Meropenem: 2/18current Ceftazidime: 10/13current Vancomycin: Conclusions/Impression: Assessment/plan Sacral decubitus ulcer extending to scrotum and lateral aspect of right thigh with osteomyelitis Antibiotics have not been given since 10/14 due to no access, PICC line pending. Will need to extend dates of both ceftazidime and meropenem. -MRI performed on patient's first hospital admission(09/04-09/19) confirmed osteomyelitis of both ischium and left femur. Wound cultures obtained on that visit grew ESBL producing E. coli and Proteus mirabilis, both sensitive to meropenem. Meropenem started on 09/06/2021 to be completed for 6 weeks. When patient was discharged from our facility on 10/02 and sent back to the group home his PICC line was removed and antibiotics were stopped. uring hospital stay IV access was lost and then gained on 10/16 when left arm PICC was placed. As such need to extend antibiotics, tentative antibiotic completion date of 10/29. -Wound VAC placed to sacral decubitus wound removed on 10/16 due to inability to maintina seal. Current wound care: clean with saline, apply medihoney to base of wound, and fill cavity with gauze. COver with medipore and foam dressing. Change daily or PRN if soiled or removed. -To area extending down right thigh: Currently using Santyl to base of wound and wet-to-dry. Recommend switching Santyl to Medihoney to cover base of wound. -Avoid direct pressure, reposition patient in bed every 2 hours during waking hours. Recommend low air loss mattress. UTI Urine culture growing Pseudomonas resistant to meropenem. Ceftazidime started on 10/13, continue for 7 days. Need to extend for 3 day due to loss o IV access. No evidence of pyelonephritis noted on CT abdomen and pelvis. Leukocytosis downtrending, Continue monitor WBC trend and fever curve. Diabetes Continue sliding scale insulin, strict glucose monitoring needed for proper infection control/wound healing Anemia of chronic disease Continue to monitor H&H, recommend transfusion if hemoglobin drops below 7.0 Protein caloric malnutrition: Severe Recommend supplemental Ensure protein drinks. Adequate nutrition needed for proper wound healing. Pressure wounds to right lower extremity -Right knee wound with scabbing present: Recommend covering with foam -Right anterior ruiz stage II wound: Recommend using xerofrom and foam -Medical management per primary team Continue monitor CBC and BMP Continue monitor for signs of infection Plan of care discussed with Dr. Dumont Thank for consultation
[2021-10-17 16:26] VITALS: BP 155/82; TEMP 97.4
[2021-10-17] MEDS ORDERED: CEFTAZIDIME 1 GM in NA CHLORIDE 0.9% 50 ML IV SCH (17:00)
== END 2021-10-17 05:20 | DRG 698 ==
LOC: ER 05:53 → ERHOLD 09:34 → 3RD-ICU 11:44 → 2ND 10-12 18:35
PROVIDERS: ADMIT Hospitalist; ATTEND Hospitalist
PROC: 30233N1 Transfusion of Nonautologous Red Blood Cells into Peripheral Vein, Percutaneous Approach (ICD-10-PCS; 2021-10-10)
PROC: 02HV33Z Insertion of Infusion Device into Superior Vena Cava, Percutaneous Approach (ICD-10-PCS; principal; 2021-10-16)
DX: T83.511A Infection and inflammatory reaction due to indwelling urethral catheter, initial encounter (principal); L89.154 Pressure ulcer of sacral region, stage 4; A41.9 Sepsis, unspecified organism; E43 Unspecified severe protein-calorie malnutrition; M46.28 Osteomyelitis of vertebra, sacral and sacrococcygeal region; R64 Cachexia; R18.8 Other ascites; G82.20 Paraplegia, unspecified; N30.90 Cystitis, unspecified without hematuria; B96.5 Pseudomonas (aeruginosa) (mallei) (pseudomallei) as the cause of diseases classified elsewhere; D53.9 Nutritional anemia, unspecified; Z68.25 Body mass index [BMI] 25.0-25.9, adult; E11.69 Type 2 diabetes mellitus with other specified complication; E11.649 Type 2 diabetes mellitus with hypoglycemia without coma; L89.892 Pressure ulcer of other site, stage 2; I95.9 Hypotension, unspecified; K21.9 Gastro-esophageal reflux disease without esophagitis; F32.9 Major depressive disorder, single episode, unspecified; Z93.3 Colostomy status; Z20.822 Contact with and (suspected) exposure to COVID-19
CPT/HCPCS: 36415; 36569; 71045; 71260; 74177; 80048; 80053; 81001; 81003; 82947; 83605; 83690; 83735; 83880; 84145; 84484; 85014; 85018; 85025; 85610; 86850; 86900; 86901; 87040; 87077; 87086; 87088; 87186; 93005; 99251; 99284; C9113; J0692; J0713; J1650; J1720; J2185; J2270; J2405; J3010; J3370; J3475; J3590; J7030; J7040; J7050; P9016; Q9967; U0003

== ENCOUNTER 2021-11-24 17:13 | Emergency (ER) | payer OTHER ==
--- OUTSIDE RECORDS SUMMARY | 2021-11-24 17:16 | XMS REPORT | Continuity of Care Document ---
:1960 Author Organization [facility] t Address [address] [place] [address] Dr. Hernández [address] [place] [id number] Care Team Providers Name Role Phone TOR BILLINGSLEY Primary Care Physician Unavailable Heydi MERRITT Attending Clinician Unavailable Tyler MERRITT Attending Clinician Unavailable Heydi ABBOTT Attending Clinician Unavailable Melonie RUBACLAVA Attending Clinician Unavailable Jaye LEWIS Attending Clinician Unavailable Tyler SPIVEY Attending Clinician Unavailable Melonie HEARN Attending Clinician Unavailable Payers Payer Name Policy Type Policy Number Effective Date Expiration Date S tabby TP13 SSI RECIPIENT [id number] 2020 00:00:00 Problems This patient has no known problems. Allergies, Adverse Reactions, Alerts This patient has no known allergies or adverse reactions. Medications This patient has no known medications. Procedures This patient has no known procedures. Encounters Start End Encounter Admission Attending Care Care Encounter Source Date/Time Date/Time Type Type Clinicians Facility Department ID 2021-01-13 Inpatient [facility] [id number] H arris 18:20:50 Health 2021-01-02 Inpatient [facility] [id number] H arris 00:00:00 [facility] 2016-04-24 Inpatient [facility] [id number] Hassan rris 00:00:00 [facility] 2016-04-23 Inpatient [facility] [id number] Hassan rris 10:46:48 Health 2016-04-23 Inpatient [facility] [id number] Hassan rris 00:00:00 [facility] 2016-04-22 Inpatient [facility] [id number] Hassan rris 14:30:15 Health 2016-04-21 Inpatient [facility] [id number] Hassan rris 12:39:58 Health 2016-04-20 Inpatient [facility] [id number] Hassan rris 22:29:26 Health 2016-03-27 Inpatient [facility] [id number] Hassan rris 20:23:40 Health 2016-03-26 Inpatient [facility] [id number] Hassan rris 11:17:47 [facility] 2016-03-24 Inpatient [facility] [id number] Hassan rris 07:36:08 [facility] 2021-01-20 2021-01-20 Emergency [facility] [id number] [place] 00:33:00 18:40:00 [facility] 2021-01-20 2021-01-20 Emergency [facility] [id number] [place] 03:37:53 03:37:53 [facility] 2021-01-11 2021-01-15 Inpatient [facility] [id number] [place] 08:45:00 22:54:00 [facility] 2020-12-29 2021-01-06 Inpatient DORIE ABBOTT [facility] [id number] [place] 21:43:00 16:03:00 [facility] 2020-12-31 2020-12-31 Inpatient AUDRA RUBALCAVA [facility] [id number] [place] 09:56:34 11:06:01 [facility] 2020-12-31 2020-12-31 Inpatient [facility] [id number] [place] 00:04:40 03:03:37 [facility] 2020-12-30 2020-12-30 Emergency [facility] [id number] [place] 07:01:57 07:13:10 [facility] 2020-12-30 2020-12-30 Emergency [facility] [id number] [place] 06:43:13 07:12:26 [facility] 2020-12-30 2020-12-30 [facility] [id number] [place] 01:29:43 02:11:53 [facility] 2020-12-30 2020-12-30 Emergency [facility] [id number] [place] 01:06:07 01:12:36 [facility] 2020-12-28 2020-12-28 Emergency [facility] [id number] [place] 07:29:00 08:13:00 [facility] 2018-05-17 2018-05-17 Outpatient [facility] [id number] [place] 00:00:00 00:00:00 [facility] 2018-03-15 2018-03-15 Outpatient [facility] [id number] [place] 00:00:00 00:00:00 [facility] 2018-03-02 2018-03-02 Outpatient [facility] [id number] [place] 00:00:00 00:00:00 [facility] 2018-02-15 2018-02-15 Outpatient [facility] [id number] [place] 10:21:05 10:21:05 [facility] 2018-02-15 2018-02-15 Outpatient [facility] [id number] [place] 08:57:13 08:57:13 Health 2018-02-14 2018-02-14 Outpatient [facility] [id number] [place] 08:25:53 08:25:53 Health 2018-02-08 2018-02-08 Outpatient [facility] [id number] [place] 00:00:00 00:00:00 Health 2018-02-08 2018-02-08 Outpatient [facility] [id number] [place] 00:00:00 00:00:00 Health 2018-01-24 2018-01-24 Outpatient [facility] [id number] [place] 09:03:55 09:03:55 Health 2017-12-30 2017-12-30 Outpatient [facility] [id number] [place] 08:44:14 08:44:14 Health 2017-12-21 2017-12-21 Outpatient [facility] [id number] [place] 11:24:57 11:24:57 Health 2017-12-21 2017-12-21 Outpatient [facility] [id number] [place] 09:28:09 09:28:09 Health 2017-12-21 2017-12-21 Outpatient [facility] [id number] [place] 09:04:44 09:04:44 Health 2017-12-14 2017-12-14 Outpatient [facility] [id number] [place] 08:35:20 08:35:20 Health 2017-12-13 2017-12-13 Outpatient [facility] [id number] [place] 14:16:59 14:16:59 Health 2016-05-09 2016-05-09 Emergency [facility] [id number] [place] 10:56:06 10:56:06 Health 2016-04-21 2016-04-21 Emergency [facility] [id number] [place] 00:35:08 00:35:08 Health 2016-03-24 2016-03-24 Emergency [facility] [id number] [place] 09:36:59 09:36:59 Health Results This patient has no known results.
[2021-11-24] MEDS ORDERED: NA CHLORIDE 0.9% 2,000 ML ONE (17:32)
[2021-11-24 17:53] LABS: Absolute Lymphocytes (CBC) 0.8 K/uL (0.7-4.9); Lymphocytes % 3.9 % (15.3-44.8); MPV 7.1 fL (7.6-11.3); RBC Red Blood Cell Count 2.25 M/uL (4.33-5.43)
[2021-11-24] MEDS ORDERED: NA CHLORIDE 0.9% 250 ML ONE (17:54)
[2021-11-24] MEDS ORDERED: VANCOMYCIN 1 GM/VIAL ONE (17:54)
[2021-11-24] MEDS ORDERED: NA CHLORIDE 0.9% 100 ML IV ONE (17:55)
[2021-11-24] MEDS ORDERED: PIPERACIL/TAZO 3.375 GM VIAL IV ONE (17:55)
[2021-11-24 18:00] LABS: Protime INR 1.55
[2021-11-24 18:03] LABS: Hematocrit 20.5 % (39.6-49.0)
[2021-11-24 18:32] LABS: ALT/SGPT 13 U/L (12-78); AST/SGOT 13 U/L (15-37); Albumin 0.8 g/dL (3.4-5.0); Alkaline Phosphatase 313 U/L (45-117); BUN Blood Urea Nitrogen 46 mg/dL (7-18); Bicarbonate 19 mmol/L (21-32); Bilirubin Total 0.4 mg/dL (0.2-1.0); Glucose Level 224 mg/dL (74-106); Protein, Total 6.2 g/dL (6.4-8.2); Sodium Level 133 mmol/L (136-145)
[2021-11-24 18:35] LABS: Potassium 5.9 mmol/L (3.5-5.1)
--- NOTE | 2021-11-24 19:30 | RAD REPORT ---
EXAM DESCRIPTION: CT - Abdomen Pelvis W Contrast - 11/24/2021 7:09 pm CLINICAL HISTORY: Abdominal pain / sepsis COMPARISON: September 2021 TECHNIQUE: Computed axial tomography of the abdomen pelvis was obtained. 100 cc Isovue-300 was admin istered intravenously. Oral contrast was not requested which limits evaluation of bowel. All CT scans are performed using dose optimization technique as appropriate and may include automated exposure control or mA/KV adjustment according to patient size. FINDINGS: Small right pleural effusion. Mild right lower lobe opacities. The liver, spleen, pancreas, adrenal and kidneys appear unremarkable. There is no evidence of diverticulitis. Suprapubic catheter. Bladder wall thickening. Right femoral is filled with intraosseous air. Posterior soft tissue ulceration extends to the femora l head. Small amount of air is present within the right hip joint. Changes of chronic osteomyelitis involve the pubic bones and left femur. Air is present within the so ft tissues of the right hip and thigh. 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 Right hip sep tic arthritis
--- NOTE | 2021-11-24 19:31 | RAD REPORT ---
EXAM DESCRIPTION: [place] Single View11/24/2021 5:57 pm CLINICAL HISTORY: Sepsis COMPARISON: September 2021 FINDINGS: Patient has left hand overlies the left lung base obscuring detail. Mild right basilar lung opacities with small pleural effusion Heart is normal size IMPRESSION: Mild right basilar opacities may indicate mild pneumonia
--- NOTE | 2021-11-24 19:45 | EDPHYS ---
Physician Documentation [facility] Name: Harmeet Up Age: 61 yrs Sex: Male : 1960 Arrival Date: 11/24/2021 Time: 17:15 Bed 3 Private MD: ED Physician Josh Bejarano HPI: 11/24 18:13 This 61 yrs old Black Male presents to ER via EMS with complaints of General Weakness - rn low BP. 18:13 EMS report fdc called for AMS and low BP, BP in 70s, hx of anemia and chronic rn wounds. No fever. No trauma. Reports generalized weakness. . Onset: The symptoms/episode began/occurred at an unknown time. Severity of symptoms: At their worst the symptoms were moderate in the emergency department the symptoms are unchanged. The patient has experienced similar episodes in the past. The patient has not recently seen a physician. Historical: - Allergies: 17:22 No Known Allergies; ll1 - PMHx: 17:22 Anemia; Asthma; Bipolar disorder; depressive disorder; diabetes mellitus; ll1 Gastroesophageal reflux disease; Hypertensive disorder; Paraplegia; - Immunization history:: Client reports receiving the 2nd dose of the Covid vaccine. - Social history:: Smoking status: Patient denies any tobacco usage or history of. - Family history:: not pertinent. - Hospitalizations: : No recent hospitalization is reported. ROS: 18:13 Constitutional: + weight loss and generalized weakness Eyes: Negative for injury, pain, rn redness, and discharge, Neck: Negative for injury, pain, and swelling, Cardiovascular: Negative for chest pain, palpitations, and edema, Respiratory: Negative for shortness of breath, cough, wheezing, and pleuritic chest pain, Abdomen/GI: Negative for abdominal pain, nausea, vomiting, diarrhea, and constipation, Back: Negative for injury and pain, : Negative for injury, bleeding, discharge, and swelling, MS/Extremity: Negative for injury and deformity, Skin: + deep sacral wound Neuro: Negative for headache, numbness, tingling, and seizure. Exam: 18:13 Constitutional: Thin male, cachectic Head/Face: Normocephalic, atraumatic. Eyes: rn Periorbital areas with no swelling, redness, or edema. ENT: dry MM Cardiovascular: Regular rate and rhythm. No pulse deficits. Respiratory: No increased work of breathing, no retractions or nasal flaring. Abdomen/GI: Soft, non-tender, normal colored, non-bloody stool in ostomy Skin: Warm, + deep and large sacral wound with bone exposed and foul smell. MS/ Extremity: Pulses equal, no cyanosis. Neuro: Awake and alert, GCS 15, oriented to person, place, time, and situation. Vital Signs: 17:16 BP 84 / 49; Pulse 98; Resp 28; Temp 98.2; ll1 17:46 BP 74 / 54; Pulse 96; Resp 18; Weight 45.36 kg; Height 5 ft. 7 in. (170.18 cm); Pain jh6 9/10; 18:51 BP 80 / 55; Pulse 98; Resp 18; Pulse Ox 98% ; Pain 8/10; jh6 20:00 BP 88 / 56; Pulse 96; Resp 24 S; Pulse Ox 99% on R/A; as6 20:51 BP 81 / 54; Pulse 89; Resp 27 S; Pulse Ox 100% on R/A; as6 17:46 Body Mass Index 15.66 (45.36 kg, 170.18 cm) 6 MDM: 17:19 Patient medically screened. rn 18:57 Transition of care: After a detail discussion of the patient's case, care is rn transferred to Josh Bejarano MD. 19:45 Differential Diagnosis altered mental status, sepsis. Data reviewed: vital signs, [facility] nurses notes, EMS record, lab test result(s), EKG, radiologic studies, CT scan, plain films. Data interpreted: patient monitor: rate is 98 beats/min, rhythm is regular. Test interpretation: by ED physician or midlevel provider: ECG, plain radiologic studies. Counseling: I had a detailed discussion with the patient and/or guardian regarding: the historical points, exam findings, and any diagnostic results supporting the discharge/admit diagnosis, lab results, radiology results, the need for outpatient follow up, the need to transfer to another facility, for higher level of care, [facility] does not immediately have the required specialist. 11/24 17:26 Order name: Blood Culture Adult (2) rn 11/24 17:26 Order name: CBC with Diff; Complete Time: 20:33 rn 11/24 17:26 Order name: CMP; Complete Time: 18:37 rn 04/04 17:26 Order name: Lactate; Complete Time: 18:37 rn 11/24 17:26 Order name: Protime (+inr); Complete Time: 18:30 rn 11/24 17:26 Order name: Ptt, Activated; Complete Time: 18:30 rn 11/24 17:26 Order name: Procalcitonin; Complete Time: 18:37 rn 11/24 17:26 Order name: SARS-COV-2 RT PCR (Document "Date of Onset" if Symptomatic); Complete Time: rn 19:31 11/24 18:57 Order name: Type And Screen rn 11/24 19:51 Order name: Manual Differential; Complete Time: 20:33 EDVT 11/24 21:00 Order name: Packed RBC Leukored EDVT 11/24 17:26 Order name: Chest Single View XRAY; Complete Time: 19:37 rn 11/24 17:26 Order name: Accucheck rn 11/24 17:26 Order name: Cardiac monitoring; Complete Time: 17:45 rn 11/24 17:26 Order name: EKG - Nurse/Tech rn 11/24 17:26 Order name: IV Saline Lock - Large Bore rn 11/24 17:26 Order name: Labs collected and sent rn 11/24 17:27 Order name: CT Abd/Pelvis - IV Contrast Only; Complete Time: 19:37 rn 11/24 21:38 Order name: Lactate Sepsis 2 HR Follow-up EDVT 11/24 17:26 Order name: O2 Per Protocol rn 11/24 17:26 Order name: O2 Sat Monitoring rn 11/24 17:26 Order name: Urine Dipstick-Ancillary (obtain specimen) rn 11/24 19:39 Order name: Transfuse; Complete Time: 22:43 ramirez 11/24 19:40 Order name: Central Line Kit; Complete Time: 21:10 ramirez Administered Medications: 17:49 Drug: NS 0.9% (30 ml/kg) 30 ml/kg Route: IV; Rate: bolus; Site: right antecubital; jh6 18:27 Drug: Zosyn (piperacillin-tazobactam) 3.375 grams Route: IVPB; Infused Over: 60 mins; jh6 Site: right upper arm; 20:26 Drug: NS 0.9% (30 ml/kg) 30 ml/kg Route: IV; Rate: bolus; Site: right upper arm; kd3 20:56 Drug: NS 0.9% 1000 ml Route: IV; Rate: 125 ml/hr; Site: right upper arm; kd3 21:33 Drug: Levophed (norepinephrine) (4 mg/250 mL D5W 4 mcg/min Route: IV; Rate: calculated as6 rate; Site: right femoral; 21:33 Drug: NS 0.9% 500 ml Route: IV; Rate: bolus; Site: right upper arm; as6 22:42 Follow up: Rate change 500 ml; IV Status: Completed infusion kd3 22:43 Drug: vancoMYCIN 1 grams Route: IVPB; Infused Over: 2 hrs; Site: right antecubital; kd3 Disposition Summary: 11/24/21 19:44 Transfer Ordered Transfer Location: [facility] ramirez Reason: Higher level of care ramirez Condition: Critical ramirez Problem: new ramirez Symptoms: have worsened ramirez Accepting Physician: to icu, [facility](11/24/21 23:23) as6 Diagnosis - Osteomyelitis, unspecified - emphysemateous right femoral head ramirez - Anemia, unspecified ramirez - Acute kidney failure, unspecified - on chronic ramirez - Elevated white blood cell count ramirez - Hypotension, unspecified ramirez - Severe sepsis with septic shock ramirez - Pneumonia, unspecified organism - right basilar ramirez - Pressure ulcer of sacral region, stage 4 - large, infected ramirez - Hyperkalemia ramirez - Type 2 diabetes mellitus with hyperglycemia ramirez Forms: - Medication Reconciliation Form ramirez - SBAR form ramirez Signatures: Dispatcher [employer] EDJosh Tamayo MD MD cha Nieto, Roman, MD MD rn Lewis, Lynsay RN RN ll1 Cresencio Rincon RN RN as6 Keren Pruitt RN RN kd3 Gayatri Lazaro RN RN jh6 Corrections: (The following items were deleted from the chart) 18:24 18:13 Constitutional: Thin male, cachectic Head/Face: Normocephalic, atraumatic. Eyes: rn Periorbital areas with no swelling, redness, or edema. ENT: dry MM Cardiovascular: Regular rate and rhythm. No pulse deficits. Respiratory: No increased work of breathing, no retractions or nasal flaring. Abdomen/GI: Soft, non-tender Skin: Warm, + deep and large sacral wound with bone exposed and foul smell. MS/ Extremity: Pulses equal, no cyanosis. Neuro: Awake and alert, GCS 15, oriented to person, place, time, and situation. rn 19:51 19:44 to icu, [facility] ramirez guzmán 20:51 19:51 to icu, [facility] ramirez 23:23 20:51 to icu, [facility] as6
--- NOTE | 2021-11-24 19:45 | ER ---
Nurse's Notes [facility] Name: Harmeet Up Age: 61 yrs Sex: Male : 1960 Arrival Date: 11/24/2021 Time: 17:15 Bed 3 Private MD: Diagnosis: Osteomyelitis, unspecified-emphysemateous right femoral head;Anemia, unspecified;Acute kidney failure, unspecified-on chronic;Elevated white blood cell count;Hypotension, unspecified;Severe sepsis with septic shock;Pneumonia, unspecified organism-right basilar;Pressure ulcer of sacral region, stage 4-large, infected;Hyperkalemia;Type 2 diabetes mellitus with hyperglycemia Presentation: 11/24 17:16 Chief complaint: EMS states: Toned for AMS and low BP. Patient alert and talking to [facility] EMS. BP 80 systolic. Vitals otherwise WNL. Fingerstick 257. Coronavirus screen: Client denies travel out of the [place] in the last 14 days. At this time, the client does not indicate any symptoms associated with coronavirus-19. Ebola Screen: Patient denies travel to an Ebola-affected area in the 21 days before illness onset. Initial Sepsis Screen: Does the patient meet any 2 criteria? RR > 20 per min. HR > 90 bpm. Does the patient have a suspected source of infection? Yes: Skin breakdown/wound. Risk Assessment: Do you want to hurt yourself or someone else? Patient reports no desire to harm self or others. Onset of symptoms was November 24, 2021. 17:16 Method Of Arrival: EMS [facility] 17:16 Acuity: RUSSELL 2 ll1 17:22 Chief complaint: Patient states: Reports buttocks pain from chronic wound. Denies N/V/D.[facility] Triage Assessment: 17:22 General: Appears ill, Behavior is cooperative, appropriate for age. Pain: Complains of ll1 pain in buttocks Pain currently is 9 out of 10 on a pain scale. Quality of pain is described as aching, throbbing, Pain began chronic bed sore. Neuro: Reports weakness. Cardiovascular: Reports fatigue. Derm: Reports sacral wound. Historical: - Allergies: 17:22 No Known Allergies; ll1 - PMHx: 17:22 Anemia; Asthma; Bipolar disorder; depressive disorder; diabetes mellitus; ll1 Gastroesophageal reflux disease; Hypertensive disorder; Paraplegia; - Immunization history:: Client reports receiving the 2nd dose of the Covid vaccine. - Social history:: Smoking status: Patient denies any tobacco usage or history of. - Family history:: not pertinent. - Hospitalizations: : No recent hospitalization is reported. Screenin:48 Abuse screen: Denies threats or abuse. Nutritional screening: No deficits noted. jh6 Tuberculosis screening: No symptoms or risk factors identified. Fall Risk Fall in past 12 months (25 points). Secondary diagnosis (15 points) impaired mobility, IV access (20 points). Gait- Impaired (20 pts.). Assessment: 17:47 Reassessment: No changes from previously documented assessment. General: Appears in no jh6 apparent distress. Behavior is calm, cooperative. Pain: Complains of pain in buttocks Pain currently is 9 out of 10 on a pain scale. Quality of pain is described as sharp, shooting, Is continuous. 18:51 Reassessment: No changes from previously documented assessment. 6 21:00 Reassessment: Patient and/or family updated on plan of care and expected duration. Pain kd3 level reassessed. Patient is alert, oriented x 3, equal unlabored respirations, skin warm/dry/pink. Pain: Complains of pain in buttocks. Neuro: Level of Consciousness is awake, alert, obeys commands, Oriented to person, place, time, situation. Respiratory: Airway is patent Trachea midline Respiratory effort is even, unlabored. 22:30 Reassessment: pt to be transferred to [facility]. pt has one unit of packed red blood cells kd3 hanging. see paper charting for details. pt observed for 15 mins, no adverse reaction. pt also on Levophed drip for low bp at 2 mg/kg/ min. pt also has vancomycin running. pt alert and oriented and agreeable to transfer. pt with fresh brief, moisture noted coming from sacral wound. dressing from prison still in place. Vital Signs: 17:16 BP 84 / 49; Pulse 98; Resp 28; Temp 98.2; ll1 17:46 BP 74 / 54; Pulse 96; Resp 18; Weight 45.36 kg; Height 5 ft. 7 in. (170.18 cm); Pain jh6 9/10; 18:51 BP 80 / 55; Pulse 98; Resp 18; Pulse Ox 98% ; Pain 8/10; jh6 20:00 BP 88 / 56; Pulse 96; Resp 24 S; Pulse Ox 99% on R/A; as6 20:51 BP 81 / 54; Pulse 89; Resp 27 S; Pulse Ox 100% on R/A; as6 17:46 Body Mass Index 15.66 (45.36 kg, 170.18 cm) 6 ED Course: 17:15 Patient arrived in ED. 1 17:19 Prakash Davison MD is Attending Physician. rn 17:21 Triage completed. 1 17:22 Arm band placed on Patient placed in an exam room, on a stretcher. 1 17:46 Inserted saline lock: 18 gauge in right upper arm, using aseptic technique. Blood [facility] collected. 17:46 Initial lab(s) drawn, by mt, sent to lab. First set of blood cultures drawn. [facility] 17:48 Gayatri Lazaro, RN is Primary Nurse. [facility] 17:48 Served as a tube trailer filler during rectal exam. [facility] 17:58 Chest Single View XRAY In Process Unspecified. EDRI 19:07 Attending Physician role handed off by Prakash Davison MD [facility] 19:07 Josh Bejarano MD is Attending Physician. [facility] 19:11 CT Abd/Pelvis - IV Contrast Only In Process Unspecified. EDMS 19:46 initiated a transfer with Heena Scott from [facility]. mw2 19:48 initiated a transfer with Harvinder Ora from [facility]. mw2 20:21 [facility] denied due to capacity. mw2 20:[address] Bejarano with Dr. Roque from [facility]. mw2 20:52 Assisted provider with central line placement. Set up central line tray. Triple lumen as6 line placed in right femoral. Line placed by Chance Kolb MD Placement verified by blood return, Dressed with Tegaderm, Patient tolerated well. Before procedure, did Practitioner(s) obtain informed consent? Yes. Patient \T\ family education about procedure, CLABSI prevention and S/S of infection? Yes. Time-out/Briefing performed prior to start of procedure? Yes. Was handwashing/sanitizing done immediately prior to procedure? Yes. Was patient positioned to in a way to prevent air embolism? Yes. Was procedure site sterilized? Yes, with chlorhexidine. Was the site allowed to dry? Yes. During the procedure, did the Practitioner(s) maintain a sterile field? Yes. Were unused ports clamped during insertion? Yes. Was a 2nd qualified MD obtained after 3 unsuccessful insertion attempts? No. Was blood aspirated from each lumen? Yes. After the procedure, did the Practitioner(s) clean the site and apply a sterile dressing? Yes. 21:00 administrative approval given by Heena Scott/ patient has been accepted to [facility] mw2 to the ER /Dr. Castellon accepted the patient in transfer/report to be called to [phone]. Administered Medications: 17:49 Drug: NS 0.9% (30 ml/kg) 30 ml/kg Route: IV; Rate: bolus; Site: right antecubital; jh6 18:27 Drug: Zosyn (piperacillin-tazobactam) 3.375 grams Route: IVPB; Infused Over: 60 mins; jh6 Site: right upper arm; 20:26 Drug: NS 0.9% (30 ml/kg) 30 ml/kg Route: IV; Rate: bolus; Site: right upper arm; kd3 20:56 Drug: NS 0.9% 1000 ml Route: IV; Rate: 125 ml/hr; Site: right upper arm; kd3 21:33 Drug: Levophed (norepinephrine) (4 mg/250 mL D5W 4 mcg/min Route: IV; Rate: calculated as6 rate; Site: right femoral; 21:33 Drug: NS 0.9% 500 ml Route: IV; Rate: bolus; Site: right upper arm; as6 22:42 Follow up: Rate change 500 ml; IV Status: Completed infusion kd3 22:43 Drug: vancoMYCIN 1 grams Route: IVPB; Infused Over: 2 hrs; Site: right antecubital; kd3 Outcome: 19:44 ER care complete, transfer ordered by MD. guzmán 23:23 Patient left the ED. as6 Signatures: Dispatcher [employer] EDMS Josh Bejarano MD MD cha Nieto, Roman, MD MD rn [place], MyKena mw2 Krishna Lowe RN RN ll1 Cresencio Rincon RN RN as6 Keren Pruitt RN RN kd3 Gayatri Lazaro RN RN jh6 Corrections: (The following items were deleted from the chart) 17:24 17:16 Chief complaint: EMS states: Toned for AMS and low BP. Patient alert and talking ll1 to EMS. BP 80 systolic. Vitals otherwise WNL. ll1
[2021-11-24 19:50] LABS: Blood Morphology Comment NOT SEEN (NOT SEEN); Platelet Estimate INCR
--- NOTE | 2021-11-24 20:20 | P.OP ---
Preoperative diagnosis: Need for Central Venous Access Postoperative diagnosis: Need for Central Venous Access Primary procedure: Placement of LEFT femoral central venous access catheter Secondary procedure: ultrasound used Anesthesia: 1% lidocaine Estimated blood loss: <3cc Specimen: none Findings: non-pulsatile red blood returned Complications: None Implants: triple lumen central catheter Transferred to: Other (ER) Condition: Serious
[2021-11-24] MEDS ORDERED: NA CHLORIDE 0.9% 1,000 ML ONE (20:52)
[2021-11-24] MEDS ORDERED: NA CHLORIDE 0.9% 500 ML ONE ×2 (21:25→21:57)
[2021-11-24] MEDS ORDERED: NOREPINEPHRINE 4mg/D5W 250mL 4 MG/250 ML BAG IV ONE (21:25)
[2021-11-24] MEDS ORDERED: DIPHENHYDRAMINE 12.5MG/5ML LIQ ONE (22:14)
[2021-11-24] MEDS ORDERED: ACETAMINOPHEN 325 MG TABLET ONE (22:14)
[2021-11-24] MEDS ORDERED: DIPHENHYDRAMINE 50 MG/ML VIAL ONE (22:16)
[2021-11-25 01:18] VITALS: TEMP 98.2
[2021-11-25 01:22] VITALS: BP 81/54; O2SAT 100
--- NOTE | 2021-11-25 02:50 | OP ---
Date of Procedure: 11/24/2021 Surgeon: Chance Kolb MD, Preoperative Diagnosis: Need for central venous access/hypotension. Postoperative Diagnosis: Need for central venous access/hypotension. Procedure Performed: Placement of left femoral central venous access catheter using ultrasound karoline nce. Anesthesia: 1% lidocaine utilized. Estimated Blood Loss: Less than 3 cc. Specimen: None. Findings: Nonpulsatile dark red blood returned. Complications: None. Implants: Triple-lumen central venous catheter. Condition: The patient remained in the ER in serious condition at the end of the procedure. Procedure In Detail: After informed consent was obtained, the patient was prepped and draped in the usual sterile fashion. After adequate anesthesia was achieved, I cannulated the area of the right fe moral vein on the first attempt with a microintroducer set. Dark red nonpulsatile blood was returned . Microwire was advanced. At this point, small petra incision made at the insertion site. The micro introducer sheath was placed. At this point, microwire was removed and cannula portion was removed. The standard wire was advanced through this without evidence of complication. Sequential dilatation was performed using Seldinger technique. Ultimately catheter was removed and the standard catheter was advanced at this point with dark red nonpulsatile blood returned from all ports. Standard wire w as removed at this point. All ports shakila back blood easily and were flushed with sterile saline and the catheter was then secured to the skin using the attached 2-0 nylon suture and a sterile dressing placed over top. The patient tolerated the procedure well without any complication and remained in t ER in serious condition. All counts were correct at the end of the case. TK/MODL Voice ID: [id number] Report ID: [id number]
== END 2021-11-24 23:23 | disposition short-term general hospital (02) ==
LOC: ER 17:13
PROC: 30243N1 Transfusion of Nonautologous Red Blood Cells into Central Vein, Percutaneous Approach (ICD-10-PCS; principal; 2021-11-24)
PROC: 06HY33Z Insertion of Infusion Device into Lower Vein, Percutaneous Approach (ICD-10-PCS; 2021-11-24)
DX: D64.9 Anemia, unspecified (principal); R65.21 Severe sepsis with septic shock; I95.9 Hypotension, unspecified; J18.9 Pneumonia, unspecified organism; M86.9 Osteomyelitis, unspecified; E11.22 Type 2 diabetes mellitus with diabetic chronic kidney disease; I12.9 Hypertensive chronic kidney disease with stage 1 through stage 4 chronic kidney disease, or unspecified chronic kidney disease; N18.9 Chronic kidney disease, unspecified; E87.5 Hyperkalemia; E11.65 Type 2 diabetes mellitus with hyperglycemia; D72.829 Elevated white blood cell count, unspecified; L89.154 Pressure ulcer of sacral region, stage 4; I10 Essential (primary) hypertension; G82.20 Paraplegia, unspecified; Z20.822 Contact with and (suspected) exposure to COVID-19
CPT/HCPCS: 87040; 85025; 36415; 86900; 86850; 87205 ×2; 85610; 86901; 83605 ×2; 85730; 80053; 84145; 74177; 71045; 36430; 36556; 76937; U0003; Q9967; J1200; J2543; J3370; P9016; J7050; J7040 ×2; J7030 ×2; 87077; 87186; 99285; Q0163